=== PATIENT | female | born 1965 | race Caucasian/White ===

== ENCOUNTER 2018-10-27 10:09 | Day surgery (SDC) | payer MEDICAID, SELFPAY ==
--- NOTE | 2018-10-27 06:25 | W.COLOREPORT ---
Date of service: 10/27/18 Time of Service: 11:16 Colonoscopy Report Date of procedure: 10/27/18 Pre-op diagnosis general: Colon Cancer Screening Post-op diagnosis procedure note: other (polyps, Grade 1 internal hemorrhoids) Procedure: Colonoscopy by forceps and snare Surgeon: Shruthi Zuniga Anesthesia proc note operative: other (General/ ASA 2/ Tom Fonseca, CASE SUPERVISOR) Estimated blood loss (mL): 3 Pathology: other (sigmoid polyp, rectal polyp x2) Complications: None Disposition: same day Indications: Mrs. Valenzuela is a pleasant 53 year old female seen in the office for her first colonoscopy. Risks, benefits and complications have been reviewed. Complications include but are not limited to bleeding, pain, perforation, missed small lesion/polyp, sore throat, aspiration and adverse reaction to the medications. Questions were entertained and answered to their satisfaction and they wished to proceed. No guarantees were given or implied. Prep: Miralax/Dulcolax Procedure Start Time: 11:16 Procedure End Time: 11:57 Retraction Time: 42 minutes Findings: 3 polyps Procedure Description: After informed consent was obtained the patient was taken to the procedure room and placed in a left decubitous position. Monitors were applied and a time out was done. The patients name, date of , procedure, allergies to medications and metal in their body was reviewed. The patient was then sedated. Once sedated and comfortable a rectal exam was done. External exam was normal. Internal exam revealed a normal sphincter tone and no palpable masses. The scope was then introduced and retro-flexed. Grade 1 internal hemorrhoids were identified. The scope was then advanced to the cecum without difficulty. The TI and appendiceal orifice were identified. The prep was sub-optimal on the right. >1L of fluid was used to clean the price of the colon on the right in order to get a good view. The scope was then slowly retracted over 42 minutes back into the rectum. Polyps were removed with cold forceps in the sigmoid colon and with a snare in the rectum x2. The scope was removed and the patient was woken up and taken back to Same day surgery in stable condition. The patient tolerated the procedure well and there were no immediate complications. Follow up: The patient should follow up in 3-5 years unless they develop changes in bowel habits or other new gastrointestinal complaints.
--- NOTE | 2018-10-27 06:26 | W.PM.DSUDISC ---
Discharge Plan Disposition Patient Disposition: HOME Condition: Good Discharge Details Reason For Visit: Colonoscopy Attending Provider: Shruthi Zuniga Primary Care Provider: Nieves Granados Home Meds and New Rx's Prescriptions: Continued acetaminophen [Tylenol] 325 mg capsule 325 mg PO DAILY PRNRF: 0 Mirena 1 EACH intrauterine device RF: 0 Discontinued polyethylene glycol 3350 17 gram/dose powder 238 g PO ONCE Qty: 238 RF: 0 bisacodyl [Dulcolax (bisacodyl)] 5 mg tablet,delayed release (DR/EC) 5 mg PO ONCE Qty: 4 RF: 0 Discharge Instructions Instructions: Colonoscopy (DC), Colorectal Polyps (DC) Additional Instructions: Findings: 3 polyps Follow up: 3-5 years Please call if you develop: fevers >101.5 Nausea or Vomiting Abdominal pain that is not transient DAY SURGERY UNIT POST COLONOSCOPY INSTRUCTIONS 1. Because there will be medication in your system for the next 24 hours, you may feel a little sleepy. Your coordination will be affected. Therefore: a. Do not drive or operate dangerous equipment for 24 hours. b. Do not drink alcohol beverages for 24 hours (not even beer). c. Plan to go home and rest for the day. 2. Generally there are no restrictions on your activity after a day or so has gone by, but you may feel a bit fatigued for a few days. 3 After you arrive home you may have a light meal and return to a normal diet as you can tolerate it without feeling sick to your stomach. 4. After surgery, you may feel pain or discomfort. This should be only transient, but if it persists please contact your doctor. 5. If there are any questions regarding the findings of your procedure, please feel free to contact your doctor. 6. If you are unable to contact your doctor with a problem, contact the hospital at [phone]. 7. Continue all your regular medications unless directed otherwise. I understand the above instructions and have no questions. Signature of Patient or Responsible Adult Escort Date/Time Name of Responsible Adult Escort Signature of Nurse Date/Time Activity:: Activity as Tolerated Diet:: As Tolerated Discharge Orders Discharge Orders: Discharge Order (Routine); Ordered 10/27/18 Ordered By: Shruthi Zuniga DS: Diagnosis Discharge Diagnosis (1) S/P colonoscopy: Status: Acute (2) Colorectal polyps: Status: Acute
[2018-10-27 10:38] VITALS: BP 130/83; PULSE 96; RESP 18; TEMP 36.7; O2SAT 97
[2018-10-27] MEDS: Lactated Ringers 1,000 ML 80 ML IV (10:55)
--- NOTE | 2018-10-27 11:44 | BOWEL_PTH ---
PATIENT: Sydnie Valenzuela LOC: [facility] U#:[id number] AGE/SX: 53/F ROOM: RE10/27/[address]: Shruthi Zuniga MD : [id number] BED: DIS: 10/27/2018 SPEC #: [id number] RECD: 10/27/18 12:52 STATUS: GIA REQ #: [id number] GRECIA: 10/27/18 11:[address]: Shruthi Zuniga DEPT: Surgical Specimen RECD BY: Yumiko Gupta ENTERED: 10/27/18 12:53 SP TYPE: Bowel OTHR DR: Nieves Granados MD Tissues: 1 - BIOPSY BOWEL 2 - BIOPSY BOWEL Procedures: GROSS AND MICRO LEVEL 4 Comments: [id number]
[2018-10-27 12:30] VITALS: BP 134/91; PULSE 77; RESP 18; TEMP 37; O2SAT 94
== END 2018-10-27 13:24 | disposition home or self-care (01) ==
LOC: SUR 10:09
PROVIDERS: PCP Family Medicine; Visit Provider Surgery
PROC: 0DJD8ZZ Inspection of Lower Intestinal Tract, Via Natural or Artificial Opening Endoscopic (ICD-10-PCS; CPT 45378; principal; 2018-10-27 11:30)
DX: Z12.11 Encounter for screening for malignant neoplasm of colon (principal); K63.5 Polyp of colon; K62.1 Rectal polyp; K64.0 First degree hemorrhoids
CPT/HCPCS: 45385; 45380; 88305; J3010

== ENCOUNTER 2019-02-23 12:55 | Outpatient (CLI) | payer MEDICAID, SELFPAY ==
--- NOTE | 2019-02-23 12:15 | DI.US_ITS ---
SYMPTOM/DIAGNOSIS: LT LEG PAIN, M79.605, ? DVT DUPLEX VENOUS ULTRASOUND LEFT LOWER EXTREMITY: Duplex evaluation of the deep venous system was performed according to the usual protocol. The deep veins are freely compressible throughout to the level of the popliteal veins. There is normal doppler flow visible throughout and there is excellent flow augmentation with manual calf compression. CONCLUSION: No evidence of deep venous thrombosis.
== END 2019-02-23 13:15 ==
PROVIDERS: PCP Family Medicine; Visit Provider Nurse Practitioner
DX: M79.605 Pain in left leg (principal)
CPT/HCPCS: 93971

== ENCOUNTER 2019-03-17 22:29 | Inpatient (IN) | payer MEDICAID, SELFPAY ==
[2019-03-17 22:40] VITALS: BP 148/84; PULSE 77; RESP 18; TEMP 36.4; O2SAT 94
--- NOTE | 2019-03-17 22:55 | ED.GENADUL_ITS ---
Discharge Plan Disposition Condition: Improving Discharge Details Chief Complaint: Abd Prob Admit Date/Time: 03/18/19 01:47 Admit Provider: Joel Calles Attending Provider: Shun Rodriguez Primary Care Provider: Nieves Granados ED Provider: Lawson Metzger Discharge Instructions Activity:: Activity as Tolerated Equipment/Supplies:: No Equipment Needed Diet:: As Tolerated Discharge Orders Discharge Orders: Discharge Order (Routine); Ordered 03/20/19 Ordered By: India Gleason Discharge Data Discharge Date/Time-TO BE ENTERED AT DEPARTURE: 03/18/19 02:42 Medical Decision Making 23:53 --53-year-old female here with severe epigastric abdominal pain over the past 5 hours with associated nausea, tender to palpation focally in her epigastrum, without peritoneal findings. Patient is hemodynamically stable. She does appear uncomfortable. Of note patient has been taking heavy amounts of NSAIDs over the past couple weeks to treat left leg pain. Suspect gastritis secondary to NSAID use. Plan to treat with Pepcid IV as well as morphine IV. I will give IV fluid. Screening labs to assess for biliary disease and pancreatitis. Labs reviewed: Leukocytosis noted. Normal LFTs. Lipase slightly elevated beyond normal range. Plan to obtain CT of the abdomen pelvis to assess for acute surgical pathology. -- Labs reviewed. Mild elevation of lipase - possible pancreatitis. CT interpreted by radiology: FINDINGS: Lungs: The visualized portions of the lung bases demonstrate no acute disease. Liver: There is mild enlargement of the liver. There is a diffuse decrease in hepatic parenchymal density, consistent with fatty infiltration. Gallbladder and bile ducts: Patient status post cholecystectomy. No biliary ductal dilation. Pancreas: Normal. No ductal dilation. Spleen: Normal. No splenomegaly. Adrenals: Normal. No mass. Kidneys and ureters: Punctate right nephrolithiasis is appreciated. There is a 1 cm left renal cyst. Punctate nonobstructive left nephrolithiasis also appreciated. No evidence of obstructive uropathy. Stomach and bowel: There is a long segment of distal ileum which demonstrates mucosal hyperenhancement and significant wall thickening/target sign, favoring ileitis. This is causing upstream low-grade small bowel obstruction, as manifested by diffuse fluid distention of proximal small bowel loops extending up to the level of the jejunum. Small bowel loops measure up to 2.5 cm in greatest diameter. There is interloop fluid, as well as adjacent fat stranding to the inflamed distal ileal loops. Distal rectal air is present. The colon appears predominantly collapsed. Appendix: The appendix appears unremarkable. Intraperitoneal space: There is a small amount of mesenteric edema present. There is a small amount of free fluid in the cul-de-sac which is most likely reactive. Vasculature: The vasculature demonstrates diffuse mild atherosclerotic calcification. Lymph nodes: Unremarkable. No enlarged lymph nodes. Bladder: Unremarkable as visualized. Reproductive: IUD is present. Reproductive organs appear otherwise unremarkable. Bones/joints: No acute abnormality or aggressive osseous lesion. Soft tissues: Unremarkable. IMPRESSION: 1. Severe distal infectious/inflammatory ileitis causing upstream low-grade/early small bowel obstruction. No evidence of bowel perforation. 2. Other incidental findings as detailed above. I spoke with Dr. Calles. Patient admitted. Care transitioned to hospitalist service. Diagnosis: ileitis Dispo: admit to [facility] Mode of arrival: ambulatory . Date/Time Provider Initiated Documentation: 03/17/19 22:54 . Limitations to Documentation: no limitations . Information obtained by: patient . HPI Narrative: 53-year-old female with history of remote cholecystectomy, presents with chief complaint of abdominal pain. Patient notes epigastric abdominal pain that has persisted since onset about 5 hours ago. Now severe. No radiation. No modifiers. She has associated nausea and induced an episode of vomiting in hopes this would help her symptoms and it did not. Patient denies hematemesis. No melena or hematochezia. Prior to onset of pain, patient was asymptomatic today. No associated fever. Normal bowel movements recently. Patient does note that she has been taking ibuprofen, high-dose regularly over the past 2 weeks to treat left leg pain. At one point she was also taking Aleve simultaneously. Related Data Home Medications Medication Instructions Recorded Confirmed Mirena 03/29/15 04/01/19 acetaminophen [Mapap Extra 1,000 mg PO Q6H PRN PRN #0 tab 03/20/19 04/01/19 Strength] tramadol 50 mg PO Q4H PRN PRN #12 tab 03/20/19 04/01/19 Previous Rx's Medication Instructions Recorded acetaminophen [Mapap Extra 1,000 mg PO Q6H PRN PRN #0 tab 03/20/19 Strength] tramadol 50 mg PO Q4H PRN PRN #12 tab 03/20/19 Allergies Allergy/AdvReac Type Severity Reaction Status Date / Time No Known Allergies Allergy Verified 04/03/19 08:56 General Stated Complaint: Abd Prob ANIVAL: 3 Review of Systems Review of Systems ROS Unobtainable: All systems reviewed & are unremarkable except as noted in HPI and below Constitutional Constitutional: Denies fever(s) Gastrointestinal Gastrointestinal: Reports as per HPI, Reports abdominal pain, Reports nausea and Reports vomiting Musculoskeletal Comments: left leg pain PFSH Medical History Acute cholecystitis (Resolved 01/13/13) Cholelithiasis without obstruction (Resolved 01/13/13) Laparoscopic cholecystectomy by Dr. Osullivan on 01-13-2013. Colorectal polyps (Acute ~10/27/18) Kidney stone Kidney stone (Acute) Obesity Obesity (Chronic) Tobacco abuse Surgical History section C section X3 with her last having a wound dehiscence down to evisceration of loops of bowel. Cholecystectomy PER PATIENT 08/30/16 S/P colonoscopy (Acute ~10/27/18) Family History Mother , AGE 64 Diabetes Heart disease Stroke Hypertension Father , AGE 57 Alcohol abuse BEER Liver cancer Bone cancer Sister Hyperlipidemia Sister Diabetes Hyperlipidemia Hypertension Sister , AGE 38 Hepatitis C Substance abuse Alcohol abuse Sister No problems noted. Sister Alcohol abuse Diabetes Hypertension Brother Diabetes Maternal Grandfather Heart disease Stroke Paternal Grandfather Smoker Mouth cancer Maternal Grandmother Hypertension Paternal Grandmother , OLD AGE No problems noted. Son No problems noted. Son No problems noted. Daughter No problems noted. Social History Smoking/Tobacco Use Status: Current every day Tobacco Type: cigarettes Quit status: has quit before Second Hand Exposure: Yes Alcohol Intake: current Alcohol Intake frequency: a few times a month Alcohol type: hard liquor Drug use: Daily Substance use type: marijuana Details: 1/2 pack/day smoker. Alcohol: t-2: two drinks. Marijuana: edibles, T- 1, one piece of caramel Caregiver/Support person: No Household members: children Housing: house current occupation: [employer] Pets and animals: Yes Pets and animals: cat(s) Sexually active: No Do you think of yourself as: straight/heterosexual Current gender identity: female What is your relationship status?: How often do you talk on the phone with friends or family?: three or more times per week How often do you get together with friends or relatives?: three or more times per week How often do you attend mandaeism or judaism services?: decline to answer Do you belong to any clubs or organized social groups?: yes Panel score (0-1 are the most socially isolated patients): 2 What type of physical activity do you participate in: none Frequency: does not exercise Daphney/Pentecostalism: Pentecostalism Special daphney needs: No Seatbelt use: always Drive intox or ride w/intox mobile lounge driver: No Do you feel safe at home: Yes Do you feel safe in your relationship?: Yes History History Para 3 Hx # Term Pregnancies Multiple births Hx # Pregnancies Ectopic pregnancies AB induced Hx Number of Living Children AB spontaneous Exam Const General: cooperative and uncomfortable Nutritional Appearance: average body habitus Orientation: alert HENMT Mouth: moist mucous membranes Eyes Conjunctivae: normal conjunctivae Sclera: normal sclerae Neck Neck: trachea midline and supple Resp Auscultation: clear to auscultation bilaterally, no rales, no rhonchi and no wheezes Cardio Jugular venous pressure: no JVD Rate: regular rate and not tachycardic Rhythm: regular rhythm GI Palpation: soft, not firm, no guarding, no masses, not rigid and tender in the epigastrum; with no rebound tenderness Skin General skin exam: no rashes or lesions noted Neuro General: alert, awake and tone normal Extrem General: no edema Psych Appearance: grossly normal Mental Status: mental status grossly normal Speech and Movement: speech and movement normal Course Vital Signs Vital signs: Vital Signs Temperature 36.4 C 03/17/19 22:40 Pulse 77 03/17/19 22:40 Respiratory Rate 18 03/17/19 22:40 Blood Pressure 148/84 H 03/17/19 22:40 Pulse Oximetry 94 L 03/17/19 22:40 Temperature 36.4 C 03/17/19 22:40 Temperature Source Tympanic 03/17/19 22:40 Pulse 77 03/17/19 22:40 Respiratory Rate 18 03/17/19 22:40 Blood Pressure 148/84 H 03/17/19 22:40 Pulse Oximetry 94 L 03/17/19 22:40 Oxygen Delivery Method Room Air 03/17/19 22:40 Oxygen Flow Rate 0 03/17/19 22:40 Pain Level 10 03/17/19 22:40
[2019-03-17 23:06] LABS: Abs Immature Grans 0.03 k/cumm (0.0-0.09); Absolute Basophil Count 0.06 k/cumm (0.0-0.2); Absolute Lymphocyte Count 3.25 k/cumm (1.2-3.4); Absolute Monocyte Count 0.81 k/cumm (0.11-0.7); Basophils % 0.3; Eosinophils % 1.1; HCT 45.9 % (36.0-46.0); HGB 15.4 g/dL (12.0-15.5); Immature Grans % 0.2; Lymphocytes % 17.6; Mean Corp. HGB Concentration 33.6 g/dL (32.0-36.0); Mean Corpuscular Hemoglobin 29.3 pg (27.0-33.0); Mean Corpuscular Volume 87.3 fL (80-95); Mean Platelet Volume 9.2 fL (8.0-11.0); Monocytes % 4.4; Neutrophils % 76.4; Platelet Count 284 x1000/uL (130-400); RBC 5.26 m/cumm (4.00-5.20); RBC Distribution Width 12.5 % (11.7-14.6); White Blood Cell Count 18.46 k/cumm (4.4-10.8)
--- NOTE | 2019-03-17 23:06 | DI.CT_ITS ---
EXAM: CT ABDOMEN PELVIS W CLINICAL HISTORY: abdominal pain. TECHNIQUE: Imaging Protocol: Axial computed tomography images with coronal and sagittal reformatted images were created and reviewed CONTRAST MATERIAL: Intravenous: Omnipaque 350 Contrast volume:100 mL contrast route:IV - Oral: No COMPARISON: No exams were available for comparison FINDINGS: ABDOMEN: Lung Bases: Normal where visualized. Liver: Normal density. The portal, superior mesenteric, and splenic veins are patent. No mass. Gallbladder and biliary tract: The patient is status post cholecystectomy. No biliary ductal dilatat ion. Pancreas: Normal density, no abnormal calcifications or inflammatory process. Spleen: Normal. Kidneys: Normal size, contour and axis. There is bilateral nonobstructive nephrolithiasis. There are hypodensities seen in the kidneys bilaterally. Several are too small for further characterization bu t likely reflect cysts. No suspicious solid mass is seen. Adrenal glands: No masses seen. Abdominal Aorta: Abdominal portion non-dilated. PELVIS: Bladder: Symmetric distention, no gross wall thickening. Bowel: There is bowel wall enhancement and thickening in the distal ileum. There is stranding in the surrounding soft tissues. The small bowel proximally shows dilatation and is fluid-filled. This is suspicious for obstruction. Colon is of normal caliber. A normal appendix present. Peritoneal cavity: There is a small amount of free fluid in the pelvis. This is likely reactive. No pneumoperitoneum is present. Bones: Mild degenerative changes are seen in the spine. Reproductive organs: There is an intrauterine device in good position. The reproductive organs are o therwise unremarkable. Lymph nodes: Unremarkable. Impression: Bowel wall thickening and enhancement of the distal ileum consistent with inflammatory/infectious ile itis. Proximal small bowel dilatation suggesting obstruction. Pneumoperitoneum. DATA REPOSITORY: All CT scans at this facility are submitted to the National Radiology Data Registry (NRDR) Dose Index Registry (DIR) with the [employer] (A[employer]). RADIATION OPTIMIZATION: All CT scans at this facility use at least one of these dose optimization te chniques: automated exposure control; mA and/or kV adjustment per patient size (includes targeted exa ms where dose is matched to clinical indication); or iterative reconstruction.
[2019-03-17] MEDS: Ondansetron 4 MG/2 ML VIAL (23:25)
[2019-03-17] MEDS: Lactated Ringers 1,000 ML 1000 ML IV (23:25)
[2019-03-17] MEDS: FAMOTIDINE 20 MG/50 ML BAG 100 MG IVPB (23:25)
[2019-03-17] MEDS: metroNIDAZOLE 500 MG/100 ML BAG 100 MG IVPB (23:25)
[2019-03-17 23:26] LABS: ALT 41 U/L (14-59); AST 24 U/L (15-37); Albumin 4.2 g/dL (3.4-5.0); Alkaline Phosphatase 132 U/L (46-116); Anion Gap 9.8 mmol/L (3-11); BUN 12 mg/dL (7-18); Bilirubin, Total 0.5 mg/dL (0.2-1.0); CO2 25.2 mmol/L (21.0-32.0); CREATININE 0.81 mg/dL (0.55-1.02); Calcium 9.5 mg/dL (8.5-10.1); Chloride 103 mmol/L (98-107); Glucose 138 mg/dL (70-100); Magnesium 1.9 mg/dL (1.8-2.4); Potassium 3.9 mmol/L (3.5-5.1); Sodium 138 mmol/L (136-145); Total Protein 7.8 g/dL (6.4-8.2)
[2019-03-17 23:31] LABS: Troponin I < 0.05 ng/mL (0.00-0.06)
[2019-03-17 23:42] LABS: Lipase 422 U/L (73-393)
[2019-03-17] MEDS: Omnipaque 350 MG/ML 100 ML BTL IJ (23:45)
--- NOTE | 2019-03-18 00:38 | DI.VRAD_ITS ---
Addendum created by Eliseo Lovell MD on 03/18/2019 12:40:56 AM EDT THIS REPORT CONTAINS FINDINGS THAT MAY BE CRITICAL TO PATIENT CARE. The findings were verbally communicated via telephone conference with REED ZALDIVAR at 12:40 AM EDT on 03/18/2019. The findings were acknowledged and understood. Initial report created on 03/18/2019 12:37:11 AM EDT PROCEDURE INFORMATION: Exam: CT Abdomen and pelvis with contrast Exam date and time: 03/17/2019 11:08 PM Clinical history: 53 years old, female; Other: Abdominal pain; Prior surgery; Surgery date: 6+ months; Surgery type: Gallbladder removed TECHNIQUE: Imaging protocol: Computed tomography of the abdomen and pelvis with intravenous contrast. Radiation optimization: All CT scans at this facility use at least one of these dose optimization techniques: automated exposure control; mA and/or kV adjustment per patient size (includes targeted exams where dose is matched to clinical indication); or iterative reconstruction. Contrast material: OMNIPAQUE 350; Contrast volume: 100 ml; Contrast route: IV; COMPARISON: No relevant prior studies available. FINDINGS: Lungs: The visualized portions of the lung bases demonstrate no acute disease. Liver: There is mild enlargement of the liver. There is a diffuse decrease in hepatic parenchymal density, consistent with fatty infiltration. Gallbladder and bile ducts: Patient status post cholecystectomy. No biliary ductal dilation. Pancreas: Normal. No ductal dilation. Spleen: Normal. No splenomegaly. Adrenals: Normal. No mass. Kidneys and ureters: Punctate right nephrolithiasis is appreciated. There is a 1 cm left renal cyst. Punctate nonobstructive left nephrolithiasis also appreciated. No evidence of obstructive uropathy. Stomach and bowel: There is a long segment of distal ileum which demonstrates mucosal hyperenhancement and significant wall thickening/target sign, favoring ileitis. This is causing upstream low-grade small bowel obstruction, as manifested by diffuse fluid distention of proximal small bowel loops extending up to the level of the jejunum. Small bowel loops measure up to 2.5 cm in greatest diameter. There is interloop fluid, as well as adjacent fat stranding to the inflamed distal ileal loops. Distal rectal air is present. The colon appears predominantly collapsed. Appendix: The appendix appears unremarkable. Intraperitoneal space: There is a small amount of mesenteric edema present. There is a small amount of free fluid in the cul-de-sac which is most likely reactive. Vasculature: The vasculature demonstrates diffuse mild atherosclerotic calcification. Lymph nodes: Unremarkable. No enlarged lymph nodes. Bladder: Unremarkable as visualized. Reproductive: IUD is present. Reproductive organs appear otherwise unremarkable. Bones/joints: No acute abnormality or aggressive osseous lesion. Soft tissues: Unremarkable. IMPRESSION: 1. Severe distal infectious/inflammatory ileitis causing upstream low-grade/early small bowel obstruction. No evidence of bowel perforation. 2. Other incidental findings as detailed above. Dictated and Authenticated by: Eliseo Lovell MD. Ordering:IRAIDA Pathak MD
--- NOTE | 2019-03-18 01:30 | W.PM.HP.N ---
Date of service: 03/18/19 Time of Service: :30 Assessment and Plan Assessment and plan (1) Abdominal pain: Status: Acute Assessment and plan: Abdominal pain. By imaging appears to be acute ileitis, in turn causing partil SBO. The ileitis at this point is non-specific but NSAID-induced would have to be considered. Remainder of differenttial would includd mainly infectious versus inflammatory. For now I would institute program of bowel rest, pain meds and avoidance of NSAIDs. If does not resolve would likely need colonoscopy and stool studies. The slight elevation in Lipase is noted and along with the primary epigastric location of the pain suggests possible element of pancreatitis, though I think the overwhelming evidence is that this is fundamentally an ileocolitis. Will track numbers. History of Present Illness History of Present Illness Chief Complaint: abdominal pain Narrative: 53 female here with one day of fairly abrupt abdominal pain, epigastric and periumbilical. No radiation. Some nausea and vomiting, non-bloody. Last BM this AM, more or less normal for her, perhaps a little firmer than usual. In ER findings of note forr leukocytosis, slight elevation Lipase (422) and CT showing long segment of distal ileitis with partial SBO. Patient given MS 4 mg and 500 mg Flagyl. Patient reports heavy Motrin use oveer past several weeks, 2400 mg/day (for sciatica). No prio such episodes pain, no travel o diarrhea. Reports negative screening colonoscopy 11/02 though I am unable to find the report of procedure. Review of Systems Review of Systems ROS Unobtainable: All systems reviewed & are unremarkable except as noted in HPI and below PFSH Medical History Acute cholecystitis (Resolved 01/13/13) Cholelithiasis without obstruction (Resolved 01/13/13) Laparoscopic cholecystectomy by Dr. Osullivan on 01-13-2013. Colorectal polyps (Acute ~10/27/18) Kidney stone Kidney stone (Acute) Obesity Obesity (Chronic) Tobacco abuse Surgical History section C section X3 with her last having a wound dehiscence down to evisceration of loops of bowel. Cholecystectomy PER PATIENT 08/30/16 S/P colonoscopy (Acute ~10/27/18) Family History Mother , AGE 64 Diabetes Heart disease Stroke Hypertension Father , AGE 57 Alcohol abuse BEER Liver cancer Bone cancer Sister Hyperlipidemia Sister Diabetes Hyperlipidemia Hypertension Sister , AGE 38 Hepatitis C Substance abuse Alcohol abuse Sister No problems noted. Sister Alcohol abuse Diabetes Hypertension Brother Diabetes Maternal Grandfather Heart disease Stroke Paternal Grandfather Smoker Mouth cancer Maternal Grandmother Hypertension Paternal Grandmother , OLD AGE No problems noted. Son No problems noted. Son No problems noted. Daughter No problems noted. Social History Smoking/Tobacco Use Status: Current every day Tobacco Type: cigarettes Quit status: has quit before Second Hand Exposure: Yes Alcohol Intake: current Alcohol Intake frequency: a few times a month Alcohol type: hard liquor Drug use: Daily Substance use type: marijuana Details: 1/2 pack/day smoker. Alcohol: t-2: two drinks. Marijuana: edibles, T-1, one piece of caramel Caregiver/Support person: No Household members: children Housing: house current occupation: [employer] Pets and animals: Yes Pets and animals: cat(s) Sexually active: No Do you think of yourself as: straight/heterosexual Current gender identity: female What is your relationship status?: How often do you talk on the phone with friends or family?: three or more times per week How often do you get together with friends or relatives?: three or more times per week How often do you attend yarsanism or catholic services?: decline to answer Do you belong to any clubs or organized social groups?: yes Panel score (0-1 are the most socially isolated patients): 2 What type of physical activity do you participate in: none Frequency: does not exercise Daphney/Jewish: Oriental Orthodox Special daphney needs: No Seatbelt use: always Drive intox or ride w/intox transport truck driver: No Do you feel safe at home: Yes Do you feel safe in your relationship?: Yes History History Para 3 Hx # Term Pregnancies Multiple births Hx # Pregnancies Ectopic pregnancies AB induced Hx Number of Living Children AB spontaneous Meds Home Medications and Allergies Home Medications Medication Instructions Recorded Confirmed Type Mirena 03/29/15 03/12/19 History acetaminophen 325 mg capsule 325 mg PO DAILY PRN cap 10/17/18 03/12/19 History Allergies Allergy/AdvReac Type Severity Reaction Status Date / Time No Known Allergies Allergy Verified 03/17/19 22:43 Exam Narrative Exam Narrative: 148/84, 77, 36.4, 18. HEENT anicteric; neck supple; lungs clear; heart RRR; abdomen +BS, soft, moderate tenderness epigastrum. Rectal deferred; extr no edema; neuro non-focal Results Labs Result diagrams: 03/17/19 23:00 03/17/19 23:00 Labs: Laboratory Results - last 24 hr 03/17/19 03/17/19 03/17/19 23:00 23:00 23:20 WBC 18.46 H RBC 5.26 H Hgb 15.4 Hct 45.9 MCV 87.3 MCH 29.3 MCHC 33.6 RDW 12.5 Plt Count 284 MPV 9.2 Immature Gran % 0.2 Neutrophils % 76.4 Lymphocytes % 17.6 Monocytes % 4.4 Eosinophils % 1.1 Basophils % 0.3 Absolute Neutrophils 14.10 H Absolute Lymphocytes 3.25 Absolute Monocytes 0.81 H Absolute Eosinophils 0.20 Absolute Basophils 0.06 Sodium 138 Potassium 3.9 Chloride 103 Carbon Dioxide 25.2 Anion Gap 9.8 BUN 12 Creatinine 0.81 Estimated GFR/1.73 m2 >= 60.00 Glucose 138 H Calcium 9.5 Magnesium 1.9 Total Bilirubin 0.5 AST 24 ALT 41 Alkaline Phosphatase 132 H Troponin I < 0.05 Total Protein 7.8 Albumin 4.2 Lipase 422 H Last Vital Signs Temp 36.4 C 03/17/19 22:40 Pulse 77 03/17/19 22:40 Resp 18 03/17/19 22:40 BP 148/84 H 03/17/19 22:40 Pulse Ox 94 L 03/17/19 22:40
[2019-03-18 02:40] VITALS: BP 148/84; PULSE 77; RESP 18; O2SAT 94
[2019-03-18 02:53] VITALS: BP 108/63; PULSE 74; RESP 16; TEMP 36.5; O2SAT 93
[2019-03-18] MEDS: Lactated Ringers 1,000 ML 150 ML IV ×3 (03:29→18:22)
[2019-03-18] MEDS: Normal Saline Flush 10 ML SYR IVP ×2 (06:31→09:54)
[2019-03-18 07:43] LABS: Anion Gap 10.2 mmol/L (3-11); CO2 25.8 mmol/L (21.0-32.0); Chloride 104 mmol/L (98-107); Lipase 232 U/L (73-393); Potassium 4.1 mmol/L (3.5-5.1); Sodium 140 mmol/L (136-145)
[2019-03-18] MEDS: Pantoprazole 40 MG VIAL IVP (09:54)
[2019-03-18 10:01] VITALS: BP 97/66; PULSE 85; RESP 16; TEMP 36.6; O2SAT 95
--- NOTE | 2019-03-18 10:58 | PHARADMIT ---
Addendum entered by Erika Meneses 03/19/19 14:25: Pharmacy Note Subjective BM this morning, abdominal pain improving overall per progress note Objective VS-okay Cl-108 WBC-7.51(down) Assessment acetaminophen changed from IV to PO morphine dose decreased and tramadol ordered PRN for pain Plan advance diet, possible discharge tomorrow if pt continues to improve Original Note: Admission Pharmacy Clinical Review ileocolitis Code Status Full Code Current Weight 97.069 kg Renally Cleared and Narrow Therapeutic Index Meds Crcl ~70.10 mL/min current meds okay QTc Value / Action Taken QTc 419 BP Control, Fever BP 97/66 afebrile Electrolytes reviewed within normal limits DVT Prophylaxis none Opiate Usage / Scheduled Bowel Regimen Ordered prn/none Plt/SCr for Heparin / Enoxaparin plt 248 SCr 0.81 INR for Warfarin n/a H/H stable, WBC/Bands h/h 15.4/45.69 WBC 18.64 Antibiotic appropriateness none Cultures and Sensitivities none Surgical ABX d/c within 24 hr n/a DM control / Insulin Dosing BG 138 none Heart Failure (Check EF%) (KATHY's, B-Block, Diuretics) none IV to PO Switch n/a Home Meds Reviewed yes Home Meds Not Ordered acetaminophen Comments -some lab results are from yesterday as todays results are still pending -bowel rest, pain meds, avoid NSAIDS (? of this being NSAID induced)
[2019-03-18 11:37] LABS: Abs Immature Grans 0.02 k/cumm (0.0-0.09); Absolute Eosinophil Count 0.21 k/cumm (0.0-0.7); Absolute Lymphocyte Count 4.09 k/cumm (1.2-3.4); Absolute Monocyte Count 0.63 k/cumm (0.11-0.7); Basophils % 0.4; Eosinophils % 1.9; HCT 39.5 % (36.0-46.0); Immature Grans % 0.2; Lymphocytes % 36.3; Mean Corp. HGB Concentration 32.9 g/dL (32.0-36.0); Mean Corpuscular Hemoglobin 29.4 pg (27.0-33.0); Mean Corpuscular Volume 89.4 fL (80-95); Mean Platelet Volume 9.3 fL (8.0-11.0); Monocytes % 5.6; Neutrophils % 55.6; Platelet Count 280 x1000/uL (130-400); RBC 4.42 m/cumm (4.00-5.20); RBC Distribution Width 12.4 % (11.7-14.6); White Blood Cell Count 11.27 k/cumm (4.4-10.8)
[2019-03-18 11:40] LABS: Anion Gap 5.8 mmol/L (3-11); BUN 10 mg/dL (7-18); CO2 29.2 mmol/L (21.0-32.0); CREATININE 0.75 mg/dL (0.55-1.02); Calcium 8.4 mg/dL (8.5-10.1); Chloride 106 mmol/L (98-107); Glucose 90 mg/dL (70-100); Magnesium 1.8 mg/dL (1.8-2.4); Sodium 141 mmol/L (136-145)
[2019-03-18 11:46] LABS: Absolute Basophil Count 0.05 k/cumm (0.0-0.2); Absolute Neutrophil Count 6.27 k/cumm (1.2-6.7)
[2019-03-18] MEDS: ACETAMINOPHEN 1,000 MG/100 ML BTL 400 MG IVPB (14:42)
--- NOTE | 2019-03-18 15:25 | INITIAL_ITS ---
- If Service Date Differs Date of service: 03/18/19 Time of Service: 15:25 Care Management Initial Assess REASON FOR HOSPITALIZATION:: Ileocolitis PAST MEDICAL HISTORY/PAST SURGICAL HISTORY:: Medical History. Acute cholecystitis (Resolved 01/13/13). Cholelithiasis without obstruction (Resolved 01/13/13). Laparoscopic cholecystectomy by Dr. Osullivan on 01-13-2013. Colorectal polyps (Acute ~10/27/18). Kidney stone. Kidney stone (Acute). Obesity. Obesi ty (Chronic). Tobacco abuse. Surgical History. section. C section X3 with her last having a wound dehiscence down to evisceration. of loops of bowel. Cholecystectomy. PER PATIENT 08/30/16. S/P colonoscopy (Acute ~10/27/18) PREVIOUS FUNCTIONAL STATUS/SOCIAL/FAMILY SUPPORTS:: Sydnie, who goes by Darrion, lives in [place]. 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 She is very independent at baseline, with no services or equipment. CURRENT FUNCTIONAL STATUS:: Darrion was lying in bed when SHELLY met with her. Her two daughters were in the room with her, as well as her best friend. She stated that she has a lot of support in the community from family and friends. She asked SHELLY for some water or ice cubes, which CM was unable to provide as she is NPO. She reported that she is waiting to find out what is wrong with her and then she plans to go home with no additional services. She asked CM to sign her up for the portal, which SHELLY initiated with her email address. SHELLY will continue to follow. ADVANCE DIRECTIVES:: None on file. Has patient been provided with information about the portal?: Yes Did the patient sign up for the portal?: Yes (CM initiated) CODE STATUS:: Full Code INSURANCE COVERAGE / FINANCIAL ISSUES:: PAUL CURRENT HOME/COMMUNITY SERVICES/EQUIPMENT:: None identified at this time. PRIMARY CARE PHYSICIAN:: Nieves Granados POTENTIAL DISCHARGE NEEDS:: Evaluations for further needs, follow up appointments. PATIENT/FAMILY EDUCATION NEEDS:: Review of community based supports, discharge plan, discussion of self care needs including Ask Me Three ANTICIPATED BARRIERS TO DISCHARGE:: None identified at this time. TRANSPORTATION:: Darrion reports that a friend or family member will bring her home via private vehicle. PLAN:: Anticipate Darrion will return home with no additional services at this time. She will transport home via private vehicle driven by a friend or family member. Follow up appointments, as recommended by provider. CM will follow.
--- NOTE | 2019-03-18 16:27 | CHAPLAIN ---
Sydnie was resting in bed with the lights off, curtains and door closed. She said she was trying to rest and waiting to pass gas so she can then eat and drink and see if she can go home. She is listed as a member of the [employer], but said she has not attended there in many years. She has tried other churches and but not connected to one currently. She was looking to return to napping and so I left.
[2019-03-18 20:43] VITALS: BP 114/76; PULSE 65; RESP 18; TEMP 36.8; O2SAT 97
[2019-03-19] MEDS: Lactated Ringers 1,000 ML 150 ML IV ×2 (00:29→06:41)
[2019-03-19 07:14] LABS: Abs Immature Grans 0.02 k/cumm (0.0-0.09); Absolute Basophil Count 0.02 k/cumm (0.0-0.2); Absolute Eosinophil Count 0.24 k/cumm (0.0-0.7); Absolute Lymphocyte Count 2.85 k/cumm (1.2-3.4); Absolute Monocyte Count 0.47 k/cumm (0.11-0.7); Absolute Neutrophil Count 3.91 k/cumm (1.2-6.7); Basophils % 0.3; Eosinophils % 3.2; HCT 39.2 % (36.0-46.0); HGB 12.8 g/dL (12.0-15.5); Immature Grans % 0.3; Lymphocytes % 37.9; Mean Corp. HGB Concentration 32.7 g/dL (32.0-36.0); Mean Corpuscular Hemoglobin 29.3 pg (27.0-33.0); Mean Corpuscular Volume 89.7 fL (80-95); Mean Platelet Volume 9.4 fL (8.0-11.0); Monocytes % 6.3; Platelet Count 267 x1000/uL (130-400); RBC 4.37 m/cumm (4.00-5.20); RBC Distribution Width 12.3 % (11.7-14.6); White Blood Cell Count 7.51 k/cumm (4.4-10.8)
[2019-03-19 07:25] VITALS: BP 123/77; PULSE 69; RESP 18; TEMP 36.3; O2SAT 98
[2019-03-19 07:36] LABS: Anion Gap 8.6 mmol/L (3-11); BUN 9 mg/dL (7-18); CO2 26.4 mmol/L (21.0-32.0); CREATININE 0.65 mg/dL (0.55-1.02); Calcium 8.3 mg/dL (8.5-10.1); Chloride 108 mmol/L (98-107); Glucose 89 mg/dL (70-100); Potassium 3.8 mmol/L (3.5-5.1); Sodium 143 mmol/L (136-145)
[2019-03-19] MEDS: Pantoprazole 40 MG VIAL IVP (08:19)
[2019-03-19] MEDS: Potassium Chloride 20 MEQ TABCR PO (08:42)
[2019-03-19] MEDS: ACETAMINOPHEN 1,000 MG/100 ML BTL 400 MG IVPB (11:24)
[2019-03-19] MEDS: traMADol 50 MG TAB PO ×2 (13:24→20:58)
--- NOTE | 2019-03-19 14:05 | W.PM.PROGNOT ---
Date of Service Date of service: 03/19/19 Time of Service: 14:05 Assessment and Plan Assessment and plan (1) Abdominal pain: Status: Acute Assessment and plan: With CT findings showing Bowel wall thickening and enhancement of the distal ileum consistent with inflammatory/infectious ileitis. Proximal small bowel dilatation suggesting obstruction. Her abdominal pain is improving overall, she is passing stool. She had increased abdominal pain after taking in a small amount of soft food. Encourage ambulation. Tramadol for moderate pain. Morphine for severe pain. Discontinue IV fluids as long as she can take enough PO fluids. She will need outpatient follow up with general surgery for evaluation of iflammatory/infectious changes, small bowel obstruction. (2) DVT prophylaxis: Status: Acute Assessment and plan: Ambulating frequently in the halls. SCDs for mechanical prophylaxis. (3) Discharge planning issues: Status: Acute Assessment and plan: She is a full code. Monitor overnight. If she continues to improve, likely for discharge tomorrow. This case was discussed with Dr. Rodriguez who was in agreement. Subjective Subjective Interval history since last seen: Ms Valenzuela reported feeling better this morning. She had a large bowel movement last night and has had some loose stools today. She ate a small amount of soft food and had increased abdominal pain. She has been out of bed, ambulating frequently in the halls. Her leukocytosis has resolved. She denies a headache, dizziness, shortness of breath, coughing, wheezing, chest pain/pressure, palpitations. She denies nausea or vomiting. Her abdominal pain is primarily in the epigastric region, the pain is cramping, she reports that the pain is tolerable but she is concerned that it is increasing. Exam Narrative Exam Narrative: General: alert and oriented, pleasant and cooperative, overweight female, in NAD. Talkative, answers questions appropriately. HEENT: normocephalic, atraumatic, pupils equal and round, EOMI, mucous membranes moist. Neck: supple, no JVD. Cardiovascular: heart has regular rate and rhythm, nontacycardic, no murmur appreciated. Respiratory: respirations even and unlabored. Lung sounds clear bilaterally. GI: hypoactive bowel sounds, non-distended, soft, tenderness on palpation of epigastric region. Extremities: well perfused, no clubbing, cyanosis or edema. Objective Objective Clinical Data: Abnormal lab results 03/19/19 Range/Units 06:47 Chloride 108 H (98-107) mmol/L Calcium 8.3 L (8.5-10.1) mg/dL Vital Signs Temperature 36.3 C L 03/19/19 07:25 Temperature Source Tympanic 03/19/19 07:25 Pulse 69 03/19/19 07:25 Pulse Rhythm Regular 03/19/19 09:00 Respiratory Rate 18 03/19/19 07:25 Respiratory Effort 03/19/19 09:00 Respiratory Depth Normal 03/19/19 09:00 Respiratory Pattern Normal 03/19/19 09:00 Blood Pressure 123/77 03/19/19 07:25 Pulse Oximetry 98 03/19/19 07:25 Oxygen Delivery Method Room Air 03/19/19 07:25 Oxygen Flow Rate 0 03/19/19 07:25 Pain Level 5 03/19/19 13:24 Comment 03/19/19 07:25 Intake & Output 03/18/19 03/19/19 03/19/19 23:59 11:59 23:59 Intake Total 999 / 3095 1947.5 / 1946.5 Balance 1000 / 3095 7.5 / 1946.5 Intake: IV 999 / 3095 7.5 / 1946.5 Other: Comment pt voiding independently. reports no problems. Stool Size Large Stool Characteristics Formed Brown Voiding Methods Toilet Laboratory Results WBC 7.51 k/cumm (4.4-10.8) D 03/19/19 06:47 RBC 4.37 m/cumm (4.00-5.20) 03/19/19 06:47 Hgb 12.8 g/dL (12.0-15.5) 03/19/19 06:47 Hct 39.2 % (36.0-46.0) 03/19/19 06:47 MCV 89.7 fL (80-95) 03/19/19 06:47 MCH 29.3 pg (27.0-33.0) 03/19/19 06:47 MCHC 32.7 g/dL (32.0-36.0) 03/19/19 06:47 RDW 12.3 % (11.7-14.6) 03/19/19 06:47 Plt Count 267 x1000/uL (130-400) 03/19/19 06:47 MPV 9.4 fL (8.0-11.0) 03/19/19 06:47 Immature Gran % 0.3 03/19/19 06:47 Neutrophils % 52.0 03/19/19 06:47 Lymphocytes % 37.9 03/19/19 06:47 Monocytes % 6.3 03/19/19 06:47 Eosinophils % 3.2 03/19/19 06:47 Basophils % 0.3 03/19/19 06:47 Absolute Neutrophils 3.91 k/cumm (1.2-6.7) 03/19/19 06:47 Absolute Lymphocytes 2.85 k/cumm (1.2-3.4) 03/19/19 06:47 Absolute Monocytes 0.47 k/cumm (0.11-0.7) 03/19/19 06:47 Absolute Eosinophils 0.24 k/cumm (0.0-0.7) 03/19/19 06:47 Absolute Basophils 0.02 k/cumm (0.0-0.2) 03/19/19 06:47 Sodium 143 mmol/L (136-145) 03/19/19 06:47 Potassium 3.8 mmol/L (3.5-5.1) 03/19/19 06:47 Chloride 108 mmol/L (98-107) H 03/19/19 06:47 Carbon Dioxide 26.4 mmol/L (21.0-32.0) 03/19/19 06:47 Anion Gap 8.6 mmol/L (3-11) 03/19/19 06:47 BUN 9 mg/dL (7-18) 03/19/19 06:47 Creatinine 0.65 mg/dL (0.55-1.02) 03/19/19 06:47 Estimated GFR/1.73 m2 >= 60.00 (mL/min/1.73m2) 03/19/19 06:47 Glucose 89 mg/dL (70-100) 03/19/19 06:47 Calcium 8.3 mg/dL (8.5-10.1) L 03/19/19 06:47 Magnesium 2.0 mg/dL (1.8-2.4) 03/19/19 06:47 Total Bilirubin 0.5 mg/dL (0.2-1.0) 03/17/19 23:00 AST 24 U/L (15-37) 03/17/19 23:00 ALT 41 U/L (14-59) 03/17/19 23:00 Alkaline Phosphatase 132 U/L (46-116) H 03/17/19 23:00 Troponin I < 0.05 ng/mL (0.00-0.06) 03/17/19 23:00 Total Protein 7.8 g/dL (6.4-8.2) 03/17/19 23:00 Albumin 4.2 g/dL (3.4-5.0) 03/17/19 23:00 Lipase 232 U/L (73-393) 03/18/19 06:40
[2019-03-19 14:24] VITALS: RESP 16
[2019-03-19 15:52] VITALS: BP 148/87; PULSE 59; RESP 18; TEMP 37; O2SAT 97
--- NOTE | 2019-03-19 16:02 | PDOC.CMPRO ---
- If Service Date Differs Date of service: 03/19/19 Time of Service: 16:02 Care Management Progress Note S/O: Darrion was standing up in her room when CM met with her. She stated that she was feeling better today and hoping to go home. She reported that her diet was advanced to soft food and as long as she tolerates it she can be discharged. CM checked in later and found that she had increased abdominal pain after eating. Per provider, she will remain inpatient to monitor overnight. CM will continue to follow. A: Sydnie is a 53 year old female admitted to [facility] on 03/18/2019 with Ileocolitis. P: Anticipate Darrion will return home with no additional services when medically cleared. She will be transported home via private vehicle by her friend or daughter. She will have an outpatient follow up with general surgery for evaluation. CM will continue to follow.
[2019-03-19] MEDS: Acetaminophen 500 MG TAB 1000 MG PO (20:58)
[2019-03-19 21:00] VITALS: BP 111/68; PULSE 72; RESP 18; TEMP 36.7; O2SAT 97
[2019-03-19] MEDS: Normal Saline Flush 10 ML SYR IVP (21:13)
[2019-03-20 07:18] LABS: Abs Immature Grans 0.01 k/cumm (0.0-0.09); Absolute Basophil Count 0.03 k/cumm (0.0-0.2); Absolute Eosinophil Count 0.23 k/cumm (0.0-0.7); Absolute Lymphocyte Count 2.65 k/cumm (1.2-3.4); Absolute Monocyte Count 0.48 k/cumm (0.11-0.7); Absolute Neutrophil Count 3.83 k/cumm (1.2-6.7); Basophils % 0.4; Eosinophils % 3.2; HCT 37.9 % (36.0-46.0); HGB 12.6 g/dL (12.0-15.5); Immature Grans % 0.1; Lymphocytes % 36.7; Mean Corp. HGB Concentration 33.2 g/dL (32.0-36.0); Mean Corpuscular Hemoglobin 29.4 pg (27.0-33.0); Mean Corpuscular Volume 88.6 fL (80-95); Monocytes % 6.6; Platelet Count 270 x1000/uL (130-400); RBC 4.28 m/cumm (4.00-5.20); White Blood Cell Count 7.23 k/cumm (4.4-10.8)
[2019-03-20 07:25] VITALS: BP 119/78; PULSE 66; RESP 16; TEMP 36.5; O2SAT 96
[2019-03-20 07:45] LABS: Anion Gap 10.1 mmol/L (3-11); BUN 8 mg/dL (7-18); CO2 26.9 mmol/L (21.0-32.0); CREATININE 0.74 mg/dL (0.55-1.02); Calcium 8.4 mg/dL (8.5-10.1); Chloride 106 mmol/L (98-107); Glucose 93 mg/dL (70-100); Potassium 4.1 mmol/L (3.5-5.1); Sodium 143 mmol/L (136-145)
[2019-03-20] MEDS: Pantoprazole 40 MG VIAL IVP (08:56)
--- NOTE | 2019-03-20 10:38 | DSE_ITS ---
Date of service: 03/20/19 Time of Service: 10:38 DS: Diagnosis Discharge Diagnosis (1) Small bowel obstruction: Status: Acute (2) Abdominal pain: Status: Acute (3) DVT prophylaxis: Status: Acute (4) Discharge planning issues: Status: Acute Discharge Plan Disposition Patient Disposition: HOME Condition: Improving Discharge Details Chief Complaint: Abd Prob Reason For Visit: ILEOCOLITIS Admit Date/Time: 03/18/19 01:47 Admit Provider: Joel Calles Attending Provider: Joel Calles Primary Care Provider: Nieves Granados ED Provider: Lawson Metzger Hospital Course Hospital Course: Ms Valenzuela is a very peasant 53 year old female with a history of abdominal surgeries including section x3, cholecystitis with subsequent laparoscopic cholecystectomy, and a history of renal stones. She also has LLE pain for which she has been taking NSAIDs. She presented to the ED on 03/17/19 with reports of severe abdominal pain. In the emergency department, she was noted to have leukocytosis with a white blood cell count of 18.46 and her lipase was mildly elevated at 422. She had a CT abdomen and pelvis which showed Bowel wall thickening and enhancement of the distal ileum consistent with i nflammatory/infectious ileitis. Proximal small bowel dilatation suggesting obstruction. She was admitted to the Med/surg floor for further evaluation and management. She was placed on IV fluids, and bowel rest, NSAIDs were avoided. She was started on PPI therapy. Initially she was not passing flatus or having bowel movements. Her abdominal pain improved, she moved her bowels and was able to tolerate a regular diet. Her leukocytosis resolved and her lipase normalized. Her case was discussed with General Surgery who recommended follow-up as an outpatient for further evaluation and colonoscopy. At the time of her discharge, she continued to have mild abdominal pain, she was advised to avoid NSAIDs and remain on a soft diet. She may advance her diet as tolerated. She is scheduled to follow-up with Dr. Reed, orthopedics for her left lower extremity pain. She will follow-up with general surgery as scheduled. She will follow-up with her primary care provider as scheduled. Home Meds and New Rx's Prescriptions: New tramadol 50 mg Tablet 50 mg PO Q4H PRN PRNQty: 12 RF: 0 acetaminophen [Mapap Extra Strength] 500 mg Tablet 1,000 mg PO Q6H PRN PRNQty: 0 RF: 0 omeprazole 40 mg capsule,delayed release(DR/EC) 40 mg PO DAILY Qty: 30 RF: 0 Continued Mirena 1 EACH intrauterine device RF: 0 Discontinued acetaminophen [Tylenol] 325 mg capsule 325 mg PO DAILY PRNRF: 0 Discharge Instructions Instructions: Bowel Obstruction (DC) Additional Instructions: Advance your diet as tolerated. Start with soft diet. Do not take NSAIDs (including ibuprofen/advil). Acetaminophen for pain, Tramadol for moderate to severe pain. Follow up with General Surgery as scheduled. Follow up with your PCP as scheduled. Follow up with Ortho as previously scheduled. Stand Alone Forms: Nursing Discharge Form Referrals: Nieves Granados MD [Primary Care Provider] - 03/25/19 9:20 am Shruthi Zuniga MD [ [facility] STAFF PHYSICIAN] - 04/03/19 9:00 am Activity:: Activity as Tolerated Equipment/Supplies:: No Equipment Needed Diet:: As Tolerated Discharge Orders Discharge Orders: Discharge Order (Routine); Ordered 03/20/19 Ordered By: India Gleason DS: Summary Status at Discharge Functional status at discharge: independent ambulation Overall status at discharge: patient is progressing back to baseline Mental Status: mental status grossly normal Speech and Movement: speech and movement normal Mood: congruent mood Affect: normal affect Exam Narrative Exam Narrative: General: alert and oriented, pleasant and cooperative, overweight female, sitting up in chair, in NAD. Talkative, answers questions appropriately. HEENT: normocephalic, atraumatic, pupils equal and round, EOMI, mucous membranes moist. Neck: supple, no JVD. Cardiovascular: heart has regular rate and rhythm, nontacycardic, no murmur appreciated. Respiratory: respirations even and unlabored. Lung sounds clear bilaterally. GI: normal bowel sounds, non-distended, soft, mildly tender on palpation of epigastric region. Extremities: well perfused, no clubbing, cyanosis or edema. Psych Mental Status: mental status grossly normal Speech and Movement: speech and movement normal Mood: congruent mood Affect: normal affect DS: Data Vitals/I&O Vitals and I&O: Vital Signs Temperature 36.5 C 03/20/19 07:25 Temperature Source Tympanic 03/20/19 07:25 Pulse 66 03/20/19 07:25 Pulse Rhythm Regular 03/20/19 10:12 Respiratory Rate 16 03/20/19 07:25 Respiratory Effort Non-Labored 03/20/19 10:12 Respiratory Depth Normal 03/20/19 10:12 Respiratory Pattern Normal 03/20/19 10:12 Blood Pressure 119/78 03/20/19 07:25 Pulse Oximetry 96 03/20/19 07:25 Oxygen Delivery Method Room Air 03/20/19 07:25 Oxygen Flow Rate 0 03/20/19 07:25 Pain Level 0 03/20/19 07:25 Comment 03/19/19 07:25 Intake & Output 03/19/19 03/19/19 03/20/19 11:59 23:59 11:59 Intake Total 1947.5 / 3297.5 1350 / 3297.5 Balance 1947.5 / 3297.5 1350 / 3297.5 Intake: IV 1947.5 / 3057.5 1110 / 3057.5 Oral 240 / 240 Other: Comment pt voiding independently. Stool Size Large Stool Characteristics Formed Brown Voiding Methods Toilet Data Completed and Pending Completed studies during hospitalization [Text1]: 03/17/19: EXAM: CT ABDOMEN PELVIS W CLINICAL HISTORY: abdominal pain. TECHNIQUE: Imaging Protocol: Axial computed tomography images with coronal and sagittal reformatted images were created and reviewed CONTRAST MATERIAL: Intravenous: Omnipaque 350 Contrast volume:100 mL contrast route:IV - Oral: No COMPARISON: No exams were available for comparison FINDINGS: ABDOMEN: Lung Bases: Normal where visualized. Liver: Normal density. The portal, superior mesenteric, and splenic veins are patent. No mass. Gallbladder and biliary tract: The patient is status post cholecystectomy. No biliary ductal dilatation. Pancreas: Normal density, no abnormal calcifications or inflammatory process. Spleen: Normal. Kidneys: Normal size, contour and axis. There is bilateral nonobstructive nephrolithiasis. There are hypodensities seen in the kidneys bilaterally. Several are too small for further characterization but likely reflect cysts. No suspicious solid mass is seen. Adrenal glands: No masses seen. Abdominal Aorta: Abdominal portion non-dilated. PELVIS: Bladder: Symmetric distention, no gross wall thickening. Bowel: There is bowel wall enhancement and thickening in the distal ileum. There is stranding in the surrounding soft tissues. The small bowel proximally shows dilatation and is fluid-filled. This is suspicious for obstruction. Colon is of normal caliber. A normal appendix present. Peritoneal cavity: There is a small amount of free fluid in the pelvis. This is likely reactive. No pneumoperitoneum is present. Bones: Mild degenerative changes are seen in the spine. Reproductive organs: There is an intrauterine device in good position. The reproductive organs are otherwise unremarkable. Lymph nodes: Unremarkable. Impression: Bowel wall thickening and enhancement of the distal ileum consistent with inflammatory/infectious ileitis. Proximal small bowel dilatation suggesting obstruction. Pneumoperitoneum. Labs on day of discharge: Labs from last 24 hours 03/20/19 03/20/19 07:10 07:10 WBC 7.23 RBC 4.28 Hgb 12.6 Hct 37.9 MCV 88.6 MCH 29.4 MCHC 33.2 RDW 12.0 Plt Count 270 MPV 9.0 Immature Gran % 0.1 Neutrophils % 53.0 Lymphocytes % 36.7 Monocytes % 6.6 Eosinophils % 3.2 Basophils % 0.4 Absolute Neutrophils 3.83 Absolute Lymphocytes 2.65 Absolute Monocytes 0.48 Absolute Eosinophils 0.23 Absolute Basophils 0.03 Sodium 143 Potassium 4.1 Chloride 106 Carbon Dioxide 26.9 Anion Gap 10.1 BUN 8 Creatinine 0.74 Estimated GFR/1.73 m2 >= 60.00 Glucose 93 Calcium 8.4 L Magnesium 2.0 PFSH Medical History Acute cholecystitis (Resolved 01/13/13) Cholelithiasis without obstruction (Resolved 01/13/13) Laparoscopic cholecystectomy by Dr. Osullivan on 01-13-2013. Colorectal polyps (Acute ~10/27/18) Kidney stone Kidney stone (Acute) Obesity Obesity (Chronic) Tobacco abuse Surgical History section C section X3 with her last having a wound dehiscence down to evisceration of loops of bowel. Cholecystectomy PER PATIENT 08/30/16 S/P colonoscopy (Acute ~10/27/18) Family History Mother , AGE 64 Diabetes Heart disease Stroke Hypertension Father , AGE 57 Alcohol abuse BEER Liver cancer Bone cancer Sister Hyperlipidemia Sister Diabetes Hyperlipidemia Hypertension Sister , AGE 38 Hepatitis C Substance abuse Alcohol abuse Sister No problems noted. Sister Alcohol abuse Diabetes Hypertension Brother Diabetes Maternal Grandfather Heart disease Stroke Paternal Grandfather Smoker Mouth cancer Maternal Grandmother Hypertension Paternal Grandmother , OLD AGE No problems noted. Son No problems noted. Son No problems noted. Daughter No problems noted. Social History Smoking/Tobacco Use Status: Current every day Tobacco Type: cigarettes Quit status: has quit before Second Hand Exposure: Yes Alcohol Intake: current Alcohol Intake frequency: a few times a month Alcohol type: hard liquor Drug use: Daily Substance use type: marijuana Details: 1/2 pack/day smoker. Alcohol: t-2: two drinks. Marijuana: edibles, T- 1, one piece of caramel Caregiver/Support person: No Household members: children Housing: house current occupation: [employer] Pets and animals: Yes Pets and animals: cat(s) Sexually active: No Do you think of yourself as: straight/heterosexual Current gender identity: female What is your relationship status?: How often do you talk on the phone with friends or family?: three or more times per week How often do you get together with friends or relatives?: three or more times per week How often do you attend sabianism or methodist services?: decline to answer Do you belong to any clubs or organized social groups?: yes Panel score (0-1 are the most socially isolated patients): 2 What type of physical activity do you participate in: none Frequency: does not exercise Daphney/Synagogue: [employer] Special daphney needs: No Seatbelt use: always Drive intox or ride w/intox fence post driver: No Do you feel safe at home: Yes Do you feel safe in your relationship?: Yes History History Para 3 Hx # Term Pregnancies Multiple births Hx # Pregnancies Ectopic pregnancies AB induced Hx Number of Living Children AB spontaneous
--- NOTE | 2019-03-20 12:02 | NUR.NOTE ---
Nursing Note: This patient refused to wait for her discharge paperwork. AD TERMINAL MAKEUP OPERATOR removed her IID and she left the floor to go have lunch with her guests. Patient states that she will return after lunch to get her discharge paperwork
--- NOTE | 2019-03-20 17:57 | PDOC.CMDIS ---
- If Service Date Differs Date of service: 03/20/19 Time of Service: 17:57 LACE Index Scoring Tool - Questions: Length of Stay (in days): 4 - 6 Acuity (Admit via E.D.?): Yes E.D. Visits: 1 - Answers: Total Score: 8 Risk of Readmission: Low Risk Care Management Discharge Reason for Hospitalization: Ileocolitis Discharge Plan: Darrion will return home with no additional services at this time. Her friend will drive her home via private vehicle. She will have follow up appointments, as recommended. Patient/Family Education Needs: Review discharge instructions, discussion of self care needs including Ask Me Three
== END 2019-03-20 13:05 | disposition home or self-care (01) | DRG 392 ==
LOC: ER 03-18 01:59 → MS 03-18 02:43
PROVIDERS: Admitting Provider General Practice; Emergency Provider Student in an Organized Health Care Education/Training Program; PCP Family Medicine; Visit Provider Internal Medicine
DX: K52.89 Other specified noninfective gastroenteritis and colitis (principal); R74.8 Abnormal levels of other serum enzymes; Z79.1 Long term (current) use of non-steroidal anti-inflammatories (NSAID)
CPT/HCPCS: 36415; 80048; 80051; 80053; 83690; 85027; 96361; 96365; 96368; 96375; 96376; 99222; 99232; 99239; 99285; 74177; 83735; 84484; 85025; 99221; 99284; J0131; J2405; J3490

== ENCOUNTER 2019-03-25 07:00 | Outpatient (CLI) | payer MEDICAID, SELFPAY ==
[2019-03-25 13:05] LABS: ALT 79 U/L (14-59); AST 30 U/L (15-37); Albumin 4.4 g/dL (3.4-5.0); Alkaline Phosphatase 146 U/L (46-116); Bilirubin, Direct 0.16 mg/dL (0.00-0.20); Bilirubin, Total 0.5 mg/dL (0.2-1.0); Total Protein 7.8 g/dL (6.4-8.2)
[2019-03-26 07:24] LABS: Vitamin D 25 Total 31.3 ng/ml (30-100)
== END 2019-03-25 07:20 ==
PROVIDERS: PCP Family Medicine; Visit Provider Internal Medicine
DX: B35.1 Tinea unguium (principal); E83.51 Hypocalcemia
CPT/HCPCS: 36415; 80076; 82306

== ENCOUNTER 2019-08-03 13:17 | Outpatient (REF) | payer MEDICAID, SELFPAY ==
--- NOTE | 2019-08-03 12:00 | PAPFT_PTH ---
PATIENT: Sydnie Valenzuela LOC: [facility] U#:[id number] AGE/SX: 53/F ROOM: RE08/03/[address]: Nieves Granados MD : 1965 BED: DIS: 08/03/2019 SPEC #: [id number] RECD: 08/03/19 18:26 STATUS: GIA REBib #: [id number] GRECIA: 08/03/19 12:[address]: Nieves Granados DEPT: [facility] Cytology RECD BY: Yumiko Gupta Tissues: 1 - CX/ENDOCX FOR PAP SMEARS Procedures: PAP THIN PREP/UVM Screening HPV DNA PROBE Comments: [id number]
== END 2019-08-03 13:37 ==
LOC: LBN 13:17
PROVIDERS: PCP Family Medicine; Visit Provider Family Medicine
DX: Z12.4 Encounter for screening for malignant neoplasm of cervix (principal); Z11.51 Encounter for screening for human papillomavirus (HPV)
CPT/HCPCS: 88142; 87624

== ENCOUNTER 2020-01-13 08:32 | Emergency (ER) | payer MEDICAID, SELFPAY ==
--- NOTE | 2020-01-13 08:30 | DI.CT_ITS ---
EXAM: CT RENAL COLIC WO CLINICAL HISTORY: R flank pain, hx of compliated stone. TECHNIQUE: Imaging Protocol: Axial computed tomography images with coronal and sagittal reformatted images were created and reviewed. CONTRAST MATERIAL: Noncontrast COMPARISON: 17 March 2019 FINDINGS: The patient is status post cholecystectomy. The liver, spleen, pancreas and adrenals are unremarkabl e. There is are small bilateral renal calculi. The largest is at the mid to lower pole of the right kidney and measures 7 millimeters in greatest dimension. There is mild right hydronephrosis seconda ry to a. No obstructing stone is visible. There is no perinephric stranding. The bowel, bladder, ut erus and ovaries are unremarkable. The aorta is normal in diameter. The lung bases are clear. Ther e are mild degenerative changes in the spine. IMPRESSION: Bilateral renal calculi. Mild right hydronephrosis. No obstructing ureteral stone is visible. The findings may be secondary to a recently passed stone. RADIATION DOSE DELIVERED: Total DLP DATA REPOSITORY: All CT scans at this facility are submitted to the National Radiology Data Registry (NRDR) Dose Index Registry (DIR) with the [employer] (ACR). RADIATION OPTIMIZATION: All CT scans at this facility use at least one of these dose optimization te chniques: automated exposure control; mA and/or kV adjustment per patient size (includes targeted exa ms where dose is matched to clinical indication); or iterative reconstruction.
[2020-01-13 08:35] VITALS: BP 153/93; PULSE 75; RESP 18; TEMP 36.7; O2SAT 98
[2020-01-13] MEDS: Normal Saline 1,000 ML 1000 ML IV (08:55)
[2020-01-13] MEDS: Normal Saline Flush 10 ML SYR IVP (08:55)
[2020-01-13] MEDS: Ondansetron 4 MG/2 ML VIAL IVP (08:55)
[2020-01-13] MEDS: Ketorolac 30 MG/ML VIAL IVP (09:00)
[2020-01-13 09:04] LABS: Abs Immature Grans 0.05 10^3/uL (0.0-0.06); Absolute Basophil Count 0.04 10^3/uL (0.0-0.2); Absolute Eosinophil Count 0.14 10^3/uL (0.0-0.7); Absolute Lymphocyte Count 2.52 10^3/uL (1.2-3.4); Absolute Neutrophil Count 5.98 10^3/uL (1.2-6.7); Basophils % 0.4; Eosinophils % 1.5; HCT 45.6 % (36.0-46.0); HGB 14.9 g/dL (11.2-15.7); Immature Grans % 0.5; Lymphocytes % 27.3; MCHC 32.7 % (32.0-36.0); MCV 88.7 fL (80-95); MPV 9.5 fL (8.0-11.0); Monocytes % 5.4; Neutrophils % 64.9; Platelet Count 311 10^3/uL (130-400); RBC 5.14 10^6/uL (3.93-5.22); RDW 11.9 % (11.7-14.6); RDW-SD 38.6 fL; WBC 9.23 10^3/uL (4.4-10.8)
[2020-01-13 09:06] LABS: Bilirubin Negative (Negative); Blood Trace-intact (Negative); Clarity Clear (Clear); Glucose Negative (Negative); Ketones Negative (Negative); Leukocyte Esterase Negative (Negative); Nitrite Negative (Negative); Urobilinogen 0.2 EU/dL (Up TO 0.2)
[2020-01-13 09:15] LABS: Bacteria Few HPF (Negative); C & S Indicated? No; Casts Negative LPF (Negative); Crystals Negative HPF (Negative); Epithelial Cells Few HPF (Negative); Mucus Trace (Negative); RBC 0-2 HPF (0-2)
[2020-01-13 09:19] LABS: ALT 52 U/L (14-59); AST 25 U/L (15-37); Albumin 4.1 g/dL (3.4-5.0); Alkaline Phosphatase 127 U/L (46-116); Anion Gap 7.9 mmol/L (3-11); BUN 10 mg/dL (7-18); Bilirubin, Total 0.5 mg/dL (0.2-1.0); CO2 29.1 mmol/L (21.0-32.0); CREATININE 0.72 mg/dL (0.55-1.02); Calcium 9.2 mg/dL (8.5-10.1); Chloride 103 mmol/L (98-107); Glucose 102 mg/dL (74-106); Potassium 4.1 mmol/L (3.5-5.1); Sodium 140 mmol/L (136-145); Total Protein 7.8 g/dL (6.4-8.2)
--- NOTE | 2020-01-13 09:24 | W.ED.GENAD ---
Discharge Plan Disposition Patient Disposition: HOME Condition: Stable Discharge Details Chief Complaint: FlankPain Clinical Impression: Kidney stone, Hydronephrosis Primary Care Provider: Nieves Granados ED Provider: Bernardo Bermudez Home Meds and New Rx's Prescriptions: Continued acetaminophen [Mapap Extra Strength] 500 mg Tablet 1,000 mg PO Q6H PRN PRNQty: 0 RF: 0 naproxen 500 mg tablet 500 mg PO PRN PRNRF: 0 Discontinued ibuprofen 400 mg Tablet 800 mg PO Q6H RF: 0 Discharge Instructions Instructions: Kidney Stones (ED), Hydronephrosis (ED) Additional Instructions: At this time you have a mild hydronephrosis on your right kidney and it appears as though you likely recently passed a kidney stone. I recommend taking plenty of fluids to avoid dehydration, [id number] Naprosyn as directed. Please watch for new or worsening symptoms and return to the ER for any concerns. I would like you to reach out to Dr. Jesus later today or tomorrow for prompt outpatient reevaluation. I have placed you on the urology callback list. Referrals: Marcos Jesus MD [ [facility] STAFF PHYSICIAN] - Medical Decision Making 54-year-old female presents with right sided back-flank discomfort that began yesterday associate with nausea. Pain is sharp and 10 out of 10. She has a history of complicated renal stones and reports this feels very similar. No other symptoms whatsoever. Clinically this very well may be a renal stone however certainly cannot rule out pyelonephritis, appendicitis, musculoskeletal discomfort, etc. Will give IV Zofran, Toradol, fluid obtain laboratory values and a CT renal colic protocol Upon reevaluation patient reports her pain went from a 10 down to a 4 or 5 Laboratory values reveal a white count of 9.23 hemoglobin 14.9 hematocrit 45.6 platelet count 311. Electrolytes unremarkable. Creatinine 0.72 with a GFR greater than 60. Urinalysis trace blood. 0-2 red cells, 3-5 white cells Laboratory values reveal no obvious emergent process or infection. CT findings revealed bilateral renal calculi with mild right hydronephrosis. No obstructing ureteral stone is visible, the findings may be secondary to recently passed stone. Discussed laboratory findings and CT with patient. She reports her pain is now a dull 2 or 3 out of 10 and would like to be discharged. She will take [id number] anti-inflammatories and be sure to have adequate fluid intake. I will place her on the urology callback list and I will have her contact the office of Dr. Jesus later today or tomorrow for prompt outpatient reevaluation. She was encouraged to return to the ER for new or worsening symptoms. Medical Records Medical records reviewed: Yes I reviewed the patient's medical records. Imaging Data Radiologic Study: Attestation: I personally reviewed and interpreted this imaging study as follows: Imaging: CT Scan Radiologist's impression: Bilateral renal calculi. Mild right hydronephrosis. No obstructing ureteral stone is visible. The findings may be secondary to a recently passed stone. Lab Data Lab results reviewed: Yes I reviewed the patient's lab results. Lab results narrative: Laboratory Tests Range/Units 01/13/20 01/13/20 01/13/20 08:50 08:50 09:00 WBC (4.4-10.8) 10^3/uL 9.23 RBC (3.93-5.22) 10^6/uL 5.14 Hgb (11.2-15.7) g/dL 14.9 Hct (36.0-46.0) % 45.6 MCV (80-95) fL 88.7 MCH (27.0-33.0) pg 29.0 MCHC (32.0-36.0) % 32.7 RDW (11.7-14.6) % 11.9 Plt Count (130-400) 10^3/uL 311 MPV (8.0-11.0) fL 9.5 Immature Gran % 0.5 Neutrophils % 64.9 Lymphocytes % 27.3 Monocytes % 5.4 Eosinophils % 1.5 Basophils % 0.4 Absolute Neutrophils (1.2-6.7) 10^3/uL 5.98 Absolute Lymphocytes (1.2-3.4) 10^3/uL 2.52 Absolute Monocytes (0.1-0.8) 10^3/uL 0.50 Absolute Eosinophils (0.0-0.7) 10^3/uL 0.14 Absolute Basophils (0.0-0.2) 10^3/uL 0.04 Sodium (136-145) mmol/L 140 Potassium (3.5-5.1) mmol/L 4.1 Chloride (98-107) mmol/L 103 Carbon Dioxide (21.0-32.0) mmol/L 29.1 Anion Gap (3-11) mmol/L 7.9 BUN (7-18) mg/dL 10 Creatinine (0.55-1.02) mg/dL 0.72 Estimated GFR/1.73 m2 (mL/min/1.73m2) >= 60.00 Glucose (74-106) mg/dL 102 Calcium (8.5-10.1) mg/dL 9.2 Total Bilirubin (0.2-1.0) mg/dL 0.5 AST (15-37) U/L 25 ALT (14-59) U/L 52 Alkaline Phosphatase (46-116) U/L 127 H Total Protein (6.4-8.2) g/dL 7.8 Albumin (3.4-5.0) g/dL 4.1 Urine Color (Yellow) Yellow Urine Clarity (Clear) Clear Urine pH (5-8) 7.0 Ur Specific [place] (1.005-1.025) 1.020 Urine Protein (Negative) mg/dL Negative Urine Ketones (Negative) mg/dL Negative Urine Blood (Negative) Trace-intact H Urine Nitrite (Negative) Negative Urine Bilirubin (Negative) Negative Urine Urobilinogen (Up TO 0.2) EU/dL 0.2 Ur Leukocyte Esterase (Negative) Negative Urine RBC (0-2) HPF 0-2 Urine WBC (0-5) HPF 3-5 Ur Epithelial Cells (Negative) HPF Few Urine Crystals (Negative) HPF Negative Urine Bacteria (Negative) HPF Few Urine Casts (Negative) LPF Negative Urine Mucus (Negative) Trace Ur Culture Indicated? No Urine Glucose (Negative) mg/dL Negative HPI General Mode of arrival: ambulatory. Date/Time Provider Initiated Documentation: 01/13/20 08:39. Limitations to Documentation: no limitations. Information obtained by: patient. HPI Narrative: This is a 54-year-old female with history of renal stones, tobacco use, status post cholecystectomy, left-sided sciatica, small bowel obstruction, presenting to the ER today with sudden onset right flank and back pain that wraps around to her abdomen, sharp 10 of 10 pain, began yesterday afternoon. Nothing makes it worse or better. It is associated with nausea but no vomiting. She denies recent illness or trauma. Denies headache, fever, chest pain, shortness of breath, dysuria, hematuria, change in bowel function, vaginal bleeding or discharge. Patient reports a history of complicated renal stone that required a stent, this feels similar. Related Data Home Medications Medication Instructions Recorded Confirmed acetaminophen [Mapap Extra 1,000 mg PO Q6H PRN PRN #0 tab 03/20/19 01/13/20 Strength] naproxen 500 mg PO PRN PRN 01/13/20 01/13/20 Previous Rx's Medication Instructions Recorded acetaminophen [Mapap Extra 1,000 mg PO Q6H PRN PRN #0 tab 03/20/19 Strength] Allergies Allergy/AdvReac Type Severity Reaction Status Date / Time No Known Allergies Allergy Verified 01/13/20 08:39 General Stated Complaint: FlankPain ANIVAL: 3 Review of Systems Constitutional Constitutional: Denies fatigue and Denies fever(s) ENT Ears, Nose, Mouth, and Throat: Denies neck pain Cardiovascular Cardiovascular: Denies chest pain and Denies dyspnea Respiratory Respiratory: Denies cough and Denies dyspnea Gastrointestinal Gastrointestinal: Reports abdominal pain, Reports nausea and Denies vomiting Genitourinary Genitourinary: Denies abnormal vaginal bleeding, Denies hematuria, Denies dysuria and Denies vaginal discharge Musculoskeletal Musculoskeletal: Reports back pain, Denies neck pain, Denies numbness and Denies tingling Integumentary/Breasts Skin/Breast: Denies rash Neurologic Neurologic: Denies numbness and Denies tingling Endocrine Endocrine: Denies fatigue [facility] Medical History Acute cholecystitis (Resolved 01/13/13) Cholelithiasis without obstruction (Resolved 01/13/13) Laparoscopic cholecystectomy by Dr. Osullivan on 01-13-2013. Colorectal polyps (Acute ~10/27/18) Kidney stone Kidney stone (Acute) Obesity Obesity (Chronic) Tobacco abuse Surgical History section C section X3 with her last having a wound dehiscence down to evisceration of loops of bowel. Cholecystectomy PER PATIENT 08/30/16 S/P colonoscopy (Acute ~10/27/18) Family History Mother , AGE 64 Diabetes Heart disease Stroke Hypertension Father , AGE 57 Alcohol abuse BEER Liver cancer Bone cancer Sister Hyperlipidemia Sister Diabetes Hyperlipidemia Hypertension Sister , AGE 38 Hepatitis C Substance abuse Alcohol abuse Sister No problems noted. Sister Alcohol abuse Diabetes Hypertension Brother Diabetes Maternal Grandfather Heart disease Stroke Paternal Grandfather Smoker Mouth cancer Maternal Grandmother Hypertension Paternal Grandmother , OLD AGE No problems noted. Son No problems noted. Son No problems noted. Daughter No problems noted. Social History Smoking/Tobacco Use Status: Current every day Tobacco Type: cigarettes Quit status: has quit before Second Hand Exposure: Yes Alcohol Intake: current Alcohol Intake frequency: a few times a month Alcohol type: hard liquor Drug use: Daily Substance use type: marijuana Details: 1/2 pack/day smoker. Alcohol: t-2: two drinks. Marijuana: edibles, T-1, one piece of caramel Caregiver/Support person: No Household members: children Housing: house current occupation: [employer] Pets and animals: Yes Pets and animals: cat(s) Sexually active: No What is your relationship status?: How often do you talk on the phone with friends or family?: three or more times per week How often do you get together with friends or relatives?: three or more times per week How often do you attend methodist or mormonism services?: decline to answer Do you belong to any clubs or organized social groups?: yes Panel score (0-1 are the most socially isolated patients): 2 What type of physical activity do you participate in: none Frequency: does not exercise Daphney/Spiritism: Jainism Special daphney needs: No Seatbelt use: always Helmet use: Yes Helmet use: always Drive intox or ride w/intox coach tour driver: No Do you feel safe at home: Yes Do you feel safe in your relationship?: Yes History History Para 3 Hx # Term Pregnancies Multiple births Hx # Pregnancies Ectopic pregnancies AB induced Hx Number of Living Children AB spontaneous Exam Const General: cooperative, healthy appearing, comfortable and no acute distress Orientation: alert, awake and oriented x3 HENMT Head: normal to inspection, normocephalic and atraumatic Mouth: moist mucous membranes Eyes Conjunctivae: conjunctivae normal Sclera: sclerae normal Neck Neck: normal visual inspection, full ROM, trachea midline and supple Resp Effort & Inspection: normal respiratory effort and able to speak in complete sentences Auscultation: clear to auscultation bilaterally Cardio Rate: regular rate Rhythm: regular rhythm GI Palpation: soft, not firm, no guarding, not rigid and tender (Mild right-sided flank) with no rebound tenderness Auscultation: normal bowel sounds Back/Spine/Pelvis Back: no CVA tenderness and back tenderness (Diffuse lower right lumbar) Skin General skin exam: no rashes or lesions noted Neuro General: patient alert, patient awake, patient oriented x3, moves all extremities and no focal motor deficits Speech: speech normal Motor: muscle tone normal throughout Sensory Exam: no sensory deficits noted Extrem General: normal to inspection, full ROM and capillary refill normal Psych Appearance: grossly normal Mental Status: mental status grossly normal Course Vital Signs Vital signs: Vital Signs Temperature 36.7 C 01/13/20 08:35 Pulse 75 01/13/20 08:35 Respiratory Rate 18 01/13/20 08:35 Blood Pressure 153/93 H 01/13/20 08:35 Pulse Oximetry 98 01/13/20 08:35 Temperature 36.7 C 01/13/20 08:35 Temperature Source Temporal Artery Scan 01/13/20 08:35 Pulse 75 01/13/20 08:35 Respiratory Rate 18 01/13/20 08:35 Respiratory Effort Non-Labored 01/13/20 08:38 Blood Pressure 153/93 H 01/13/20 08:35 Blood Pressure Position Sitting 01/13/20 08:35 Pulse Oximetry 98 01/13/20 08:35 Oxygen Delivery Method Room Air 01/13/20 08:35 Oxygen Flow Rate 0 01/13/20 08:35 Pain Level 10 01/13/20 08:53 Lab/Test Results Lab/Test Results: Laboratory Tests Range/Units 01/13/20 01/13/20 01/13/20 08:50 08:50 09:00 WBC (4.4-10.8) 10^3/uL 9.23 RBC (3.93-5.22) 10^6/uL 5.14 Hgb (11.2-15.7) g/dL 14.9 Hct (36.0-46.0) % 45.6 MCV (80-95) fL 88.7 MCH (27.0-33.0) pg 29.0 MCHC (32.0-36.0) % 32.7 RDW (11.7-14.6) % 11.9 Plt Count (130-400) 10^3/uL 311 MPV (8.0-11.0) fL 9.5 Immature Gran % 0.5 Neutrophils % 64.9 Lymphocytes % 27.3 Monocytes % 5.4 Eosinophils % 1.5 Basophils % 0.4 Absolute Neutrophils (1.2-6.7) 10^3/uL 5.98 Absolute Lymphocytes (1.2-3.4) 10^3/uL 2.52 Absolute Monocytes (0.1-0.8) 10^3/uL 0.50 Absolute Eosinophils (0.0-0.7) 10^3/uL 0.14 Absolute Basophils (0.0-0.2) 10^3/uL 0.04 Sodium (136-145) mmol/L 140 Potassium (3.5-5.1) mmol/L 4.1 Chloride (98-107) mmol/L 103 Carbon Dioxide (21.0-32.0) mmol/L 29.1 Anion Gap (3-11) mmol/L 7.9 BUN (7-18) mg/dL 10 Creatinine (0.55-1.02) mg/dL 0.72 Estimated GFR/1.73 m2 (mL/min/1.73m2) >= 60.00 Glucose (74-106) mg/dL 102 Calcium (8.5-10.1) mg/dL 9.2 Total Bilirubin (0.2-1.0) mg/dL 0.5 AST (15-37) U/L 25 ALT (14-59) U/L 52 Alkaline Phosphatase (46-116) U/L 127 H Total Protein (6.4-8.2) g/dL 7.8 Albumin (3.4-5.0) g/dL 4.1 Urine Color (Yellow) Yellow Urine Clarity (Clear) Clear Urine pH (5-8) 7.0 Ur Specific [place] (1.005-1.025) 1.020 Urine Protein (Negative) mg/dL Negative Urine Ketones (Negative) mg/dL Negative Urine Blood (Negative) Trace-intact H Urine Nitrite (Negative) Negative Urine Bilirubin (Negative) Negative Urine Urobilinogen (Up TO 0.2) EU/dL 0.2 Ur Leukocyte Esterase (Negative) Negative Urine RBC (0-2) HPF 0-2 Urine WBC (0-5) HPF 3-5 Ur Epithelial Cells (Negative) HPF Few Urine Crystals (Negative) HPF Negative Urine Bacteria (Negative) HPF Few Urine Casts (Negative) LPF Negative Urine Mucus (Negative) Trace Ur Culture Indicated? No Urine Glucose (Negative) mg/dL Negative POC- Test(urine) Negative
--- NOTE | 2020-01-13 10:38 | NUR.NOTE ---
Nursing Note: Referral faxed to [facility] Urology for follow up. Lilian Arthur
[2020-01-13 10:40] VITALS: BP 131/75; PULSE 59; RESP 16; TEMP 36.7; O2SAT 98
== END 2020-01-13 10:42 | disposition home or self-care (01) ==
PROVIDERS: Emergency Provider Physician Assistant; PCP Family Medicine
DX: N13.2 Hydronephrosis with renal and ureteral calculous obstruction (principal); R11.0 Nausea; Z87.442 Personal history of urinary calculi
CPT/HCPCS: 36415; 80053; 81025; 96361; 96374; 96375; 99284; 74176; 81003; 81015; 85025; 99285; J1885; J2405

== ENCOUNTER 2020-02-17 02:43 | Outpatient (CLI) | payer MEDICAID, SELFPAY ==
--- NOTE | 2020-02-17 08:15 | DI.US_ITS ---
EXAM: US RENAL CLINICAL HISTORY: monitoring hydro and kidney stones, N13.30, N20.0. TECHNIQUE: Cardoza scale, color and spectral Doppler were used. COMPARISON: CT CT RENAL COLIC WO from 01/13/2020 FINDINGS: Renal size in cm: Right: 11.2. Left: 12.6. Echogenicity: Normal. Hydronephrosis: Prominence of both renal pelves. Cyst or mass: No. Nephrolithiasis: Bilateral nonobstructing stones. The largest on the right is in the lower pole and measures 0.7 cm. The largest on the left measures 0.4 cm. Other findings: None. Bladder:Normal. Ureteral jets: Right: Visualized and unremarkable. Left: Visualized and unremarkable. Prevoid vol:222 cc Postvoid vol:21 cc Renal color flow: Symmetric and within normal limits. IMPRESSION: 1. Bilateral nephrolithiasis. 2. Prominence of both renal pelves. This may represent prominent extrarenal pelves versus mild hydro nephrosis. If there is continued concern, a nuclear medicine renal scan may be obtained. DATA REPOSITORY:
== END 2020-02-17 03:03 ==
PROVIDERS: PCP Family Medicine; Visit Provider Nurse Practitioner Gerontology
DX: N13.30 Unspecified hydronephrosis (principal); N20.0 Calculus of kidney
CPT/HCPCS: 76770

== ENCOUNTER 2020-03-09 01:04 | Outpatient (CLI) | payer MEDICAID, SELFPAY ==
--- NOTE | 2020-03-09 08:15 | DI.MAMMO_ITS ---
EXAM: MG MAMMO SCREENING CLINICAL HISTORY: screening,Z12.39 TECHNIQUE: Bilateral full field digital CC and MLO mammographic images were obtained with 3D tomosyn thesis and utilizing computer aided detection (CAD). COMPARISON: Available for comparison. FINDINGS: Masses/Architectural Distortion: None seen. Microcalcifications: No suspicious pleomorphic-type are seen. Skin Thickening/Nipple Retraction: None. IMPRESSION: 1. No significant interval change with no specific features of malignancy noted. 2. Unless there is more urgent need, screening mammography is recommended, as per [place] [employer] guidelines. BI-RADS Category 1 - Negative Breast Density - Category C - Heterogeneously dense The mammogram demonstrates the patient's breast tissue is dense. Dense breast tissue is very common a nd is not abnormal but dense breast tissue can make it harder to find cancer on a mammogram. Also, de nse breast tissue may increase their breast cancer risk. This information about the result of the [facility] mogram report was provided to the patient to raise their awareness. Use this report when you speak wi th the patient about their risks for breast cancer, which includes their family history. At that time , you may recommend for more screening tests (Ultrasound or MRI) as they might be useful based on the ir risk. A negative radiographic report should not delay biopsy if a dominant or clinically suspicious mass is present. Up to ten percent of cancers are not identified on mammography. A negative report may reinforce clinical impression. Adenosis and dense breasts may obscure an underlying neoplasm. False positive reports average 6 to 10%. Patient will receive a letter notifying them of these results.
== END 2020-03-09 01:24 ==
PROVIDERS: PCP Family Medicine; Visit Provider Family Medicine
DX: Z12.31 Encounter for screening mammogram for malignant neoplasm of breast (principal); R92.2 Inconclusive mammogram
CPT/HCPCS: 77063; 77067

== ENCOUNTER 2020-07-07 02:10 | Outpatient (CLI) | payer MEDICAID, SELFPAY ==
--- NOTE | 2020-07-07 13:52 | DI.RAD_ITS ---
EXAM: 2D digital imaging was performed. CLINICAL HISTORY: increased flank pain,H/O RENAL CALCULI,Z87.442. COMPARISON: CT CT RENAL COLIC WO from 01/13/2020 TECHNIQUE: Supine views of the abdomen performed. FINDINGS: There are calcifications overlying the right kidney consistent with nephrolithiasis. The largest royer sures 6 mm an is within the lower pole. The left kidney is largely obscured by overlying bowel. No other definite urinary tract calculi are identified. Surgical clips are seen in the right upper quad rant of the abdomen consistent with prior cholecystectomy. The visualized lung bases are clear. No evidence of bowel obstruction. There is a phleboliths seen in the left pelvis. IMPRESSION: Right nephrolithiasis. DATA REPOSITORY: RADIATION DOSE DELIVERED:
== END 2020-07-07 02:30 ==
PROVIDERS: PCP Family Medicine; Visit Provider Nurse Practitioner Gerontology
DX: Z87.442 Personal history of urinary calculi (principal); N20.0 Calculus of kidney
CPT/HCPCS: 74018

== ENCOUNTER 2020-08-31 02:03 | Outpatient (CLI) | payer MEDICAID, SELFPAY ==
[2020-09-01 16:13] LABS: COVID-19 RT-PCR UVMMC Result Negative (Negative)
== END 2020-08-31 02:04 | disposition home or self-care (01) ==
LOC: LBO 02:03
PROVIDERS: PCP Family Medicine; Visit Provider Family Medicine
DX: Z20.822 Contact with and (suspected) exposure to COVID-19 (principal)
CPT/HCPCS: U0003

== ENCOUNTER 2021-03-14 08:38 | Outpatient (CLI) | payer MEDICAID, SELFPAY ==
--- NOTE | 2021-03-14 08:30 | DI.RAD_ITS ---
Exam(s) XR SHOULDER RT COMPLETE 2+V EXAM: XR SHOULDER RT COMPLETE 2+V CLINICAL HISTORY: right shoulder pain. TECHNIQUE: 2D digital imaging was performed of the right shoulder. Two images were obtained. AP an d axillary views were obtained. COMPARISON: No exams were available for comparison FINDINGS: BONES: No acute fracture is present. No bony destructive lesion is seen. JOINTS: No dislocation present. Mild hypertrophic changes are seen at the acromioclavicular joint. G lenohumeral joint appears well maintained. A tiny density is seen at the inferior aspect of the ti oid. This may represent an old injury or dystrophic calcification. SOFT TISSUE: Normal. IMPRESSION: Mild degenerative changes of the right shoulder. DATA REPOSITORY: RADIATION DOSE DELIVERED:
== END 2021-03-14 08:39 | disposition home or self-care (01) ==
LOC: DIORS 08:38
PROVIDERS: PCP Family Medicine; Referring Provider Family Medicine; Visit Provider Student in an Organized Health Care Education/Training Program
DX: M25.511 Pain in right shoulder (principal); M19.011 Primary osteoarthritis, right shoulder
CPT/HCPCS: 73030

== ENCOUNTER 2021-03-15 01:37 | Outpatient (CLI) | payer MEDICAID, SELFPAY ==
--- NOTE | 2021-03-15 07:00 | DI.RAD_ITS ---
Exam(s) XR ABDOMEN FLAT PLATE EXAM: 2D digital imaging was performed. CLINICAL HISTORY: monitoring b/l stones,H/O RENAL CALCULI,Z87.442. COMPARISON: CR XR ABDOMEN FLAT PLATE from 07/07/2020 TECHNIQUE: Supine views of the abdomen was performed. FINDINGS: LUNG BASES: Clear. BOWEL GAS PATTERN: Nondistended. FREE AIR: None. CALCIFICATIONS: The renal shadows are largely obscured by overlying bowel. A calcification is again seen overlying the lower pole of the right kidney. No other urinary tract calculi are identified. OSSEOUS STRUCTURES: Normal for age. OTHER FINDINGS: There again seen surgical clips in the right upper quadrant of the abdomen likely fro m prior cholecystectomy. IMPRESSION: Right nephrolithiasis. DATA REPOSITORY: RADIATION DOSE DELIVERED:
== END 2021-03-15 01:57 ==
PROVIDERS: PCP Family Medicine; Visit Provider Nurse Practitioner Gerontology
DX: Z87.442 Personal history of urinary calculi (principal); N20.0 Calculus of kidney
CPT/HCPCS: 74018

== ENCOUNTER 2021-07-06 02:08 | Outpatient (CLI) | payer MEDICAID, SELFPAY ==
[2021-07-06 08:30] LABS: HCT 46.2 % (36.0-46.0); HGB 14.8 g/dL (11.2-15.7); MCH 28.7 pg (27.0-33.0); MCV 89.5 fL (80-95); MPV 9.5 fL (8.0-11.0); Platelet Count 311 10^3/uL (130-400); RBC 5.16 10^6/uL (3.93-5.22); RDW 12.1 % (11.7-14.6); RDW-SD 39.9 fL; WBC 7.58 10^3/uL (4.4-10.8)
[2021-07-06 09:13] LABS: ALT 36 U/L (14-59); AST 16 U/L (15-37); Albumin 4.3 g/dL (3.4-5.0); Alkaline Phosphatase 114 U/L (46-116); Anion Gap 6.2 mmol/L (3-11); BUN 10 mg/dL (7-18); Bilirubin, Total 0.7 mg/dL (0.2-1.0); CO2 30.8 mmol/L (21.0-32.0); CREATININE 0.8 mg/dL (0.55-1.02); Calcium 9.1 mg/dL (8.5-10.1); Calculated LDL 116 mg/dL (<100); Chloride 104 mmol/L (98-107); Cholesterol 186 mg/dL (<200); Glucose 95 mg/dL (74-106); HDL Cholesterol 48 mg/dL (40-60); Potassium 4.5 mmol/L (3.5-5.1); Sodium 141 mmol/L (136-145); Total Protein 7.3 g/dL (6.4-8.2); Triglyceride 110 mg/dL (<150)
[2021-07-06 09:32] LABS: Vitamin D 25 Total 28.1 ng/mL (30-100)
== END 2021-07-06 02:09 | disposition home or self-care (01) ==
LOC: LBO 02:08
PROVIDERS: PCP Family Medicine; Visit Provider Family Medicine
DX: E55.9 Vitamin D deficiency, unspecified (principal); K29.60 Other gastritis without bleeding; E78.79 Other disorders of bile acid and cholesterol metabolism
CPT/HCPCS: 36415; 80053; 80061; 82306; 85027

== ENCOUNTER 2021-09-15 09:21 | Outpatient (REF) | payer MEDICAID, SELFPAY ==
--- NOTE | 2021-09-15 08:50 | PAPFT_PTH ---
PATIENT: Sydnie Valenzuela LOC: [facility] U#:[id number] AGE/SX: 56/F ROOM: RE09/15/[address]: Paty Centeno : 1965 BED: DIS: 09/15/2021 SPEC #: [id number] RECD: 09/15/21 16:30 STATUS: GIA PEREZ #: [id number] GRECIA: 09/15/21 08:[address]: Paty Centeno DEPT: [facility] Cytology RECD BY: Yumiko Gupta Tissues: 1 - CX/ENDOCX FOR PAP SMEARS Procedures: PAP THIN PREP/UVM Screening HPV DNA PROBE Comments: [id number] (CHLAMYDIA/GC)
[2021-09-18 14:47] LABS: Chlamydia Result Negative (Negative); GC Result Negative (Negative)
== END 2021-09-15 09:22 | disposition home or self-care (01) ==
LOC: LBN 09:21
PROVIDERS: PCP Family Medicine; Visit Provider Family Medicine
DX: R87.612 Low grade squamous intraepithelial lesion on cytologic smear of cervix (LGSIL) (principal); Z11.3 Encounter for screening for infections with a predominantly sexual mode of transmission; Z12.4 Encounter for screening for malignant neoplasm of cervix; Z11.51 Encounter for screening for human papillomavirus (HPV)
CPT/HCPCS: 87491; 87591; 88142; 87624

== ENCOUNTER → 2021-10-31 18:48 | Outpatient (CLI) | payer MEDICAID, SELFPAY ==
--- NOTE | 2021-10-31 06:30 | DI.CT_ITS ---
Exam(s) CT ABDOMEN PELVIS WO EXAM: CT ABDOMEN PELVIS WO CLINICAL HISTORY: ? diverticulitis, lower abd pain,h/o kidney stones,r10.30. TECHNIQUE: Imaging Protocol: Axial computed tomography images with coronal and sagittal reformatted images were created and reviewed CONTRAST MATERIAL: Intravenous: none (contingency protocol) Oral: Yes. Oral contrast was administered for bowel opacification. COMPARISON: CT CT RENAL COLIC WO from 01/13/2020 FINDINGS: VISUALIZED LUNG BASES: No nodules nor pleural effusions evident. ABDOMEN: There is no ascites. LIVER: There are no obvious focal hepatic lesions evident of this noninfused study. GALLBLADDER/BILIARY: The gallbladder is again noted to be surgically absent. CBD is not dilated. PANCREAS: No evidence of new pancreatic mass nor dilatation of the pancreatic duct. SPLEEN: Spleen is not enlarged. No obvious intrasplenic lesions. ADRENALS: There are no significant adrenal masses. KIDNEYS:Bilateral renal calculi again noted, again noted be more prominent and larger in the right ki dney. The largest calculus is presently in the lower pole calyx of the right kidney, measuring 6 x 5 millimeters was previously slightly higher up in the kidney. No cysts nor solid renal masses. No h ydronephrosis nor hydroureter evident. There are no calculi seen in the urinary bladder. ABDOMINAL AORTA: Abdominal aorta is not enlarged. LYMPH NODES: There is no retroperitoneal nor paraaortic adenopathy. ABDOMINAL WALL: No evidence of significant anterior abdominal wall nor inguinal hernia. There is a s mall fat only containing umbilical hernia again noted, unchanged GI: There is no evidence of bowel obstruction, free air, nor abscess. PELVIS: LYMPH NODES: There is no intrapelvic nor inguinal adenopathy. GI: No evidence of appendicitis.No evidence of sigmoid diverticulitis. URINARY BLADDER: There is some thickening of the anterior wall of the urinary bladder noted, more so than previous. This measures up to 7 millimeters thickness. No calcifications at this level. REPRODUCTIVE: Uterus is unchanged-normal size. No new adnexal masses. No free fluid in the pelvis. OSSEOUS: No significant osseous lesions. No fractures. IMPRESSION: 1. Compared to the prior CT scan of 01/13/2020 there are bilateral renal calculi again noted, again n oted be more prominent in the large in the right kidney which largest calculus in the right kidney me asuring 6 x 5 millimeters and located in the lower pole calyx, having migrated to this level from jazmyne ewhat higher up in the right kidney on the prior study. However, there are no calculi in the ureters and no hydronephrosis on either side. Also no calculi in the urinary bladder. However, the bladder wall appears thickened anteriorly, more so than previous. Consider cystoscopy. 2. No evidence of acute appendicitis nor acute diverticulitis. No free fluid in the abdomen and pelv is. RADIATION DOSE DELIVERED: 917.12mGy.cm Total DLP DATA REPOSITORY: All CT scans at this facility are submitted to the National Radiology Data Registry (NRDR) Dose Index Registry (DIR) with the [employer] (ACR). RADIATION OPTIMIZATION: All CT scans at this facility use at least one of these dose optimization te chniques: automated exposure control; mA and/or kV adjustment per patient size (includes targeted exa ms where dose is matched to clinical indication); or iterative reconstruction.
[2021-10-31] MEDS: Barium Sulfate 2% W/V-Creamy Vanilla Smoothie 450 ML BTL PO ×2 (09:21→09:22)
== END ==
PROVIDERS: PCP Family Medicine; Visit Provider Nurse Practitioner Family
DX: R10.31 Right lower quadrant pain (principal); N20.0 Calculus of kidney; N32.89 Other specified disorders of bladder
CPT/HCPCS: 74176

== ENCOUNTER 2021-11-17 01:07 | Outpatient (CLI) | payer MEDICAID, SELFPAY ==
[2021-11-17 08:35] LABS: Source Nasal/Nares
[2021-11-17 11:58] LABS: COVID-19 PCR Negative (Negative)
== END 2021-11-17 01:08 | disposition home or self-care (01) ==
LOC: LBO 01:08
PROVIDERS: PCP Family Medicine; Visit Provider Surgery
DX: Z20.822 Contact with and (suspected) exposure to COVID-19 (principal); Z01.818 Encounter for other preprocedural examination
CPT/HCPCS: 87635

== ENCOUNTER 2021-11-20 10:01 | Day surgery (SDC) | payer MEDICAID, SELFPAY ==
--- NOTE | 2021-11-20 06:35 | W.ANESPRE ---
General Info Date of Service Date Performed: 11/20/21 Height: 5 ft 5 in Weight: 83.574 kg Body Mass Index (BMI): 30.7 Surgical Procedure: Operation Date: 11/20/21 11:20 Proposed Procedure Side Surgeon p Gastroscopy Shruthi Zuniga MD Meds Allergies and Home Medications Allergies Allergy/AdvReac Type Severity Reaction Status Date / Time No Known Allergies Allergy Verified 11/20/21 10:20 Home Medication Medication Instructions Recorded Unknown [No Known Home Meds] 11/10/21 Current Visit Medications: Current Medications Generic Name Dose Route Start Last Admin Trade Name Freq PRN Reason Stop Dose Admin Ringer's Solution 1,000 mls @ 80 mls/hr 11/20/21 06:00 IV 12/14/21 23:59 INFUSION SATYA IV Miscellaneous Supplies 1 each 11/20/21 06:00 Iv Access IV 12/14/21 23:59 DIRECTED SATYA Sodium Chloride 0 ml 11/20/21 06:00 Normal Saline Flush 10 Ml Syr IV 12/14/21 23:59 PRN PRN Sodium Chloride 0 ml 11/20/21 06:00 Normal Saline 10 Ml Vial IJ 12/14/21 23:59 DIRECTED PRN Sterile Water 0 ml 11/20/21 06:00 Water,Injection,Sterile 10 Ml Vial IJ 12/14/21 23:59 DIRECTED PRN PFSH Active Problems Active Problems: Problem Status Onset Code Tobacco abuse Medical History Medical History Arthritis of right acromioclavicular joint (~01/2021) Colorectal polyps (~10/27/18) Kidney stone LGSIL on Pap smear of cervix negative HPV. Lower abdominal pain of unknown etiology Obesity without serious comorbidity Varicosities of leg Surgical History Surgical History (Updated 11/20/21 @ 10:22 by [place]) Cholelithiasis without obstruction (01/13/13) Laparoscopic cholecystectomy by Dr. Osullivan on 01-13-2013. History of section C section X3 with her last having a wound dehiscence down to evisceration of loops of bowel. History of cystoscopy History of surgery Vericose vein removal Hx laparoscopic cholecystectomy S/P colonoscopy (~10/27/18) Tobacco Smoking/Tobacco Use Status: Current every day Tobacco Type: cigarettes Passive smoking exposure: Yes Second hand exposure: Yes Alcohol Alcohol Intake: current Alcohol intake frequency: a few times a month Alcohol type: wine Substance Use Substance use type: marijuana Details: 1/2 pack/day smoker. Alcohol: t-2: two drinks. Marijuana: edibles, T-1, one piece of caramel Prental History History Para 3 Hx # Term Pregnancies Multiple births Hx # Pregnancies Ectopic pregnancies AB induced Hx Number of Living Children AB spontaneous Vital Signs and Lab Results Vital Signs Most Recent Vital Signs in EMR: Temp Pulse Resp BP Pulse Ox 37 C 72 18 111/63 97 11/20/21 10:22 11/20/21 10:22 11/20/21 10:22 11/20/21 10:22 11/20/21 10:22 Lab Results Blood Type / Crossmatch: No Data to Display Complete Blood Count: No Data to Display Complete Metabolic Panel: No Data to Display Liver Function Panel: No Data to Display Coagulation Panel: No Data to Display Cardiac Panel: No Data to Display Arterial Blood Gas: No Data to Display Venous Blood Gas: No Data to Display Pancreas Panel: No Data to Display Thyroid Panel: No Data to Display Infectious Disease: Coronavirus (COVID-19)(PCR) Negative (Negative) 11/17/21 07:50 Coronavirus 2019 Source Nasal/Nares 11/17/21 07:50 Blood Cultures: No Data to Display Toxicology Panel: No Data to Display Anesthesia Assessment and Plan Anesthesia History Personal History: No History of Anesthesia Complications Family History: No Family History of Anesthesia Complications Exercise Tolerance Exercise Tolerance: Metabolic Equivalents>4 Pertinent Negatives Pertinent Negatives: No Symptoms of GERD, No Major Cardiovascular Symptoms or Complaints, No Major Pulmonary Symptoms or Complaints and No History of CVA/TIA Cardiac & Pulmonary Exam Cardiac Exam: Normal S1/S2 Heart Sounds Pulmonary Exam: Clear Bilateral Breath Sounds Implantable Cardiac Device Does patient have a Pacemaker or an ICD?: No Airway Exam Known Difficult Airway: No Mallampati Class: 2 Mouth Opening: Normal (> 3cm) Thyromental Distance: Greater than 3 cm Neck Range of Motion: Full ROM Neck Circumference: Normal Teeth Condition: Normal Dentition ASA Classification ASA Score: ASA 2 Emergency Case?: No NPO Status NPO Status: NPO Clears >2 hours, Solids >8 hours Anesthesia Plan Resuscitation Status: Full Code Anesthesia Technique: General Anesthesia Airway Planned: Natural Airway Monitors Used: Standard Monitors Preoperative Comments:: 56 yo female with abdominal pain and weight loss for colonoscopy/EGD. Sig PMHx: smoker (tobacco/cannabis), occ EtOH, Previous Anes: fent/prop needed OPA.
--- NOTE | 2021-11-20 07:08 | ENDO_ITS ---
Date of service: 11/20/21 Time of Service: 13:23 Endoscopy Report DATE OF PROCEDURE: 11/20/21 PRE-OP DIAGNOSIS: abdominal pain POST-OP DIAGNOSIS: other (mild esophagitis and gastritis) PROCEDURE: EGD with biopsies SURGEON: Shruthi Zuniga ANESTHESIA TYPE: General:No Airway ESTIMATED BLOOD LOSS: 2 PATHOLOGY: other (antrum bx, GE junction bx) COMPLICATIONS: None DISPOSITION: same day INDICATIONS: Patient expressed that she has had some unintentional weight loss. In reviewing previous weights, patient has lost a total of 8.9kg since November 2020.? Lengthy discussion with the patient about proceeding with [place] and EGD for further evaluation. The patient states that her symptoms have resolved, her largest concern at this time is that she has an ulcer and she wishes to proceed with an EGD. She would like to hold off on using any medications until after having an EGD. Patient's complaints of discomfort are described as lower abdominal pain. Unable to recreate this discomfort on exam. CT scan was reassuring. -Discussed Upper endoscopy procedure and the need to be NPO after midnight the night prior. Discussed possible complications of the procedure to include bleeding, pain, perforation, missed small lesion/polyp/ulcers, sore throat, aspiration and adverse reaction to the medications or sedation. Questions were answered to patient?s satisfaction. No guarantees were implied or given.? FINDINGS: mild inflammation of the stomach and distal esophagus PROCEDURE DESCRIPTION: After informed consent was obtained the patient was take to the procedure room and placed in a supine position. Monitors were applied and a time out was done. The patients name, date of , procedure type, allergies to medic ations and metal in their body was reviewed. A bite block was placed and the patient was sedated. Once sedated and comfortable the gastroscope was advanced through the oropharynx which was grossly normal into the esophagus. The proximal and mid- esophagus were normal. In the distal esophagus there was mild inflammation noted. The scope was advanced into the stomach and through the pylorus into the 3rd portion of the duodenum. The duodenum was noted to be normal. The scope was retracted back into the stomach and biopsies were done to rule out H. pylori. There were no ulcers. The scope was retroflexed. The cardia and fundus were noted to be normal. There was no hiatal hernia noted. The scope was retracted back into the esophagus and biopsies were done of the GE junction to rule out Kong's. The Z line was regular. The GE junction was at 38 cm. The scope was removed and the patient was woken up and taken back to [facility] in stable condition. Follow up: 2 weeks
--- NOTE | 2021-11-20 07:09 | PDOC.DSDIS_ITS ---
Discharge Plan Disposition Patient Disposition: HOME Condition: Good Discharge Details Reason For Visit: EGD Attending Provider: Shruthi Zuniga Primary Care Provider: Paty Centeno Home Meds and New Rx's Prescriptions: New famotidine [Pepcid] 40 mg tablet 40 mg PO DAILY Qty: 14 0RF Discharge Instructions Instructions: Diet for Stomach Ulcers and Gastritis (ED), Gastritis (DC), GERD (Gastroesophageal Reflux Disease) (DC) Additional Instructions: Findings: mild to moderate inflammation of the stomach and esophagus Follow up: 2 weeks Please call if you develop: fevers >101.5 Nausea or Vomiting Abdominal pain that is not transient Rectal bleeding that is more then a tbsp A hard abdomen and inability to pass gas DAY SURGERY UNIT POST ENDOSCOPY INSTRUCTIONS Instructions for everyone who is given Anesthesia: For your safety, please do the following for the next 24 Hours: a. Do not drive or operate dangerous equipment b. Do not drink alcohol beverages or use any recreational drugs for the first 24 hours or while taking pain medications. The medications in your body may have a reaction that can be dangerous. c. Do not make any important decisions or sign any important papers 1. Generally there are no restrictions on your activity after a day or so has g one by, but you may feel a bit fatigued for a few days. 2. After you arrive home you may have a light meal and return to a normal diet as you can tolerate it without feeling sick to your stomach. 3. After surgery, you may feel pain or discomfort. This should be only transient, but if it persists please contact your doctor. 4. If there are any questions regarding the findings of your procedure, please feel free to contact your doctor. 6. If you are unable to contact your doctor with a problem, contact the hospital at [phone]. 7. Continue all your regular medications unless directed otherwise. I understand the above instructions and have no questions. Signature of Patient or Responsible Adult Escort Date/Time Name of Responsible Adult Escort Signature of Nurse Date/Time Activity:: Activity as Tolerated Diet:: low acid Discharge Orders Discharge Orders: Discharge Order (Routine); Ordered 11/20/21 Ordered By: Shruthi Zuniga
[2021-11-20 10:22] VITALS: BP 111/63; PULSE 72; RESP 18; TEMP 37; O2SAT 97
[2021-11-20] MEDS: Lactated Ringers 1,000 ML 80 ML IV (10:38)
[2021-11-20 11:23] VITALS: BMI 30.7
--- NOTE | 2021-11-20 13:11 | W.ANESPOSTOP ---
Postoperative Evaluation Date, Time and Location Date Performed: 11/20/21 Time Performed: 13:47 Patient Location: Day Surgery Unit Vital Signs Most Recent Imported Vital Signs: Most Recent Vital Signs Temp Pulse Resp BP Pulse Ox 37 C 72 18 111/63 97 11/20/21 10:22 11/20/21 10:22 11/20/21 10:22 11/20/21 10:22 11/20/21 10:22 Most Recent Manually Entered Vital Signs: Adult Blood Pressure: 95/64 Heart Rate: 73 Respirations: 20 Oxygen Saturation (%): 97 Temperature (C): 36.4 C Pain Score (0-10 Scale): 0 Pain Score Most Recent Pain Score: Most Recent Pain Score Pain Level 0 11/20/21 10:22 Assessment Mental Status: Awake (Alert & Oriented to Patient Baseline) Airway and Respiratory Function: Patent airway with normal (patient baseline) respiratory exam Cardiovascular Function: Hemodynamically Stable Hydration Status: Adequately Hydrated Nausea & Vomiting: No Nausea or Vomiting Pain: Pt. Denies Any Pain Peripheral Nerve Block: Patient did not receive a nerve block
--- NOTE | 2021-11-20 13:30 | STOM_PTH ---
PATIENT: Sydnie Valenzuela LOC: [facility] U#:[id number] AGE/SX: 56/F ROOM: RE11/20/[address]: Shruthi Zuniga MD : 1965 BED: DIS: 11/20/2021 SPEC #: [id number] RECD: 11/20/21 15:17 STATUS: GIA REQ #: [id number] GRECIA: 11/20/21 13:[address]: Shruthi Zuniga DEPT: Surgical Specimen RECD BY: Yumiko Gupta ENTERED: 11/20/21 15:17 SP TYPE: STOMACH OTHR DR: Paty Centeno Tissues: 1 - STOMACH BIOPSY 2 - ESOPHAGUS BIOPSY Procedures: GROSS AND MICRO LEVEL 4 Comments: [id number]
[2021-11-20 13:43] VITALS: BP 95/64; PULSE 73; RESP 20; TEMP 36.4; O2SAT 97
[2021-11-20 13:48] VITALS: BP 95/64; PULSE 73; RESP 20; TEMPC 36.4; O2SAT 97
[2021-11-20 14:15] VITALS: BP 107/74; PULSE 73; RESP 18; TEMP 36.4; O2SAT 97
== END 2021-11-20 14:43 | disposition home or self-care (01) ==
PROVIDERS: PCP Family Medicine; Visit Provider Surgery
PROC: 0DJ68ZZ Inspection of Stomach, Via Natural or Artificial Opening Endoscopic (ICD-10-PCS; CPT 43235; principal; 2021-11-20 11:15)
DX: R63.4 Abnormal weight loss (principal); K20.90 Esophagitis, unspecified without bleeding; K29.70 Gastritis, unspecified, without bleeding; R10.30 Lower abdominal pain, unspecified; Z86.010 Personal history of colon polyps; B96.81 Helicobacter pylori [H. pylori] as the cause of diseases classified elsewhere
CPT/HCPCS: 43239; 88305

== ENCOUNTER 2022-01-24 19:24 | Outpatient (REF) | payer MEDICAID, SELFPAY ==
[2022-01-29 16:22] LABS: Helicobacter pylori Ag, Feces Negative (Negative)
== END 2022-01-24 19:25 | disposition home or self-care (01) ==
LOC: LBN 19:24
PROVIDERS: PCP Family Medicine; Visit Provider Surgery
DX: A04.8 Other specified bacterial intestinal infections (principal); B96.81 Helicobacter pylori [H. pylori] as the cause of diseases classified elsewhere; R10.30 Lower abdominal pain, unspecified; K29.70 Gastritis, unspecified, without bleeding; R63.4 Abnormal weight loss
CPT/HCPCS: 87338

== ENCOUNTER → 2022-03-19 01:28 | Outpatient (CLI) | payer MEDICAID, SELFPAY ==
--- NOTE | 2022-03-19 08:36 | DI.RAD_ITS ---
Exam(s) XR ABDOMEN FLAT PLATE EXAM: 2D digital imaging was performed. CLINICAL HISTORY: monitoring right renal calculi,z87.442, h/o renal calculi. COMPARISON: CT CT ABDOMEN PELVIS WO from 10/31/2021 TECHNIQUE: Supine views of the abdomen performed. FINDINGS: BOWEL GAS PATTERN: Nondistended. CALCIFICATIONS: Calcifications are noted projecting at the upper and lower poles of the right kidney. Calcification versus particular stool projecting in mid left kidney. OSSEOUS STRUCTURES: Normal for age. OTHER FINDINGS: Cholecystectomy clips right upper quadrant. IMPRESSION: 1. Nonobstructive bowel gas pattern. 2. Bilateral nephrolithiasis. DATA REPOSITORY: RADIATION DOSE DELIVERED:
== END ==
PROVIDERS: PCP Family Medicine; Visit Provider Nurse Practitioner Gerontology
DX: N20.0 Calculus of kidney (principal); Z87.442 Personal history of urinary calculi; Z90.49 Acquired absence of other specified parts of digestive tract
CPT/HCPCS: 74018

== ENCOUNTER 2022-04-04 02:44 | Outpatient (CLI) | payer MEDICAID, SELFPAY ==
[2022-04-04 12:56] LABS: Abs Immature Grans 0.02 10^3/uL (0.0-0.06); Absolute Basophil Count 0.05 10^3/uL (0.0-0.2); Absolute Eosinophil Count 0.16 10^3/uL (0.0-0.7); Absolute Lymphocyte Count 2.56 10^3/uL (1.2-3.4); Absolute Monocyte Count 0.49 10^3/uL (0.1-0.8); Absolute Neutrophil Count 3.51 10^3/uL (1.2-6.7); Basophils % 0.7; Eosinophils % 2.4; HCT 40.5 % (36.0-46.0); HGB 12.7 g/dL (11.2-15.7); Immature Grans % 0.3; Lymphocytes % 37.7; MCH 28.2 pg (27.0-33.0); MCHC 31.4 % (32.0-36.0); MCV 90 fL (80-95); Monocytes % 7.2; Neutrophils % 51.7; Platelet Count 237 10^3/uL (130-400); RDW 12.2 % (11.7-14.6); RDW-SD 40.2 fL; WBC 6.79 10^3/uL (4.4-10.8)
[2022-04-04 13:10] LABS: ALT 39 U/L (14-59); AST 27 U/L (15-37); Albumin 4.1 g/dL (3.4-5.0); Alkaline Phosphatase 104 U/L (46-116); Anion Gap 5.2 mmol/L (3-11); BUN 13 mg/dL (7-18); Bilirubin, Total 0.6 mg/dL (0.2-1.0); CO2 30.8 mmol/L (21.0-32.0); CREATININE 0.7 mg/dL (0.55-1.02); Calcium 9.2 mg/dL (8.5-10.1); Chloride 107 mmol/L (98-107); Estimated GFR 102.07 (mL/min/1.73m2); Glucose 86 mg/dL (74-106); Potassium 4.8 mmol/L (3.5-5.1); Sodium 143 mmol/L (136-145); TSH (W/Ref FT4) 1.48 uIU/mL (0.36-3.74); Total Protein 7.5 g/dL (6.4-8.2)
[2022-04-04 23:10] LABS: FSH 43.7 mIU/mL (See Note)
== END 2022-04-04 02:45 | disposition home or self-care (01) ==
LOC: LOS 02:45
PROVIDERS: PCP Family Medicine; Visit Provider Family Medicine
DX: N91.2 Amenorrhea, unspecified (principal); R23.2 Flushing
CPT/HCPCS: 36415; 80053; 83001; 84443; 85025

== ENCOUNTER → 2022-04-05 01:37 | Outpatient (CLI) | payer MEDICAID, SELFPAY ==
--- NOTE | 2022-04-05 06:45 | DI.MAMMO_ITS ---
Exam(s) MAMMO SCREENING EXAM: MAMMO SCREENING CLINICAL HISTORY: screening,z12.39 TECHNIQUE: Mammograms were interpreted according to the usual protocol including computer analysis [facility] CAD system, tomosynthesis and C-view imaging. COMPARISON: FINDINGS: The breasts are heterogeneously dense. No dominant mass or clumped microcalcification is identified in either breast. The current examination is compared with previous examinations including February 2020 and there has been no gross interval change in appearance in comparison with the prior studies. IMPRESSION: No specific evidence of malignancy at this time. Routine screening examinations are suggested at yea rly intervals in this age group according to the ACS ACR guidelines. BI-RADS Category 1 - Negative Breast Density - Category C - Heterogeneously dense
== END ==
PROVIDERS: PCP Family Medicine; Visit Provider Family Medicine
DX: Z12.31 Encounter for screening mammogram for malignant neoplasm of breast (principal); R92.8 Other abnormal and inconclusive findings on diagnostic imaging of breast
CPT/HCPCS: 77063; 77067

== ENCOUNTER → 2022-05-03 02:01 | Outpatient (CLI) | payer MEDICAID, SELFPAY ==
--- NOTE | 2022-05-03 07:00 | DI.CTLCSR_ITS ---
Exam(s) CT CHEST LUNG CANCER SCREEN EXAM: CT CHEST LUNG CANCER SCREEN CLINICAL HISTORY: Screening for lung cancer,FORMER SMOKER, Z87.891 TECHNIQUE: CT examination of the chest was performed utilizing low-dose lung cancer screening protoc ol. COMPARISON: No exams were available for comparison FINDINGS: Images obtained through the upper abdomen show unremarkable appearance of visualized portions of the liver and spleen. There has been a prior cholecystectomy. Visualized portions pancreas, adrenals, and kidneys are unremarkable. Note is made of coronary artery calcification. There is no mediastinal or hilar adenopathy. Mediastinal vascular structures appear intact by noncon trast criteria. Tracheobronchial tree appears intact. No pleural effusion or pleural-based mass. The lungs are clear with no significant intrapulmonary nodule identified. There is a 3 millimeter le ft fissural nodule noted. IMPRESSION: Lung RADS Cat 2 - Benign Appearance / Behavior: Nodules with a very low likelihood of becoming a cli nically active cancer due to size or lack of growth Continue annual screening with LDCT in 12 months. Lung-RADS 1.0 CATEGORIES: Category 0 - Prior chest CT exam(s) being located for comparison. Category 1 - Annual screening in 12 months. No nodules or definitely benign nodules. Category 2 - Annual screening in 12 months. Benign appearance. Nodules with low likelihood of becomin g active cancer. Category 3 - 6-month follow-up. Probably benign. Short-term follow-up suggested. Nodules with low lik elihood of becoming active cancer. Category 4A - 3-month follow-up and CT/PET if >8 mm in size. Suspicious finding. Findings which requi re additional testing. Category 4B - Findings which require additional testing and tissue sampling. Suspicious finding. Category 4X - Category 3 or 4 nodules with additional features or imaging findings that increases the suspicion of malignancy. Modifier S- Potentially clinically significant finding. (Non lung cancer) RADIATION DOSE DELIVERED: Total DLP !Error CTDIvol Total DLP DATA REPOSITORY: All CT scans at this facility are submitted to the National Radiology Data Registry (NRDR) Dose Index Registry (DIR) with the [employer] (ACR). RADIATION OPTIMIZATION: All CT scans at this facility use at least one of these dose optimization te chniques: automated exposure control; mA and/or kV adjustment per patient size (includes targeted exa ms where dose is matched to clinical indication); or iterative reconstruction.
== END ==
PROVIDERS: PCP Family Medicine; Visit Provider Family Medicine
DX: R23.2 Flushing (principal); Z87.891 Personal history of nicotine dependence; Z12.2 Encounter for screening for malignant neoplasm of respiratory organs
CPT/HCPCS: 71271

== ENCOUNTER 2022-10-19 16:49 | Outpatient (REF) | payer MEDICAID, SELFPAY ==
--- NOTE | 2022-10-19 16:00 | PAPFT_PTH ---
PATIENT: Sydnie Valenzuela LOC: [facility] U#:[id number] AGE/SX: 57/F ROOM: RE10/19/[address]: Paty Centeno : 1965 BED: DIS: 10/19/2022 SPEC #: [id number] RECD: 10/22/22 12:43 STATUS: GIA REQ #: [id number] GRECIA: 10/19/22 16:[address]: Paty Centeno DEPT: [facility] Cytology RECD BY: Yumiko Gupta Tissues: 1 - CX/ENDOCX FOR PAP SMEARS Procedures: PAP THIN PREP/UVM Screening HPV DNA PROBE Comments: [id number]
== END 2022-10-19 16:50 | disposition home or self-care (01) ==
LOC: LBN 16:49
PROVIDERS: PCP Family Medicine; Visit Provider Family Medicine
DX: Z12.4 Encounter for screening for malignant neoplasm of cervix (principal); R87.610 Atypical squamous cells of undetermined significance on cytologic smear of cervix (ASC-US); Z11.51 Encounter for screening for human papillomavirus (HPV)
CPT/HCPCS: 88142; 87624

== ENCOUNTER 2022-10-25 01:07 | Outpatient (CLI) | payer MEDICAID, SELFPAY ==
--- NOTE | 2022-10-25 08:23 | DI.RAD_ITS ---
Exam(s) XR THORACIC SPINE COMPLETE EXAM: XR THORACIC SPINE COMPLETE CLINICAL HISTORY: thoracic back pain,m54.6,g89.29. TECHNIQUE: 2D digital imaging was performed. COMPARISON: No exams were available for comparison FINDINGS: 3 views There no evidence compression fracture or listhesis. Multilevel osteophytes noted no prominent disc space narrowing. Mild disc space narrowing at C5-6 noted. No osseous lesions. No significant scoli osis. No abnormal widening of the paraspinal lines. IMPRESSION: Mild findings as above. No fracture evident. DATA REPOSITORY: RADIATION DOSE DELIVERED:
== END 2022-10-25 01:27 ==
PROVIDERS: PCP Family Medicine; Visit Provider Family Medicine
DX: M25.78 Osteophyte, vertebrae
CPT/HCPCS: 72072

== ENCOUNTER → 2023-03-14 02:10 | Outpatient (CLI) | payer MEDICAID, SELFPAY ==
--- NOTE | 2023-03-14 07:00 | DI.RAD_ITS ---
Exam(s) XR ABDOMEN FLAT PLATE EXAM: XR ABDOMEN FLAT PLATE CLINICAL HISTORY: monitoring renal calculi,Z87.442. TECHNIQUE: 2D digital imaging was performed. COMPARISON: CT CT ABDOMEN PELVIS WO from 10/31/2021 CR XR ABDOMEN FLAT PLATE from 03/19/2022 FINDINGS: Single view. Bowel gas pattern is nonspecific in the supine position. Bilateral nephrolithiasis again noted. However, there is a calcification in the right-side of the pe lvis evident which measures 9 x 5 mm is most probably a calculus which has migrated down from its pre vious L3-4 level position in the right ureter. This is near the right UVJ at this time. Other small er calcification in the right-side of the pelvis is unchanged as is a small 2-3 millimeter calcificat ion left side of the pelvis. IMPRESSION: Right-sided calculus in the region of the lower right ureter-UVJ level with further caudal migration when compared to 03/19/2022. This most probably corresponds to the largest calculus in the right kid mae seen on the prior CT scan of 10/31/2021. If clinically indicated repeat CT scan can be performed. DATA REPOSITORY: RADIATION DOSE DELIVERED:
== END ==
PROVIDERS: PCP Family Medicine; Visit Provider Nurse Practitioner Gerontology
DX: Z87.442 Personal history of urinary calculi (principal); N20.0 Calculus of kidney
CPT/HCPCS: 74018

== ENCOUNTER → 2023-07-25 00:31 | Outpatient (CLI) | payer MEDICAID, SELFPAY ==
--- NOTE | 2023-07-25 13:53 | DI.MRI_ITS ---
Exam(s) MR THORACIC SPINE WO EXAM: MR THORACIC SPINE WO CLINICAL HISTORY: chronic thoracic back pain,M54.6,G89.29. TECHNIQUE: Multiplanar multisequence MRI of the Thoracic spine was performed. COMPARISON: CR XR THORACIC SPINE COMPLETE from 10/25/2022 FINDINGS: Bones: The vertebral body heights are well maintained. Alignment is satisfactory. The marrow signal characteristics are unremarkable. Endplate osteophytes p rojecting greater anteriorly and toward the right in the mid thoracic region. Mild posterior bulging of the C6-7 disc. Left sided disc bulging at T9-10. Minimal disc bulging T10 -11. No focal disc herniation at any level. No evidence of central canal stenosis or neural foraminal narrowing. Cord: The thoracic cord is normal size and signal intensity. No intrinsic cord lesion is present. Soft tissues: Normal. IMPRESSION: Degenerative disc changes. No evidence of disc herniation, central canal stenosis or neural foramina l narrowing. DATA REPOSITORY:
== END ==
PROVIDERS: PCP Family Medicine; Visit Provider Family Medicine
DX: M47.814 Spondylosis without myelopathy or radiculopathy, thoracic region (principal)
CPT/HCPCS: 72146

== ENCOUNTER 2023-12-02 12:01 | Outpatient (CLI) | payer MEDICAID, SELFPAY ==
[2023-12-02 12:15] VITALS: BP 115/74; PULSE 62; RESP 20; TEMP 36.7; O2SAT 99
[2023-12-02 12:45] VITALS: PULSE 61; RESP 13; O2SAT 99
[2023-12-02 12:50] VITALS: PULSE 71; RESP 18; O2SAT 98
[2023-12-02 13:00] VITALS: PULSE 60; RESP 19; O2SAT 97
[2023-12-02] MEDS: Omnipaque 240 MG/ML 50 ML BTL IJ (13:02)
[2023-12-02] MEDS: Dexamethasone Sod. Phos./Pres-Free 10 MG/ML VIAL IJ (13:02)
--- NOTE | 2023-12-02 13:02 | PDOC.PAIN_ITS ---
Date of service: 12/02/23 Time of Service: 13:02 Pain Managment Procedure Note Procedure Note Procedure Note: Procedure Note Thoracic Interlaminar Epidural Steroid Injection Date of Service: December 02, 2023 Patient:? Sydnie Valenzuela? Provider:? Joel Chan DO, MPH Sydnie has been referred to the [facility] for thoracic epidural steroid injection.? Pre-operative diagnosis: Thoracic Radiculopathy Post-operative diagnosis: Same Pre-procedure pain: VAS= 6/10 Comments: I previously evaluated her in the office. Her symptoms are unchanged. Sydnie was interviewed and the medical record was reviewed.? There were no medical, pharmacologic, radiographic or other structural contraindications to attempting fluoroscopically guided thoracic interlaminar epidural steroid injection.? Risks, potential side effects, indications, and potential benefits of the procedure were reviewed with Sydnie.? Questions and concerns were addressed.? After it was clear that the patient was fully informed about the procedure, the printed consent form was signed by the patient and myself.? Sydnie was placed in the prone position on the fluoroscopy table and automated blood pressure cuff as well as pulse oximeter was applied. A standard time-out procedure was performed. The skin entry point for entering the epidural space by a midline T8-T9 interlaminar approach was identified under fluoroscopy and marked.? The skin entry point was thoroughly cleaned with Chlorhexadine preparation and the skin was draped.? Next a mixture of 2 mls of 1% lidocaine was infiltrated into the area of the planned skin entry point and underlying subcutaneous tissues.? Next an 18 gauge Tuohy needle was placed under fluoroscopic guidance and with loss of resistance technique into the epidural space utilizing multiple AP and 55 degree contralateral fluoroscopic views.? Upon correct needle placement and loss of resistance, there were no paresthesia or return of blood or CSF through the needle. Next 1 mls of preservative-free Omnipaque 240 was injected with clear epidural spread in the A/P and oblique views. Next, a solution of 15 mg of preservative-free Dexamethasone was injected. This was followed with 1ml of preservative-free normal saline. No unusual discomfort was expressed by Sydnie. The needle was withdrawn without difficulty. (49 mls of Omnipaque and 5 mg of Dexamethasone was wasted) Sydnie was observed and was without hemodynamic, neurologic, or allergic reactions.? Fluoroscopic images were digitally archived. Sydnie's vital signs were stable throughout the procedure and were as recorded in the doc flowsheet by the nursing staff.? If given, dosages of intravenous drugs for anxiolysis and analgesia were documented in MAR. Follow up plans and appointments were discussed with Sydnie.? Post procedure instruction was given as documented in nursing documentation and having met discharge criteria, Syd[facility] ? COMMENTS: No apparent complications. Post-procedure pain: VAS= 0/10. Sydnie to contact [facility] as needed. If at least 50% improvement in pain and/or function for at least 3 months is achieved, this procedure can be repeated. I personally completed the entire procedure. JOEL CHAN DO, MPH ABPMR-subspecialty board certification in Pain Medicine [facility]
[2023-12-02 13:03] VITALS: BP 140/81; PULSE 62; O2SAT 98
--- NOTE | 2023-12-02 13:03 | DI.RAD_ITS ---
Exam(s) XR PAIN CLINIC THORACIC SP 2V EXAM: XR PAIN CLINIC THORACIC SP 2V CLINICAL HISTORY: DX: Thoracic spondylosis. TECHNIQUE: Fluoroscopy was provided for the referring physician for guidance with performing pain cl inic injection procedure. COMPARISON: No exams were available for comparison FINDINGS: Please see procedure note for details. Fluoro time: 73.5 seconds RADIATION DOSE DELIVERED: Barrerar=20.24 mGy
[2023-12-02] MEDS: Epidural Tray 1 EACH MC (13:11)
== END 2023-12-02 12:02 | disposition home or self-care (01) ==
LOC: PC 12:01
PROVIDERS: PCP Family Medicine; Visit Provider Preventive Medicine Occupational Medicine
DX: M51.34 Other intervertebral disc degeneration, thoracic region (principal)
CPT/HCPCS: 62321; 72070; J1100; Q9967

== ENCOUNTER 2024-04-02 09:50 | Outpatient (CLI) | payer MEDICAID, SELFPAY ==
[2024-04-02 09:57] VITALS: BP 127/90; PULSE 71; RESP 20; TEMP 36.7; O2SAT 97
[2024-04-02 10:20] VITALS: O2SAT 98
[2024-04-02 10:30] VITALS: O2SAT 97
--- NOTE | 2024-04-02 10:37 | PDOC.PAIN ---
Date of service: 04/02/24 Time of Service: 10:37 US Guided Injections Type of Ultrasound Guided Injection: Middle back Right Paraspinous and Rhomboid muscle Trigger Point Injection Pre-Procedural Evaluation TTP at these muscles Referral Patient has been referred to the [facility] for Right Paraspinous and Rhomboid muscle Middle back Trigger Point Injection for a chief complaint of Mid-back pain Pre-Procedural Pain Score Pre-procedural pain score: 5/10 Reason for Exam Mid-back pain Patient Interview Patient was interviewed and medical record reviewed: Yes There were no contraindications to performing an US guided procedure. Risks,expected side effects, potential benefits were reviewed. The patient consent form was signed and witnessed. Patient Safety No significant skin issues to the area of the injection sites Procedure Description No sedation given for procedure Patient was placed in the prone position and the following Pulse Ox applied. Pre-Procedure ultrasound scanning performed using a Linear 18 MHz probe Site Preparation Chloroprep Local Anesthesia Skin and subcutaneous tissues anesthetized with: 3 mL of Lidocaine 2%. A 21 G 3.5 Pajunk ultrasound needle was placed under live US guidance using an in-plane approach to the target area. After visualization of the needle tip at the target area Depo-Medrol 40mg per cc and Lidocaine 2% were used. Total of Injectate/Medication Note: 1 cc of Depomedrol and 6 cc of Lidocaine 2% Negative aspiration for blood. [place] were removed without difficulty. Ultrasound images were captured and stored. Patient Mental Status Patient was alert and awake during procedure Vital Signs Vital signs were stable throughout the procedure and recorded by nursing. Follow Up/Discharge Follow up plans and appointments were discussed with patient. Post procedure instruction was given as documented in nursing documentation. Discharge criteria met and patient discharged from Pain Management Center: Yes Post Procedure Pain Post Procedure Pain: 5/10 Patient tolerated procedure well Procedure Outcome: Successful Trigger Point Injection 1-2 muscles Non US Guided Injections Procedure Description Patient was placed in the prone position Post Procedure Pain Post Procedure Pain: 5/10
[2024-04-02] MEDS: Lidocaine 2% Multi-Dose 20 ML VIAL IJ (10:40)
[2024-04-02] MEDS: methylPREDNISolone ACETATE 40 MG/ML VIAL IJ (10:41)
[2024-04-02] MEDS: Nerve Block Tray 1 EACH MC (10:41)
== END 2024-04-02 09:51 | disposition home or self-care (01) ==
LOC: PC 09:50
PROVIDERS: PCP Family Medicine; Visit Provider Preventive Medicine Occupational Medicine
DX: M79.18 Myalgia, other site (principal)
CPT/HCPCS: 20553; J1010; J2003

== ENCOUNTER 2024-04-16 01:32 | Outpatient (CLI) | payer MEDICAID, SELFPAY ==
--- NOTE | 2024-04-16 09:25 | DI.RAD_ITS ---
Exam(s) XR ABDOMEN FLAT PLATE EXAM: 2D digital imaging was performed. CLINICAL HISTORY: monitoring renal calculi,z87.442. COMPARISON: CR XR ABDOMEN FLAT PLATE from 03/14/2023 TECHNIQUE: Supine views of the abdomen performed. FINDINGS: BOWEL GAS PATTERN: Nondistended. CALCIFICATIONS: Evaluation of the renal calculi limited due to overlying bowel gas. Small stone is v isible at the lower pole of the left kidney. No stones are visible along the course of the ureters. OSSEOUS STRUCTURES: Normal for age. OTHER FINDINGS: Right upper quadrant surgical clips. IMPRESSION: 1. Nonobstructive bowel gas pattern. 2. 2 millimeter stone is visible at the lower pole of the left kidney. Right kidney is mostly obscur ed. DATA REPOSITORY: RADIATION DOSE DELIVERED:
== END 2024-04-16 01:52 ==
PROVIDERS: PCP Family Medicine; Visit Provider Nurse Practitioner Gerontology
DX: Z87.442 Personal history of urinary calculi (principal); N20.0 Calculus of kidney
CPT/HCPCS: 74018

== ENCOUNTER 2024-05-15 02:26 | Outpatient (CLI) | payer MEDICAID, SELFPAY ==
--- OUTSIDE RECORDS SUMMARY | 2024-05-15 02:27 | XMS_ITS | Clinical Summary ---
Author Organization [facility] Address [address] [place] [address] Care Team Providers Care Scheduling Clerk Name Role Phone Venu Álvarez MD Primary Care Provider [phone] Social History Tobacco Use Types Packs/Day Years Used Date Smoking Tobacco: Never Assessed Interpersonal Safety Answer Date Record ed Physically Hurt Never 01/17/2020 Verbally Threaten Not on file 01/17/2020 Comments Unknown Sex and Gender Information Value Date Recorded Sex Assigned at Not on file Legal Sex Female 18:29 EST Gender Identity Not on file Sexual Orientation Not on file Plan of Treatment Health Maintenance Due Date Last Done Comments Hepatitis C Screen 1965 Hepatitis B Vaccine (1 of 3 - 19+ 3-dose series) 09/15 COVID-19 Vaccine ( season) 2024 Insurance MEDICAID [employer] [place] Care Teams Scheduling Clerk Relationship Specialty Start Date End Date Venu Álvarez MD [address] [place] [id number] PCP - General 01/21/13
--- OUTSIDE RECORDS SUMMARY | 2024-05-15 02:27 | XMS_ITS | Referral Summary ---
Author Organization [facility] Address [address] [place] [address] Care Team Providers Care Salesperson Corsets Name Role Phone Venu Álvarez MD Primary Care Provider [phone] Social History Tobacco Use Types Packs/Day Years Used Date Smoking Tobacco: Never Assessed Interpersonal Safety Answer Date Record ed Physically Hurt Never 01/17/2020 Verbally Threaten Not on file 01/17/2020 Comments Unknown Sex and Gender Information Value Date Recorded Sex Assigned at Not on file Legal Sex Female 18:29 EST Gender Identity Not on file Sexual Orientation Not on file Plan of Treatment Not on file Insurance MEDICAID [place] Care Teams Salesperson Corsets Relationship Specialty Start Date End Date Venu Álvarez MD [address] [place], [place] [phone] PCP - General 01/21/13
--- OUTSIDE RECORDS SUMMARY | 2024-05-15 02:27 | XMS_ITS | Encounter Summary ---
Author Organization [facility] Address [address] [place] [address] Care Team Providers Care Manager Product Support Name Role Phone Venu Álvarez MD Primary Care Provider [phone] Encounter Details Date Type Department Care Team (Late st Contact Info) Description 01/25/2022 Lab Requisition [facility] Pathology & Laboratory Medicine - [address] [address] Outr Resulting Lab, Provider Social History Tobacco Use Types Packs/Day Years Used Date Smoking Tobacco: Never Assessed Interpersonal Safety Answer Date Record ed Physically Hurt Never 01/17/2020 Verbally Threaten Not on file 01/17/2020 Comments Unknown Sex and Gender Information Value Date Recorded Sex Assigned at Not on file Legal Sex Female 18:29 EST Gender Identity Not on file Sexual Orientation Not on file documented as of this encounter Plan of Treatment Not on file documented as of this encounter Procedures Procedure Name Priority Date/Time Associated Diagnosis Comments H. PYLORI ANTIGEN Routine 01/24/2022 16: 45 EDT documented in this encounter Results * H. PYLORI ANTIGEN (01/24/2022 16:45 EDT) H. Pylori Negative Negative 01/29/2022 16:18 EDT [facility] Feces SPECIMEN FROM RECTUM / Unknown 01/24/2022 16:45 EDT 01/25/2022 17:57 EDT Narrative [facility] - 01/29/2022 16:18 EDT Results were obtained with the [employer] [place] [employer]. us Provider Outr Resulting Lab MICROBIOLOGY - GENER AL ORDERABLES Final Result [facility] [address] [place] [address] documented in this encounter Visit Diagnoses Not on filedocumented in this encounter Care Teams Manager Product Support Relationship Specialty Start Date End Date Venu Álvarez MD [address] [place] [id number] PCP - General 01/21/13 documented as of this encounter
--- OUTSIDE RECORDS SUMMARY | 2024-05-15 02:27 | XMS_ITS | Encounter Summary ---
Author Organization [facility] Address [address] [place] [address] Care Team Providers Care Electric Hoist Operator Name Role Phone Venu Álvarez MD Primary Care Provider [phone] Encounter Details Date Type Department Care Team (Late st Contact Info) Description 11/20/2021 Lab Requisition [facility] Pathology & Laboratory Medicine - [facility] [address] [place] [address] Elvia Zuniga MD [address] [place] [address] [address] [place], [place] [phone] Encounter for other general examination Social History Tobacco Use Types Packs/Day Years [...] Procedure Name Priority Date/Time Associated Diagnosis Comments SURGICAL PATHOLOGY Today 11/20/2021 13 :30 EDT Encounter for other general examination documented in this encounter Results * SURGICAL PATHOLOGY (11/20/2021 13:30 EDT) Note to Patient The following pathology results have been interpreted by your pathologist and may be available to you before your health provider has had the opportunity to review them. Please allow time for your provider to receive these results and explore management options, if applicable. 11/23/2021 10:23 [facility] Final Diagnosis A. STOMACH, ANTRUM, BIOPSY: - Helicobacter pylori gastritis - Organisms identified on H and E stain B. GASTROESOPHAGEAL JUNCTION, BIOPSY: - Helicobacter pylori gastritis - Organisms identified on H and E stain 11/23/2021 10:23 [facility] Attestation There was significant resident/fellow involvement in the diagnostic evaluation of this case. By the signature below, the attending physician certifies that they have personally conducted a gross and/or microscopic examination of the described specimens and rendered or confirmed the above diagnosis. 11/23/2021 10:23 [facility] at 1023 Clinical History Melena 11/23/2021 10:23 [facility] Gross Description A. Received in formalin labelled with proper patient identification (initials A, M) and antrum Bx are 4 fragments of arreola soft tissue (ranging from 0.2 cm to 0.7 cm in greatest dimension). The specimen is entirely submitted in A1. B. Received in formalin labelled with proper patient identification (initials A, M) and GE junction Bx are 2 fragments of arreola soft tissue (each averaging 0.2 x 0.2 x 0.2 cm). The specimen is entirely submitted in B1. JEFFERSON PATEL([facility]) 11/21/2021 14:06 11/23/2021 10:23 [facility] Resident/Sharath w: Gayla Laguna MD 11/23/2021 10:23 [facility] Performing Lab [facility] 10:23 [facility] Scanned Images 11/23/2021 10:23 [facility] Tissue ENTIRE ESOPHAGUS / Unknown 11/20/2021 13:30 EDT 11/20/2021 22:24 EDT Tissue specimen (specimen) ESOPHAGEAL STRUCTURE / Unknown 11/20/2021 13:30 EDT 11/20/2021 22:24 EDT Elvia Zuniga MD PATHOLOGY ORDERABLES Fin al Result [facility] [address] [place] [address] documented in this encounter Visit Diagnoses Diagnosis Encounter for other general examination documented in this encounter Care Teams Electric Hoist Operator Relationship Specialty Start Date End Date Venu Álvarez MD [address] [place] [phone] PCP - General 01/21/13 documented as of this encounter
--- OUTSIDE RECORDS SUMMARY | 2024-05-15 02:27 | XMS_ITS | Encounter Summary ---
Author Organization [facility] Address [address] [place] [address] Care Team Providers Care Winemaker Name Role Phone Venu Álvarez MD Primary Care Provider Encounter Details Date Type Department Care Team (Late st Contact Info) Description 04/04/2022 Lab Requisition [facility] Pathology & Laboratory Medicine - [address] [address] Outr Resulting Lab, Provider Social History Tobacco [...] Procedure Name Priority Date/Time Associated Diagnosis Comments FSH Routine 04/04/2022 8:40 EDT documented in this encounter Results * FSH (04/04/2022 8:40 EDT) FSH 43.7 See Note mIU/mL 04/04/2022 23:05 EDT [facility] Blood VENOUS BLOOD / Unknown 04/04/2022 8:40 EDT 04/04/2022 22:17 EDT Narrative [facility] - 04/04/2022 23:05 EDT NOTE: Female FSH Reference Ranges (Menstruating): PHYSIOLOGICAL STATUS ? REFERENCE RANGE ? Follicular (-12 to -4 days): ?? 2.5 - 10.2 mIU/mL Midcycle (-3 to +2 days): ?3.4 - 33.4 mIU/mL Luteal (+4 to +12 days): ? 1.5 - 9.1 mIU/mL Postmenopausal: ?23.0 - 116.3 mIU/mL Reference Ranges for pediatric non-menstruating female patients have not been established. us Provider Outr Resulting Lab CHEMISTRY & BLOOD GA S ORDERABLES Final Result Performing Organization Address City/State/[facility] Co de Phone Number [facility] [address] [place] [address] documented in this encounter Visit Diagnoses Not on filedocumented in this encounter Care Teams Winemaker Relationship Specialty Start Date End Date Venu Álvarez MD [address] [place] [id number] PCP - General 01/21/13 documented as of this encounter
--- OUTSIDE RECORDS SUMMARY | 2024-05-15 02:27 | XMS_ITS | Encounter Summary ---
Author Organization [facility] Address [address] [place] [address] Care Team Providers Care Ergonomist Name Role Phone Venu Álvarez MD Primary Care Provider [phone] Encounter Details Date Type Department Care Team (Late st Contact Info) Description 10/23/2022 Lab Requisition [facility] Pathology & Laboratory Medicine - [address] [address] Paty Centeno MD [address] [place] [id number] Encounter for other general examination Social History [...] Procedure Name Priority Date/Time Associated Diagnosis Comments PAP TEST Today 10/19/2022 16:00 EDT Encounter for other general examination HPV DNA DETECTION WITH GENOTYPING, PCR Today 10/19/2022 16:00 EDT Encounter for other general examination documented in this encounter Results * HUMAN PAPILLOMAVIRUS (HPV) DETECTION-HIGH RISK TYPES (10/19/2022 16:00 EDT) HPV other High Risk types, PCR Negative Negative 10/30/2022 18:[address] [facility] Comment:No E6 or E7 mRNA is detected from HPV types 16,18,31,33,35,39,45,51,52,56,58,59,66, and 68 by asbestos brake lining finisher mediated amplification. Papanicolaou smear specimen (specimen) CERVIX UTERI STRUCTURE / Unknown 10/19/2022 16:00 EDT 10/30/2022 10:28 EDT us Ptay Centeno MD MICROBIOLOGY - GENERAL ORDERABLES Final Result [facility] [address] [place] [address] * PAP TEST (10/19/2022 16:00 EDT) Specimens A. Cervix and/or Endocervix , ThinPrep Imaging System with Manual Evaluation 10/30/2022 18:37 [facility] Specimen Adequacy Satisfactory for Evaluation - transformation zone component present 10/30/2022 18:37 [facility] General Categorization Epithelial Cell Abnormality 10/30/2022 18:37 [facility] Descriptive Diagnosis Squamous Cell Abnormality - Atypical squamous cells, undetermined significance (ASC-US). 10/30/2022 18:37 [facility] Educational Comments [employer] recommends following the ASCCP's management guidelines which may be found at www.asccp.org 10/30/2022 18:37 [facility] Attestation By the signature below, the attending physician certifies that they have personally conducted a gross and/or microscopic examination of the described specimens and rendered or confirmed the above diagnosis. 10/30/2022 18:37 [facility] at 1837 Clinical History See below 10/31/19 18:37 [facility] HPV The result for the Human Papillomavirus (HPV) Detection-High Risk Types is Negative. No E6 or E7 mRNA is detected from HPV types 16,18,31,33,35,3 9,45,51,52,56,58 ,59,66, and 68 by asbestos brake lining finisher mediated amplification.Te sting was performed on specimen [id number] and was resulted on 10/30/2022 1837 EDT by DARREN, LAB INSTRUMENT RESULTS IN 10/30/2022 18:[address] [facility] Performing Lab [facility] [facility] 10/30/2022 18:[address] [facility] Scanned Images 10/30/2022 18:[address] [facility] Papanicolaou smear specimen (specimen) CERVIX UTERI STRUCTURE / Unknown 10/19/2022 16:00 EDT 10/23/2022 10:57 EDT us Paty Centeno MD PATHOLOGY ORDERABLES Fi nal Result [facility] [address] [place] [address] documented in this encounter Visit Diagnoses Diagnosis Encounter for other general examination documented in this encounter Care Teams Ergonomist Relationship Specialty Start Date End Date Venu Álvarez MD [address] [place] [id number] PCP - General 01/21/13 documented as of this encounter
--- OUTSIDE RECORDS SUMMARY | 2024-05-15 02:28 | XMS_ITS | Encounter Summary ---
[place] [address] Care Team Providers Care Senior Quality Methods Specialist Name Role Phone Nieves Granados MD Primary Care Provider [phone] Encounter Details Date Type Department Care Team (Late st Contact Info) Description 10/11/2020 Telephone [place] [phone] Henrietta Verdin Social History Tobacco Use Types Packs/Day Years Used Date Smoking Tobacco: Every Day Cigarettes Smokeless Tobacco: Never Alcohol Use Standard Drinks/Week Comments Not Currently 0 (1 standard drink = 0.6 oz pur e alcohol) Sex and Gender Information Value Date Recorded Sex Assigned at Not on file Gender Identity Not on file Sexual Orientation Not on file documented as of this encounter Miscellaneous Notes * Telephone Encounter - Henrietta Verdin - 10/11/2020 8:10 AM EDT I spoke with patient. She would like to hold off scheduling surgery until fall so she can enjoy herSummer. Will reach back out once fall schedules are available. documented in this encounter Plan of Treatment Not on file documented as of this encounter Visit Diagnoses Not on filedocumented in this encounter Care Teams Senior Quality Methods Specialist Relationship Specialty Start Date End Date Nieves Granados MD [address] [place] [address] [address] [place] [address] PCP - General Family Medicine 08/11/20 02/01/22 documented as of this encounter
--- OUTSIDE RECORDS SUMMARY | 2024-05-15 02:28 | XMS_ITS | Encounter Summary ---
[place] [address] Care Team Providers Care Corrugated Fastener Driver Name Role Phone Paty Centeno MD Primary Care Provider [phone] Encounter Details Date Type Department Care Team (Late st Contact Info) Description 03/06/2024 Telephone [facility] [place] [phone] Aletha Faith Social History Tobacco Use Types Packs/Day Years [...] encounter Miscellaneous Notes * Telephone Encounter - Aletha Faith - 03/06/2024 9:03 AM EDT M to schedule Block with Dr. Valderrama. Callback Ok to transfer to [place] documented in this encounter Plan of Treatment Not on file documented as of this encounter Visit Diagnoses Not on filedocumented in this encounter Care Teams Corrugated Fastener Driver Relationship Specialty Start Date End Date Paty Centeno MD [address] [place] [address] [place] [address] PCP - General Family Medicine 02/02/22 documented as of this encounter
--- OUTSIDE RECORDS SUMMARY | 2024-05-15 02:28 | XMS_ITS | Encounter Summary ---
Author Organization [facility] Address [address] [place] [address] Care Team Providers Care Loading Unit Operator Seating Name Role Phone Unavailable Primary Care Provider Unavailabl e Encounter Details Date Type Department Care Team (Late st Contact Info) Description 10/15/2005 Before PRISM Converted Visit (Maple) [facility] - Maple conversion [address] [place] [address] Raj Wilson MD [address] [place] [address] Social History Tobacco Use Types Packs/Day Years Used Date Smoking Tobacco: Never Assessed Comments Unknown Sex and Gender Information Value Date Recorded Sex Assigned at Not on file Legal Sex Female 18:29 EST Gender Identity Not on file Sexual Orientation Not on file documented as of this encounter Plan of Treatment Not on file documented as of this encounter Visit Diagnoses * Evaluation - Raj Wilson - 06/10/2009 1639 EST DIVISION OF UROLOGY NEW PATIENT EVALUATION - 10/15/2005 Jeremias Marlow MD [address] [place] [address] Marlow: I saw Sydnie Valenzuela in the office today. This 40-year-old woman had a recent episode of obstructive urosepsis secondary to a small stone in the upper left ureter. She had a left nephrostomy tubeplaced approximately a week ago for this problem. She was subsequently discharged from the hospitaltoday for followup. We did check a follow-up nephrostomy tube study which shows this relatively small stone to be unchanged in location just below the ureteropelvic junction. I discussed treatment options for the stone with the patient. I think the most reasonable initial approach would be lithotripsy using the ability to inject dye through the nephrostomy tube as a way to aid in stone localization (which is not very radiodense on plain images). We will schedule that for later this week. I think once this obstructing stone is dealt with we should go ahead with a metabolic workup to look for any correctable factors in her urolithiasis. I willmake sure to keep you posted on what those studies show. Sincerely, Signed by Raj Wilson MD 10/31/2005 15:44 Melissa Wilson MDThgricelda Wilson MD Raj Wilson MD - Raj Wilson MD P - hmm Job ID: Document ID: [id number] cc: MD Will Lynn MD documented in this encounter
--- OUTSIDE RECORDS SUMMARY | 2024-05-15 02:28 | XMS_ITS | Encounter Summary ---
[place] [address] Care Team Providers Care Combination Building Inspector Name Role Phone Paty Centeno MD Primary Care Provider [phone] Reason for Referral * Consultation (Urgent) - Closed Specialty Diagnoses / Procedures Referred By Contac t Referred To Contact Gastroenterology Diagnoses Helicobacter pylori infection Helicobacter pylori infection Procedures EGD Sedation: IV Sedation Timeframe: within 10 Days -- A. Indication: Bleeding, dark stools, H.pylori in November (did not complete treatment, no test of cure) This procedure should be performed with: Any Endoscopist Paty Centeno MD [facility] [place] [address] [facility] Endoscopy [address] [place] [address] Referral ID Status Reason Start Date Expiration Date V isits Requested Visits Authorized [id number] Closed Consult, Test & Treat PCP Updated and/or Approved 02/02/2022 02/02/2023 6 6 Encounter Details Date Type Department Care Team (Late st Contact Info) Description 02/02/2022 Transcribe Orders eDH Incoming Referrals [phone] Paty Centeno MD [address] [place] [phone] Helicobacter pylori infection Social History Tobacco Use Types Packs/Day Years [...] as of this encounter Plan of Treatment Scheduled Referrals Name Type Priority Associated Diagnoses Order Schedule Referral to Gastroenterology Outpatient Referral Routine Helicobacter pylori infection Ordered: 02/02/2022 documented as of this encounter Visit Diagnoses Diagnosis Helicobacter pylori infection Helicobacter pylori (H. pylori) documented in this encounter Care Teams Combination Building Inspector Relationship Specialty Start Date End Date Paty Centeno MD [address] [place] [id number] PCP - General Family Medicine 02/02/22 documented as of this encounter
--- OUTSIDE RECORDS SUMMARY | 2024-05-15 02:28 | XMS_ITS | Encounter Summary ---
Author Organization Formerly [facility] [place] [address] Care Team Providers Care Biology Manager Name Role Phone Paty Centeno MD Primary Care Provider [phone] Encounter Details Date Type Department Care Team (Late st Contact Info) Description 07/25/2023 Ancillary Procedure Radiology Library [place] [phone] Paty Centeno MD [address] [place] [phone] Social History Tobacco Use Types Packs/Day Years [...] Procedure Name Priority Date/Time Associated Diagnosis Comments FILM LIBRARY STORAGE ONLY MR SPINE Routine 07/25/2023 12:00 AM EST documented in this encounter Results * Film Library- Storage Only MR Spine (07/25/2023 12:00 AM EST) Narrative [facility] - 09/26/2023 1:26 PM EDT This exam is auto-finalizing. It's purpose is for storage only. Paty Centeno MD [facility] FILM LIBRARY ORD ERABLES [place], [place] documented in this encounter Visit Diagnoses Not on filedocumented in this encounter Care Teams Biology Manager Relationship Specialty Start Date End Date Paty Centeno MD [address] [place] [address] PCP - General Family Medicine 02/02/22 documented as of this encounter
--- OUTSIDE RECORDS SUMMARY | 2024-05-15 02:28 | XMS_ITS | Encounter Summary ---
[place] [address] Care Team Providers Care Barley Steeper Name Role Phone Paty Centeno MD Primary Care Provider [phone] Encounter Details Date Type Department Care Team (Latest Contact Info) Description 01/09/2024 Travel Social History Tobacco Use Types Packs/Day Years [...] on filedocumented in this encounter Care Teams Barley Steeper Relationship Specialty Start Date End Date Paty Centeno MD [address] [place] [address] [address] [place], [place] [address] PCP - General Family Medicine 02/02/22 documented as of this encounter
--- OUTSIDE RECORDS SUMMARY | 2024-05-15 02:28 | XMS_ITS | Encounter Summary ---
Author Organization Formerly [facility] [place] [address] Care Team Providers Care Wafer Cleaner Name Role Phone Nieves Granados MD Primary Care Provider Encounter Details Date Type Department Care Team (Late st Contact Info) Description 10/31/2021 Ancillary Procedure Radiology Library at [facility] [place] [phone] Paty Centeno MD [address] [place], [place] [id number] Social History Tobacco Use Types Packs/Day Years [...] Associated Diagnosis Comments FILM LIBRARY STORAGE ONLY CT ABDOMEN AND PELVIS Routine 10/31/2021 12:00 AM EDT documented in this encounter Results * Film Library- Storage Only CT Abdomen & Pelvis (10/31/2021 12:00 AM EDT) Narrative [facility] - 01/26/2022 6:41 AM EDT This exam is auto-finalizing. It's purpose is for storage only. Paty Centeno MD [facility] FILM LIBRARY ORD ERABLES [place], [place] documented in this encounter Visit Diagnoses Not on filedocumented in this encounter Care Teams Wafer Cleaner Relationship Specialty Start Date End Date Nieves Granados MD [address] [place] [address] PCP - General Family Medicine 08/11/20 02/01/22 documented as of this encounter
--- OUTSIDE RECORDS SUMMARY | 2024-05-15 02:28 | XMS_ITS | Encounter Summary ---
[place] [address] Care Team Providers Care Hot Stamp Operator Name Role Phone Nieves Granados MD Primary Care Provider [phone] Encounter Details Date Type Department Care Team (Late st Contact Info) Description 03/09/2021 9:45 AM EDT Telephone Pre-Admission Testing at [facility] [address] [place] [address] Social History Tobacco Use Types Packs/Day Years Used Date Smoking Tobacco: Every Day Cigarettes Smokeless Tobacco: Never Alcohol Use Standard Drinks/Week Comments Not Currently 0 (1 standard drink = 0.6 oz pur e alcohol) Sex and Gender Information Value Date Recorded Sex Assigned at Not on file Gender Identity Not on file Sexual Orientation Not on file documented as of this encounter Progress Notes * Dipika Orozco RN - 03/09/2021 10:01 AM EDTSummary: covid COVID-19 SCREENING: In the past 14 days, have you had any of the following symptoms: [] Fever (subjective or documented fever) [] Chills [] Cough [] Shortness of breath or difficulty breathing [] Fatigue [] Muscle or body aches [] Headache [] New loss of taste or smell [] Sore throat [] Nausea or vomiting [] Diarrhea [x]NONE OF THE ABOVE Have you scheduled your pre-op COVID Screening Test? []Yes []No [x]N/A vacc x2 11/2020 documented in this encounter Plan of Treatment Not on file documented as of this encounter Visit Diagnoses Not on filedocumented in this encounter Care Teams Hot Stamp Operator Relationship Specialty Start Date End Date Nieves Granados MD [address] [place] [address] PCP - General Family Medicine 08/11/20 02/01/22 documented as of this encounter
--- OUTSIDE RECORDS SUMMARY | 2024-05-15 02:28 | XMS_ITS | Encounter Summary ---
Author [facility] [place] [address] Care Team Providers Care Edge Stainer Name Role Phone Nieves Granados MD Primary Care Provider [phone] Encounter Details Date Type Department Care Team (Late st Contact Info) Description 10/06/2020 8:30 AM EDT Office [place] [address] Alysia Rosario, PROFESSOR OF BUSINESS ADMINISTRATION [facility] [place] [address] Surgery follow-up Social History Tobacco Use Types Packs/Day Years [...] as of this encounter Progress Notes * Alysia Rosario, PROFESSOR OF BUSINESS ADMINISTRATION - 10/06/2020 8:30 AM EDT Tona returns for surgical follow up 09/22/20: Excision LLE lesion-Rhyhart Findings: Left leg sebaceous cyst with keratinaceous contents; completely excised including capsule. Wick left in place for drainage, otherwise skin reapproximated with deep dermal and vertical mattress sutures Pathology:DIAGNOSIS Skin, left lower extremity mass, excision: - ??Epidermal inclusion cyst, ruptured and inflamed Feels well, no fevers chills, no pain, no nausea or vomiting. Feels very well. Pt reports she removed her own sutures. EXAM: Well appearing, Left medial calf with approximately 2.5cm healed incision. No erythema or fluctuance, surrounding tissuea are soft and non tender. There are no sutures seen to remove. Impression/plan: Doing well, pt has removed her own sutures. No evidence of infection., wound healed. I told Sydnie that she may F uwith us on an as needed basis. If she notices any redness, drainage or extruding suture material from wound to rtc. Pt is content with this plan documented in this encounter Plan of Treatment Not on file documented as of this encounter Visit Diagnoses Diagnosis Surgery follow-up Follow-up examination, following unspecified surgery documented in this encounter Care Teams Edge Stainer Relationship Specialty Start Date End Date Nieves Granados MD [address] [facility] [address] [place] [address] PCP - General Family Medicine 08/11/20 02/01/22 documented as of this encounter
--- OUTSIDE RECORDS SUMMARY | 2024-05-15 02:28 | XMS_ITS | Encounter Summary ---
Author Organization [facility] Address [address] [place] [address] Care Team Providers Care Shoe Puller Name Role Phone Unavailable Primary Care Provider Unavailabl e Encounter Details Date Type Department Care Team (Latest Contact Info) Description 11/01/2005 6:19 EDT - 11/01/2005 11:59 EDT Hospital Encounter [facility] Perioperative Services- [address] [address] Raj Wilson MD [address] [place] [address] Discharge Disposition: Home or Self Care Social History Tobacco Use Types Packs/Day Years Used Date Smoking Tobacco: Never Assessed Comments Unknown Sex and Gender Information Value Date Recorded Sex Assigned at Not on file Legal Sex Female 18:29 EST Gender Identity Not on file Sexual Orientation Not on file documented as of this encounter Discharge Disposition Disposition Code Departure Means Destination Home or Self Care documented in this encounter OR Notes * OR Surgeon - Raj Wilson - 11/01/2005 0000 EDT PROCEDURE REPORT PT TYPE: OPPROC PT LOC: [id number] SERVICE DATE: 11/01/2005 SURGEON: Jeff Lee MDThomas L Jackson, MD RN TESTING: PREOPERATIVE DIAGNOSIS: Left urolithiasis. POSTOPERATIVE DIAGNOSIS: Left urolithiasis. PROCEDURE: Cystoscopy, left retrograde ureteroscopy (rigid and flexible), left pyeloscopy with stone basketing and retrieval, left ureteral stent placement. ANESTHESIA: General endotracheal tube. INDICATIONS: The patient is a [id number] with a recent episode of obstructive urosepsis on the left side. She ended up having a left nephrostomy tube placed. A radiolucent stone measuring approximately 3 mm in transverse diameterwas lodged in the upper ureter. This was treated with lithotripsy, but postoperatively, an antegrade nephrostomy tube study suggested a persistent obstruction at this level. Attempts to close the nephrostomy tube resulted in pain. Therefore, it was reopened and connected to drainage. After a discussion of options, the patient elected for endoscopy with removal of any stones encountered. FINDINGS: The bladder was free of any pathologic features. The left ureter was free of any stones on direct examination. There was evidence of a small (less than 1 mm) Vance plaque in an upper polecalyx. There was also 1 free-floating stone in the lower pole calyx, which was retrieved and sent as the operative specimen. It was unclear whether this represented a stone that was present in that area on the priorCT imaging or related to the stone that had been in the area. In any event, that wassent as the only operative specimen. NARRATIVE: The patient was brought to the operating room and after an adequate level of general anesthesia by endotracheal tube hadbeen established, was prepped and draped in the dorsolithotomy position. She received 1 g of Kefzol intravenously. The 21-Eritrean cystoscope with the 30-degree lens was passed transurethrally and the bladder inspected in a systematic fashion. After this was done and no pathologic features were identified, the leftureteral orifice was cannulated with a catheter over a glidewire. The glidewire was advanced without resistance up to the proximal ureter. We did not try to gain access to the intrarenal collecting system at this point for fear of dislodging the stone, if it was still present. The Annabel dilator was then passed over the wire and positioned just below the where the stone would be expected to be located based on previous imaging studies. This region was dilated for 2 minutes. The Annabel dilator was removed, leaving the guidewire in place. The short, rigid ureteroscope was passed transurethrally into the bladder and up the left ureter. We up to the limits of the scope and still remained approximately 2-3 cm from the renal pelvis, as evidenced by the curl of the nephrostomy tube. No stone was identified at this point, but the entire ureter had not been examined. The existing wire was advanced under direct vision into the renal pelvis. A 2nd wire was passed through the ureteroscope, which was then removed. Over the 2ndwire, the flexible ureteroscope was passed without resistance up to the region of the renal pelvis. That wire was removed and a flexible pyeloscopy was done. We then pulled the scope down into the proximal ureter,and the remainder of that structure was inspected, and no stone was seen. We then meticulously inspected each part of the intrarenal collecting system. Access to the lower pole was somewhat limited by the nephrostomy tube, which entered through thatpart of the collecting system. Eventually, it was necessary to remove the nephrostomy tube in orderto gain access to the entire collecting system. After this was done, the lower pole calyx was entered and a small, yellow crystalline-appearing stone was identified. This was the only free-floating stone encountered during the entire procedure. was engaged with the 0-tip stone basket. After this was done, the basket was closed, stone, stone basket, and ureteroscope were then removed and intact. The stone was retrieved and sent as the operative specimen. As the stone was removed, ureteroscopy was again done for a 2ndtime. At this point, I elected to go ahead and place a stent over the wire. Thecystoscope was back loaded over the wire into the bladder. The ureteral catheter was passed over the wire and the intrarenal collecting system opacified through the ureteral catheter. The wire was then reinserted, the ureteral catheter removed, and a 6-Eritrean double-J stent with pullout string attached to the distal end was passed over the wire and, using a pushing catheter, advanced up to the left renal pelvis. A small amount of contrast was seen tracking out the previous nephrostomy tube site, as expected. Once the stent was in position, the wire was removed and a distal curl was noted in the bladder cystoscopically. The scope was then dismantled and removed, taking care not to dislodge the stent via the pullout string. After this had been accomplished, the stent was shortened to lie 3 cm outside the urethral meatus. This terminated the procedure, and the stent position was checked a final time fluoroscopically before the patient was extubated in the operating room and taken to the recovery room in stable condition. She will be discharged later today and will be seen in one week for stent removal. COMPLICATIONS: None. DRAINS: 6-Eritrean double-J left ureteral stent with pullout string. Signed by Raj Wilson MD 11/14/2005 08:17 AThgricelda Wilson MDThgricelda Wilson MD Raj Wilson MD - Raj Wilson MD A - ss Job ID: [id number] Document ID: [id number] cc: MD Raj Lynn MD documented in this encounter Plan of Treatment Not on file documented as of this encounter Procedures Procedure Name Priority Date/Time Associated Diagnosis Comments KIDNEY STONE ANALYSIS Routine 11/01/2005 9:40 EDT documented in this encounter Results * KIDNEY STONE ANALYSIS (11/01/2005 9:40 EDT) Source (Note) Not Specified ? [facility] Weight 0.012 Unit: g [facility] 1st Constituent (Note) 100% Calcium oxalate dihydrate ? Test Performed by: ? [facility] Dpt of Lab Med and Pathology ? [address] [id number] ? Corporate Administrative Assistant: Lakeshia Alba M.D. ? [facility] 11/01/2005 9:40 EDT 11/01/2005 11:45 EDT Raj Wilson MD GEN LAB UNIT COLLECT ORDERAB LES Final Result [facility] [address] [place] [address] documented in this encounter Visit Diagnoses Not on filedocumented in this encounter
--- OUTSIDE RECORDS SUMMARY | 2024-05-15 02:28 | XMS_ITS | Encounter Summary ---
Author Organization [facility] Address [address] [place] [address] Care Team Providers Care Core Sucker Name Role Phone Venu Álvarez MD Primary Care Provider [phone] Encounter Details Date Type Department Care Team (Late st Contact Info) Description 10/12/[address] [facility] [phone] Remi Ponce MD [address] [place] [address] Social History Tobacco Use Types Packs/Day Years [...] Name Priority Date/Time Associated Diagnosis Comments PAP TEST- RESULT ONLY Routine 10/12/2013 0:00 EDT documented in this encounter Results * PAP TEST- RESULT ONLY (10/12/2013 0:00 EDT) Pathology Report: CYTOPATHOLOGY REPORT Reports generated via electronic interface contain original data; however they are lacking the format of the original report. Caution should be taken when reading/interpreti ng unformatted reports. Name: ? DESTINEE JAMIL ? Accession #: ? [id number] ? : ? 1965 (Age: 48) ??F ?Collect Date: ? 10/12/2013 ? Location: ? [facility] ? Receive Date: ? 10/13/2013 ? Provider: REMI PONCE MD Copy to: VENU ÁLVAREZ MD ? Final Report SPECIMEN ADEQUACY ? Satisfactory for Evaluation - transformation zone component present GENERAL CATEGORIZATION ? Negative for Intraepithelial Lesion or Malignancy INTERPRETATION ? Shift in jose francisco present suggestive of bacterial vaginosis. Other: Additional clinical information: Remote abn pap Specimen/Source: ??Pap Test, Cervix/Endocervix, ThinPrep Imaging System with manual evaluation Document reviewed and electronically signed by: ? Sheila [facility] matson(ASCP) ? Report ??Date: 10/21/2013 09:42 HPV with Pap Test ? Date Ordered: ? 10/21/2013 ? Status: ?? Signed Out ?Date Complete: ? 10/23/2013 ? By: ??System Interface ? Date Reported: ? 10/23/2013 ? Interpretation RESULT: Negative for HPV. No E6 or E7 mRNA is detected from HPV types 16,18,31,33,35, 39,45,51,52,56,58, 59,66, and 68 by shell molder mediated amplification. Comments Document reviewed and electronically signed by: ? System Interface ? Report date: 10/23/2013 By the signature above, the attending physician certifies that he/she has personally conducted a gross and/or microscopic examination of the described specimens and rendered or confirmed the above diagnosis. End of Report [facility] 10/12/2013 10/13/2013 us Remi Ponce MD PATHOLOGY ORDERABLES Final Resu lt [facility] [address] [place] [address] documented in this encounter Visit Diagnoses Not on filedocumented in this encounter Care Teams Core Sucker Relationship Specialty Start Date End Date Venu Álvarez MD [address] [place] [phone] PCP - General 01/21/13 documented as of this encounter
--- OUTSIDE RECORDS SUMMARY | 2024-05-15 02:28 | XMS_ITS | Encounter Summary ---
Author Organization [facility] Address [address] [place] [address] Care Team Providers Care Culinary Intern Name Role Phone Unavailable Primary Care Provider Unavailabl e Encounter Details Date Type Department Care Team (Latest Contact Info) Description 10/19/2005 5:53 EDT - 10/19/2005 11:59 EDT Hospital Encounter [facility] Perioperative Services - [address] [phone] Raj Wilson MD [address] [place] [id number] Discharge Disposition: Home or Self Care Social [...] * OR Surgeon - Raj Wilson - 10/19/2005 0000 EDT PROCEDURE REPORT PT TYPE: OPPROC PT LOC: [id number] SERVICE DATE: 10/19/2005 SURGEON: Jeff Lee MDThomas L Jackson, MD OPERATING THEATRE TECHNICIAN: PREOPERATIVE DIAGNOSIS: Left ureteral calculus. POSTOPERATIVE DIAGNOSIS: Left ureteral calculus. PROCEDURE: Left extracorporeal shock wave lithotripsy. ANESTHESIA: Laryngeal mask airway. INDICATIONS: The patient is a 40-year-old woman recently hospitalized for obstructive urosepsis. There was a relatively small (approximately 3 mm in transverse diameter) stone in the upper left ureter. There were also small stones in each kidney. The patient developed a fever associated with this stone which prompted placement of a nephrostomy tube. She improved clinically and was discharged fromthe hospital. She was seen in follow up in the clinic,and a repeat nephrostomy tube study showed persistent obstruction just below the UPJ on the left side. Plain films failed to demonstrate an obvious calculus. After a discussion of treatment options, she elected for negative imaging ESWL therapy a nd comes in now for that procedure. FINDINGS: On the preoperative film, it was still impossible to identify the stone in theleft ureter. Obscuration of fine detail within the collecting system on the left was caused by the indwelling nephrostomy tube. There was dilatation of the intrarenal collecting system and proximal ureter a distance of 1.5-2 cm down to an area of narrowing which seemed to correspond to the stone. Dye flowed around this area with some resistance into the proximal ureter. There did appear to be a filling defect in this region as well. During treatment the filling defect seemed to resolve, and flow of the contrast seemed to occur with less resistance as the stone was presumably fragmented. No specimens weresent from the procedure. NARRATIVE: The patient was brought to the lithotripsy room and placed on the table of the Delta Dornier lithotriptor. The patient then underwent general anesthesia by LMA. She received Kefzol 1 g. The treatment head was then brought into place and connection with the balloon was made with the skin application of the water-soluble gel. The treatment head was in an anterior location given the indwelling nephrostomy tube. Fluoroscopy was used to identify the medial aspect of the kidney and proximal ureter. As noted above, no obvious stone was identified. Contrast was then gently instilled through the nephrostomy tube and filled the intrarenal collecting system. With additional filling there was moderate hydronephrosis,and dye started to travel down the ureter for a distance of 1.5-2 cm wherethere seemed to be a point of resistance and a filling defect. We targeted this areain AP and oblique views using the fluoroscopy imaging. We then began the treatment at energy level 1 and advanced up to energy level 5 within the first 500 shocks. We treated this area with a total of 3000 shocks,reconfirming our positioning every several hundred shocks with AP and oblique films under fluoroscopy.Additional dye was injected as needed. As the treatment progressed, the additional dye that was injected did flow much more readily through the area of previous resistance, and the ureter seemedmore p atent in this area. Also, the proximal ureter was less dilated at the end of the treatment. After 3000 shocks had been delivered, the procedure was terminated, the patient extubated in the operating room and taken to the recovery room in stable condition. She will be continued on Levaquin antibiotic at home, as well as Percocet. She will be seen next week with a nephrostomy tube study. She will strain her urine between now and the time of her follow-up visit. COMPLICATIONS: None. DRAINS: 10-Samoan left nephrostomy tube. Signed by Raj Wilson MD 12/03/2005 08:05 AThgricelda Wilson MDThgricelda Wilson MD Raj Wilson MD - Raj Wilson MD A - cs Job ID: [id number] Document ID: [id number] cc: MD Raj Lynn MD documented in this encounter Plan of Treatment Not on file documented as of this encounter Procedures Procedure Name Priority Date/Time Associated Diagnosis Comments ABDOMEN AP 1 VIEW 10/19/2005 6:33 EDT documented in this encounter Results * ABDOMEN AP 1 VIEW (10/19/2005 6:33 EDT) Anatomical Region Laterality Modality Other 10/19/2005 6:33 EDT Narrative 01/01/2009 13:55 EDT PRE LITHO, LOCATION OF STONES LEFT KIDNEY ABDOMEN AP, 1 VIEW: ??10/19/05 7 A.M. CLINICAL HISTORY: ?? Pre- litho. ??Locate stones in left kidney. COMPARISON: ?? Film dated 10/15/05. Again noted is a percutaneous nephrostomy tube on the left. ??There is an intrauterine device in the uterus. ??No calculi are appreciated in the region of the kidneys though evaluation of the right kidney is limited due to overlying stool. ??There are tiny rounded calcifications in the pelvis bilaterally which are better seen on today's exam. ??Though these may be phleboliths, distal ureteral calculi cannot be excluded; please clinically correlate. D: ??10/19/05 T: ??10/22/05 Procedure Note Misael Romano MD - 01/01/2009 PRE LITHO, LOCATION OF STONES LEFT KIDNEY ABDOMEN AP, 1 VIEW: 10/19/05 7 A.M. CLINICAL HISTORY: Pre- litho. Locate stones in left kidney. COMPARISON: Film dated 10/15/05. Again noted is a percutaneous nephrostomy tube on the left. There is an intrauterine device in the uterus. No calculi are appreciated in the region of the kidneys though evaluation of the right kidney is limited due to overlying stool. There are tiny rounded calcifications in the pelvis bilaterally which are better seen on today's exam. Though these may be phleboliths, distal ureteral calculi cannot be excluded; please clinically correlate. Raj Wilson MD IMG DIAGNOSTIC IMAGING ORDER LENKA Final Result documented in this encounter Visit Diagnoses Not on filedocumented in this encounter
--- OUTSIDE RECORDS SUMMARY | 2024-05-15 02:28 | XMS_ITS | Encounter Summary ---
[place] [address] Care Team Providers Care Safety Administrator Name Role Phone Nieves Granados MD Primary Care Provider [phone] Reason for Visit * Diagnostic Test (Routine) - Closed Specialty Diagnoses / Procedures Referred By Raquel huggins Referred To Contact Diagnoses Varicose veins of right lower extremity with pain Procedures Duplex for DVT, Leg, Unilat Olivia Zayas, SATELLITE SPECIALIST [facility] [place] [address] [facility] [address] [place] [address] Referral ID Status Reason Start Date Expiration Date V isits Requested Visits Authorized [id number] Closed Test Only 03/16/2021 03/16/2022 1 1 Encounter Details Date Type Department Care Team (Late st Contact Info) Description 03/20/2021 11:30 AM EDT Tech [place] [address] John Amaya [place] Varicose veins of right lower extremity with pain Social History Tobacco Use Types Packs/Day Years [...] Procedure Name Priority Date/Time Associated Diagnosis Comments PRG DUPLEX SCAN EXTREMITY VEIN INCL RESPONSE COMPRESS; UNILAT/LMTD Routine 03/20/2021 11:01 AM EDT Varicose veins of right lower extremity with pain documented in this encounter Results * Duplex for DVT, Leg, Unilat (03/20/2021 11:01 AM EDT) VB Text Report Department: Vascular Surgery Lab Patient: [id number] (DESTINEE VALENZUELA) CPT: 93654 ICD10: I83.811 Referring Physician: OLIVIA ZAYAS ?? Phone: Indications: s/p Right GSV VNUS ICD10 Diagnosis Code: I83.811 Findings: Right-The great saphenous vein is ablated to with in 1.2 cm of the saphenofemoral junction, does not extend into the common femoral vein. Patent inferior epigastric vein. Patent common femoral vein with spontaneous, respirophasic Doppler waveforms that respond normally to augmentation maneuvers. The common femoral vein, saphenofemoral junction and femoral vein through the proximal thigh are fully compressible. Interpretation: Right- Successful ablation of the great saphenous vein. No evidence of lower extremity deep venous thrombosis through the proximal thigh. No post-op exam for comparison. Electronically Signed by: ARMEN PHELPS on 2021-03-20 04:03:21 PM [facility] VB Text Report End of Report [facility] 03/20/2021 11:0 1 AM EDT Olivia Zayas APRN VASCULAR ORDERABLES [facility] documented in this encounter Visit Diagnoses Diagnosis Varicose veins of right lower extremity with pain Varicose veins of lower extremities with other complications documented in this encounter Care Teams Safety Administrator Relationship Specialty Start Date End Date Nieves Granados MD [address] [place] [address] PCP - General Family Medicine 08/11/20 02/01/22 documented as of this encounter
--- OUTSIDE RECORDS SUMMARY | 2024-05-15 02:28 | XMS_ITS | Encounter Summary ---
[place] [address] Care Team Providers Care Director Investor Relations Name Role Phone Nieves Granados MD Primary Care Provider [phone] Encounter Details Date Type Department Care Team (Late st Contact Info) Description 09/22/2020 Telephone [place] [phone] Viktoriya Tam Social History Tobacco Use Types Packs/Day Years [...] encounter Miscellaneous Notes * Telephone Encounter - Viktoriya Tam - 09/22/2020 3:23 PM EDT Left message to fill out [employer] form for [employer] documented in this encounter Plan of Treatment Not on file documented as of this encounter Visit Diagnoses Not on filedocumented in this encounter Care Teams Director Investor Relations Relationship Specialty Start Date End Date Nieves Granados MD [address] [place] [address] PCP - General Family Medicine 2/25/21 8/18/22 documented as of this encounter
--- OUTSIDE RECORDS SUMMARY | 2024-05-15 02:28 | XMS_ITS | Encounter Summary ---
Author Organization [facility] [place] [address] [address] Care Team Providers Care Technical Aid Name Role Phone Paty Centeno MD Primary Care Provider [phone] Encounter Details Date Type Department Care Team (Late st Contact Info) Description 10/25/2022 Ancillary Procedure Radiology Library at [facility] [place] [id number] Paty Centeno MD [address] [place] [id number] Social History Tobacco Use Types Packs/Day Years [...] Associated Diagnosis Comments FILM LIBRARY STORAGE ONLY DX SPINE Routine 10/25/2022 12:00 AM EDT documented in this encounter Results * Film Library- Storage Only DX Spine (10/25/2022 12:00 AM EDT) Narrative [facility] - 09/26/2023 1:27 PM EDT This exam is auto-finalizing. It's purpose is for storage only. Paty Centeno MD [facility] FILM LIBRARY ORD ERABLES [place], [place] documented in this encounter Visit Diagnoses Not on filedocumented in this encounter Care Teams Technical Aid Relationship Specialty Start Date End Date Paty Centeno MD [address] [place] [address] PCP - General Family Medicine 02/02/22 documented as of this encounter
--- OUTSIDE RECORDS SUMMARY | 2024-05-15 02:28 | XMS_ITS | Encounter Summary ---
Author Organization [facility] Address [address] [place] [address] Care Team Providers Care Radiology Teacher Name Role Phone Unavailable Primary Care Provider Unavailabl e Encounter Details Date Type Department Care Team (Late st Contact Info) Description 11/20/2001 Results Only [facility] - [facility] [address] [place] [address] Adelaida Ardon MD [address] [place] [address] [place] [address] Social History Tobacco Use Types Packs/Day Years [...] Procedure Name Priority Date/Time Associated Diagnosis Comments CYTOPATHOLOGY Routine 11/20/2001 0:00 EDT documented in this encounter Results * CYTOPATHOLOGY (11/20/2001 0:00 EDT) Pathology Report: CYTOPATHOLOGY REPORT Reports generated via electronic interface contain original data; however they are lacking the format of the original report. Caution should be taken when reading/interpreti ng unformatted reports. Name: ? DESTINEE JAMIL ? Accession #: ? [id number] : ? 1965 (Age: 36) ??F ?Collect Date: ? 11/20/2001 Location: ? [facility] ? Receive Date: ? 11/24/2001 Provider: ?ADELAIDA ARDON MD Copy to: ? Specimen/Source: ?ThinPrep Pap Test, Cervix/Endocervix Last Menstrual Period: ? 10/18/01 Menstrual/Pregnanc y Status: ? Irregular Other: ? DHPV - HPV testing requested if ASCUS/HEATHER on the current ThinPrep Pap test. ? SPECIMEN ADEQUACY ? Satisfactory for Evaluation - transformation zone component present GENERAL CATEGORIZATION ? Negative for Intraepithelial Lesion or Malignancy ? Document reviewed and electronically signed by: ? LEX Freitas(ASCP) ? Report Date: ??11/26/2001 11:36 End of Report [facility] 11/20/2001 11/24/2001 us Adelaida Ardon MD PATHOLOGY ORDERABLES Final Resu lt [facility]AN[facility] LUGO [address] [place] [address] documented in this encounter Visit Diagnoses Not on filedocumented in this encounter
--- OUTSIDE RECORDS SUMMARY | 2024-05-15 02:28 | XMS_ITS | Clinical Summary ---
[place] [address] Care Team Providers Care Supervisor Shuttle Fitting Name Role Phone Paty Centeno MD Primary Care Provider [phone] Allergies No known active allergies Medications Medication Sig Dispensed Refills Start Date End Date Status tiZANidine (Zanaflex) 4 mg tablet Take 1 tablet by mouth every 8 hours as needed. 30 tablet 3 01/30/2024 Active Active Problems Problem Noted Date Diagnosed Date Localized swelling, mass and lump, lower limb Overview (09/08/2020): Added automatically from request for surgery [id number] Encounters Date Type Department Care Team Description 03/06/2024 Telephone [facility] [place] [phone] Aletha Faith from Last 3 Months Family History Medical History Relation Comments Cerebrovascular Accident Mother Relation Status Comments Mother Social History Tobacco Use Types Packs/Day Years Used Date Smoking Tobacco: Every Day Cigarettes Smokeless Tobacco: Never Alcohol Use Standard Drinks/Week Comments Not Currently 0 (1 standard drink = 0.6 oz pur e alcohol) Sex and Gender Information Value Date Recorded Sex Assigned at Not on file Gender Identity Not on file Sexual Orientation Not on file Last Filed Vital Signs Vital Sign Reading Time Taken Comments Blood Pressure 130/73 04/27/2021 8:48 AM EST Pulse 82 04/27/2021 8:48 AM EST Temperature 36 ??C (96.8 ??F) 03/16/2021 9:25 AM EDT Respiratory Rate 16 03/16/2021 10:20 AM EDT Oxygen Saturation 97% 03/16/2021 10:20 AM EDT Inhaled Oxygen Concentration - - Weight 88.9 kg (196 lb) 04/27/2021 8:48 AM EST r eported Height 165.1 cm (5' 5) 04/27/2021 8:48 AM EST r eported Body Mass Index 32.62 04/27/2021 8:48 AM EST Plan of Treatment Health Maintenance Due Date Last Done Comments CT Colonography 1965 Colonoscopy 1965 Colorectal Cancer Screening 1965 FIT DNA 1965 FIT 1965 Sigmoidoscopy (10 year) with FIT yearly 1965 Sigmoidoscopy 1965 Pneumococcal Vaccine: At-Risk 5-64yrs (1 of 2 - PCV) 0 1972 HIV screen 1984 Hepatitis C Screening 1984 Lipid Screening 1984 Hepatitis B vaccine (0-59 yrs) (1) 1985 Tetanus/Diphtheria/Pertussis Vaccines (1 - Tdap) 09/15 HPV test 1996 PAP Smear 1996 Breast Cancer Share Decision Needed 2006 Breast Cancer screening 2006 Zoster vaccine (1 of 2) 2016 Advance Directive 2021 Covid-19 Vaccine ( - season) 2024 Influenza (Flu) vaccine (1 o f 1 - Influenza standard series) 02/16/2024 Care Teams Supervisor Shuttle Fitting Relationship Specialty Start Date End Date Paty Centeno MD [address] [place] [address] PCP - General Family Medicine 02/02/22
--- OUTSIDE RECORDS SUMMARY | 2024-05-15 02:28 | XMS_ITS | Encounter Summary ---
[place] [address] Care Team Providers Care Color Buffer Name Role Phone Paty Centeno MD Primary Care Provider [phone] Encounter Details Date Type Department Care Team (Latest Contact Info) Description 01/30/2024 Travel Social History Tobacco Use Types Packs/Day [...] on filedocumented in this encounter Care Teams Color Buffer Relationship Specialty Start Date End Date Paty Centeno MD [address] [place] [address] [address] [place], [place] [id number] PCP - General Family Medicine 02/02/22 documented as of this encounter
--- OUTSIDE RECORDS SUMMARY | 2024-05-15 02:28 | XMS_ITS | Encounter Summary ---
Author Organization [facility] Address [facility] [place] [address] Care Team Providers Care Printing Bindery Assistant Name Role Phone Nieves Granados MD Primary Care Provider Encounter Details Date Type Department Care Team (Late st Contact Info) Description 04/27/2021 8:45 AM EST Office [place] [address] Rachel Cha MD [facility] [place] [address] Varicose veins of right lower extremity with pain; Postop check Social History Tobacco Use Types Packs/Day Years Used Date Smoking Tobacco: Every Day Cigarettes Smokeless Tobacco: Never Alcohol Use Standard Drinks/Week Comments Not Currently 0 (1 standard drink = 0.6 oz pur e alcohol) Sex and Gender Information Value Date Recorded Sex Assigned at Not on file Gender Identity Not on file Sexual Orientation Not on file documented as of this encounter Last Filed Vital Signs Vital Sign Reading Time Taken Comments Blood Pressure 130/73 04/27/2021 8:48 AM EST Pulse 82 04/27/2021 8:48 AM EST Temperature - - Respiratory Rate - - Oxygen Saturation - - Inhaled Oxygen Concentration - - Weight 88.9 kg (196 lb) 04/27/2021 8:48 AM EST r eported Height 165.1 cm (5' 5) 04/27/2021 8:48 AM EST r eported Body Mass Index 32.62 04/27/2021 8:48 AM EST documented in this encounter Progress Notes * Rachel Cha MD - 04/27/2021 8:45 AM EST VASCULAR SURGERY POSTOP FOLLOW-UP SERVICE DATE: 04/27/2021 SERVICE TIME: 7:29 AM PRIMARY CARE PHYSICIAN: Nieves Granados MD REFERRING PROVIDER: Nieves Granados MD [address] [place] [address] [address] [place] [address] Operation: 03/16/2021 (Starla) - Right greater saphenous vein pharmacomechanical ablation (Clarivein), right lower extremity stab phlebectomies (21 stabs) History of Present Illness: Sydnie Valenzuela is a 55 y.o. female is here for follow-up after her right GSV ablation and stab phlebectomies. Overall she is reports doing very well. Her right leg is significantly improved, with less aching and heaviness. All of her incisions are well-healed. She denies any issues with healing. She is overall very pleased with the result Physical Exam: PHYSICAL EXAM Physical Exam Performed BP 130/73 (BP Location (NBP): Right arm, Patient Position: Sitting, BP Cuff Sizes: Adult (25-34 cm)) Pulse 82 Ht 165.1 cm (5' 5) Comment: reported Wt 88.9 kg (196 lb) Comment: reported LMP 03/16/2019 BMI 32.62 kg/m?? CONSTITUTIONAL: alert, well developed, well nourished, in no acute distress NEUROLOGIC/PSYCHIATRIC: Grossly normal HEENT: normal atraumatic. LUNGS: Breathing comfortably on room air HEART: Regular rate and rhythm SURGICAL SITES: Well-healed stab incisions on her right leg. MUSCULOSKELETAL: negative. No edema DATA: Radiology: 03/20/2021 RLE DVT duplex Right-The great saphenous vein is ablated to with in 1.2 cm of the saphenofemoral junction, does not extend into the common femoral vein. Patent inferior epigastric vein. Patent common femoral vein with spontaneous, respirophasic Doppler waveforms that respond normally to augmentation maneuvers. The common femoral vein, saphenofemoral junction and femoral vein through the proximal thigh are fully compressible. ?? Interpretation: ?? Right- Successful ablation of the great saphenous vein. No evidence of lower extremity deep venous thrombosis through the proximal thigh. ?? No post-op exam for comparison. I have personally reviewed the following images/data: duplex Impression: 55 y.o. female s/p Right greater saphenous vein pharmacomechanical ablation (Clarivein), right lower extremity stab phlebectomies (21 stabs). Patient is doing very well postoperatively with significant improvement in her symptoms. I recommended that she continue with compression stocking of as needed, and will let us know if there is anything else we can do for her in the future. Plan: Follow-up as needed SIGNATURE: Rachel Cha MD PATIENT NAME: Sydnie Valenzuela DATE: April 27, 2021 TIME: 7:29 AM documented in this encounter Plan of Treatment Not on file documented as of this encounter Visit Diagnoses Diagnosis Varicose veins of right lower extremity with pain Varicose veins of lower extremities with other complications Postop check Follow-up examination, following unspecified surgery documented in this encounter Care Teams Printing Bindery Assistant Relationship Specialty Start Date End Date Nieves Granados MD [address] [place] [address] PCP - General Family Medicine 08/11/20 02/01/22 documented as of this encounter
--- OUTSIDE RECORDS SUMMARY | 2024-05-15 02:28 | XMS_ITS | Encounter Summary ---
Author Organization [facility] Address [address] [place] [address] Care Team Providers Care Accountant Name Role Phone Venu Álvarez MD Primary Care Provider [phone] Encounter Details Date Type Department Care Team (Late st Contact Info) Description 10/27/2018 Results Only [facility] [phone] Bennie Vazquez MD [facility] [facility] [place] [address] Social History Tobacco Use Types Packs/Day Years [...] Priority Date/Time Associated Diagnosis Comments SURGICAL PATHOLOGY Routine 10/27/2018 16 :37 EDT documented in this encounter Results * SURGICAL PATHOLOGY (10/27/2018 16:37 EDT) Pathology Report: SURGICAL PATHOLOGY REPORT Reports generated via electronic interface contain original data; however they are lacking the format of the original report. Caution should be taken when reading/interpret ing unformatted reports. Name: ? DESTINEE JAMIL ? Accession #: ? [id number] ? : ? 1965 (Age: 53) ??F ? Collect Date: ? 10/27/2018 ? Location: ? [facility] ? Receive Date: ? 10/27/2018 ? Provider: BENNIE VAZQUEZ MD Copy to: OFELIA HIGGINS MD ? Final Pathologic Diagnosis: A. COLON, SIGMOID, POLYP, BIOPSY: - Fragments of hyperplastic polyp. B. RECTUM, POLYPS, BIOPSY: - Fragments of hyperplastic polyp(s). See comment. Comment: Deeper sections (B1) have been examined. Dr. Elpidio Rowley 10/29/2018 12:42 PM Document reviewed and electronically signed by: ELPIDIO ROWLEY MD Report ??Date: 10/30/2018 08:42 By the signature above, the attending physician certifies that he/she has personally conducted a gross and/or microscopic examination of the described specimens and rendered or confirmed the above diagnosis. Specimen(s) Received: A. ??Sigmoid polyp B. ??Rectal polyp x2 Clinical History: Screening Gross Description: A. ?Received in formalin labelled with proper patient identification (initials A, M) and sigmoid polyp are three arreola-brown irregular tissues ranging from 0.2 x 0.1 x 0.1 cm to 0.3 x 0.2 x 0.1 cm. Entirely submitted in A1. B. ?Received in formalin labelled with proper patient identification (initials A, M) and rectal polyp x2 are three arreola to red-brown irregular to polypoid tissues ranging from 0.3 x 0.2 x 0.2 cm to 0.3 x 0.3 x 0.2 cm. Entirely submitted in B1. JEFFERSON Díaz (ASCP) 10/27/2018 5:15 PM End of Report [facility] 10/27/2018 16:3 7 EDT 10/27/2018 16:37 EDT us Bennie Vazquez MD PATHOLOGY ORDERABLES Fin al Result [facility] [address] [place] [address] documented in this encounter Visit Diagnoses Not on filedocumented in this encounter Care Teams Accountant Relationship Specialty Start Date End Date Venu Álvarez MD [address] [place] [phone] PCP - General 01/21/13 documented as of this encounter
--- OUTSIDE RECORDS SUMMARY | 2024-05-15 02:28 | XMS_ITS | Encounter Summary ---
Author Organization [facility] Angélica [place] [address] Care Team Providers Care Growth Hacker Name Role Phone Nieves Granados MD Primary Care Provider [phone] Reason for Visit * Auth/Cert Specialty Diagnoses / Procedures Referred By Raquel huggins Referred To Contact Diagnoses Symptomatic varicose veins symptomatic varicose veins Procedures PRO ENDOVENOUS RF, 1ST VEIN PRO PHLEB VEINS - EXTREM - TO 20 ENDOVENOUS ABLATION THERAPY OF INCOMPETENT VEIN, EXTREMITY, FIRST VEIN (WRVU 5.3) STAB PHLEBECTOMY MANJEET VEINS 1 EXTREMITY 10-20 INCISIONS (WRVU 7.71) Referral ID Status Reason Start Date Expiration Date Visits Re quested Visits Authorized [id number] 1 1 Encounter Details Date Type Department Care Team (Late st Contact Info) Description 03/16/2021 7:33 AM EDT Anesthesia Event Operating Room [address] [place] [address] [place] [address] Jimmy Phipps CRNA Anesthesia Record Procedure Summary Procedure Name Responsible Anesthesiologist Anesthesia Start Time Anesthesia Stop Time ENDOVENOUS ABLATION THERAPY OF INCOMPETENT VEIN, EXTREMITY, FIRST VEIN (WRVU 5.3) (Right: Leg) Marquise Ontiveros CRNA 03/16/21 0733 03/16/21 0908 Events Date Time Event Comment 03/16/2021 0725 0733 AN Verify 0733 Start 0733 An Start Data 0738 An Induction 0738 An Intubation 0738 Anesthesia Ready 09 Extubation/LMA Out 09 an stop data 0904 Recovery or ICU Handoff Azalia ent care was transferred to the destination unit staff after review of the patient's medical history, current anesthetic/surgical status and plan, according to the Provider Handoff Checklist. 0908 Stop Meds Name Total Midazolam 2 mg fentaNYL 100 mcg IV Lidocaine 50 mg Propofol 200 mg Ondansetron 4 mg Dexamethasone 4 mg ePHEDrine 10 mg ceFAZolin (Ancef) 2 g in dextrose 5% 100 mL infusion 2 g lactated ringers infusion 800 mL * Agents Name O2 Air N2O Sevoflurane (et) * Blood No blood administrations on file. Lines, Drains, and Airways Type Details Placement Removal Incision 03/16/21; 0753; Righ t; leg; non-laparascopic puncture (22 stabs) 03/16/21 0753 by Kimberly Abernathy RN Incision 09/22/20; 0753; Left ; leg; (left lower leg); 02/12/22 (LDA cleanup utility RA#[id number]); 1715 (LDA cleanup utility RA#[id number]) 09/22/20 0753 by Emili Russell RN 02/12/22 1715 by Nya Cleveland (RETIRED) Peripheral IV Line - Single Lumen 03/16/21; 0650; metacarpal vein (top of hand), left; [id number] catheter system; 20 gauge; es; distraction, tolerated well; no longer indicated, catheter/device intact, removed per policy/procedure; 03/16/21; 1037 03/16/21 0650 by Alysia Weiner RN 03/16/21 1037 by Carolyn Finnegan RN Supraglottic Mask Ventilation: No t Attempted (0); LMA Type: iGel; LMA Size: 4; Inserted by: JAYANT Ontiveros; Removal Date: 03/16/21; Removal Time: 90603/16/21 0738 by Marquise Ontiveros CRNA 03/16/21 0907 by Marquise Ontiveros CRNA documented in this encounter Social History Tobacco Use Types Packs/Day Years Used Date Smoking Tobacco: Every Day Cigarettes Smokeless Tobacco: Never Alcohol Use Standard Drinks/Week Comments Not Currently 0 (1 standard drink = 0.6 oz pur e alcohol) Sex and Gender Information Value Date Recorded Sex Assigned at Not on file Gender Identity Not on file Sexual Orientation Not on file documented as of this encounter OR Notes * Anesthesia Postprocedure Evaluation - Marquise Ontiveros CRNA - 03/16/2021 1:14 PM EDT Department of Anesthesiology Post-procedure Note Patient: Sydnie Valenzuela Procedure Summary Date: 03/16/21 Room / Location: [facility] MAIN OR Anesthesia Start: 732 Anesthesia Stop: 907 Procedures: ENDOVENOUS ABLATION THERAPY OF INCOMPETENT VEIN, EXTREMITY, FIRST VEIN (WRVU 5.3) (Right Leg) STAB PHLEBECTOMY MANJEET VEINS 1 EXTREMITY MORE 20 INCISIONS (WRVU 9.66) (Right Leg) Diagnosis: (symptomatic varicose veins) Surgeons: Rachel Cha MD Responsible Provider: Marquise Ontiveros CRNA Anesthesia Type: general ASA Status: 2 All Anesthesia Providers: JAYANT Independent: Marquise Ontiveros CRNA Vitals Value Taken Time BP 112/66 03/16/21 1043 Temp 36 ??C (96.8 ??F) 03/16/21 0925 Pulse 69 03/16/21 1020 Resp 16 03/16/21 1020 SpO2 97 % 03/16/21 1020 Pain Level 2 03/16/21 1043 Patient Location: PACU/[facility] Level of Consciousness: Awake and Alert Pain Management: Satisfactory Analgesia PONV: None Cardiovascular Status: At Baseline and Hemodynamically Stable Respiratory Status: At Baseline and Room Air Postoperative Fluid Status: Intravascular EUvolemia Possible Anesthetic Complications: NONE apparent at time of evaluation Final Primary Anesthesia Type: General (The anesthetic type performed was the same as planned.) Comments: Marquise Ontiveros CRNA * Anesthesia Preprocedure Evaluation - Marquise Ontiveros CRNA - 03/16/2021 7:24 AM EDT Pre-Anesthesia Evaluation for: Sydnie Valenzuela a 55 y.o. female. Procedure(s): ENDOVENOUS ABLATION THERAPY OF INCOMPETENT VEIN, EXTREMITY, FIRST VEIN (WRVU 5.3) STAB PHLEBECTOMY MANJEET VEINS 1 EXTREMITY 10-20 INCISIONS (WRVU 7.71) Patient Active Problem List Diagnosis ??? Localized swelling, mass and lump, lower limb Added automatically from request for surgery [id number] Past Medical History: Diagnosis Date ??? Gastric ulcer Past Surgical History: Procedure Laterality Date ??? SECTION x3 ??? GALLBLADDER SURGERY ??? PRO EXC SKIN BENIG 2.1-3CM TRUNK, ARM, LEG Left 09/22/2020 EXC BENIGN LESION, ALEX 2.1 TO 3.0CM, LEGS (WRVU 1.84) performed by Slava Escamilla MD at [facility] MAIN OR Social History Tobacco Use ??? Smoking status: Current Every Day Smoker Packs/day: 0.50 Types: Cigarettes ??? Smokeless tobacco: Never Used Substance Use Topics ??? Alcohol use: Not Currently Social History Substance and Sexual Activity Drug Use Yes ??? Types: Marijuana No Known Allergies Medications: MAR and/or home medications have been reviewed. Physical Exam: Preprocedure Vitals Current as of 03/16/21 0724 BP: 128/59 Pulse: 76 Resp: 16 SpO2: 96 Temp: 36.4 ??C (97.5 ??F) Height: 165.1 cm (5' 5) (03/16/21) Weight: 92.1 kg (203 lb) (03/16/21) BMI: 33.78 IBW: 57 kg (125 lb 10.6 oz) Last edited 03/16/21 0639 by ES Airway Assessment: Mallampati: II TM distance: <3 FB Neck ROM: full Cardiovascular Assessment: Rhythm: regular Rate: normal Pulmonary Assessment: breath sounds clear to auscultation pulmonary exam normal Dental Assessment: - normal exam Misc Assessment: Patient is wearing No contact(s). IV access: Peripheral line Last Filed Perioperative Cognitive Screening None Anesthesia Plan: ASA 2 general, with a(n) intravenous induction Region - Other Informed Consent: Anesthetic plan and risks discussed with patient. Anesthesia Screening documented in this encounter Plan of Treatment Not on file documented as of this encounter Visit Diagnoses Not on filedocumented in this encounter Administered Medications Inactive Administered Medications - up to 3 most recent administrations Medication Order MAR Action Action Date Dose Rate Site ceFAZolin (Ancef) 2 g in dextrose 5% 100 mL infusion 2 g, Intravenous, BOILERMAKING SUPERVISOR TO O.R., 1 dose, On Mirna 03/16/21 at 0645, Administer over 30 Minutes, Redose after 4 hours., Day of Surgery (Day of Procedure), Indication for (Active or Suspected): Prophylaxis Given 03/16/2021 7:38 AM EDT 2 g dexamethasone (Decadron) injection Intravenous, PRN, Starting on Mirna 03/16/21 at 0738, Until Mirna 03/16/21 at 0921, Anesthesia Intra-op, Routine Given 03/16/2021 7:38 AM EDT 4 mg ePHEDrine sulfate (5 mg/mL) multi-dose injection Intravenous, PRN, Starting on Mirna 03/16/21 at 0753, Until Mirna 03/16/21 at 0921, Anesthesia Intra-op, Routine Given 03/16/2021 8:00 AM EDT 5 mg Given 03/16/2021 7:53 AM EDT 5 mg fentaNYL (pf) (50 mcg/mL) multi-dose injection Intravenous, PRN, Starting on Mirna 03/16/21 at 0740, Until Mirna 03/16/21 at 0921, Anesthesia Intra-op, Routine Given 03/16/2021 8:44 AM EDT 50 mcg Given 03/16/2021 7:40 AM EDT 50 mcg lactated ringers infusion 1,000 mL, at 50 mL/hr, Intravenous, CONTINUOUS, Starting on Mirna 03/16/21 at 0700, Until Mirna 03/16/21 at 1045, Day of Surgery (Day of Procedure) New Bag 03/16/2021 7:33 AM EDT New Bag 03/16/2021 6:50 AM EDT 1,000 mLs 50 mL/hr lidocaine (pf) (Xylocaine) (20 mg/mL) 2% injection syringe Intravenous, PRN, Starting on Mirna 03/16/21 at 0738, Until Mirna 03/16/21 at 0921, Anesthesia Intra-op, Routine Given 03/16/2021 7:38 AM EDT 50 mg midazolam (pf) (Versed) (1 mg/mL) multi-dose injection Intravenous, PRN, Starting on Mirna 03/16/21 at 0733, Until Mirna 03/16/21 at 0921, Anesthesia Intra-op, Routine Given 03/16/2021 7:33 AM EDT 2 mg ondansetron (pf) (Zofran) (2 mg/mL) injection Intravenous, PRN, Starting on Mirna 03/16/21 at 0857, Until Mirna 03/16/21 at 0921, Anesthesia Intra-op, Routine Given 03/16/2021 8:57 AM EDT 4 mg propofoL (Diprivan) 10 mg/mL bolus injection (Anesthesia) Intravenous, PRN, Starting on Mirna 03/16/21 at 0733, Until Mirna 03/16/21 at 0921, Anesthesia Intra-op Given 03/16/2021 7:38 AM EDT 200 mg documented in this encounter Care Teams Growth Hacker Relationship Specialty Start Date End Date Nieves Granados MD [address] [place] [address] [address] [facility] [address] [place] [address] PCP - General Family Medicine 08/11/20 02/01/22 documented as of this encounter
--- OUTSIDE RECORDS SUMMARY | 2024-05-15 02:28 | XMS_ITS | Encounter Summary ---
Author Organization [facility] Address [address] [place] [address] Care Team Providers Care Filling Room Operator Name Role Phone Unavailable Primary Care Provider Unavailabl e Encounter Details Date Type Department Care Team (Latest Contact Info) Description 10/23/2005 11:19 EDT - 10/23/2005 11:59 EDT Hospital Encounter [facility] Radiology - Main [place] [address] [place] [address] Raj Wilson MD [address] [place] [id number] Discharge Disposition: Home or Self Care Social [...] or Self Care documented in this encounter Plan of Treatment Not on file documented as of this encounter Visit Diagnoses Not on filedocumented in this encounter
--- OUTSIDE RECORDS SUMMARY | 2024-05-15 02:28 | XMS_ITS | Encounter Summary ---
Author Organization [facility] Address [address] [place] [address] Care Team Providers Care Semiconductor Wafer Inspector Name Role Phone Unavailable Primary Care Provider Unavailabl e Encounter Details Date Type Department Care Team (Late st Contact Info) Description 10/23/2005 Before PRISM Converted Visit (Maple) [facility] - Maple conversion [address] [place] [address] Raj Wilson MD [address] [place] [address] Social History Tobacco Use Types Packs/Day Years Used Date Smoking Tobacco: Never Assessed Comments Unknown Sex and Gender Information Value Date Recorded Sex Assigned at Not on file Legal Sex Female 18:29 EST Gender Identity Not on file Sexual Orientation Not on file documented as of this encounter Progress Notes * Raj Wilson - 06/10/2009 0723 EST DIVISION OF UROLOGY PROGRESS/FOLLOWUP NOTE - 10/25/2005 Jeremias Marlow MD [address] [place] [address] Marlow: I saw Sydnie Valenzuela in the office today. This was to follow up on her left ureteral stone. At the time of her last office visit, earlier this week, we had checked a nephrostomy tube study which suggested a stone might still be present. We did attempt plugging her nephrostomy tube after that visit but this was poorly tolerated. A renal colic CT scan done this morning confirms that the appr oximately 3 mm stone is still present in the upper left ureter. I suggested to the patient that we go ahead and schedule ureteroscopy with likely holmium laser lithotripsy to definitively deal with this stone. She agrees with that recommendation and I will schedule the procedure in the next week. In the interim, we will keep her on antibiotics and leave her nephrostomy tube for drainage. I willkeep you posted on her progress. Sincerely, Signed by Raj Wilson MD 12/03/2005 08:05 Jeff Lee MD Raj Wilson MD - Raj Wilson MD A - [facility] Job ID: Document ID: [id number] cc: Jeremias Marlow MD * Raj Wilson - 06/10/2009 0722 EST DIVISION OF UROLOGY PROGRESS/FOLLOWUP NOTE - 10/23/2005 Jeremias Marlow MD [address] [place] [address] aMrlow: I saw Sydnie Valenzuela in the office today. She underwent uneventful ESWL therapy last week. A nephrostomy tube study done earlier this morning suggested the stone may still be present. I reviewed the films and feel that I see free flow of contrast through the area in question. However, given how ill she was with her obstructive urosepsis, I think it would be reasonable to take a relatively conservative approach. Therefore, we will continue her on the oral Levaquin, have her plug her nephrostomy tube (but unplug it as needed for pain or fever), and see her back in 48 hours with a [address] CT scan. If the stone has indeed passed then we will go ahead and remove her nephrostomy tubeafter her follow-up visit. Sincerely, Signed by Raj Wilson MD 12/03/2005 08:05 Jeff Lee MD Raj Wilson MD - Raj Wilson MD P - [facility] Job ID: Document ID: [id number] cc: Jeremias Marlow MD * Raj Wilson - 06/10/2009 0120 EST DIVISION OF UROLOGY PROGRESS/FOLLOWUP NOTE - 11/06/2005 [place] [address] Marlow: I saw Sydnie Valenzuela in the office today. She underwent ureteroscopic stone removal last week. She was back today for removal of the stent that was placed at the time of her procedure. Also, we removed her indwelling nephrostomy tube at the time of the stent placement. Except for some bladder spasms she has done well since the procedure. The stent was removed withoutdifficulty today. She will go ahead and complete her current course of Levaquin antibiotics. I will see her back in one month with a metabolic stone workup and go over the results of her recent stone analysis. Sincerely, Signed by Raj Wilson MD 12/03/2005 08:24 AThgricelda Wilson MDThgricelda Wilson MD Raj Wilson MD - Raj Wilson MD P - [facility] Job ID: Document ID: [id number] cc: Jeremias Marlow MD documented in this encounter Plan of Treatment Not on file documented as of this encounter Visit Diagnoses Not on filedocumented in this encounter
--- OUTSIDE RECORDS SUMMARY | 2024-05-15 02:28 | XMS_ITS | Encounter Summary ---
[place] [address] Care Team Providers Care Residential Tech Name Role Phone Nieves Granados MD Primary Care Provider Encounter Details Date Type Department Care Team (Late st Contact Info) Description 12/28/2020 Telephone [place] [id number] Henrietta Verdin Social History Tobacco Use Types [...] * Telephone Encounter - Henrietta Verdin - 12/28/2020 8:32 AM EDT I spoke with Sydnie - we have scheduled her for Surgery with Dr. Cha at [facility] to be on 03/16/21. 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 Letter sent. documented in this encounter Plan of Treatment Not on file documented as of this encounter Visit Diagnoses Not on filedocumented in this encounter Care Teams Residential Tech Relationship Specialty Start Date End Date Nieves Granados MD [address] [place] [address] PCP - General Family Medicine 08/11/20 02/01/22 documented as of this encounter
--- OUTSIDE RECORDS SUMMARY | 2024-05-15 02:28 | XMS_ITS | Encounter Summary ---
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 Name Role Phone Unavailable Primary Care Provider Unavailabl e Encounter Details Date Type Department Care Team (Latest Contact Info) Description 10/07/2005 15:20 EDT - 10/09/2005 11:59 EDT Hospital Encounter [facility] General Surgery Unit [address] [place] [address] Will Mari MD [address] [place] [address] WAY [facility] [address] [place] [address] Discharge Disposition: Home-Health Care Svc Social History Tobacco Use Types Packs/Day Years Used Date Smoking Tobacco: Never Assessed Comments Unknown Sex and Gender Information Value Date Recorded Sex Assigned at Not on file Legal Sex Female 18:29 EST Gender Identity Not on file Sexual Orientation Not on file documented as of this encounter Discharge Summaries * Missy Wagner PA - 10/09/2005 0000 EDT DISCHARGE SUMMARY Admission Date: 10/07/2005 Discharge Date: 10/09/2005 ADMISSION DIAGNOSIS: Urolithiasis and hydronephrosis. DISCHARGE DIAGNOSIS: Urolithiasis and hydronephrosis. HISTORY OF PRESENT ILLNESS: The patient is a [id number] who had presented to an outside hospital for flank pain. The patient had a renal colic CT done that showed bilateral nephrolithiasis kiki left small ureteropelvic junction stone with left-sided hydronephrosis. The patient was discharged to home on pain medication with instructions to strain her urine and to drink plenty of fluids. However, the patient did not improve and developed a fever two days ago and then subsequently presented to the hospital. HOSPITAL COURSE: The patient was admitted to the hospital and treated with IV hydration, antibiotics, and was then transferred to [facility] for intervention to drain the left kidney. The patient is a 40-year-old female who was admitted on October 07, 2005. The patient underwent placement of left percutaneous nephrostomy tube done on October 07, 2005, by interventional radiology. The patient tolerated the procedure well. Upon completion of the procedure, the patient was taken back to the floor for continuing care. The findings during the placement of the percutaneous nephrostomy tube was a mild left hydronephrosis secondary to partially obstructing 2-3 mm calculus within a proximal left ureter. The patient was continued with IV fluid hydration, IV antibiotics, and IV pain control. Hospital day two, the patient's Tmax was 36.6, TC was 39, heart rate 83, respirations 18, blood pressure 105/68, and O2 sats 97% on room air. The patient had good urinary output. Left nephrostomy tube was intact and draining light red urine. Labs: Sodium 136, potassium 4.1, BUN 7, creatinine 0.8, wbcs 11.12, hemoglobin 11.4, hematocrit 33.6, and platelets 188. Fluid culture from left kidney showed a few polys, no bacteria. On October 09, 2005, hospital day two, the patient was afebrile, vital signs stable. The patient wentto Interventional Radiology and had a nephrostogram of the left nephrostomy tube obtained. Results showed that the tube was in a good position and the collection system was well decompressed. There was completely obstructing calculus within the proximal left ureter. The patient was later dischargedhome in the afternoon on September 19, 2005. The patient was discharged home with a left nephrostomy tube in place and draining. The patient wasgiven nephrostomy tube care prior to discharge. The will be followed services. The patient was afebrile, vital signs stable, tolerating a regular diet, ambulating and pain controlled on oral analgesics at the time of discharge. The patient had an uncomplicated hospital course. DISPOSITION: Home with [facility] services. DISCHARGE CONDITION: Stable. DISCHARGE INSTRUCTIONS: 1.restrictions: No heavy lifting, no driving while taking narcotic pain medications, no driving until you are seen by your doctor, no strenuous exercise or activity. 2. Wound Care: The patient is to follow nephrostomy tube care instructions. 3. The patient was instructed to shower only. 4. to call the office: Burning with urination, increased blood in urine, urinary retention, redness, swelling or drainage from wound, increased pain, pain unrelieved by medication, temperature greater than 101, nausea, vomiting, chest pain, dizziness, or shortness of breath. DISCHARGE MEDICATIONS: The patient was discharged home with prescriptions for Levaquin, Colace, andPercocet. The patient was instructed to resume her pre- hospital medications. FOLLOWUP: The patient will follow up with Dr. Wilson at urology clinic. The patient was to call for an appointment. The patient was also instructed to call with any questions or concerns prior to her appointment time. Signed by Will Mari MD 11/28/2005 18:34 Mayank Wiley PASamuel Trotter, MD Dictated by: JEFFERSON Pepe Will Mari MD - JEFFERSON Pepe P - sb Job ID: [id number] Document ID: [id number] cc: MD Missy Lynn PA Samuel Trotter, MD documented in this encounter Discharge Disposition Disposition Code Departure Means Destination Home-Health Care Svc documented in this encounter Plan of Treatment Not on file documented as of this encounter Procedures Procedure Name Priority Date/Time Associated Diagnosis Comments IR NEPHROSTOGRAM 10/09/2005 11:0 0 EDT CREATININE Routine 10/08/2005 8:45 EDT URINE MICROSCOPIC Routine 10/08/2005 8:4 5 EDT URINALYSIS WITH MICROSCOPIC IF POSITIVE Routine 10/08/2005 8:45 EDT COMPLETE BLOOD COUNT AND DIFFERENTIAL Routine 10/08/2005 8:45 EDT BUN Routine 10/08/2005 8:45 EDT ELECTROLYTES Routine 10/08/2005 8:45 EDT IR PERCUTANEOUS ANTEGRADE PYELOGRAM 10/07/2005 21:50 EDT BACTERIAL CULTURE/SMEAR, FLUID Routine 10/07/2005 21:[address] RENAL COLIC WO CONTRAST 10/07/2005 18:11 EDT CREATININE Routine 10/07/2005 16:25 EDT PTT Routine 10/07/2005 16:25 EDT PROTIME Routine 10/07/2005 16:25 EDT COMPLETE BLOOD COUNT AND DIFFERENTIAL Routine 10/07/2005 16:25 EDT BUN Routine 10/07/2005 16:25 EDT ELECTROLYTES Routine 10/07/2005 16:25 EDT documented in this encounter Results * IR NEPHROSTOGRAM (10/09/2005 11:00 EDT) Anatomical Region Laterality Modality Other 10/09/2005 11:0 0 EDT Narrative 01/01/2009 13:52 EDT OBSTRUCTION LEFT NEPHROSTOGRAM: ??10/09/05, 0944 HISTORY: ??Left-sided pyelonephritis with obstructing proximal left ureteral calculus. ??Please assess position and function of left-sided nephrostomy tube. DESCRIPTION: ??A left nephrostogram was performed. ??This demonstrates that the 8-Croatian pigtail left-sided nephrostomy tube is in satisfactory position and functions within normal limits. ??The collecting system of the left kidney is well decompressed. ??However, a completely obstructing calculus is identified within the proximal left ureter. IMPRESSION: ??Satisfactory position and function of the 8-Croatian pigtail left-sided nephrostomy tube. ??A completely obstructing calculus is present within the proximal left ureter. D: ??10/09/05 T: ??10/11/05/sb Procedure Note Chintan Robin MD, MD - 01/01/2009 OBSTRUCTION LEFT NEPHROSTOGRAM: 10/09/05, 09 HISTORY: Left-sided pyelonephritis with obstructing proximal left ureteral calculus. Please assess position and function of left-sided nephrostomy tube. DESCRIPTION: A left nephrostogram was performed. This demonstrates that the 8-Croatian pigtail left-sided nephrostomy tube is in satisfactory position and functions within normal limits. The collecting system of the left kidney is well decompressed. However, a completely obstructing calculus is identified within the proximal left ureter. IMPRESSION: Satisfactory position and function of the 8-Croatian pigtail left-sided nephrostomy tube. A completely obstructing calculus is present within the proximal left ureter. sb Will Mari MD IMG IR ORDERABLES Final Resu lt * ELECTROLYTES (10/08/2005 8:45 EDT) Pathologist [facility] Sodium 136 136 - 145 mEq/L [facility] Potassium 4.1 3.5 - 5.0 mEq/L [facility] Chloride 105 96 - 110 mEq/L [facility] CO2 25 24 - 32 mEq/L [facility] 10/08/2005 8:45 EDT 10/08/2005 9:01 EDT Will Mari MD CHEMISTRY & BLOOD GAS ORDERA BLES Final Result [facility] [address] [place] [address] * CREATININE (10/08/2005 8:45 EDT) Creatinine 0.8 0.7 - 1.5 mg/dl [facility] 10/08/2005 8:45 EDT 10/08/2005 9:01 EDT us Will Mari MD HISTORICAL LAB FOR SQ LOAD F inal Result [facility] [address] [place] [address] * (ABNORMAL) HEMAGRAM AND DIFFERENTIAL (10/08/2005 8:45 EDT) Pathologist [facility] WBC 11.12 4.0 - 12.4 K/cmm [facility] RBC 3.89 3.86 - 5.04 M/cmm [facility] Hemoglobin 11.4(L) 11.6 - 15.2 gm/dl [facility] HCT 33.6(L) 34.9 - 44.4 % [facility] MCV 86 81 - 98 fl [facility] MCH 29.3 26.7 - 33.3 pg [facility] MCHC 34.0 32.1 - 35.9 gm/dl [facility] PLT 188 141 - 320 K/cmm [facility] RDW-CV 12.7 11.7 - 14.6 % [facility] Neutrophils 73.0 45.5 - 79.7 % [facility] Lymphocytes 23.0 15.0 - 46.8 % [facility] Monocytes 3.0 1.8 - 12.0 % [facility] Eosinophils 1.0 0.6 - 6.9 % [facility] ABS Neutrophils 8.12 2.20 - 8.85 K/cmm [facility] ABS Lymphs 2.56 1.09 - 3.30 K/cmm [facility] ABS Monocytes 0.33 0.1 - 0.8 K/cmm [facility] ABS Eosinophils 0.11 0.03 - 0.61 K/cmm [facility] RBC Morphology 1+ Poikilocytosis 1+ Ovalocytes [facility] Type of Diff: Manual [facility] 10/08/2005 8:45 EDT 10/08/2005 9:01 EDT Will Mari MD PACKAGES & DNA PROBE ORDERAB LES Final Result Performing Organization Address [facility] Co de Phone Number [facility] [address] [place] [address] * (ABNORMAL) BUN (10/08/2005 8:45 EDT) BUN 7(L) 10 - 26 mg/dl [facility] 10/08/2005 8:45 EDT 10/08/2005 9:01 EDT Will Mari MD CHEMISTRY & BLOOD GAS ORDERA BLES Final Result Performing Organization Address [facility] de Phone Number [facility] [address] [place] [address] * (ABNORMAL) URINE MICROSCOPIC (10/08/2005 8:45 EDT) WBC, UA 1 to 5 0 - 5 /HPF [facility] RBC, UA 10 to 50 0 - 5 /HPF [facility] Squam Epithel, UA Frequent(A) NS /HPF [facility] Renal Epithel, UA None seen NS /HPF [facility] Bacteria, UA None seen NS /HPF [facility] Crystals, UA None seen /HPF [facility] Hyaline Casts, UA Rare Hyaline /LPF [facility] Comment: Rare Hyaline w/ granular inclusions UA Comment Microscopic results are unreliable on urines unrefrig >2hrs or refrig >8hrs. [facility] 10/08/2005 8:45 EDT 10/08/2005 8:55 EDT Will Mari MD URINALYSIS ORDERABLES Final Result Performing Organization Address [facility] Co de Phone Number [facility] [address] [place] [address] * (ABNORMAL) URINALYSIS (10/08/2005 8:45 EDT) Color, UA Yellow [facility] Clarity, UA Clear [facility] Glucose, UA Norm NORM [facility] Bilirubin, UA Neg NEG [facility] Ketones, UA Trace(A) NEG [facility] Specific [place], Urine 1.020 1.005 - 1.02 [facility] Blood, UA Large(A) NEG [facility] pH, UA 6.0 5.0 - 9.0 [facility] Protein, UA 1+(A) NEG [facility] Urobilinogen, UA 1.0(A) NORM mg/dL [facility] Nitrite, UA Neg NEG [facility] Leuk Esterase Neg NEG [facility] 10/08/2005 8:45 EDT 10/08/2005 8:55 EDT Will Mari MD URINALYSIS ORDERABLES Final Result Performing Organization Address City/State/[facility] Co de Phone Number [facility] [address] [place] [address] * IR PERCUTANEOUS ANTEGRADE PYELOGRAM (10/07/2005 21:50 EDT) Anatomical Region Laterality Modality Other 10/07/2005 21:5 0 EDT Narrative 01/01/2009 12:15 EDT pyelonephritis 1) LEFT PERCUTANEOUS ANTEGRADE UROGRAM 2) LEFT PERCUTANEOUS 8-TURKISH NEPHROSTOMY TUBE PLACEMENT: ??10/07/052029 HISTORY: ??Pyelonephritis with urosepsis. ??Obstructing calculus within proximal left ureter. ??Please place left-sided nephrostomy tube. DESCRIPTION: ??IV midazolam and fentanyl were administered for conscious sedation during continuous monitoring of the blood pressure, pulse rate and oxygen saturation. ??Then, utilizing sterile technique and standard fluoroscopic control, a 22-gauge needle was placed percutaneously into the pelvis of the left kidney. ??Ten cc of clear yellow urine was aspirated from the pelvis of the left kidney and sent to the laboratory for cultures and sensitivities, as well as gram stain. ??Then, a left antegrade urogram was obtained. ??This did demonstrate a partially obstructing small (2-3mm in diameter) calculus within the proximal left ureter. ??Mild hydronephrosis of the left kidney is also evident. ??However, contrast material did flow partially down the left ureter and into the urinary bladder. Next, a separate 22-gauge needle was then placed percutaneously into a posterior calyx of the lower pole of the left kidney. ??Utilizing standard guidewire technique, the needle was exchanged for an 8-Croatian pigtail nephrostomy tube, which was advanced into the pelvis of the left kidney and secured into position. ??This tube will be maintained on bag (gravity) drainage. The patient tolerated the procedure well. ??No complication occurred. A postplacement left nephrostogram was performed, which documented an intraluminal, satisfactory position of the left-sided 8-Croatian pigtail nephrostomy tube. A follow-up nephrostogram has been scheduled for 10/09/05. IMPRESSION: ??Mild hydronephrosis of the left kidney, secondary to a partially obstructing small calculus located within the proximal left ureter. ??Successful placement of an 8-Croatian pigtail left-sided nephrostomy tube, as described above. D: ??10/08/05 T: ??10/10/05/sb Procedure Note Chintan Robin MD, - 01/01/2009 pyelonephritis 1) LEFT PERCUTANEOUS ANTEGRADE UROGRAM 2) LEFT PERCUTANEOUS 8-TURKISH NEPHROSTOMY TUBE PLACEMENT: 10/07/052029 HISTORY: Pyelonephritis with urosepsis. Obstructing calculus within proximal left ureter. Please place left-sided nephrostomy tube. DESCRIPTION: IV midazolam and fentanyl were administered for conscious sedation during continuous monitoring of the blood pressure, pulse rate and oxygen saturation. Then, utilizing sterile technique and standard fluoroscopic control, a 22-gauge needle was placed percutaneously into the pelvis of the left kidney. Ten cc of clear yellow urine was aspirated from the pelvis of the left kidney and sent to the laboratory for cultures and sensitivities, as well as gram stain. Then, a left antegrade urogram was obtained. This did demonstrate a partially obstructing small (2-3mm in diameter) calculus within the proximal left ureter. Mild hydronephrosis of the left kidney is also evident. However, contrast material did flow partially down the left ureter and into the urinary bladder. Next, a separate 22-gauge needle was then placed percutaneously into a posterior calyx of the lower pole of the left kidney. Utilizing standard guidewire technique, the needle was exchanged for an 8-Croatian pigtail nephrostomy tube, which was advanced into the pelvis of the left kidney and secured into position. This tube will be maintained on bag (gravity) drainage. The patient tolerated the procedure well. No complication occurred. A postplacement left nephrostogram was performed, which documented an intraluminal, satisfactory position of the left-sided 8-Croatian pigtail nephrostomy tube. A follow-up nephrostogram has been scheduled for 10/09/05. IMPRESSION: Mild hydronephrosis of the left kidney, secondary to a partially obstructing small calculus located within the proximal left ureter. Successful placement of an 8-Croatian pigtail left-sided nephrostomy tube, as described above. /sb Will Mari MD IMG IR ORDERABLES Final Resu lt * BACTERIAL CULTURE/SMEAR, FLUID (10/07/2005 21:35 EDT) Specimen Description Fluid Kidney [facility] Gram Smear Result Few Polys No mononuclear cells seen. No bacteria seen [facility] Result No growth [facility] Report Status Final [id number] [facility] 10/07/2005 21:3 5 EDT 10/07/2005 22:17 EDT Will Mari MD MICROBIOLOGY - GENERAL ORDER LENKA Final Result [facility] [address] [place] [address] * CT RENAL COLIC (10/07/2005 18:11 EDT) Anatomical Region Laterality Modality Other 10/07/2005 18:1 1 EDT Narrative 01/01/2009 12:15 EDT pyelonephritis r/o renal valdemar CT RENAL COLIC: ?? 10/07/05 CLINICAL HISTORY: ?? Pyelonephritis; evaluate for renal calculi. TECHNIQUE: ??Using neither oral nor intravenous contrast material, 5 mm sections were made from just above the kidneys through the urinary bladder. COMPARISON: ?? None. FINDINGS: With the exception of minimal subsegmental atelectasis, the lung bases are clear. ??The inferior heart and pericardium are unremarkable. The visualized unenhanced liver, spleen, gallbladder, pancreas, and adrenal glands are unremarkable. On the right side, there are non-obstructing calyceal stones on image #139, 132, and 103. ??On the left side, calyceal stones are seen on images #80, 101, 117, 123, and 128. ??In addition, there is a stone in the proximal left ureter measuring approximately 3 mm on image #129. Perinephric stranding is seen and there is mild associated hydronephrosis. The ureter distal to the stone is normal. ??The urinary bladder is distended and grossly unremarkable. ??There is an IUD in the uterus. There is a small amount of free fluid in the pelvis which may be physiologic. ??Unopacified loops of bowel are grossly unremarkable. Subcentimeter retroperitoneal lymph nodes are identified. ??There is a small fat-containing umbilical hernia. ??The bones are grossly unremarkable. IMPRESSION: ??Bilateral non-obstructing calyceal stones in the kidneys. ??There is a left proximal 3-4 mm calculus in the proximal left ureter with associated mild hydronephrosis and perinephric stranding. Findings were discussed with Urology by Dr. Patel at the time of interpretation. D: ??10/07/05 T: ??10/09/05 /jim Procedure Note Meg Barnhart MD - 01/01/2009 pyelonephritis r/o renal valdemar CT RENAL COLIC: 10/07/05 CLINICAL HISTORY: Pyelonephritis; evaluate for renal calculi. TECHNIQUE: Using neither oral nor intravenous contrast material, 5 mm sections were made from just above the kidneys through the urinary bladder. COMPARISON: None. FINDINGS: With the exception of minimal subsegmental atelectasis, the lung bases are clear. The inferior heart and pericardium are unremarkable. The visualized unenhanced liver, spleen, gallbladder, pancreas, and adrenal glands are unremarkable. On the right side, there are non-obstructing calyceal stones on image #139, 132, and 103. On the left side, calyceal stones are seen on images #80, 101, 117, 123, and 128. In addition, there is a stone in the proximal left ureter measuring approximately 3 mm on image #129. Perinephric stranding is seen and there is mild associated hydronephrosis. The ureter distal to the stone is normal. The urinary bladder is distended and grossly unremarkable. There is an IUD in the uterus. There is a small amount of free fluid in the pelvis which may be physiologic. Unopacified loops of bowel are grossly unremarkable. Subcentimeter retroperitoneal lymph nodes are identified. There is a small fat-containing umbilical hernia. The bones are grossly unremarkable. IMPRESSION: Bilateral non-obstructing calyceal stones in the kidneys. There is a left proximal 3-4 mm calculus in the proximal left ureter with associated mild hydronephrosis and perinephric stranding. Findings were discussed with Urology by Dr. Patel at the time of interpretation. /jim Will Mari MD IMG CT ORDERABLES Final Resu lt * PTT (10/07/2005 16:25 EDT) Pathologist [facility] PTT 31 20 - 35 secs [facility] Comment:Therapeutic Heparin range: 70-105 seconds 10/07/2005 16:2 5 EDT 10/07/2005 17:00 EDT Will Mari MD HEMATOLOGY & PF4 ORDERABLES Final Result [facility] [address] [place] [address] * (ABNORMAL) PROTIME (10/07/2005 16:25 EDT) Pathologist [facility] Pro Time 16.5(H) 12.0 - 15.0 secs [facility] I.N.R. 1.3(H) 0.9 - 1.1 Ratio [facility] Comment: Moderate Intensity Coumadin INR = 2.0-3.0 Adjustments in anticoagulant therapy dose should be based upon the INR and NOT the Pro Time. 10/07/2005 16:2 5 EDT 10/07/2005 17:00 EDT Will Mari MD HEMATOLOGY & PF4 ORDERABLES Final Result Performing Organization Address [facility] de Phone Number [facility] [address] [place] [address] * ELECTROLYTES (10/07/2005 16:25 EDT) Sodium 136 136 - 145 mEq/L [facility] Potassium 3.7 3.5 - 5.0 mEq/L [facility] Chloride 105 96 - 110 mEq/L [facility] CO2 25 24 - 32 mEq/L [facility] 10/07/2005 16:2 5 EDT 10/07/2005 17:00 EDT Will Mari MD CHEMISTRY & BLOOD GAS ORDERA BLES Final Result Performing Organization Address [facility] de Phone Number [facility] [address] [place] [address] * CREATININE (10/07/2005 16:25 EDT) Creatinine 0.9 0.7 - 1.5 mg/dl [facility] 10/07/2005 16:2 5 EDT 10/07/2005 17:00 EDT Will Mari MD HISTORICAL LAB FOR SQ LOAD F inal Result Performing Organization Address [facility] de Phone Number [facility] [address] [place] [address] * (ABNORMAL) HEMAGRAM AND DIFFERENTIAL (10/07/2005 16:25 EDT) WBC 13.80(H) 4.0 - 12.4 K/cmm [facility] RBC 4.07 3.86 - 5.04 M/cmm [facility] Hemoglobin 12.0 11.6 - 15.2 gm/dl [facility] HCT 35.2 34.9 - 44.4 % [facility] MCV 87 81 - 98 fl [facility] MCH 29.5 26.7 - 33.3 pg [facility] MCHC 34.1 32.1 - 35.9 gm/dl [facility] PLT 188 141 - 320 K/cmm [facility] RDW-CV 12.1 11.7 - 14.6 % [facility] Neutrophils 72.0 45.5 - 79.7 % [facility] Lymphocytes 19.0 15.0 - 46.8 % [facility] Monocytes 7.0 1.8 - 12.0 % [facility] Basophils 2.0(H) 0.2 - 1.4 % [facility] ABS Neutrophils 9.93(H) 2.20 - 8.85 K/cmm [facility] ABS Lymphs 2.62 1.09 - 3.30 K/cmm [facility] ABS Monocytes 0.97(H) 0.1 - 0.8 K/cmm [facility] ABS Basophils 0.28(H) 0.01 - 0.11 K/cmm [facility] RBC Morphology [facility] Type of Diff: Manual [facility] 10/07/2005 16:2 5 EDT 10/07/2005 17:00 EDT us Will Mari MD PACKAGES & DNA PROBE ORDERAB LES Final Result [facility] [address] [place] [address] * (ABNORMAL) BUN (10/07/2005 16:25 EDT) BUN 7(L) 10 - 26 mg/dl [facility] 10/07/2005 16:2 5 EDT 10/07/2005 17:00 EDT us Will Mari MD CHEMISTRY & BLOOD GAS ORDERA BLES Final Result [facility] [address] [place] [address] documented in this encounter Visit Diagnoses Not on filedocumented in this encounter
--- OUTSIDE RECORDS SUMMARY | 2024-05-15 02:28 | XMS_ITS | Encounter Summary ---
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 Name Role Phone Unavailable Primary Care Provider Unavailabl e Encounter Details Date Type Department Care Team (Latest Contact Info) Description 12/10/2005 11:05 EDT - 12/10/2005 11:59 EDT Hospital Encounter [address] [address] Raj Wilson MD [address] [place] [id number] Discharge Disposition: Auto Discharge Social History Tobacco Use Types Packs/Day Years Used Date Smoking Tobacco: Never Assessed Comments Unknown Sex and Gender Information Value Date Recorded Sex Assigned at Not on file Legal Sex Female 18:29 EST Gender Identity Not on file Sexual Orientation Not on file documented as of this encounter Discharge Disposition Disposition Code Departure Means Destination Auto Discharge documented in this encounter Plan of Treatment Not on file documented as of this encounter Visit Diagnoses Not on filedocumented in this encounter
--- OUTSIDE RECORDS SUMMARY | 2024-05-15 02:28 | XMS_ITS | Encounter Summary ---
Author Organization [facility] Address [address] [place] [address] Care Team Providers Care Fitness Consultant Name Role Phone Venu Álvarez MD Primary Care Provider [phone] Encounter Details Date Type Department Care Team (Late st Contact Info) Description 08/30/2016 Results Only [facility] [phone] Ofelia Granados MD [address] [place] [address] Social History Tobacco Use Types Packs/Day Years [...] Diagnosis Comments PAP TEST- RESULT ONLY Routine 08/30/2016 0:00 EDT documented in this encounter Results * PAP TEST- RESULT ONLY (08/30/2016 0:00 EDT) Pathology Report: CYTOPATHOLOGY REPORT Reports generated via electronic interface contain original data; however they are lacking the format of the original report. Caution should be taken when reading/interpreti ng unformatted reports. Name: ? OMERO, DESTINEE Danisha ? Accession #: ? [id number] ? : ? 1965 (Age: 50) ??F ?Collect Date: ? 08/30/2016 ? Location: ? [facility] ? Receive Date: ? 08/31/2016 ? Provider: OFELIA GRANADOS MD Copy to: ? Final Report SPECIMEN ADEQUACY ? Satisfactory for Evaluation - transformation zone component present GENERAL CATEGORIZATION ? Negative for Intraepithelial Lesion or Malignancy INTERPRETATION ? Shift in jose francisco present suggestive of bacterial vaginosis. Menstrual/Pregnanc y Status: ??Menopausal Hormonal/Contracep tive status: Intrauterine device Specimen/Source: ??Pap Test, Cervix, ThinPrep Imaging System with manual evaluation Document reviewed and electronically signed by: ? Jud Flores [facility](ASCP) ? Report ??Date: 09/03/2016 14:15 HPV with Pap Test ? Date Ordered: ? 09/03/2016 ? Status: ?? Signed Out ?Date Complete: ? 09/06/2016 ? By: ??System Interface ? Date Reported: ? 09/06/2016 ? Interpretation RESULT: Negative for HPV. No E6 or E7 mRNA is detected from HPV types 16,18,31,33,35, 39,45,51,52,56,58, 59,66, and 68 by electrode cleaner mediated amplification. Comments Document reviewed and electronically signed by: ? System Interface ? Report date: 09/06/2016 By the signature above, the attending physician certifies that he/she has personally conducted a gross and/or microscopic examination of the described specimens and rendered or confirmed the above diagnosis. End of Report [facility] 08/30/2016 08/31/2016 us Ofelia Granados MD PATHOLOGY ORDERABLES Final Result [facility] [address] [place] [address] documented in this encounter Visit Diagnoses Not on filedocumented in this encounter Care Teams Fitness Consultant Relationship Specialty Start Date End Date Venu Álvarez MD [address] [place] [id number] PCP - General 01/21/13 documented as of this encounter
--- OUTSIDE RECORDS SUMMARY | 2024-05-15 02:28 | XMS_ITS | Encounter Summary ---
Author Organization [facility] Address [address] [place] [address] Care Team Providers Care Public Relations Sales Marketing Name Role Phone Venu Álvarez MD Primary Care Provider [phone] Encounter Details Date Type Department Care Team (Latest Contact Info) Description 10/27/2018 13:44 EDT - 10/27/2018 23:59 EDT Hospital Encounter [address] [address] Unknown, Provider, MD Discharge Disposition: Home or Self Care Social [...] Code Departure Means Destination Home or Self [facility] documented in this encounter Plan of Treatment Not on file documented as of this encounter Visit Diagnoses Not on filedocumented in this encounter Care Teams Public Relations Sales Marketing Relationship Specialty Start Date End Date Venu Álvarez MD [address] [facility] [address] [place] [address] PCP - General 01/21/13 documented as of this encounter
--- OUTSIDE RECORDS SUMMARY | 2024-05-15 02:28 | XMS_ITS | Encounter Summary ---
Author Organization [facility] Address [address] [place] [address] Care Team Providers Care Assistant Professor Of Forestry Name Role Phone Venu Álvarez MD Primary Care Provider [phone] Encounter Details Date Type Department Care Team (Latest Contact Info) Description 10/25/2016 9:54 EDT - 10/25/2016 23:59 EDT Hospital Encounter [address] [address] Unknown, Provider, MD Discharge Disposition: Home or [...] Code Departure Means Destination Home or Self [facility] documented in this encounter Plan of Treatment Not on file documented as of this encounter Visit Diagnoses Not on filedocumented in this encounter Care Teams Assistant Professor Of Forestry Relationship Specialty Start Date End Date Venu Álvarez MD [address] [facility] [address] [place] [address] PCP - General 01/21/13 documented as of this encounter
--- OUTSIDE RECORDS SUMMARY | 2024-05-15 02:28 | XMS_ITS | Encounter Summary ---
[place] [address] Care Team Providers Care Call Circuit Worker Name Role Phone Paty Centeno MD Primary Care Provider [phone] Encounter Details Date Type Department Care Team (Late st Contact Info) Description 02/23/2022 Telephone [place] [phone] Crystal Vargas Social History Tobacco Use Types Packs/Day Years [...] encounter Miscellaneous Notes * Telephone Encounter - Crystal Vargas - 02/23/2022 1:39 PM EDT Pt rtnd call to sched egd from referral. Pt declined to sched. Stated she feels fine. documented in this encounter Plan of Treatment Not on file documented as of this encounter Visit Diagnoses Not on filedocumented in this encounter Care Teams Call Circuit Worker Relationship Specialty Start Date End Date Paty Centeno MD [address] [place], [place] [id number] PCP - General Family Medicine 02/02/22 documented as of this encounter
--- OUTSIDE RECORDS SUMMARY | 2024-05-15 02:28 | XMS_ITS | Encounter Summary ---
[place] [address] Care Team Providers Care Mothers Helper Name Role Phone Nieves Granados MD Primary Care Provider [phone] Encounter Details Date Type Department Care Team (Late st Contact Info) Description 09/28/2020 Telephone [place] [phone] Blanca Olvera Social History Tobacco Use Types Packs/Day Years [...] encounter Miscellaneous Notes * Telephone Encounter - Blanca Olvera - 09/28/2020 10:19 AM EDT Attempted to contact patient to coordinate discharge f/u from S/p excision of LLE sebaceous cyst on09/23/20. VM left for patient asking her to come 10/03 at 11:30 am and if that did not work to please call ouroffice. * Telephone Encounter - Blanca Olvera - 09/28/2020 10:19 AM EDT Received return call from patient asking her appt be scheduled for 10/06. Advised patient this was for a 7-10 day follow-up due to sutures needing to be removed. Patient advised she understood. documented in this encounter Plan of Treatment Not on file documented as of this encounter Visit Diagnoses Not on filedocumented in this encounter Care Teams Mothers Helper Relationship Specialty Start Date End Date Nieves Granados MD [address] [place], [place] [address]Y [facility] [address] [place] [address] PCP - General Family Medicine 08/11/20 02/01/22 documented as of this encounter
--- OUTSIDE RECORDS SUMMARY | 2024-05-15 02:28 | XMS_ITS | Encounter Summary ---
[place] [address] Care Team Providers Care Extender Name Role Phone Nieves Granados MD Primary Care Provider [phone] Reason for Visit * Auth/Cert Specialty Diagnoses / Procedures Referred By Raquel huggins Referred To Contact Diagnoses left lower extremity mass Procedures PRO EXC SKIN BENIG 2.1-3CM TRUNK, ARM, LEG EXC BENIGN LESION, ALEX 2.1 TO 3.0CM, LEGS (WRVU 1.84) Referral ID Status Reason Start Date Expiration Date Visits Re quested Visits Authorized [id number] 1 1 Encounter Details Date Type Department Care Team (Late st Contact Info) Description 09/22/2020 7:27 AM EDT Anesthesia Event [place] [phone] Davon Akins MD [facility] [place] [address] Anesthesia Record Procedure Summary Procedure Name Responsible Anesthesiologist Anesthesia Start Time Anesthesia Stop Time EXC BENIGN LESION, ALEX 2.1 TO 3.0CM, LEGS (WRVU 1.84) (Left: Leg Lower) Davon Akins MD 09/22/20 0727 09/22/20 0827 Events Date Time Event Comment 09/22/2020 0711 0727 AN Verify 0727 Start 0727 An Start Data 0728 An Induction 0731 Anesthesia Ready 0753 Skin Incision 0817 an stop data 0827 Recovery or ICU Handoff Azalia ent care was transferred to the destination unit staff after review of the patient's medical history, current anesthetic/surgical status and plan, according to the Provider Handoff Checklist. 826 Stop Meds Name Total Propofol INF 558.33 mg fentaNYL 50 mcg Midazolam 2 mg Ondansetron 4 mg ceFAZolin (Ancef) 2 g in dextrose 5% 100 mL infusion 2 g lactated ringers infusion 500 mL * Agents Name O2 Air N2O O2 Auxiliary Flowmeter 1 * Blood No blood administrations on file. Lines, Drains, and Airways Type Details Placement Removal (RETIRED) Peripheral IV Line - Single Lumen 09/22/20; 0645; median cubital vein (antecubital fossa), left; [id number] catheter system; Anatomical Landmarks; 20 gauge; Danisha Meneses RN; distraction, tolerated well, appears comfortable; 09/22/20; 0926 09/22/20 0645 by Jacqueline Wilkinson RN 09/22/20 0926 by Bree Yoder RN Incision 09/22/20; 0753; Left ; leg; (left lower leg); 02/12/22 (LDA cleanup utility RA#[id number]); 1715 (LDA cleanup utility RA#[id number]) 09/22/20 0753 by Emili Russell RN 02/12/22 1715 by Nya [place] documented in this encounter Social History Tobacco [...] OR Notes * Anesthesia Postprocedure Evaluation - Davon Akins MD - 09/22/2020 9:31 AM EDT Department of Anesthesiology Post-procedure Note Patient: Sydnie Valenzuela Procedure Summary Date: 09/22/20 Room / Location: [facility] OR [address] [place] [address] MAIN OR Anesthesia Start: 726 Anesthesia Stop: 826 Procedure: EXC BENIGN LESION, ALEX 2.1 TO 3.0CM, LEGS (WRVU 1.84) (Left Leg Lower) Diagnosis: (left lower extremity mass) Surgeons: Slava Escamilla MD Responsible Provider: Davon Akins MD Anesthesia Type: MAC ASA Status: 2 All Anesthesia Providers: Anesthesiologist: Davon Akins MD LOGGING CONTRACTOR: Deanna Almaguer CRNA Vitals Value Taken Time BP 96/68 09/22/20 0915 Temp 36.5 ??C (97.7 ??F) 09/22/20 0823 Pulse 71 09/22/20 0916 Resp 14 09/22/20 0916 SpO2 96 % 09/22/20 0916 Pain Level 2 09/22/20 0915 Vitals shown include unvalidated device data. Patient Location: PACU/[facility] Level of Consciousness: Awake and Alert Pain Management: Satisfactory Analgesia PONV: None Cardiovascular Status: At Baseline and Hemodynamically Stable Respiratory Status: At Baseline and Room Air Postoperative Fluid Status: Intravascular EUvolemia Possible Anesthetic Complications: NONE apparent at time of evaluation Final Primary Anesthesia Type: MAC (The anesthetic type performed was the same as planned.) Comments: Davon Akins MD * Anesthesia Preprocedure Evaluation - Davon Akins MD - 09/22/2020 6:22 AM EDT Pre-Anesthesia Evaluation for: Sydnie Valenzuela a 55 y.o. female. Procedure(s): EXC BENIGN LESION, ALEX 2.1 TO 3.0CM, LEGS (WRVU 1.84) Patient Active Problem List Diagnosis ??? Localized swelling, mass and lump, lower limb Added automatically from request for surgery [id number] Past Medical History: Diagnosis Date ??? Gastric ulcer Past Surgical History: Procedure Laterality Date ??? SECTION x3 ??? GALLBLADDER SURGERY Social History Tobacco Use ??? Smoking status: Current Every Day Smoker Packs/day: 0.50 Types: Cigarettes ??? Smokeless tobacco: Never Used Substance Use Topics ??? Alcohol use: Not Currently Social History Substance and Sexual Activity Drug Use Yes ??? Types: Marijuana No Known Allergies Medications: MAR and/or home medications have been reviewed. Physical Exam: Preprocedure Vitals Current as of 09/22/20 0623 BP: 127/76 Pulse: 81 Resp: 16 SpO2: 96 Temp: 36.7 ??C (98.1 ??F) Height: Weight: BMI: IBW: Last edited 09/22/20 0615 by OR Airway Assessment: Mallampati: II TM distance: >3 FB Neck ROM: full Cardiovascular Assessment: system normal Pulmonary Assessment: unlabored breathing pulmonary exam normal Dental Assessment: - normal exam Misc Assessment: IV access: Peripheral line Last Filed Perioperative Cognitive Screening None Sydnie Valenzuela is a 55 y.o. female w/ left lower leg pain here for excision of a benign lesion LLE PMH: Hx of PUD, no current symptoms Anesth Hx: no issues w/ neuraxial and GA in past METS > 4, active Pt is appropriately NPO Labs: No results for input(s): WBC, HGB, HCT, PLATELET in the last 7068 hours. No results for input(s): NA, K, CL, CO2, BUN, CREATININE in the last 7068 hours. No results for input(s): AST, ALT, ALKPHOS, BILITOT, BILIDIR in the last 7068 hours. No results for input(s): PT, INR, PTT in the last 168 hours. No results found for: ABORH Anesthetic Plan MAC, GA backup Standard ASA monitors, IV access Anesthesia Plan: ASA 2 MAC, with a(n) intravenous induction Region - Other Informed Consent: Anesthetic plan and risks discussed with patient. Plan discussed with LOGGING CONTRACTOR. PAT Clinic Note documented in this encounter Plan of Treatment Not on file documented as of this encounter Visit Diagnoses Not on filedocumented in this encounter Administered Medications Inactive Administered Medications - up to 3 most recent administrations Medication Order MAR Action Action Date Dose Rate Site ceFAZolin (Ancef) 2 g in dextrose 5% 100 mL infusion 2 g, Intravenous, EVERY 8 HOURS, First dose on Mirna 09/22/20 at 0700, Until Discontinued, Administer over 30 Minutes, Please administer resource economist to OR, Indication for (Active or Suspected): Skin/Skin Structure Given 09/22/2020 7:35 AM EDT 2 g fentaNYL (pf) (50 mcg/mL) multi-dose injection Intravenous, PRN, Starting on Mirna 09/22/20 at 0753, Until Mirna 09/22/20 at 0827, Anesthesia Intra-op, Routine Given 09/22/2020 7:53 AM EDT 50 mcg lactated ringers infusion 1,000 mL, at 100 mL/hr, Intravenous, CONTINUOUS, Starting on Mirna 09/22/20 at 0645, Until Mirna 09/22/20 at 0916, Day of Surgery (Day of Procedure) Restarted 09/22/2020 7:27 AM EDT New Bag 09/22/2020 6:51 AM EDT 1,000 mLs 100 mL/hr midazolam (pf) (Versed) (1 mg/mL) multi-dose injection Intravenous, PRN, Starting on Mirna 09/22/20 at 0725, Until Mirna 09/22/20 at 0827, Anesthesia Intra-op, Routine Given 09/22/2020 7:28 AM EDT 1 mg Given 09/22/2020 7:25 AM EDT 1 mg ondansetron (pf) (Zofran) (2 mg/mL) injection Intravenous, PRN, Starting on Mirna 09/22/20 at 0807, Until Mirna 09/22/20 at 0827, Anesthesia Intra-op, Routine Given 09/22/2020 8:07 AM EDT 4 mg propofoL (Diprivan) infusion Intravenous, CONTINUOUS PRN, Starting on Mirna 09/22/20 at 0728, Until Mirna 09/22/20 at 0827, Anesthesia Intra-op, Routine Rate/Dose Change 09/22/2020 8:02 AM EDT 100 mcg/kg/min 58.26 mL/hr Rate/Dose Change 09/22/2020 7:31 AM EDT 150 mcg/kg/min 87. 39 mL/hr New Bag 09/22/2020 7:28 AM EDT 200 mcg/kg/min 116.52 mL /hr documented in this encounter Care Teams Extender Relationship Specialty Start Date End Date Nieves Granados MD [address] [place] [address] [address] [place] [address] PCP - General Family Medicine 08/11/20 02/01/22 documented as of this encounter
--- OUTSIDE RECORDS SUMMARY | 2024-05-15 02:28 | XMS_ITS | Encounter Summary ---
Author Organization [facility] Address [address] [place] [address] Care Team Providers Care Phlebotomist Lab Assistant Name Role Phone Unavailable Primary Care Provider Unavailabl e Encounter Details Date Type Department Care Team (Late st Contact Info) Description 01/20/2004 Results Only [facility] [address] [place] [address] Jack Valle MD [address] [place] [address] Social History Tobacco Use Types Packs/Day Years [...] Priority Date/Time Associated Diagnosis Comments CYTOPATHOLOGY Routine 01/20/2004 0:00 EDT documented in this encounter Results * CYTOPATHOLOGY (01/20/2004 0:00 EDT) Pathology Report: CYTOPATHOLOGY REPORT Reports generated via electronic interface contain original data; however they are lacking the format of the original report. Caution should be taken when reading/interpreti ng unformatted reports. Name: ? DESTINEE JAMIL ? Accession #: ? [id number] : ? 1965 (Age: 38) ??F ?Collect Date: ? 01/20/2004 Location: ? [facility] ? Receive Date: ? 01/24/2004 Provider: ?JACK VALLE MD Copy to: ? Specimen/Source: ?ThinPrep Pap Test, Vagina/Cervix Last Menstrual Period: ? over 1 year ago ? SPECIMEN ADEQUACY ? Satisfactory for Evaluation - transformation zone component present GENERAL CATEGORIZATION ? Negative for Intraepithelial Lesion or Malignancy ? Document reviewed and electronically signed by: ? Jaimie Kumar, SCT(ASCP) ? Report Date: ??01/27/2004 10:27 End of Report [facility] 01/20/2004 01/24/2004 us Jack Valle MD PATHOLOGY ORDERABLES Final Resul t [facility] [address] [place] [address] documented in this encounter Visit Diagnoses Not on filedocumented in this encounter
--- OUTSIDE RECORDS SUMMARY | 2024-05-15 02:28 | XMS_ITS | Encounter Summary ---
Author Organization [facility] Address [address] [place] [address] Care Team Providers Care Cut In Station Operator Name Role Phone Unavailable Primary Care Provider Unavailabl e Encounter Details Date Type Department Care Team (Late st Contact Info) Description 01/19/2003 Results Only [facility] [address] [place] [address] John Ruiz MD [address] [place], [place] [id number] Social History Tobacco Use Types Packs/Day Years [...] Priority Date/Time Associated Diagnosis Comments CYTOPATHOLOGY Routine 01/19/2003 0:00 EDT documented in this encounter Results * CYTOPATHOLOGY (01/19/2003 0:00 EDT) Pathology Report: CYTOPATHOLOGY REPORT Reports generated via electronic interface contain original data; however they are lacking the format of the original report. Caution should be taken when reading/interpreti ng unformatted reports. Name: ? DESTINEE JAMIL ? Accession #: ? [id number] : ? 1965 (Age: 37) ??F ?Collect Date: ? 01/19/2003 Location: ? [facility] ? Receive Date: ? 01/21/2003 Provider: ?JOHN RUIZ MD Copy to: ? Specimen/Source: ?ThinPrep Pap Test, Cervix/Endocervix Last Menstrual Period: ? 03/08/03 Menstrual/Pregnanc y Status: ? Post Other: ? HPVA - HPV testing requested if ASC-US on the current ThinPrep Pap test. ? SPECIMEN ADEQUACY ? Satisfactory for Evaluation - assessment of transformation zone component not applicable ( e.g. atrophy, vaginal sample, hysterectomy) - scant squamous epithelial component secondary to excessive mucus GENERAL CATEGORIZATION ? Negative for Intraepithelial Lesion or Malignancy ? Document reviewed and electronically signed by: ? LEX Freitas(ASCP) ? Report Date: ??01/26/2003 10:52 End of Report [facility] 01/19/2003 01/21/2003 us John Ruiz MD PATHOLOGY ORDERABLES Final Resul t [facility] [address] [place] [address] documented in this encounter Visit Diagnoses Not on filedocumented in this encounter
--- OUTSIDE RECORDS SUMMARY | 2024-05-15 02:28 | XMS_ITS | Encounter Summary ---
Author Organization [facility] [place] [address] [address] Care Team Providers Care Book Store Associate Name Role Phone Nieves Granados MD Primary Care Provider [phone] Reason for Visit * Auth/Cert Specialty Diagnoses [...] Expiration Date Visits Re quested Visits Authorized [id number] 1 1 Encounter Details Date Type Department Care Team (Late st Contact Info) Description 03/16/2021 7:30 AM EDT - 03/16/2021 10:06 AM EDT Surgery [place] [address] Rachel Cha MD [facility] [place] [address] ENDOVENOUS ABLATION THERAPY OF INCOMPETENT VEIN, EXTREMITY, FIRST VEIN (WRVU 5.3) Social History Tobacco Use Types Packs/Day Years [...] Sign Reading Time Taken Comments Blood Pressure 102/67 03/16/2021 10:00 AM EDT Pulse 77 03/16/2021 10:00 AM EDT Temperature 36 ??C (96.8 ??F) 03/16/2021 9:25 AM EDT Respiratory Rate 16 03/16/2021 10:00 AM EDT Oxygen Saturation 96% 03/16/2021 10:00 AM EDT Inhaled Oxygen Concentration - - Weight 92.1 kg (203 lb) 03/16/2021 6:39 AM EDT Height 165.1 cm (5' 5) 03/16/2021 6:39 AM EDT Body Mass Index 33.78 03/16/2021 6:39 AM EDT documented in this encounter Discharge Instructions * Discharge Instructions* Carolyn Finnegan RN - 03/16/2021 9:54 AM EDT Tylenol 1,000mg taken at 9:30am Oxycodone 5mg taken at 9:50am * Patient Instructions* Olivia Zayas APRN - 03/16/2021 7:31 AM EDT Activity: You should start walking the day after surgery. When sitting, try to elevate and prop your leg up on pillows as much as possible. No vigorous activity (such as jogging, running, biking) forat least 1 week or until cleared to do so at your follow-up visit. Wound care: Keep KATHY wraps on your leg for the next 48 hours. At that point you can remove all dressings and shower. Do not take a bath or swim for at least 2 weeks. You have steri-strips (pieces of tape) on your skin. Keep them on until they fall off on their own. If you notice the steri-strips begin to peel off, you may trim them. Bruising around the incisions can be normal and will fade over time. Pain Medication: You may take acetaminophen (Tylenol) and ibuprofen (Advil, Motrin) for pain. If your surgeon provides you prescription pain medicine (opioid) you should not drive for 8 hours after taking it. Call Doctor for: Please call if you notice worsening redness or foul-smelling drainage from incision(s), if your pain is not controlled by pain medication or for fevers greater than 101.3F. Follow-up: You will have an ultrasound in 1-3 days after your procedure. If you do not receive the ultrasound appointment at the time of discharge, you will be called with a date and time. You will be seen by your surgeon (or associate provider) in the Vascular Clinic in approximately 4 weeks. Thisclinic appointment will be mailed to you. Please call our office ([phone]) if you do not receive the ultrasound appointment within 2 days or the clinic appointment within 10 days. For any questions or concerns please call [phone] documented in this encounter Medications at Time of Discharge Medication Sig Dispensed Refills Start Date End Date oxyCODONE (Roxicodone) 5 mg Tablet Take 1 tablet by mouth every 4 hours as needed for Pain. 5 tablet 03/16/2021 01/30/2024 meloxicam (MOBIC) 15 mg Tablet 02/03/2021 01/30/2024 omeprazole (PriLOSEC) 40 mg Capsule, Delayed Release(E.C.) 02/03/2021 01/30/2024 documented as of this encounter Progress Notes * Carolyn Finnegan RN - 03/16/2021 9:41 AM EDT Patient is reporting 10/10 burning pain to RLE. ICE and PRN dilaudid and tylenol provided with minimal effect. Patient is able to communicate, taking po fluids and snack well. Patient is in good spirits and is joking with staff. DIRK Maldonado into speak with patient- will write script for home oxycodone and will provided one in PACU. +effect with PRN oxycodone. Discharge education provided to patient and then to her friend, Clover, over the phone. All questions addressed. Handout copy of these instructions will be provided at discharge. documented in this encounter H&P Notes * Olivia Zayas, PLAYGROUND OFFICIAL - 03/16/2021 7:15 AM EDT Patient Name: Destinee Valenzuela Patient Age: 55 y.o. Birthdate: 1965 Admit date: 03/16/2021 Attending Physician: Rachel Cha MD Vascular Surgery History and Physical HPI: 54 y.o. female here for evaluation of right lower extremity varicose veins. Patient states that she has pain in her right leg particularly along her right inner thigh wrapping around to her lateral leg. She describes this as a dull achy pain. There is nothing makes it better. She reports that sometimes is better in the morning, but not always. Denies any prior venous interventions. Denies any prior history of DVT or PE. She has worn compression stockings, with only mild relief. 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 ?? Pt had a small lesion on her LEFT medial calf that started out as a size of a pea. Excision was completed by general surgery on 09/22/2020 and incision is now completely healed. ?? Her mother had a prior history of CVA secondary to severe carotid stenosis. Patient was very concerned about this as it occurred in her mother's 50s. She had a carotid duplex that was also ordered for today. Patient denies past history of TIA/stroke, history of numbness or weakness of upper of lower extremities, amaurosis fugax, or speech or word finding difficulties. There are no hospital problems to display for this patient. Active Non-Hospital Problems Diagnosis ??? Localized swelling, mass and lump, lower limb Anticoagulation: None Antiplatelet: None Review of Systems: A full review encompassing at least 10 organ systems including general, neuro, pulm, cardiac, GI, , MSK, Endo, and Psych was negative other than listed in the HPI. Past Medical History: Past Medical History: Diagnosis Date ??? Gastric ulcer Past Surgical History: Past Surgical History: Procedure Laterality Date ??? SECTION x3 ??? GALLBLADDER SURGERY ??? PRO EXC SKIN BENIG 2.1-3CM TRUNK, ARM, LEG Left 09/22/2020 EXC BENIGN LESION, ALEX 2.1 TO 3.0CM, LEGS (WRVU 1.84) performed by Slava Escamilla MD at [facility] MAIN OR Functional Status: Lives at home, Drives car, Does own shopping Social Hx: Social History Socioeconomic History ??? Marital status: Spouse name: Not on file ??? Number of children: Not on file ??? Years of education: Not on file ??? Highest education level: Not on file Occupational History ??? Not on file Tobacco Use ??? Smoking status: Current Every Day Smoker Packs/day: 0.50 Types: Cigarettes ??? Smokeless tobacco: Never Used Substance and Sexual Activity ??? Alcohol use: Not Currently ??? Drug use: Yes Types: Marijuana ??? Sexual activity: Not on file Other Topics Concern ??? Not on file Social History Narrative ??? Not on file Social Determinants of Health Financial Resource Strain: ??? Difficulty of Paying Living Expenses: Not on file Food Insecurity: ??? Worried About Running Out of Food in the Last Year: Not on file ??? Ran Out of Food in the Last Year: Not on file Transportation Needs: ??? Lack of Transportation (Medical): Not on file ??? Lack of Transportation (Non-Medical): Not on file Physical Activity: ??? Days of Exercise per Week: Not on file ??? Minutes of Exercise per Session: Not on file Family Hx: Negative for Thrombosis, Bleeding Disorders Family History Problem Relation Age of Onset ??? Cerebrovascular Accident Mother Medications: No current facility-administered medications on file prior to encounter. No current outpatient medications on file prior to encounter. Allergies: No Known Allergies Physical Exam: Vital Signs: Temp: [36.4 ??C (97.5 ??F)] Heart Rate: [76] Resp: [16] BP: (128)/(59) SpO2: [96 %] Heart Rate from SpO2: -- BMI: Weight: 92.1 kg (203 lb) BMI (Calculated): 33.78 BMI Classification: Obese CONSTITUTIONAL: alert, well developed, well nourished, in no acute distress NEUROLOGIC/PSYCHIATRIC: Grossly normal HEENT: normal atraumatic, no neck masses, normal thyroid, no jvd. LUNGS: normal respirations HEART: regular rate and rhythm ABDOMEN: soft, non-tender INTEGUMENTARY: Wound - none SURGICAL SITES: none MUSCULOSKELETAL: RLE w/varicosities along lateral leg extending along calf. Reticular veins throughout. L medial calf healed scar. No surrounding erythema ?? Pulses/Signals: ?? Dorsalis Pedis Posterior Tibial Right 2/2 2/2 Left 2/2 2/2 ?? Labs: No results for input(s): WBC, HGB, HCT, PLATELET in the last 72 hours. No results for input(s): NA, K, CL, CO2, BUN, CREATININE, PHOS, CALCIUM in the last 72 hours. Studies/Imagin09/07/2020 venous insufficiency study ?? Right ?Reflux?Diameter (mm) ??Depth (mm) ?? Common Femoral Vein ??Competent ? Femoral Vein ? Competent ? Popliteal ?Competent ? GSV, Near SFJ ?Reflux ? 5.0 ?21.0 ?? GSV, Proximal Thigh ??Competent ? GSV, Mid Thigh ? Reflux ? 4.9 ?21.8 ?? GSV, Distal Thigh ?Reflux ? 4.5 ? 2.9 ?? GSV, ??Knee ? Competent ? GSV Prox Calf ?Competent ? SSV ?Competent ? Left ? Reflux?Diameter (mm) ??Depth (mm) ?? Common Femoral Vein ??Competent ? Femoral Vein ? Competent ? Popliteal ?Competent ? GSV, Near SFJ ?Reflux ? 7.2 ?23.0 ?? GSV, Proximal Thigh ??Competent ? GSV, Mid Thigh ? Reflux ? 3.6 ?17.9 ?? GSV, Distal Thigh ?Competent ? GSV, ??Knee ? Competent ? GSV Prox Calf ?Competent ? SSV ?Competent ? Interpretation: ?? RIGHT: There is reflux in the great saphenous vein (GSV) near the saphenofemoral junction (reflux time >1.4 sec) and mid and distal thigh GSV ( reflux time of 1.3 -1.8 seconds) consistent with superficial venous valvular incompetence. The GSV leaves the fascia mid thigh. There is a large varicose vein that comes off of the GSV at the knee (reflux time >4.3 sec). This varicose vein courses laterally down to the mid anterior/lateral cage where there is a cluster of very tortuous varicose veins. No significant reflux noted in the small saphenous vein. ?? No significant reflux noted in the common femoral vein, femoral vein in the thigh, popliteal vein. No evidence of common femoral, femoral, or popliteal DVT. ?? LEFT: There is reflux in the great saphenous vein (GSV) near the saphenofemoral junction (reflux time approximately 0.5 sec) and the mid thigh GSV (reflux time >1.3 sec). The GSV leaves the fascia mid thigh. No significant reflux noted in the small saphenous vein. ?? No significant reflux noted in the common femoral vein, femoral vein in the thigh, popliteal vein. No evidence of common femoral, femoral, or popliteal DVT. ?? There is a heterogenous, hypoechoic structure along the proximal medial calf measuring approximately 2.1 cm X 3.0 cm X 2.1 cm. The great saphenous vein is in close proximity but is not involved. This was seen on an exam done on 08/11/20 where the structure was measuring approximately 2.4 cm X 2.4 cm X 1.7 cm. Otherwise no identifiable change from previous exam. ?? Comparison: No previous venous insufficiency study in our vascular lab database for comparison. Assessment and Plan: 54 y.o. female with right lower extremity symptomatic venous insufficiency with reflux of her GSV throughout the thigh associated with varicosities throughout her leg from her knee down through her calf. This is where her discomfort is. I discussed with her that she may benefitfrom right GSV ablation as well as stab phlebectomies of her varicose veins. She is interested in proceeding. ?? Olivia Zayas APRN 03/16/2021 documented in this encounter Miscellaneous Notes * Brief Op Note - Rachel Cha MD - 03/16/2021 9:26 AM EDT [facility] Brief Operative Note [facility] [address] [place] [address] Patient Name: Destinee Valenzuela : [id number] MR#: [id number] Case Date: 03/16/2021 Case Scheduled Time: 729 Surgeon: Surgeon(s) and Role: * Rachel Cha MD - Primary * Olivia Zayas APRN - Nurse Practitioner Preoperative diagnosis: symptomatic varicose veins Postoperative diagnosis: symptomatic varicose veins Procedure(s) (LRB): 1. Right greater saphenous vein pharmacomechanical ablation (Clarivein) 2. Right lower extremity stab phlebectomies (21 stabs) Anesthesia: General Findings: Patent GSV with large varicosities branching off of it. GSV near knee becomes superficialabove fascia. After ablation, patent saphenofemoral junction and femoral vein with evidence of thrombus. Multiple varicosities along anterior cage with significant scaring. Complications: none Intake: Intraprocedure Crystalloid Total Intake lactated ringers infusion 800.00 mL Total Intake 800 mL Transfusion No data found in the last 1 encounters. Output: Estimated Blood Loss: * No values recorded between 03/16/2021 7:53 AM and 03/16/2021 9:02 AM * Urine Output:: (no urine output recorded) Other Output: (no other output recorded) Drains: none Specimens removed during surgery: None Disposition: awakened from anesthesia, extubated and taken to the recovery room in a stable condition, having suffered no apparent untoward event. Condition: doing well without problems (Please see the Surgical Encounter Summary for any Implant and Specimen details pertinent to this patient.) * Op Note - Rachel Cha MD - 03/16/2021 7:53 AM EDT [facility] Operative Note [facility] [address] [place] [address] Patient Name: Destinee Valenzuela : [id number] MR#: [id number] Case Date: 03/16/2021 Case Scheduled Time: 729 Surgeon: Surgeon(s) and Role: * Rachel Cha MD - Primary * Olivia Zayas APRN - Nurse Practitioner Preoperative diagnosis: symptomatic varicose veins Postoperative diagnosis: symptomatic varicose veins Procedure(s) (LRB): 1. Right greater saphenous vein pharmacomechanical ablation (Clarivein) 2. Right lower extremity stab phlebectomies (21 stabs) Anesthesia: General Estimated Blood Loss: 20cc Specimens removed during surgery: None Drains: none Surgical Closure: Primary Closure - skin incision is completely closed without any wires, sam, drains or other devices Disposition: awakened from anesthesia, extubated and taken to the recovery room in a stable condition, having suffered no apparent untoward event. Condition: doing well without problems Complications: none (Please see the Surgical Encounter Summary for any Implant and Specimen details pertinent to this patient.) Findings: Patent GSV with large varicosities branching off of it. GSV near knee becomes superficial above fascia. After ablation, patent saphenofemoral junction and femoral vein with evidence of thrombus. Multiple varicosities along anterior cage with significant scaring. Surgical Indications: 55-year-old female with right lower extremity symptomatic varicose veins with associated GSV refluxthroughout her thigh to her calf. She has associated varicosities off of this. They have been persistently painful despite wearing compression stockings and limit her quality of life. In discussion we offered her GSV ablation and stab phlebectomies and she wished to proceed. The risks of this procedure were discussed and she agrees to proceed with surgery today. Procedure Description: Patient was identified in the preop holding area. ??The risks and benefits of the procedure were discussed and??she elected to proceed. ??General anesthesia was induced. ??She was brought to the operating room positioned??supine??on the operating table. ??Antibiotics were initiated. ??The??right lower extremity was prepped and draped in usual sterile fashion. ??A full standard timeout was performed and all were in favor of proceeding. We began by using sterile ultrasound to assess the right leg. ??The course of the??greater??saphenous vein was mapped??into the common femoral vein. ??It was noted to be??patent throughout??with associated varicosities??primarily at and??below the knee. The??greater??saphenous vein was then followed along its course down the leg and a sesar was made over the intended area of puncture for ablation??at the??mid??calf.?A micropuncture needle was used to obtain venous access in the??greater??saphenous vein under ultrasound guidance.?A Gove wire was then inserted into the micropuncture needle, and the needle was exchanged for the dilator using Seldinger technique. ??The presence of wire in the??GSV was confirmed with ultrasound.??The Gove wire was removed and the Clarivein device was inserted into the dilator. ??Using ultrasound guidance, the??Clarivein device??was inserted under ultrasound guidance to??the??level of the??proximal??thigh. ??The??Clarivein??device had already been prepared according to animal keeper instructions. ??The tip of the catheter was??confirmed several cm away and at??least??3 cm peripherally away from the ??sapheno- femoral??junction. ??Manual pressure was applied proximal??to??the device proximal to the device along the??GSV.?Clarivein device was thenused to??pharmacomechanically ablate??the??greater??saphenous vein through the??leg??according to animal keeper instructions with??5cc of??3% sotradecol.?Ultrasound and manual pressure was used to help compress the vein during the procedure. ??The device was then removed, as well as the dilator, and manual pressure was held at the puncture site??and along the length of the??GSV.?Patency of femoral vein and saphenofemoral junction without evidence of thrombus was confirmed with duplex at completion.? Attention was then??turned to previously marked venous varicosites.??The course of varicosies on the leg were noted and with a total of twenty-one stab??incisions were made on??medial thigh, anteriorand lateral calf. Using an 11-blade and vein hook, the varicosities were selected and resected or avulsed as indicated.?Hemostasis??achieved with local pressure.?The stab incisions were than closed??with??mastasol and steristrips.?? The leg was padded with gauze and then??wrapped from the toes to the groin with kerlix and KATHY wraps.? The patient was then awoken from anesthesia, extubated, and brought to the recovery room in stable condition. ??At case end, all instrument counts were correct. ??I was present and performed the entire operation.? Infection Bundle used? No ?? Olivai Zayas APRN worked under my direction for the duration of the operative session. The golf course assistant adequately prepped the operative site and maintained the best possible exposure of anatomy incident to the procedure. Rachel Cha MD 03/16/2021 documented in this encounter Plan of Treatment Not on file documented as of this encounter Procedures Procedure Name Priority Date/Time Associated Diagnosis Comments Phleb Veins - Extrem 20+ (62795) 03/16/2021 7:32 AM EDT symptomatic varicose veins ENDOVENOUS ABLATION THERAPY OF INCOMPETENT VEIN, EXTREMITY, FIRST VEIN (WRVU 5.3) 03/16/2021 7:32 AM EDT symptomatic varicose veins documented in this encounter Results * Duplex for DVT, Leg, Unilat (03/20/2021 11:01 AM EDT) VB Text Report Department: Vascular Surgery Lab Patient: [id number] (DESTINEE VALENZUELA) CPT: 55184 ICD10: I83.811 Referring Physician: OLIVIA ZAYAS ?? [...] VASCUBASE documented in this encounter Visit Diagnoses Not on filedocumented in this encounter Administered Medications Inactive Administered Medications - up to 3 most recent administrations Medication Order MAR Action Action Date Dose Rate Site acetaminophen (Tylenol) tablet 1,000 mg 1,000 mg, Oral, EVERY 6 HOURS PRN, Starting on Mirna 03/16/21 at 0913, Until Mirna 03/16/21 at 1045, Pain, For mild pain (1-3) Maximum dose of acetaminophen is 4000 mg from all sources in 24 hours. When ordered for pain, acetaminophen should be given even when other ordered pain medications are indicated., PACU Recovery, Routine Given 03/16/2021 9:33 AM EDT 1,000 mg HYDROmorphone (Dilaudid) (1 mg/mL) injection syringe 0.4-0.6 mg 0.4-0.6 mg, Intravenous, EVERY 5 MIN PRN, Starting on Mirna 03/16/21 at 0901, Until Mirna 03/16/21 at 1045, Pain, Give 0.4 mg every 5 minutes PRN for mild to moderate pain (1-5) Give 0.6 mg every 5 minutes PRN for moderate to severe pain (6-10). Hold for respiratory rate less than 10 per minute. Maximum dose 4 mg over one hour. If multiple pain medications are ordered, start with HYDROmorphone or morphine and use fentaNYL for breakthrough pain., PACU Recovery, Routine Given 03/16/2021 9:29 AM EDT 0.6 mg Given 03/16/2021 9:23 AM EDT 0.4 mg lactated ringers infusion 1,000 mL, at 50 mL/hr, Intravenous, CONTINUOUS, Starting on Mirna 03/16/21 at 0700, Until Mirna 03/16/21 at 1045, Day of Surgery (Day of Procedure) New Bag 03/16/2021 7:33 AM EDT New Bag 03/16/2021 6:50 AM EDT 1,000 mLs 50 mL/hr oxyCODONE (Roxicodone) tablet 5-10 mg 5-10 mg, Oral, EVERY 4 HOURS PRN, Starting on Mirna 03/16/21 at 0943, Until Mirna 03/16/21 at 1045, Pain, Moderate to severe pain 4-10. Initial dose 5 mg. If pain control not adequate in 60 minutes, give an additional 5 mg, PACU Recovery, Routine Given 03/16/2021 9:52 AM EDT 5 mg sodium tetradecyl sulfate (Sotradecol) (30 mg/mL) 3% injection ONCE PRN, Starting on Mirna 03/16/21 at 0807, Until Mirna 03/16/21 at 1045, Intra-Operative (Intra-Procedure), Routine Given 03/16/2021 8:07 AM EDT 4 mLs 19- Surgical Site documented in this encounter Active and Recently Administered Medications Times are shown in EDT. Scheduled Medication Order 03/14/2021 03/15/2021 03/16/2021 ceFAZolin (Ancef) 2 g in dextrose 5% 100 mL infusion (COMPLETED) 2 g, Intravenous, UTILITY DIVISION PROJECT MANAGER TO O.R., 1 dose, On Mirna 03/16/21 at 0645, Administer over 30 Minutes, Redose after 4 hours., Day of Surgery (Day of Procedure), Indication for (Active or Suspected): Prophylaxis 0738 (Given - Provid er: Marquise Ontiveros CRNA) Continuous Medication Order 03/14/2021 03/15/2021 03/16/2021 lactated ringers infusion (CANCELED) 1,000 mL, at 50 mL/hr, Intravenous, CONTINUOUS, Starting on Mirna 03/16/21 at 0700, Until Mirna 03/16/21 at 1045, Day of Surgery (Day of Procedure) 0650 (New Bag - Prov ider: Alysia Weiner RN)0732 (Paused - Provider: Marquise Ontiveros CRNA - Comment: Switch to gravity)0733 (New Bag - Provider: Marquise Ontiveros CRNA)0858 (Anesthesia Volume Adjustment - Provider: Marquise Ontiveros CRNA) PRN Medication Order 03/14/2021 03/15/2021 03/16/2021 acetaminophen (Tylenol) tablet 1,000 mg (CANCELED) 1,000 mg, Oral, EVERY 6 HOURS PRN, Starting on Mirna 03/16/21 at 0913, Until Mirna 03/16/21 at 1045, Pain, For mild pain (1-3) Maximum dose of acetaminophen is 4000 mg from all sources in 24 hours. When ordered for pain, acetaminophen should be given even when other ordered pain medications are indicated., PACU Recovery, Routine 932 (Given - Provid er: Carolyn Finnegan RN) HYDROmorphone (Dilaudid) (1 mg/mL) injection syringe 0.4-0.6 mg (CANCELED) 0.4-0.6 mg, Intravenous, EVERY 5 MIN PRN, Starting on Mirna 03/16/21 at 0901, Until Mirna 03/16/21 at 1045, Pain, Give 0.4 mg every 5 minutes PRN for mild to moderate pain (1-5) Give 0.6 mg every 5 minutes PRN for moderate to severe pain (6-10). Hold for respiratory rate less than 10 per minute. Maximum dose 4 mg over one hour. If multiple pain medications are ordered, start with HYDROmorphone or morphine and use fentaNYL for breakthrough pain., PACU Recovery, Routine 922 (Given - Provid er: Carolyn Finnegan RN)928 (Given - Provider: Carolyn Finnegan RN) oxyCODONE (Roxicodone) tablet 5-10 mg (CANCELED) 5-10 mg, Oral, EVERY 4 HOURS PRN, Starting on Mirna 03/16/21 at 0943, Until Mirna 03/16/21 at 1045, Pain, Moderate to severe pain 4-10. Initial dose 5 mg. If pain control not adequate in 60 minutes, give an additional 5 mg, PACU Recovery, Routine 0952 (Given - Provid er: Carolyn Finnegan RN) sodium tetradecyl sulfate (Sotradecol) (30 mg/mL) 3% injection (CANCELED) ONCE PRN, Starting on Mirna 03/16/21 at 0807, Until Mirna 03/16/21 at 1045, Intra-Operative (Intra-Procedure), Routine 0807 (Given - Provid er: Rachel Cha MD) documented in this encounter Care Teams Book Store Associate Relationship Specialty Start Date End Date Nieves Granados MD [address] [place] [address] [address] PCP - General Family Medicine 08/11/20 02/01/22 documented as of this encounter
--- OUTSIDE RECORDS SUMMARY | 2024-05-15 02:28 | XMS_ITS | Encounter Summary ---
Author Organization [facility] Address [address] [place] [address] Care Team Providers Care Supervisor Mirror Fabrication Name Role Phone Unavailable Primary Care Provider Unavailabl e Encounter Details Date Type Department Care Team (Late st Contact Info) Description 03/07/2005 Results Only [facility] [address] [place] [address] Jack Valle MD [address] [place] [address] Social History Tobacco Use Types [...] Priority Date/Time Associated Diagnosis Comments CYTOPATHOLOGY Routine 03/07/2005 0:00 EDT documented in this encounter Results * CYTOPATHOLOGY (03/07/2005 0:00 EDT) Pathology Report: CYTOPATHOLOGY REPORT Reports generated via electronic interface contain original data; however they are lacking the format of the original report. Caution should be taken when reading/interpreti ng unformatted reports. Name: ? DESTINEE JAMIL ? Accession #: ? [id number] : ? 1965 (Age: 39) ??F ?Collect Date: ? 03/07/2005 Location: ? [facility] ? Receive Date: ? 03/09/2005 Provider: ?JACK VALLE MD Copy to: ? Specimen/Source: ?ThinPrep Pap Test, Cervix/Endocervix, processed on [employer] ThinPrep Imaging System, with manual evaluation Last Menstrual Period: ? 12/17 Hormonal/Contracep tive Status: ? Intrauterine device Other: ? HPVA - HPV testing requested if ASC-US on the current ThinPrep Pap test. ? SPECIMEN ADEQUACY ? Satisfactory for Evaluation - transformation zone component present GENERAL CATEGORIZATION ? Negative for Intraepithelial Lesion or Malignancy ? Document reviewed and electronically signed by: ? LEX Silva(ASCP) ? Report Date: ??03/15/2005 11:28 End of Report [facility] 03/07/2005 03/09/2005 us Jack Valle MD PATHOLOGY ORDERABLES Final Resul t [facility] [address] [place] [address] documented in this encounter Visit Diagnoses Not on filedocumented in this encounter
--- OUTSIDE RECORDS SUMMARY | 2024-05-15 02:28 | XMS_ITS | Encounter Summary ---
Author Organization [facility] Address [address] [place] [address] Care Team Providers Care Seasoning Mixer Name Role Phone Unavailable Primary Care Provider Unavailabl e Encounter Details Date Type Department Care Team (Latest Contact Info) Description 11/06/2005 10:01 EDT - 11/06/2005 11:59 EDT Hospital Encounter [facility] [address] [place] [address] Raj Wilson MD [address] [place] [id number] Discharge Disposition: Auto Discharge Social History Tobacco [...]
--- OUTSIDE RECORDS SUMMARY | 2024-05-15 02:28 | XMS_ITS | Encounter Summary ---
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 injection Paty Centeno MD [address] [place] [address] [facility] [place] [address] Referral ID Status Reason Start Date Expiration Date V isits Requested Visits Authorized [id number] Closed Consult, Test & Treat PCP Updated and/or Approved 10/02/2023 10/01/2024 1 1 Encounter Details Date Type Department Care Team (Late st Contact Info) Description 01/30/2024 10:00 AM EDT Office Visit [place] [address] Luz Valderrama MD [facility] [place] [address] Chronic right-sided thoracic back pain Social History Tobacco Use Types Packs/Day [...] as of this encounter Progress Notes * Luz Valderrama MD - 01/30/2024 10:00 AM EDT Images from the original note were not included. [facility] Initial Consultation Note Name: Sydnie Valenzuela : 1965 Consulting Physician: Seeing at the request of Paty Centeno MD [address] [place] [address] Chief Complaint: Thoracic Back Pain History of Present Illness: Sydnie Valenzuela is a 58 y.o. female with a history of who presentswith right sided chronic mid thoracic back pain. Has been engaged in PT at [facility] over the last year with some improvement. 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 Went to Pain clinic at [facility] presumed dx based on patient report was thoracic radiculopathy with plan for TESI. No pain day of the procedure and sounds like she had a TESI -> unclear benefit due to lack of pain with local and no emt intermediate effect. She has tried Mobic, topicals, OTC NSAIDS, Tramadol and Flexeril.Pain not daily and happens an average 1-2 days per week. Once she goes to sleep she wakes up the next day without pain. No red flag s/s. No radicular symptoms. Functional Goals of Treatment: decrease pain and increase function Onset/Context of pain: Pain Location: Below bra line Onset: about 1 year ago, no inciting event. Quality and timing of pain: Intermittent and sharp, aching Radiation: None Pain Ratin-7 Aggravating Factors: None Relieving Factors: None Numbness/Tingling: None Red flag symptoms: Bowel and bladder: No loss of control Saddle anesthesia: Denies Weakness: Denies Pertinent History: h/o Thrombocytopenia/bleeding tendency/platelet dysfunction: No h/o Liver disease/abnormal liver function: No h/o Chronic kidney disease (CKD)/abnormal kidney function: No Patient on dialysis: no h/o Diabetes: No Anticoagulation/Aspirin: No Current pain treatments include: tramadol Conservative Treatment: Topicals: CBD Helpful? No NSAIDS: Ibuprofen, Meloxicam, Naproxen Helpful? No Muscle Relaxants: Cyclobenzaprine Helpful? Yes Opioids: Tramadol Helpful? Yes The patient has been actively engaged in Physical therapy at [facility] within the last 6 months for a duration of 6 weeks or more.. A home exercise program is being performed as tolerated Other Treatment: Sludge Filtration Operator Helpful? No Ice/heat History of Interventional Procedures/Surgery: Prior Surgery: No Injection History (date, procedure, %improvement): None Chart review: Today I have reviewed available medical information in the patient's medical record at [facility] including relevant provider notes, laboratory work, and imaging. Historical Review: I have reviewed the patient's past medical, surgical, social, and family history available in the EMR at this time along with supplemented information provided by the patient during the interview process today. Pertinent findings: Tobacco: Social History Tobacco Use Smoking Status Every Day Current packs/day: 0.50 Types: Cigarettes Smokeless Tobacco Never Alcohol: Social History Substance and Sexual Activity Alcohol Use Not Currently Medications and list of allergies: Medications and allergies were reviewed, reconciled and updated in the electronic medical record. ROS: Positive for above mentioned musculoskeletal and neurological findings on 14 point system review. Areas of disrupted skin integrity/wounds/lesions: No Denies any other constitutional symptoms, fevers, or weight changes. Physical Exam: Last menstrual period 03/16/2019. Pain: 5 General: Well-nourished, well-developed, female in no distress Respiratory: Non-labored breathing pattern on RA. No respiratory distress Skin: No appreciable rashes or skin breakdown Psych: Appropriate affect, answers questions appropriately Musculoskeletal: Inspection - No gross spinal deformity noted. Palpation - No Tender with palpation ROM - Thoracic Flexion , Extension, Lateral rotation is WNL Special tests: - Facet loading in the Thoracic spine is Equivocal bilaterally Neurologic: Motor: 5/5 throughout all muscle groups of the upper extremities Reflexes: Segment Reflex Right Left C5-6 Biceps 2+ 2+ C5-6 Brachioradialis 2+ 2+ C7-8 Triceps 2+ 2+ Segment Reflex Right Left L3-4 Patella 2+ 2+ S1-2 Achilles 2+ 2+ Sensory - Intact to light touch and pinprick at bilateral upper extremities. Allodynia is not present. Hyperalgesia is not present. Gait/Station - Normal Gait Diagnostic Tests: In addition to the formal radiology read, I independently reviewed the imaging and shared my interpretation with the patient. The impression is: No significant stenosis or nerve root impingement. Assessment: Sydnie Valenzuela is a 58 y.o. female who [facility] regarding right sided thoracic back pain. Pain seems unlikely to be radicular in nature based on history, exam, and lack of radicular pain. There is some mild left sided narrowing on the left only at T8/9. Pain seems more likely to be facet/MSK in nature. She finds tramadol helpful and flexerilhelpful but due to sedation unable to take flexeril except at night. Discussed interventional vs medication options. She would like to trial a less sedating muscle relaxer and see if this helps her when she needs it as she does not have daily pain. 1. Chronic right-sided thoracic back pain Summary of Conservative Treatment Response: The patient reports that the home exercise program, and conservative treatment prescribed thus far is providing partial improvement but the patient has not achieved functional goals of treatment. Plan/Recommendations: We reviewed etiology, predisposing factor(s), natural course, imaging results as well as treatment options including medications, physical therapy/exercise, therapeutic injections, and surgery. The risks, consequences, alternatives, and benefits of various treatment options were discussed with the patient in great detail. We have discussed and recommended the following: - Medications: Prescription written for tizanidine and there was additional discussion of the risks, benefits, and possible side effects including cardiac, renal and GI side effects. - Physical Therapy/Modalities/DME: Advised patient to continue home exercise program. - Interventional/Surgical Procedures: Discussed possible SANDIE or TMBB to see if she was a good candidate for RFA and she would like to hold off at this time _ - Activity: as tolerated - Education: Cauda equina and associated symptoms, including motor weakness, bowel/bladder dysfunction, and perineal numbness were discussed. The patient was instructed to report to the Emergency department, if these symptoms occur. - Follow-up: prn Thank you for allowing us the opportunity to participate in Sydnie Valenzuela's care. Luz Valderrama MD [facility] Administrative Sales Assistant of Anesthesiology [facility] [employer] [facility] [address] [address] / [facility] CC: Paty Centeno MD [facility] [place] [address] documented in this encounter Plan of Treatment Not on file documented as of this encounter Visit Diagnoses Diagnosis Chronic right-sided thoracic back pain documented in this encounter Care Teams Recruiter Specialist Relationship Specialty Start Date End Date Paty Centeno MD [address] [place] [address] PCP - General Family Medicine 02/02/22 documented as of this encounter
--- OUTSIDE RECORDS SUMMARY | 2024-05-15 02:28 | XMS_ITS | Encounter Summary ---
Author Organization [facility] Address [address] [place] [address] Care Team Providers Care Barrel Filler Name Role Phone Venu Álvarez MD Primary Care Provider [phone] Encounter Details Date Type Department Care Team (Late st Contact Info) Description 08/31/2020 Lab Requisition [facility] Pathology & Laboratory Medicine - [address] [address] Outr Resulting Lab, Provider Social History Tobacco [...] Procedure Name Priority Date/Time Associated Diagnosis Comments ZZCOVID-19 TEST [facility] PCR Today 08/31/2020 8:50 EDT COVID-19 TESTING Routine 08/31/2020 8:50 EDT documented in this encounter Results * COVID-19 TEST [facility] PCR (08/31/2020 8:50 EDT) Swab ENTIRE NASOPHARYNX / Unknown 08/31/2020 8:50 EDT 08/31/2020 20:28 EDT us Provider Outr Resulting Lab MICROBIOLOGY - GENER AL ORDERABLES Final Result Performing Organization Address City/[facility]/ZIP Co de Phone Number [facility] [address] [place] [address] * COVID-19 TESTING (08/31/2020 8:50 EDT) COVID-19 rt-PCR Result Negative Negative 09/01/2020 16:08 EDT [facility] Comment: This test has not been FDA cleared or approved. This test has been authorized by FDA under an EUA for use by authorized laboratories. This test has been authorized only for detection of nucleic acid from 2019-nCoV, not for any other viruses or pathogens. This test is only authorized for the duration of the declaration that circumstances exist justifying the authorization of emergency use of in vitro diagnostic tests for detection and/or diagnosis of 2019-nCoV under section 564(b)(1) of Act, 21 U.S.C ?? 360bbb-3(b) (1), unless the authorization is terminated or revoked sooner. Negative results do not preclude 2019-nCoV infection and should not be used as the sole basis for treatment or other patient management decisions. Negative results must be combined with clinical observations, patient history, and epidemiological information. This test was developed and its performance characteristics determined by [facility]. It has not been cleared or approved by the US Food and Drug Administration. FDA does not require this test to go through premarket FDA review. This test is used for clinical purposes. It should not be regarded as investigational or for research. This laboratory is certified under the Clinical Laboratory Improvement Amendments (CLIA) as qualified to perform high complexity clinical laboratory testing. This test is based on the [facility] COVID-19 Emergency Use Authorization (EUA) assay, with minor modification as defined by the FDA Performed on the [employer] 7 Flex RT-PCR System. Performing Lab [facility] 09/01/2020 16:08 EDT [facility] Swab 08/31/2020 8:50 EDT 08/31/2020 20:28 EDT us Provider Outr Resulting Lab MICROBIOLOGY - GENER AL ORDERABLES Final Result [facility] [address] [place] [address] documented in this encounter Visit Diagnoses Not on filedocumented in this encounter Care Teams Barrel Filler Relationship Specialty Start Date End Date Venu Álvarez MD [address] [place] [address] PCP - General 01/21/13 documented as of this encounter
--- OUTSIDE RECORDS SUMMARY | 2024-05-15 02:28 | XMS_ITS | Encounter Summary ---
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 Social History Tobacco Use Types Packs/Day Years [...] Scheduled Referrals Name Type Priority Associated Diagnoses Orde r Schedule Referral to Spine Center Outpatient Referral Routine 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
--- OUTSIDE RECORDS SUMMARY | 2024-05-15 02:28 | XMS_ITS | Encounter Summary ---
Author Organization [facility] Address [address] [place] [address] Care Team Providers Care Director Imaging Name Role Phone Unavailable Primary Care Provider Unavailabl e Encounter Details Date Type Department Care Team (Late st Contact Info) Description 11/25/2008 Orders Only [facility] - [facility] [address] [place], [place] [address] Higinio Thompson MD [facility] [address] [place], [place] [id number] Social History Tobacco Use Types Packs/Day Years [...] Priority Date/Time Associated Diagnosis Comments CYTOPATHOLOGY Routine 11/25/2008 0:00 EDT documented in this encounter Results * CYTOPATHOLOGY (11/25/2008 0:00 EDT) Pathology Report: CYTOPATHOLOGY REPORT ? Reports generated via electronic interface contain original data; ? however they are lacking the format of the original report. ? Caution should be taken when reading/interpreti ng unformatted reports. ? Name: ? OMERO, DESTINEE J ? Accession #: ? [id number] ? : ? 1965 (Age: 43) ??F ?Collect Date: ? 11/25/2008 ? Location: ? [facility] ? Receive Date: ? 11/26/2008 ? Provider: ?HIGINIO READY MD ? Copy to: ? Specimen/Source: ?Pap Test, Cervix/Endocervix, ThinPrep Imaging System ? with manual evaluation ? Last Menstrual Period: ? 7 years ago ? Hormonal/Contracep tive Status: ? Intrauterine device: mirena ? SPECIMEN ADEQUACY ? Satisfactory for Evaluation ? - transformation zone component present ? GENERAL CATEGORIZATION ? Negative for Intraepithelial Lesion or Malignancy ? INTERPRETATION ? Shift in jose francisco present suggestive of bacterial vaginosis. ? Document reviewed and electronically signed by: ? Damion Stumler, CT(ASCP) ? Report Date: ??12/01/2008 14:40 ? End of Report ? [facility] 11/25/2008 11/26/2008 us Higinio Thompson MD PATHOLOGY ORDERABLES Final Resul t [facility] [address] [place] [address] documented in this encounter Visit Diagnoses Not on filedocumented in this encounter
--- OUTSIDE RECORDS SUMMARY | 2024-05-15 02:28 | XMS_ITS | Encounter Summary ---
Author Organization [facility] Address [address] [place] [address] Care Team Providers Care Family Helper Name Role Phone Unavailable Primary Care Provider Unavailabl e Encounter Details Date Type Department Care Team (Latest Contact Info) Description 10/15/2005 13:27 EDT Hospital Encounter [facility] [address] [place] [address] Raj Wilson MD [address] [place] [id number] Discharge Disposition: Auto Discharge Social History Tobacco [...] Priority Date/Time Associated Diagnosis Comments IR NEPHROSTOGRAM 10/23/2005 12:3 0 EDT IR NEPHROSTOGRAM 10/15/2005 15:1 0 EDT ABDOMEN AP 1 VIEW 10/15/2005 15: 00 EDT documented in this encounter Results * IR NEPHROSTOGRAM (10/23/2005 12:30 EDT) Anatomical Region Laterality Modality Other 10/23/2005 12:3 0 EDT Narrative 01/01/2009 13:56 EDT patient to radiology at 1100 check neph tube r/o retained stones LEFT NEPHROSTOGRAM: ??10/23/05 1149 HOURS HISTORY: ?? Obstructing calculus proximal left ureter, requiring percutaneous placement of a left-sided nephrostomy tube on 10/07/05. Please assess status of calculus. DESCRIPTION: A left nephrostogram was performed. ??This demonstrates that the left-sided nephrostomy tube is in satisfactory position and functions within normal limits. ??The collecting system of the left kidney is well decompressed. ??A partially obstructing calculus is again identified within the proximal left ureter. ??Contrast material does flow readily around this calculus, down the left ureter, and into the urinary bladder. IMPRESSION: ?? Persistent partially obstructing calculus within the proximal left ureter, as described above. D: ??10/24/05 T: ??10/25/05 /jim Procedure Note Chintan Robin MD, MD - 01/01/2009 patient to radiology at 1100 check neph tube r/o retained stones LEFT NEPHROSTOGRAM: 10/23/05 1149 HOURS HISTORY: Obstructing calculus proximal left ureter, requiring percutaneous placement of a left-sided nephrostomy tube on 10/07/05. Please assess status of calculus. DESCRIPTION: A left nephrostogram was performed. This demonstrates that the left-sided nephrostomy tube is in satisfactory position and functions within normal limits. The collecting system of the left kidney is well decompressed. A partially obstructing calculus is again identified within the proximal left ureter. Contrast material does flow readily around this calculus, down the left ureter, and into the urinary bladder. IMPRESSION: Persistent partially obstructing calculus within the proximal left ureter, as described above. us Raj Wilson MD IMG IR ORDERABLES Final Resu lt * IR NEPHROSTOGRAM (10/15/2005 15:10 EDT) Anatomical Region Laterality Modality Other 10/15/2005 15:1 0 EDT Narrative 01/01/2009 11:08 EDT HX URETERAL STONES, R/O OBSTRUCTION/HIGH OR LOW STONE PLACEMENT LEFT NEPHROSTOGRAM 10/15/05 CLINICAL HISTORY: Left percutaneous nephrostomy placed for obstructing left ureteral stone. PROCEDURE: The patient's left nephrostomy was injected with approximately 30cc of contrast. This shows a non-dilated left-sided collecting system. There is a non-obstructive stone at the left ureteral pelvic junction measuring approximately 4-5mm in diameter. ??There is flow of contrast around the stone into a normal caliber left ureter. ??The left ureter is patent to the left bladder with no evidence of other stones. ??The left percutaneous nephrostomy is in good position. IMPRESSION: 4-5mm stone at the left ureteropelvic junction as described above. D: ??10/16/05 T: ??10/18/05 /justo Procedure Note Rick Randhawa D - 01/01/2009 HX URETERAL STONES, R/O OBSTRUCTION/HIGH OR LOW STONE PLACEMENT LEFT NEPHROSTOGRAM 10/15/05 CLINICAL HISTORY: Left percutaneous nephrostomy placed for obstructing left ureteral stone. PROCEDURE: The patient's left nephrostomy was injected with approximately 30cc of contrast. This shows a non-dilated left-sided collecting system. There is a non-obstructive stone at the left ureteral pelvic junction measuring approximately 4-5mm in diameter. There is flow of contrast around the stone into a normal caliber left ureter. The left ureter is patent to the left bladder with no evidence of other stones. The left percutaneous nephrostomy is in good position. IMPRESSION: 4-5mm stone at the left ureteropelvic junction as described above. /justo Raj Wilson MD IMG IR ORDERABLES Final Resu lt * ABDOMEN AP 1 VIEW (10/15/2005 15:00 EDT) Anatomical Region Laterality Modality Other 10/15/2005 15:0 0 EDT Narrative 01/01/2009 11:09 EDT HX OF KIDNEY STONES R/O OBSTRUCTION HIGH / LOW PLACEMENT AP ABDOMEN: 10/15/05 HISTORY: History of renal calculi. FINDINGS: Single AP view of the abdomen is obtained, without comparison. ??There is a percutaneous pigtail catheter overlying the left midabdomen, which correlates with a left percutaneous nephrostomy tube on other fluoroscopic studies. ??There is an IUD device in the mid-pelvis. Contrast is seen within the bladder. ??No calculi are seen overlying the renal shadows or expected course of the renal collecting system. Visualized bones and soft tissues appear normal. /[facility] I have personally reviewed the images and the above interpretation and agree with the findings. Procedure Note John Matute Jr., MD / Damion Barry MD - 01/01/2009 HX OF KIDNEY STONES R/O OBSTRUCTION HIGH / LOW PLACEMENT AP ABDOMEN: 10/15/05 HISTORY: History of renal calculi. FINDINGS: Single AP view of the abdomen is obtained, without comparison. There is a percutaneous pigtail catheter overlying the left midabdomen, which correlates with a left percutaneous nephrostomy tube on other fluoroscopic studies. There is an IUD device in the mid-pelvis. Contrast is seen within the bladder. No calculi are seen overlying the renal shadows or expected course of the renal collecting system. Visualized bones and soft tissues appear normal. /[facility] I have personally reviewed the images and the above interpretation and agree with the findings. us Raj Wilson MD IMG DIAGNOSTIC IMAGING ORDER LENKA Final Result documented in this encounter Visit Diagnoses Not on filedocumented in this encounter
--- OUTSIDE RECORDS SUMMARY | 2024-05-15 02:28 | XMS_ITS | Encounter Summary ---
[place] [address] Care Team Providers Care Heart Doctor Name Role Phone Nieves Granados MD Primary Care Provider Reason for Referral * Diagnostic Test (Routine) - Closed Specialty Diagnoses / Procedures Referred By Raquel huggins Referred To Contact Diagnoses Varicose veins of right lower extremity with pain Procedures Duplex for DVT, Leg, Olivia White APRN [facility] [place] [address] [facility] [address], [place] [address] Referral ID Status Reason Start Date Expiration Date V isits Requested Visits Authorized [id number] Closed Test Only 03/16/2021 03/16/2022 1 1 Reason for Visit * Auth/Cert Specialty Diagnoses [...] Expiration Date Visits Re quested Visits Authorized [id number] 1 1 Encounter Details Date Type Department Care Team (Latest Contact Info) Description 03/16/2021 6:20 AM EDT - 03/16/2021 10:45 AM EDT Hospital Encounter [facility] [place] [address] Rachel Cha MD [facility] [place] [address] Varicose veins of right lower extremity with pain Discharge Disposition: Home Social History Tobacco Use Types Packs/Day Years [...] Sign Reading Time Taken Comments Blood Pressure 112/66 03/16/2021 10:43 AM EDT Pulse 69 03/16/2021 10:20 AM EDT Temperature 36 ??C (96.8 ??F) [...] mailed to you. Please call our office ([phone]) if you do not receive the ultrasound appointment within 2 days or the clinic appointment within 10 days. For any questions or concerns please call [phone] documented in this encounter Medications at Time [...] in this encounter H&P Notes * Olivia Zayas APRN - 03/16/2021 7:15 AM EDT Patient Name: [...] 1.84) performed by Slava Escamilla MD at [facility] MAIN OR Functional Status: Lives [...] Cha MD - 03/16/2021 9:26 AM EDT [facility] Brief Operative Note [facility] [address] [place] [address] Patient Name: Destinee Valenzuela : [id number] MR#: [id number] Case Date: 03/16/2021 Case Scheduled Time: 0730 Surgeon: Surgeon(s) and Role: * Rachel Cha [...] Cha MD - 03/16/2021 7:53 AM EDT [facility] [place] [address] Patient Name: Destinee Valenzuela : [id number] MR#: [id number] Case Date: 03/16/2021 Case Scheduled Time: 729 [...] access in the??greater??saphenous vein under ultrasound guidance.?A Greenfield wire was then inserted into the micropuncture needle, and the needle was exchanged for the dilator using Seldinger technique. ??The presence of wire in the??GSV was confirmed with ultrasound.??The Greenfield wire was removed and the Clarivein device was inserted into the dilator. ??Using ultrasound guidance, the??Clarivein device??was inserted under ultrasound guidance to??the??level of the??proximal??thigh. ??The??Clarivein??device had already been prepared according to notching press operator instructions. ??The tip of the catheter was??confirmed several cm away and at??least??3 cm peripherally away from the ??sapheno- femoral??junction. ??Manual pressure was applied proximal??to??the device proximal to the device along the??GSV.?Clarivein device was thenused to??pharmacomechanically ablate??the??greater??saphenous vein through the??leg??according to notching press operator instructions with??5cc of??3% sotradecol.?Ultrasound and manual pressure [...] entire operation.? Infection Bundle used? No ?? Olivia Zayas APRN worked under my direction for the duration of the operative session. The assistant professor of physics adequately prepped the operative site and maintained the best possible exposure of anatomy incident to the procedure. Rachel Cha MD 03/16/2021 documented in this encounter Plan of Treatment Not on file documented as of this encounter Procedures Procedure Name Priority Date/Time Associated Diagnosis Comments Phleb Veins - Extrem 20+ (10699) 03/16/2021 7:32 AM EDT symptomatic varicose veins ENDOVENOUS ABLATION THERAPY OF INCOMPETENT VEIN, EXTREMITY, FIRST VEIN (WRVU 5.3) 03/16/2021 7:32 AM EDT symptomatic varicose veins documented in this encounter Results * Duplex for DVT, Leg, Unilat (03/20/2021 11:01 AM EDT) VB Text Report Department: Vascular Surgery Lab Patient: [id number] (DESTINEE VALENZUELA) CPT: 85895 ICD10: I83.811 Referring Physician: OLIVIA ZAYAS ?? [...] with other complications documented in this encounter Administered Medications Inactive Administered [...] Given 03/16/2021 9:52 AM EDT 5 mg documented in this encounter Active and Recently Administered Medications Times are shown in EDT. Scheduled Medication Order 03/14/2021 03/15/2021 03/16/2021 ceFAZolin (Ancef) 2 g in dextrose 5% 100 mL infusion (COMPLETED) 2 g, Intravenous, [facility] [employer] [facility]., 1 dose, On Mirna 03/16/21 [...] ider: Alysia Weiner RN)0732 (Paused - Provider: Marqusie Ontiveros CRNA - Comment: Switch to gravity)0733 [...] fentaNYL for breakthrough pain., PACU Recovery, Routine 0923 (Given - Provid er: Carolyn Finnegan RN)0929 (Given - Provider: Carolyn Finnegan RN) oxyCODONE [...] MD) documented in this encounter Care Teams Heart Doctor Relationship Specialty Start Date End Date Nieves Granados MD [address] [place] [address] PCP - General Family Medicine 08/11/20 02/01/22 documented as of this encounter
--- OUTSIDE RECORDS SUMMARY | 2024-05-15 02:28 | XMS_ITS | Encounter Summary ---
Author Organization [facility] Address [address] [place] [address] Care Team Providers Care Area Cleaner Name Role Phone Venu Álvarez MD Primary Care Provider [phone] Encounter Details Date Type Department Care Team (Late st Contact Info) Description 2021 Lab Requisition [facility] Pathology & Laboratory Medicine - [address] [address] Outr Resulting Lab, Provider Social History Tobacco [...] Procedure Name Priority Date/Time Associated Diagnosis Comments CHLAMYDIA/N. GONORRHOEAE AMPLIFIED NUCLEIC ACID, THINPREP Routine 2021 8:50 EDT documented in this encounter Results * CHLAMYDIA/N. GONORRHOEAE AMPLIFIED RNA, THINPREP (2021 8:50 EDT) Neisseria gonorrhoeae Result Negative Negative 09/18/2021 14:41 EDT [facility] Chlamydia trachomatis Result Negative Negative 09/18/2021 14:41 EDT [facility] Papanicolaou smear specimen (specimen) CERVIX UTERI STRUCTURE / Unknown 2021 8:50 EDT 09/18/2021 8:13 EDT us Provider Outr Resulting Lab MICROBIOLOGY - GENER AL ORDERABLES Final Result [facility] [address] [place] [address] documented in this encounter Visit Diagnoses Not on filedocumented in this encounter Care Teams Area Cleaner Relationship Specialty Start Date End Date Venu Álvarez MD [address] [place] [id number] PCP - General 01/21/13 documented as of this encounter
--- OUTSIDE RECORDS SUMMARY | 2024-05-15 02:28 | XMS_ITS | Encounter Summary ---
Author Organization [facility] Address [address] [place] [address] Care Team Providers Care Clam Grader Name Role Phone Unavailable Primary Care Provider Unavailabl e Encounter Details Date Type Department Care Team (Latest Contact Info) Description 10/25/2005 6:34 EDT - 10/25/2005 11:59 EDT Hospital Encounter [facility] [address] [place] [address] Raj Wilson MD [address] [place] [address] Discharge Disposition: Auto Discharge Social History Tobacco [...] Procedure Name Priority Date/Time Associated Diagnosis Comments CT RENAL COLIC WO CONTRAST 10/25/2005 6:58 EDT documented in this encounter Results * CT RENAL COLIC (10/25/2005 6:58 EDT) Anatomical Region Laterality Modality Other 10/25/2005 6:58 EDT Narrative 01/01/2009 12:18 EDT URETERAL STONES RENAL COLIC CT: 10/25/2005 CLINICAL HISTORY: Ureteral stones. TECHNIQUE: Using neither oral nor intravenous contrast material, 5-mm sections were made from just above the kidneys through the urinary bladder. COMPARISON EXAMINATIONS: CT, October 07, 2005. FINDINGS: Since the previous examination, there has been interval placement of a left-sided nephrostomy tube. ??The previously identified hydronephrosis involving the left kidney has resolved. ??The stone in the proximal left ureter is unchanged in position. ??Perinephric stranding around the left kidney has resolved. ??Additional tiny calculi within the left kidney are stable. ??Several small calculi in the right kidney are also unchanged. ??No ureteral calcifications are noted. Noncontrast images of the visualized portions of the liver and spleen are unremarkable. Noncontrast images of the pancreas and adrenal glands are also unremarkable. PELVIS: Again noted is an IUD within the endometrium. ??A small amount of air is seen within the urinary bladder, but this is likely due to the fact that the patient has a nephrostomy tube. IMPRESSIONS: 1. ??Interval placement of a left-sided nephrostomy tube with interval resolution of left-sided perinephric stranding and left-sided hydronephrosis. ??The left proximal ureteral calculus is unchanged in position. 2. ??Several stones in both kidneys, unchanged. 3. ??Small amount of air in the urinary bladder, most likely due to the fact that a nephrostomy tube is present. /[facility] Procedure Note Isatu Vyas MD - 01/01/2009 URETERAL STONES RENAL COLIC CT: 10/25/2005 CLINICAL HISTORY: Ureteral stones. TECHNIQUE: Using neither oral nor intravenous contrast material, 5-mm sections were made from just above the kidneys through the urinary bladder. COMPARISON EXAMINATIONS: CT, October 07, 2005. FINDINGS: Since the previous examination, there has been interval placement of a left-sided nephrostomy tube. The previously identified hydronephrosis involving the left kidney has resolved. The stone in the proximal left ureter is unchanged in position. Perinephric stranding around the left kidney has resolved. Additional tiny calculi within the left kidney are stable. Several small calculi in the right kidney are also unchanged. No ureteral calcifications are noted. Noncontrast images of the visualized portions of the liver and spleen are unremarkable. Noncontrast images of the pancreas and adrenal glands are also unremarkable. PELVIS: Again noted is an IUD within the endometrium. A small amount of air is seen within the urinary bladder, but this is likely due to the fact that the patient has a nephrostomy tube. IMPRESSIONS: 1. Interval placement of a left-sided nephrostomy tube with interval resolution of left-sided perinephric stranding and left-sided hydronephrosis. The left proximal ureteral calculus is unchanged in position. 2. Several stones in both kidneys, unchanged. 3. Small amount of air in the urinary bladder, most likely due to the fact that a nephrostomy tube is present. /inessa Raj Wilson MD IMG CT ORDERABLES Final Resu lt documented in this encounter Visit Diagnoses Not on filedocumented in this encounter
--- OUTSIDE RECORDS SUMMARY | 2024-05-15 02:28 | XMS_ITS | Encounter Summary ---
[place] [address] Care Team Providers Care Frit Mixer And Burner Name Role Phone Nieves Granados MD Primary Care Provider [phone] Reason for Visit * Auth/Cert Specialty Diagnoses / Procedures Referred By Raquel gonzalez Referred To Contact Diagnoses left lower extremity mass Procedures PRO EXC SKIN BENIG 2.1-3CM TRUNK, ARM, LEG EXC BENIGN LESION, ALEX 2.1 TO 3.0CM, LEGS (WRVU 1.84) Referral ID Status Reason Start Date Expiration Date Visits Re quested Visits Authorized [id number] 1 1 Encounter Details Date Type Department Care Team ([facility] st Contact Info) Description 09/22/2020 7:30 AM EDT - 09/22/2020 8:59 AM EDT Surgery [place] [id number] Slava Yeh MD [address] [place] [address] TELE-[place] [address] EXC BENIGN LESION, ALEX 2.1 TO 3.0CM, LEGS (WRVU 1.84) Social History Tobacco Use Types Packs/Day Years [...] Sign Reading Time Taken Comments Blood Pressure 90/60 09/22/2020 8:45 AM EDT Pulse 72 09/22/2020 8:45 AM EDT Temperature 36.5 ??C (97.7 ??F) 09/22/2020 8:23 AM ED T Respiratory Rate 19 09/22/2020 8:45 AM EDT Oxygen Saturation 97% 09/22/2020 8:45 AM EDT Inhaled Oxygen Concentration - - Weight - - Height - - Body Mass Index - - documented in this encounter Discharge Instructions * Patient Instructions* Daniela Escoto Rahel - 09/22/2020 8:35 AM EDT [facility] Department of Surgery Discharge Instructions CALL YOUR PHYSICIAN'S OFFICE IF: ??? You have a fever greater than 101 degrees Farenheit (38.3C) within one month of your surgery. ? ? You have diarrhea or vomiting for >24 hours, stop having bowel movements and/or passing flatus, have pain with urination. ??? You have worsening pain, not controlled with your pain medication. ??? You develop redness, swelling, or new drainage from your wound. Medications: [x] Pain Control [x] Non-narcotic pain medication - We recommend alternating with tylenol 650mg and ibuprofen 400-600mg every 6 hours as needed for pain (i.e.; tylenol at 12pm, ibuprofen 3pm, tylenol 6pm, ibuprofen 9pm). - Do not take more than 4,000mg (4g) of tylenol in 24 hours.delayed reactions. Therefore, do not drive or operate any heavy machinery while taking narcotics. [x] Other Medication(s) - The remainder of your medications are listed in the first section of the After Visit Summary. Driving Restrictions: - No driving if you are too sore from surgery to enter or exit your vehicle comfortably, or if you are too sore to easily check your blind spot. Shower: - It is ok to shower tomorrow after you remove the wick packing. You can shower per usual routine and let soapy water run over your incision. Pat incision dry with a clean, dry towel. Do not submergethe wound under water (no swimming or soaking) for at least 6 weeks, or until approved by your surgeon. Diet: [x] You have been cleared to resume your regular diet - We recommend eating a regular healthy diet (i.e.; fresh fruits, vegetables, protein, and fiber-containing foods will assist in wound healing) Activity: -It is normal to feel tired after surgery/hospitalization. Be as active as tolerated as this will improve recovery and prevent blood clots. -You should avoid any heavy lifting for 4 weeks after surgery. A gallon of milk is a good estimate of the maximum you should be lifting while your wounds heal. -We recommend taking several slow, short walks each day for the first two weeks, and gradually increase your distance. We recommend at least 4 times a day. Wound/Incision Care: Closure: Your skin incisio is closed with: [x] Sutures - If your sutures are visible, they will need to be removed at a follow up appointment,which will be arranged for you. Dressing: You have a dry gauze dressing that will need to be changed tomorrow, then as needed untilyour sutures are removed. There is also a packing strip (wick) in the incision that should be removed tomorrow. This was placed to help limit the risk of infection. Infection: Observe for changes and alert the clinic if new/worsening redness or drainage. Things to avoid: Do not use creams, oils, or ointments on the wound. Keep wound open to air if it is not draining. Who to call? If you have concerns or questions: - During the day, it is best to call the [facility] to speak with the Surgery nurses. The number is [phone]. - During the night or weekends call the [facility] picker operator at [phone] and ask to speak to the surgery resident data acquisition technician for general surgery. Please note: Your surgeon may not be Photo Technician, especially during the night or on weekends, so be ready to describe yourself and your surgery when you call. Follow up appointments: No future appointments. [x] A request for a follow-up appointment has been made and you should receive information via phone/mail in the next week. If you do not hear anything, please call the clinic at [phone] to confirm or reschedule. If you need a prior authorization, please call the General Surgery Clinic nurses [phone] for prior authorizations assistance documented in this encounter Medications at Time of Discharge Medication Sig Dispensed Refills Start Date End Date oxyCODONE (Roxicodone) 5 mg Tablet Take 1 tablet by mouth every 4 hours as needed for Pain. 5 tablet 03/16/2021 01/30/2024 omeprazole (PriLOSEC) 40 mg Capsule, Delayed Release(E.C.) 07/27/2020 10/06/2020 documented as of this encounter Progress Notes * Bree Yoder RN - 09/22/2020 9:30 AM EDT Patient alert and oriented, vital signs stable. Reviewed discharge instructions; patient verbalizedunderstanding. Copy of instruction sheet with contact numbers for questions/concerns provided. Painassessment documented. Patient escorted out of department via wheelchair with SDP ENTOMOLOGY PROFESSOR. * Daniela Escoto - 09/22/2020 8:40 AM EDT ID/MECHANISM OF INJURY: Sydnie Valenzuela is a 55 y.o. female S/p excision of LLE sebaceous cyst. Needs follow-up in 7-10 days for suture removal. OR CASE INFORMATION: 09/22/2020 Procedure(s): EXC BENIGN LESION, ALEX 2.1 TO 3.0CM, LEGS (WRVU 1.84) FOLLOW-UP NEEDED: Does pt need to f-u with surgeon or NUCLEAR FUELS RESEARCH ENGINEER (please indicate reason if attending provider): NUCLEAR FUELS RESEARCH ENGINEER What follow-up with TACS team is needed and how soon? Needs follow-up in 7-10 days for suture removal. Follow-up with other services? No Advise of Service and needs. Imaging orders entered: No Radiology Safety questions done for MRI/CT? N/A New or current ostomy? Ostomy nurse shared visit No Mobility concerns: Fully ambulatory Wound vac (requires 60min clinic visit) No On vent? If Yes - Needs to have someone from facility and supplies. No On Dialysis: No (SCHEDULE?) INCIDENTAL FINDINGS Incidental Findings (yes/no): N/A OPIOID CONSENT/NARCOTIC AGREEMENTS Current Month Narcotic Consent? N/A Isolation No Isolation D/c to: Home If Rehab - Rehab Name: PCP Name: MD DANIELA Carlisle MD 09/22/2020 documented in this encounter H&P Notes * Slava Yeh MD - 09/22/2020 6:32 AM EDT [facility] General Surgery History and Physical Sydnie Valenzuela is a 55 y.o. female who presents today for excision of a left calf lesion. The patient reports that she has been well since the last clinic visit without significant changes to medical status. Denies new diagnoses or medication changes. Denies recent illness including fever/chills, cough/flu-like symptoms, and recent infection. Denies chest pain and shortness of breath. Of note, the lesion started draining purulent material on Saturday of this week. She denies any systemic symptoms and reports it is not painful unless probed. Assesssment/Plan: Proceed with scheduled procedure: incision and drainage with excision of left calf lesion. - Has been appropriately consented and is ready to proceed. Signficant PM/ Past Medical History: Diagnosis Date ??? Gastric ulcer Past Surgical History: Procedure Laterality Date ??? SECTION x3 ??? GALLBLADDER SURGERY Current Facility-Administered Medications: ??? sodium chloride 0.9 % (flush) flush 5-20 mL, 5-20 mL, Intravenous, Q1 Min PRN, Davon Akins MD ??? lidocaine (Xylocaine) 1% (10 mg/mL) injection 3 mg, 0.3 mL, Subcutaneous, Once PRN, Davon Akins MD ??? lactated ringers infusion, 1,000 mL, Intravenous, Continuous, [place], Davon Gonzalez MD ??? ceFAZolin (Ancef) 2 g in dextrose 5% 100 mL infusion, 2 g, Intravenous, Q8H, Trevor Gupta MD Patient Vitals for the past 24 hrs: Temp Pulse Resp BP SpO2 O2 Device 09/22/20 0615 36.7 ??C (98.1 ??F) 81 16 127/76 96 % RA Physical Exam Gen: alert and oriented, laying comfortably in bed Neuro: no focal deficits CV: regular rate and rhythm Pulm: clear bilaterally, breathing comfortably on room air GI: Soft, nondistended, nontender Ext: warm and well perfused, no edema. Erythematous lesion on left medial calf approximately 1cm x 1cm with central ulceration, purulent material discharged. Trevor Gupta MD 09/22/2020 SURGICAL ATTENDING NOTE: Pt seen and examined with the resident staff in preop area and I agree with the above note and planwith the following additions/modifications. Pleasant 55-year-old female with a left posterior calf lesion which on history and exam is consistent with a cyst that has not become infected. Plan is to proceed the operating room and excise this. Patient understands that the wound may require being partially left open to accommodate packing given the infectious nature. She otherwise underwent informed consent and agrees to the plan procedure. documented in this encounter Miscellaneous Notes * Brief Op Note - Daniela Escoto - 09/22/2020 8:31 AM EDT Brief Operative Note Patient Name: Sydnie Valenzuela : [id number] MR#: [id number] Case Date: 09/22/2020 Surgeon: Surgeon(s) and Role: * Slava Yeh MD - Primary * Trevor Gupta MD - Resident * Daniela Escoto MD Preoperative diagnosis: left lower extremity soft tissue mass Postoperative diagnosis: left lower extremity sebaceous cyst Procedure(s) (LRB): EXC BENIGN LESION, ALEX 2.1 TO 3.0CM, LEGS (WRVU 1.84) (Left) Anesthesia: MAC Local Findings: Left leg sebaceous cyst with keratinaceous contents; completely excised including capsule. Wick left in place for drainage, otherwise skin reapproximated with deep dermal and vertical mattress sutures Complications: none Estimated Blood Loss: 2 mL Specimens removed during surgery: Order Name Source Comment Collection Info Order Time SPECIMEN TO PATHOLOGY left lower extremity mass left calf cyst excision No 09/22/2020 7:58 AM Time specimen removed from patient: 7:57 AM Number of tissue samples (in container) 1 Biospecimen to store? No Fluids: Intraprocedure Crystalloid Total Intake lactated ringers infusion 500.00 mL Total Intake 500 mL Output Blood Loss 2 mL Total Output 2 mL Net Net Volume 498 mL PRBCs: none (See Anesthesia Record/Report for Other Blood Products) Urine Output: (no urine output recorded) Drains: 06/20 wick Disposition: aroused from sedation, and taken to the recovery room in a stable condition Condition: doing well without problems (Please see the Surgical Encounter Summary for any Implant and Specimen details pertinent to this patient.) Infection Bundle used? N/A * Op Note - Daniela Escoto - 09/22/2020 7:51 AM EDT [facility] Operative Note Patient Name: Sydnie Valenzuela : [id number] MR#: [id number] Case Date: 09/22/2020 Surgeon: Surgeon(s) and Role: * Slava Yeh MD - Primary * Trevor Gupta MD - Resident * Daniela Escoto MD Preoperative diagnosis: left lower extremity soft tissue mass Postoperative diagnosis: left lower extremity sebaceous cyst Procedure(s) (LRB): EXC BENIGN LESION, ALEX 2.1 TO 3.0CM, LEGS (WRVU 1.84) (Left) Findings: Left leg sebaceous cyst with keratinaceous contents; completely excised including capsule. Wick left in place for drainage, otherwise skin reapproximated with deep dermal and vertical mattress sutures Anesthesia: MAC Estimated Blood Loss: 2 mL Specimens removed during surgery: Order Name Source Comment Collection Info Order Time SPECIMEN TO PATHOLOGY left lower extremity mass left calf cyst excision No 09/22/2020 7:58 AM Time specimen removed from patient: 7:57 AM Number of tissue samples (in container) 1 Biospecimen to store? No Drains: 1/4 inch wick Surgical Closure: Primary Closure - skin incision is closed but with open spaces for wires, sam, drains or other devices Disposition: aroused from sedation, and taken to the recovery room in a stable condition Condition: doing well without problems (Please see the Surgical Encounter Summary for any Implant and Specimen details pertinent to this patient.) HPI/Surgical Indications: Sydnie Valenzuela is a 55 y.o. female who presents today for excision of a left calf soft tissue mass. Procedure Description: Sydnie Valenzuela was brought back to the operating room and placed supine on the operating room table with her arms outstretched. MAC anesthesia was achieved. Her Left leg was prepped and draped in the typical sterile fashion. A timeout was performed confirming the correct patient, procedure, site, team, and special equipment required. Prophylactic antibiotics were administered. Once all were in agreement to proceed we began our operation. An ellipse was marked longitudinally around the lesion. We instilled 0.25% marcaine into the skin. Keratinacous material was expressed from the capsule - the cyst had started to drain in the preop area this morning so we completed the evacuation of this material. We then made a skin incision with a knife, carrying it down through the dermis into the fat. We visualized the capsule. We dissected out the capsule, removing it inits entirety. We irrigated the wound and closed the skin in two layers, the first a deep dermal layer with 3-0 vicryl sutures. We then packed a 1/4 wick in the cavity and reapproximated the skin with2-0 prolene vertical mattress sutures. We instilled additional marcaine around the wound and applied a clean and dry dressing. At the conclusion of the case all counts were correct. There were no complications. The patient was aroused from anesthesia and taken to the PACU in stable condition. Dr. Yeh was present for the entire procedure. Infection Bundle used? N/A Daniela Escoto MD PGY 5 General Surgery [id number] Associated attestation - Slava Yeh MD - 09/22/2020 12:49 PM EDT Attestation: Case Date: 09/22/2020 I was present and I participated during the entire procedure (does not need to include opening and closing). SLAVA YEH MD 09/22/2020 documented in this encounter Plan of Treatment Not on file documented as of this encounter Procedures Procedure Name Priority Date/Time Associated Diagnosis Comments SPECIMEN TO PATHOLOGY Routine 09/22/2020 7:58 AM EDT SURGICAL PATHOLOGY REPORT Routine 09/22/2020 7:57 AM EDT Exc Skin Benig 2.1-3Cm Trunk, Arm, Leg ([id number]) 09/22/2020 7:25 AM EDT left lower extremity mass documented in this encounter Results * Specimen to Pathology (09/22/2020 7:58 AM EDT) AP Specimen 09/22/2020 7:58 AM EDT 09/22/2020 7:58 AM EDT Narrative [facility] - 09/22/2020 7:58 AM EDT Specimen requisition ordered. ??Separate Pathology report to follow Slava Yeh MD PATHOLOGY/CYTOLOGY O RDERABLES [facility] [place] [address] * Surgical Pathology Report (09/22/2020 7:57 AM EDT) Final Diagnosis [id number] ? Location: [facility]; [facility]; A The signing pathologist has (i) examined the relevant preparation(s) for the specimen(s) and (ii) rendered or confirmed the diagnosis(es). . ?Surgical Pathology DIAGNOSIS Skin, left lower extremity mass, excision: - ??Epidermal inclusion cyst, ruptured and inflamed Electronically signed by: ?Erik Garcia MD Verified: ??09/27/2020 10:33 ??Dermatopatholo gist, Bone & Soft Tissue Pathologist Performed at: ??-[facility] Dept. of Pathology, [place], [place] SPECIMEN(S) SUBMITTED A - left calf cyst, excision (1) CLINICAL INFORMATION Left lower extremity mass SPECIMEN PROCESSING A - Labeled/Fixative : Left calf cyst, fresh. Quantity/Size: Two, shoe 0.5 x 0.9 x 0.3 cm (skin) and 2.0 x 1.5 x 1.4 cm (cyst). Tissue Description: Disrupted, opened, white cyst without contents and a detached ellipse of skin. Sections/Process ing: Animal Anatomy Teacher sections in 3 cassettes as follows: ?A1: ??Animal Anatomy Teacher skin ?A2-A3: ??Animal Anatomy Teacher cyst ??sns 09/27/2020 10:33 AM EDT [facility] SPECIMEN FROM CYST / Unknown 09/22/2020 7:57 AM EDT 09/22/2020 7:57 AM EDT Slava Yeh MD PATHOLOGY/CYTOLOGY O RDERABLES [facility] [place] [address] documented in this encounter Visit Diagnoses Not on filedocumented in this encounter Administered Medications Inactive Administered Medications - up to 3 most recent administrations Medication Order MAR Action Action Date Dose Rate Site acetaminophen (Tylenol) tablet 1,000 mg 1,000 mg, Oral, EVERY 8 HOURS PRN, Starting on Mirna 09/22/20 at 0839, Until Mirna 09/22/20 at 1131, Pain, Maximum dose of acetaminophen is 4000 mg from all sources in 24 hours. When ordered for pain, acetaminophen should be given even when other ordered pain medications are indicated. , Routine Given 09/22/2020 8:43 AM EDT 1,000 mg BUpivacaine (pf) (Marcaine) (2.5 mg/mL) 0.25% injection ONCE PRN, Starting on Mirna 09/22/20 at 0755, Until Mirna 09/22/20 at 1131, Intra-Operative (Intra-Procedure), Routine Given 09/22/2020 8:13 AM EDT 6 mLs 19- Surgical Site Given 09/22/2020 7:55 AM EDT 4 mLs 19 - Surgical Site ceFAZolin (Ancef) 2 g in dextrose 5% 100 mL infusion 2 g, Intravenous, EVERY 8 HOURS, First dose on Mirna 09/22/20 at 0700, Until Discontinued, Administer over 30 Minutes, Please administer data acquisition technician to OR, Indication for (Active or Suspected): Skin/Skin Structure Given 09/22/2020 7:35 AM EDT 2 g lactated ringers infusion 1,000 mL, at 100 mL/hr, Intravenous, CONTINUOUS, Starting on Mirna 09/22/20 at 0645, Until Mirna 09/22/20 at 0916, Day of Surgery (Day of Procedure) Restarted 09/22/2020 7:27 AM EDT New Bag 09/22/2020 6:51 AM EDT 1,000 mLs 100 mL/hr documented in this encounter Active and Recently Administered Medications Times are shown in EDT. Scheduled Medication Order 09/20/2020 09/21/2020 09/22/2020 ceFAZolin (Ancef) 2 g in dextrose 5% 100 mL infusion 2 g, Intravenous, EVERY 8 HOURS, First dose on Mirna 09/22/20 at 0700, Until Discontinued, Administer over 30 Minutes, Please administer data acquisition technician to OR, Indication for (Active or Suspected): Skin/Skin Structure 0735 (Given - Provid er: Deanna Almaguer CRNA) Continuous Medication Order 09/20/2020 09/21/2020 09/22/2020 lactated ringers infusion (CANCELED) 1,000 mL, at 100 mL/hr, Intravenous, CONTINUOUS, Starting on Mirna 09/22/20 at 0645, Until Mirna 09/22/20 at 0916, Day of Surgery (Day of Procedure) 0651 (New Bag - Prov ider: Jacqueline Wilkinson RN)0726 (Paused - Provider: Deanna Almaguer CRNA - Comment: Switch to gravity)0727 (Restarted - Provider: Deanna Almaguer CRNA)0800 (Anesthesia Volume Adjustment - Provider: Deanna Almaguer CRNA) PRN Medication Order 09/20/2020 09/21/2020 09/22/2020 acetaminophen (Tylenol) tablet 1,000 mg 1,000 mg, Oral, EVERY 8 HOURS PRN, Starting on Mirna 09/22/20 at 0839, Until Mirna 09/22/20 at 1131, Pain, Maximum dose of acetaminophen is 4000 mg from all sources in 24 hours. When ordered for pain, acetaminophen should be given even when other ordered pain medications are indicated. , Routine 0843 (Given - Provid er: Bree Yoder RN) BUpivacaine (pf) (Marcaine) (2.5 mg/mL) 0.25% injection (CANCELED) ONCE PRN, Starting on Mirna 09/22/20 at 0755, Until Mirna 09/22/20 at 1131, Intra-Operative (Intra-Procedure), Routine 0755 (Given - Provid er: Daniela Escoto - Comment: injected at the start od the procedure)0813 (Given - Provider: Daniela Escoto - Comment: injected at the end of the procedure) documented in this encounter Care Teams Frit Mixer And Burner Relationship Specialty Start Date End Date Nieves Granados MD [address] [place] [address] PCP - General Family Medicine 08/11/20 02/01/22 documented as of this encounter
--- OUTSIDE RECORDS SUMMARY | 2024-05-15 02:28 | XMS_ITS | Encounter Summary ---
Author Organization [facility] Address [address] [place] [address] Care Team Providers Care Head Inspector Name Role Phone Venu Álvarez MD Primary Care Provider [phone] Encounter Details Date Type Department Care Team (Late st Contact Info) Description 10/25/2016 Results Only [facility] [phone], [address] [place], [place] [id number] Social History Tobacco Use Types Packs/Day Years [...] Date/Time Associated Diagnosis Comments SURGICAL PATHOLOGY Routine 10/25/2016 9:19 EDT documented in this encounter Results * SURGICAL PATHOLOGY (10/25/2016 9:19 EDT) Pathology Report: SURGICAL PATHOLOGY REPORT Reports generated via electronic interface contain original data; however they are lacking the format of the original report. Caution should be taken when reading/interpret ing unformatted reports. Name: ? DESTINEE JAMIL ? Accession #: ? [id number] ? : ? 1965 (Age: 51) ??F ? Collect Date: ? 10/25/2016 ? Location: ? [facility] ? Receive Date: ? 10/26/2016 ? Provider: CYNTHIA LANE DO Copy to: OFELIA HIGGINS MD ? Final Pathologic Diagnosis: SKIN OF CHEEK, RIGHT, EXCISION: - Follicular cyst, infundibular type. Document reviewed and electronically signed by: SHARMILA LOTT MD Report ??Date: 10/29/2016 13:01 By the signature above, the attending physician certifies that he/she has personally conducted a gross and/or microscopic examination of the described specimens and rendered or confirmed the above diagnosis. Specimen(s) Received: Right cheek mass Clinical History: Right cheek mass; clinical diagnosis code: ??L72.9 Gross Description: ? Received in formalin labelled with proper patient identification (initials A, M) and A. right cheek mass is an irregular white-yellow tissue fragment with skin attached (2.2 x 0.9 x 0.9 cm). The cut surface reveals soft white material that measures (1.4 x 1.0 x 0.5 cm). The margin is inked blue. Two investment representative sections are submitted in 1. Also received in the same container is an irregular white-arreola skin that measures (2.2 x 0.3 x 0.2 cm). The margin is inked blue. Bisected and entirely submitted in 2. Miyola Carey 10/26/2016 11:45 AM End of Report [facility] 10/25/2016 9:19 EDT 10/26/2016 9:[address] DO PATHOLOGY ORDERABLES Fi nal Result [facility] [address] [place] [address] documented in this encounter Visit Diagnoses Not on filedocumented in this encounter Care Teams Head Inspector Relationship Specialty Start Date End Date Venu Álvarez MD [address] [place] [id number] PCP - General 01/21/13 documented as of this encounter
--- OUTSIDE RECORDS SUMMARY | 2024-05-15 02:28 | XMS_ITS | Encounter Summary ---
Author Organization [facility] Address [address] [place] [address] Care Team Providers Care Wall And Floor Tiler Name Role Phone Venu Álvarez MD Primary Care Provider [phone] Encounter Details Date Type Department Care Team (Late st Contact Info) Description 09/18/2021 Lab Requisition [facility] Pathology & Laboratory Medicine - [address] [address] Paty Centeno MD [address] [place] [address] [phone] Encounter for other general examination Social History [...] Date/Time Associated Diagnosis Comments PAP TEST Today 2021 8:50 EDT Encounter for other general examination HPV DNA DETECTION WITH GENOTYPING, PCR Today 2021 8:50 EDT Encounter for other general examination documented in this encounter Results * HUMAN PAPILLOMAVIRUS (HPV) DETECTION-HIGH RISK TYPES (2021 8:50 EDT) HPV other High Risk types, PCR Negative Negative 09/27/2021 9:29 EDT [facility] Comment:No E6 or E7 mRNA is detected from HPV types 16,18,31,33,35,39,45,51,52,56,58,59,66, and 68 by recovery engineer mediated amplification. Papanicolaou smear specimen (specimen) CERVIX UTERI STRUCTURE / Unknown 2021 8:50 EDT 09/26/2021 9:14 EDT us Payt Centeno MD MICROBIOLOGY - GENERAL ORDERABLES Final Result [facility] [address] [place] [address] * PAP TEST (2021 8:50 EDT) Specimens A. Cervix and/or Endocervix , ThinPrep Imaging System with Manual Evaluation 09/27/2021 9:29 T [facility] Specimen Adequacy Satisfactory for Evaluation - transformation zone component present 09/27/2021 9:29 [facility] General Categorization Epithelial Cell Abnormality 09/27/2021 9:29 [facility] Descriptive Diagnosis Squamous Cell Abnormality - Low grade squamous intraepithelial lesion (LSIL). Shift in jose francisco present suggestive of bacterial vaginosis. 09/27/2021 9:29 [facility] Educational Comments [facility] recommends following ASCCP's 2012 Updated Consensus Guidelines for the Management of Abnormal Cervical Cancer Screening Tests and Cancer Precursors (JLGTD, 2013; 17(5):S1-S27). Consensus guidelines are available online at www.asccp.org. 09/27/2021 9:29 [facility] Attestation By the signature below, the attending physician certifies that they have personally conducted a gross and/or microscopic examination of the described specimens and rendered or confirmed the above diagnosis. 09/27/2021 9:29 [facility] at 0929 Clinical History SEE BELOW 09/28/19 9:29 [facility] HPV The result for the Human Papillomavirus (HPV) Detection-High Risk Types is Negative. No E6 or E7 mRNA is detected from HPV types 16,18,31,33,35,39 ,45,51,52,56,58,5 9,66, and 68 by recovery engineer mediated amplification.Sofy ting was performed on specimen [id number] and was resulted on 09/27/2021 0710 EDT by DARREN, LAB INSTRUMENT RESULTS IN 09/27/2021 9:29 EDT [facility] Performing Lab [facility] 09/27/2021 9:29 EDT [facility] Scanned Images 09/27/2021 9:29 EDT [facility] Papanicolaou smear specimen (specimen) CERVIX UTERI STRUCTURE / Unknown 2021 8:50 EDT 09/18/2021 13:52 EDT us Paty Centeno MD PATHOLOGY ORDERABLES Fi nal Result [facility] [address] [place] [address] documented in this encounter Visit Diagnoses Diagnosis Encounter for other general examination documented in this encounter Care Teams Wall And Floor Tiler Relationship Specialty Start Date End Date Venu Álvarez MD [address] [place] [id number] PCP - General 01/21/13 documented as of this encounter
--- OUTSIDE RECORDS SUMMARY | 2024-05-15 02:28 | XMS_ITS | Encounter Summary ---
Author Organization [facility] Address [address] [place] [address] Care Team Providers Care Research And Evaluation Analyst Name Role Phone Unavailable Primary Care Provider Unavailabl e Encounter Details Date Type Department Care Team (Late st Contact Info) Description 01/13/2013 Results Only [facility] [phone] Dalila Osullivan, DO [address] [place] [address] Social History Tobacco Use Types Packs/Day Years [...] Date/Time Associated Diagnosis Comments SURGICAL PATHOLOGY Routine 01/13/2013 8:24 EDT documented in this encounter Results * SURGICAL PATHOLOGY (01/13/2013 8:24 EDT) Pathology Report: SURGICAL PATHOLOGY REPORT Reports generated via electronic interface contain original data; however they are lacking the format of the original report. Caution should be taken when reading/interpreti ng unformatted reports. Name: ? DESTINEE JAMIL ? Accession #: ? [id number] ? : ? 1965 (Age: 47) ??F ? Collect Date: ? 01/13/2013 ? Location: ? [facility] ? Receive Date: ? 01/14/2013 ? Provider: DALILA OSULLIVAN DO Copy to: LAUREN HERNANDEZ MD ? Final Pathologic Diagnosis: ? GALLBLADDER, CHOLECYSTECTOMY: - ?Chronic cholecystitis. - ? Cholelithiasis. Document reviewed and electronically signed by: LOBO OTTO MD Report ??Date: 01/15/2013 16:32 By the signature above, the attending physician certifies that he/she has personally conducted a gross and/or microscopic examination of the described specimens and rendered or confirmed the above diagnosis. Specimen(s) Received: Gallbladder Clinical History: Acute cholecystitis Gross Description: ? Received in formalin labelled with proper patient identification (initials A, M) and gallbladder is an intact gallbladder (8.0 x 2.8 x 2.2 cm) with an attached segment of cystic duct (0.5 cm in length x 0.2 cm in diameter). ? The serosa is arreloa-green and smooth. The mucosa is dark green, velvety and focally denuded and the wall ranges from 0.1-0.3 cm in thickness. The cystic duct lumen is patent. The cystic duct margin is inked blue. A single 1.8 cm in greatest dimension green-yellow, granular cholelith is present. ? Two corporate representative sections and the inked en face cystic duct margin are submitted in cassette 1. Jessica Johnston 01/14/2013 01:35 PM End of Report [facility] 01/13/2013 8:24 EDT 01/14/2013 8:24 EDT us Dalila Osullivan DO PATHOLOGY ORDERABLES Final Res ult [facility] [address] [place] [address] documented in this encounter Visit Diagnoses Not on filedocumented in this encounter
--- OUTSIDE RECORDS SUMMARY | 2024-05-15 02:28 | XMS_ITS | Encounter Summary ---
Author Organization [facility] Address [address] [place] [address] Care Team Providers Care Helper [employer] Farm Name Role Phone Unavailable Primary Care Provider Unavailabl e Encounter Details Date Type Department Care Team (Late st Contact Info) Description 03/13/2006 Results Only [facility] [address] [place] [address] Jack Valle MD [address] [place] [address] Social History Tobacco Use Types [...] Priority Date/Time Associated Diagnosis Comments CYTOPATHOLOGY Routine 03/13/2006 0:00 EDT documented in this encounter Results * CYTOPATHOLOGY (03/13/2006 0:00 EDT) Pathology Report: CYTOPATHOLOGY REPORT Reports generated via electronic interface contain original data; however they are lacking the format of the original report. Caution should be taken when reading/interpreti ng unformatted reports. Name: ? DESTINEE JAMIL ? Accession #: ? [id number] : ? 1965 (Age: 40) ??F ?Collect Date: ? 03/13/2006 Location: ? [facility] ? Receive Date: ? 03/15/2006 Provider: ?JACK VALLE MD Copy to: ? Specimen/Source: ?ThinPrep Pap Test, Cervix/Endocervix, processed on [employer] ThinPrep Imaging System, with manual evaluation Last Menstrual Period: ? 2001 Hormonal/Contracep tive Status: ? Intrauterine device Other: ? Additional clinical information: 3 C-Sections HPVA - HPV testing requested if ASC-US on the current ThinPrep Pap test. ? SPECIMEN ADEQUACY ? Satisfactory for Evaluation - transformation zone component present GENERAL CATEGORIZATION ? Negative for Intraepithelial Lesion or Malignancy ? Document reviewed and electronically signed by: ? Martha Odonnell, SCT(ASCP) ? Report Date: ??03/21/2006 08:42 End of Report [facility] 03/13/2006 03/15/2006 us Jack Valle MD PATHOLOGY ORDERABLES Final Resul t [facility] [address] [place] [address] documented in this encounter Visit Diagnoses Not on filedocumented in this encounter
--- OUTSIDE RECORDS SUMMARY | 2024-05-15 02:28 | XMS_ITS | Encounter Summary ---
Author Organization [facility] Address [address] [place] [address] Care Team Providers Care Feed Crusher Name Role Phone Venu Álvarez MD Primary Care Provider Encounter Details Date Type Department Care Team (Late st Contact Info) Description 08/04/2019 Lab Requisition [facility] Pathology & Laboratory Medicine - [address] [address] Nieves Granados MD [address] [place] [phone] Encounter for other general examination Social History [...] Date/Time Associated Diagnosis Comments PAP TEST Today 08/03/2019 12:00 EST Encounter for other general examination HPV DNA DETECTION WITH GENOTYPING, PCR Today 08/03/2019 12:00 EST Encounter for other general examination documented in this encounter Results * HUMAN PAPILLOMAVIRUS (HPV) DETECTION-HIGH RISK TYPES (08/03/2019 12:00 EST) HPV other High Risk types, PCR Negative Negative 08/12/2019 14:[address] [facility] Comment:No E6 or E7 mRNA is detected from HPV types 16,18,31,33,35,39,45,51,52,56,58,59,66, and 68 by flosser mediated amplification. Papanicolaou smear specimen (specimen) CERVIX UTERI STRUCTURE / Unknown 08/03/2019 12:00 EST 08/11/2019 15:33 EST Nieves Granados MD MICROBIOLOGY - GENERAL ORDDaron QUESADA Final Result [facility] [address] [place] [address] * PAP TEST (08/03/2019 12:00 EST) Specimens A. Cervix and/or Endocervix, , ThinPrep Imaging System with Manual Evaluation 08/12/2019 14:57 [facility] Specimen Adequacy Satisfactory for Evaluation - transformation zone component present 08/12/2019 14:57 [facility] General Categorization Negative for intraepithelial lesion or malignancy 08/12/2019 14:57 [facility] Attestation By the signature below, the attending physician certifies that they have personally conducted a gross and/or microscopic examination of the described specimens and rendered or confirmed the above diagnosis. 08/12/2019 14:57 [facility] at 1457 Clinical History NONE 08/12/19 20 14:57 [facility] HPV The result for the Human Papillomavirus (HPV) Detection-High Risk Types is Negative. No E6 or E7 mRNA is detected from HPV types 16,18,31,33,35,39 ,45,51,52,56,58,5 9,66, and 68 by flosser mediated amplification.Sofy ting was performed on specimen [id number] and was resulted on 08/12/2019 1324 EST by DARREN, LAB INSTRUMENT RESULTS IN 08/12/2019 14:57 [facility] Scanned Images 08/12/2019 14:57 [facility] Papanicolaou smear specimen (specimen) CERVIX UTERI STRUCTURE / Unknown 08/03/2019 12:00 EST 08/04/2019 8:58 EST us Nieves Granados MD PATHOLOGY ORDERABLES Final Result [facility] [address] [place] [address] documented in this encounter Visit Diagnoses Diagnosis Encounter for other general examination documented in this encounter Care Teams Feed Crusher Relationship Specialty Start Date End Date Venu Álvarez MD [address] [place] [address] PCP - General 01/21/13 documented as of this encounter
--- OUTSIDE RECORDS SUMMARY | 2024-05-15 02:29 | XMS_ITS | Encounter Summary ---
[place] [address] Care Team Providers Care Behavioral Health Assistant Name Role Phone Nieves Granados MD Primary Care Provider [phone] Encounter Details Date Type Department Care Team (Late st Contact Info) Description 09/07/2020 12:30 PM EDT Tech [place] [phone] Jess Goddard Varicose veins of both lower extremities with pain; Mass of left lower extremity Social History Tobacco Use Types Packs/Day Years Used Date Smoking Tobacco: Every Day Cigarettes Smokeless Tobacco: Never Sex and Gender Information Value Date Recorded Sex Assigned at Not on file Gender Identity Not on file Sexual Orientation Not on file documented as of this encounter Plan of Treatment Not on file documented as of this encounter Procedures Procedure Name Priority Date/Time Associated Diagnosis Comments VENOUS VALVULAR INCOMP, BILAT LEGS Routine 09/07/2020 12:09 PM EDT Varicose veins of both lower extremities with pain Mass of left lower extremity CAROTID DUPLEX, BILATERAL Routine 09/07/2020 12:09 PM EDT Varicose veins of both lower extremities with pain Mass of left lower extremity documented in this encounter Results * Venous Valvular Incomp, Bilat Legs (09/07/2020 12:09 PM EDT) VB Text Report Department: Vascular Surgery Lab Patient: [id number] (DESTINEE JAMIL) CPT: 71554 ICD10: I83.813;R22.42 Referring Physician: EUN PORRAS APRN ?? Indications: Painful VV R>L, ? venous insufficiency Patient Positioning: ??Reverse Trendelenburg ICD10 Diagnosis Code: I83.813, R22.42 Findings: Right ?Reflux?Diameter (mm) ??Depth (mm) ?? Common [...] Calf ?Competent ? SSV ?Competent ? Interpretation: RIGHT: There is reflux in the great [...] reflux noted in the small saphenous vein. No significant reflux noted in the common femoral vein, femoral vein in the thigh, popliteal vein. No evidence of common femoral, femoral, or popliteal DVT. LEFT: There is reflux in the great saphenous vein (GSV) near the saphenofemoral junction (reflux time approximately 0.5 sec) and the mid thigh GSV (reflux time >1.3 sec). The GSV leaves the fascia mid thigh. No significant reflux noted in the small saphenous vein. No significant reflux noted in the common femoral vein, femoral vein in the thigh, popliteal vein. No evidence of common femoral, femoral, or popliteal DVT. There is a heterogenous, hypoechoic structure along the proximal medial calf measuring approximately 2.1 cm X 3.0 cm X 2.1 cm. The great saphenous vein is in close proximity but is not involved. This was seen on an exam done on 08/11/20 where the structure was measuring approximately 2.4 cm X 2.4 cm X 1.7 cm. Otherwise no identifiable change from previous exam. Comparison: No previous venous insufficiency study in our vascular lab database for comparison. Electronically Signed by: NICKIE JJ on 2020-09-08 01:30:13 PM [facility] VB Text Report End of Report [facility] 09/07/2020 12:0 9 PM EDT Eun Porras APRN VASCULAR ORDERABLE S [facility] * Carotid Duplex, Bilateral (09/07/2020 12:09 PM EDT) VB Text Report Department: Vascular Surgery Lab Patient: [id number] (DESTINEE JAMIL) CPT: 98104 ICD10: R22.42;I83.813;I65 .23 Referring Physician: EUN PORRAS APRN ?? Indications: RT carotid bruit, unequal UE blood pressures, ? carotid disease ICD10 Diagnosis Code: R22.42, I83.813 Findings: ICA Proximal, Right ? PSV (cm/s): 65 ? EDV (cm/s): 35 ? ICA/CCA: 0.9 ? Plaque Structure: Echogenic ? Plaque Surface: Smooth ? %Stenosis: <15% ICA Distal, Right ? PSV (cm/s): 67 ? EDV (cm/s): 34 ? ICA/CCA: 0.9 CCA Distal, Right ? PSV (cm/s): 72 ? EDV (cm/s): 25 ? %Stenosis: Minimal CCA Proximal, Right ? PSV (cm/s): 80 ? EDV (cm/s): 27 External Carotid Artery, Right ? PSV (cm/s): 65 ? EDV (cm/s): 14 ? %Stenosis: <50% Vertebral, Right ? PSV (cm/s): 52 ? EDV (cm/s): 25 ? Direction of Flow: Antegrade ICA Proximal, Left ? PSV (cm/s): 68 ? EDV (cm/s): 34 ? ICA/CCA: 1.0 ? Plaque Structure: Echogenic ? Plaque Surface: Smooth ? %Stenosis: <15% ICA Distal, Left ? PSV (cm/s): 81 ? EDV (cm/s): 33 ? ICA/CCA: 1.2 CCA Distal, Left ? PSV (cm/s): 68 ? EDV (cm/s): 27 ? %Stenosis: Minimal CCA Proximal, Left ? PSV (cm/s): 95 ? EDV (cm/s): 34 External Carotid Artery, Left ? PSV (cm/s): 71 ? EDV (cm/s): 13 ? %Stenosis: <50% Vertebral, Left ? PSV (cm/s): 56 ? EDV (cm/s): 23 ? Direction of Flow: Antegrade Interpretation: RIGHT: A thin layer of circumferential plaque is present in the common carotid artery causing minimal stenosis. There is smooth plaque in the proximal internal carotid artery causing <15% stenosis when compared to the more distal internal carotid artery. The bifurcation level is in the mid neck. LEFT: A thin layer of circumferential plaque is present in the common carotid artery causing minimal stenosis. There is smooth plaque in the proximal internal carotid artery causing <15% stenosis when compared to the more distal internal carotid artery. The bifurcation level is in the mid neck. Vertebral Artery Data: Patent vertebral arteries with normal antegrade Doppler waveforms and velocities bilaterally. Comparison: ??No previous study in our vascular lab database for comparison. Electronically Signed by: NICKIE JJ on 2020-09-09 09:27:54 AM [facility] VB Text Report End of Report [facility] 09/07/2020 12:0 9 PM EDT Eun Porras APRN VASCULAR ORDERABLE S [facility] documented in this encounter Visit Diagnoses Diagnosis Varicose veins of both lower extremities with pain Varicose veins of lower extremities with other complications Mass of left lower extremity documented in this encounter Care Teams Behavioral Health Assistant Relationship Specialty Start Date End Date Nieves Granados MD [address] [place] [address] PCP - General Family Medicine 08/11/20 02/01/22 documented as of this encounter
--- OUTSIDE RECORDS SUMMARY | 2024-05-15 02:29 | XMS_ITS | Encounter Summary ---
[place] [address] Care Team Providers Care Senior Water/Wastewater Engineer Name Role Phone Nieves Granados MD Primary Care Provider [phone] Reason for Referral * Diagnostic Test (Emergency) - Closed Specialty Diagnoses / Procedures Referred By Contac t Referred To Contact Radiology Diagnoses Localized swelling, mass, or lump of left lower extremity Procedures CT Lower Extremity wo Contrast Left (Generic) Ijeoma Orozco MD [facility] [place] [address] [facility] [place] [address] Referral ID Status Reason Start Date Expiration Date V isits Requested Visits Authorized [id number] Closed Specialty Service Requested 09/08/2020 03/11/2022 1 1 Reason for Visit * Consultation (Urgent) - Closed Specialty Diagnoses / Procedures Referred By Contac t Referred To Contact General Surgery Diagnoses Mass of left lower extremity Rachel Cha MD [facility] [place] [address] [facility] Gen Surgery [address] [place] [address] Referral ID Status Reason Start Date Expiration Date V isits Requested Visits Authorized [id number] Closed Consult, Test & Treat 09/07/2020 09/07/2021 1 1 Encounter Details Date Type Department Care Team (Late st Contact Info) Description 09/08/2020 11:00 AM EDT Office Visit [place] [address] Ijeoma Orozco MD [facility] [place] [address] Localized swelling, mass, or lump of left lower extremity Social History Tobacco Use Types Packs/Day Years Used Date Smoking Tobacco: Every Day Cigarettes Smokeless Tobacco: Never Sex and Gender Information Value Date Recorded Sex Assigned at Not on file Gender Identity Not on file Sexual Orientation Not on file documented as of this encounter Progress Notes * Trevor Gupta MD - 09/08/2020 11:00 AM EDT General Surgery Clinic Note HPI: Sydnie Valenzuela is a 54 y.o. female who presents for evaluation of a left calf lesion. She wasreferred by Dr. Cha in vascular surgery. Ms. Valenzuela reports that she first noticed a swelling on the medial aspect of her left calf approximately one month ago. At that time it was firm and described as the size of a pea. She thought it was a cyst at the time. She has been following with vascular surgery for management of varicose veins and has been attempting nonpharmacologic management with compression stockings. She reports that the stockings irritated the lesion, causing it to become erythematous and tender to the touch. It hassince grown in size. She denies fevers, chills, or any systemic symptoms. She has not had trouble walking and the lesion is only painful when touched. She was seen in vascular surgery clinic on 08/11 and a duplex LE ultrasound was performed at that time. This was negative for a DVT but did reveal a hypoechoic structure along the proximal medial calfmeasuring 2.5cm X 2.4cm X 1.7cm. There was noted to be a small vessel appearing to connect the structure to the great saphenous vein. She was seen again yesterday and an ultrasound was repeated at that time. The lesion was slightly larger and again appeared to be connected to the GSV. Past Medical History: Past Medical History: Diagnosis Date ??? Gastric ulcer Past Surgical History: Past Surgical History: Procedure Laterality Date ??? SECTION x3 ??? GALLBLADDER SURGERY Medications: No outpatient medications have been marked as taking for the 09/08/20 encounter (Office Visit) with Ijeoma Orozco MD. Allergies:No Known Allergies Family History: Family History Problem Relation Age of Onset ??? Cerebrovascular Accident Mother Social History: Social History Socioeconomic History ??? Marital status: [...] and Sexual Activity ??? Alcohol use: Not on file ??? Drug use: Not on file ??? Sexual activity: Not on file Other Topics Concern ??? Not on file Social History Narrative ??? Not on file Social Determinants of Health Financial Resource Strain: ??? Difficulty of Paying Living Expenses: Food Insecurity: ??? Worried About Running Out of Food in the Last Year: ??? Ran Out of Food in the Last Year: Transportation Needs: ??? Lack of Transportation (Medical): ??? Lack of Transportation (Non-Medical): Physical Activity: ??? Days of Exercise per Week: ??? Minutes of Exercise per Session: Stress: ??? Feeling of Stress : Social Connections: ??? Frequency of Communication with Friends and Family: ??? Frequency of Social Gatherings with Friends and Family: ??? Attends [employer] Services: ??? Active Member of Clubs or Organizations: ??? Attends Club or Organization Meetings: ??? Marital Status: Intimate Partner Violence: ??? Fear of Current or Ex-Partner: ??? Emotionally Abused: ??? Physically Abused: ??? Sexually Abused: ROS: Positive items outlined in HPI. Negative for: Headaches, h/o migraines Recent change in vision Difficulties swallowing Chest pain/tightness Palpitations Shortness of breath Nausea/emesis, diarrhea/constipation Difficulties urinating, h/o kidney stones, UTI's Swelling of legs New skin rash/lesion Depression/anxiety DM/thyroid issues All other systems negative Physical Examination: General: NAD, A&Ox3, pleasant, cooperative HEENT: normocephalic, atraumatic CVS: regular rate and rhythm Pulm: clear to auscultation bilaterally, breathing comfortably on room air Abd: soft, non-distended, non-tender. Ext: warm and well perfused, no edema. Erythematous lesion on left medial calf approximately 1cm x 1cm with surrounding deep tissue firm to palpation. Neuro: Grossly intact, nonfocal, moving all four extremities spontaneously. Imaging Left Lower Extremity Duplex US 08/11/20: Findings: LEFT: Patent common femoral vein and popliteal vein with spontaneous, respirophasic Doppler waveforms that respond normally to augmentation maneuvers. The common femoral vein, saphenofemoral junction, femoral vein through the thigh and popliteal vein are fully compressible. Patent posterior tibial and peroneal veins with no evidence of thrombus. There is a heterogenous, hypoechoic structure along the proximal medial calf measuring approximately 2.5 X 2.4 X 1.7 cm with minimal peripheral vascularity noted. The great saphenous vein lies adjacent to this structure with a small branch appearing to connect the??two. ?? Interpretation: LEFT: No evidence of lower extremity deep venous thrombosis. There is a hypoechoic structure within the proximal medial calf with minimal peripheral vascularity noted. Venous Valvular Incompetence Ultrasound 09/07/20: Interpretation: RIGHT: There is reflux in the [...] X 2.1 cm. The great saphenous vein lies adjacent to this structure with a small branch appearing to connect the two. This was seen on an exam done on 08/11/20 where the structure was measuring approximately 2.4 cm X 2.4 cm X 1.7 cm. Otherwise no identifiable change from previous exam. Assessment/Plan: Sydnie Valenzuela is a 54 y.o. female who presents for evaluation of a left calf lesion. This has been present for approximately one month and has become larger and more painful. She overall appears clinically well and denies systemic symptoms. The etiology of the lesion is unclear at this time,and recent ultrasounds are concerning for a feeding vessel between the lesion and the great saphenous vein. Will plan to obtain a CT of the left lower extremity this afternoon and then proceed to theoperating room for incision and drainage in a controlled environment. She has been consented and agrees to remain NPO for the procedure today. Trevor Gupta MD 11:30 AM 09/08/2020 Attending Addendum I have seen and examined the patient, I have reviewed the vitals, labs and pertinent imaging. I have discussed the documentation above and agree, with the following comments: Ms. Valenzuela is a 54yoF with a left calf lesion that has been increasing in size over the last month. There is no cellulitis at the site and no evidence of infection. It is unclear what the etiologyof this is - whether this is a varicosity versus a cyst or other pathology. Given the question, I would not want to proceed in the clinic and therefore will do this in the operating room. We hope to get a CT scan this afternoon and then proceed to the OR around 5PM after she has been NPO for 8 hours. We discussed the plan with her and she agrees. Ijeoma Orozco MD [id number] ADDITIONAL ADDENDUM: Unfortunately due to the OR timing, Ms. Valenzuela was unable to proceed to the OR for excision of this lesion. I spoke with her about this and she was understandably disappointed and upset about this. Unfortunately however given that this is an elective case and not an emergency, I was unable to doanything to change the OR schedule. We discussed that we can do this on an elective basis. 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 Ijeoma Orozco MD documented in this encounter Plan of Treatment Not on file documented as of this encounter Results * CT Lower Extremity wo Contrast Left (Generic) (09/08/2020 4:38 PM EDT) Anatomical Region Laterality Modality Hip, Leg, Knee, Thigh, Ankle, Foot Left Computed Tomography Impressions 09/08/2020 7:33 PM EDT 3 cm mildly lobular hypoattenuating superficial soft tissue lesion at the level of the proximal tibia adjacent to the greater saphenous vein. The lesion is slightly heterogenous in attenuation and slightly more dense than simple fluid. There is minimal surrounding soft tissue stranding to suggest inflammation or infection. Differential includes a dilated vein/venous aneurysm versus possible sebaceous cyst or small seroma. Further assessment with contrast-enhanced CT or MRI could be performed if clinically warranted. Preliminary report signed by: Misael Mtz at 09/08/2020 6:01 PM I have personally reviewed the image(s) and the resident's interpretation and agree with the findings, JYOTI ELLISON MD at 09/08/2020 7:33 PM Thank you for letting us participate in the care of this patient. ? Narrative 09/08/2020 7:33 PM EDT EXAMINATION: CT LOWER EXTREMITY WO CONTRAST LEFT (GENERIC) CLINICAL HISTORY: Soft tissue infection suspected, lower leg, xray done hx prior ultrasound. has area of swelling / induration longstanding on medial left calf. asking for CT scan from knee to ankle only. TECHNIQUE: A noncontrast CT of the left lower extremity was performed from the level of the distal femur to the proximal foot. Coronal and sagittal reformatted images were prepared. COMPARISON: None FINDINGS: There is a 3.0 x 2.2 x 2.6 cm (AP by TR by CC) hypoattenuating bilobed-appearing lesion in the superficial soft tissues of the medial left lower extremity at the level of the proximal tibial diaphysis (series 4 image 273 and series 301 image 53). There are small tubular structure is most consistent with the greater saphenous vein adjacent to this lesion, however the vascularity and enhancement pattern of the lesion cannot be determined in the absence of intravenous contrast. There is minimal surrounding fat stranding. No additional soft tissue lesions. Unremarkable appearance of the visualized musculature. There are small tricompartmental degenerative osteophytes of the left knee joint. A 6 mm sclerotic lesion within the left cuboid is favored to represent an enostosis/bone island. Procedure Note Jyoti Ellison MD - 09/08/2020 EXAMINATION: CT LOWER EXTREMITY WO CONTRAST LEFT (GENERIC) CLINICAL HISTORY: Soft tissue infection suspected, lower leg, xray done hx prior ultrasound. has area of swelling / induration longstanding onmedial left calf. asking for CT scan from knee to ankle only. TECHNIQUE: A noncontrast CT of the left lower extremity was performed from the levelof the distal femur to the proximal foot. Coronal and sagittal reformatted imageswere prepared. COMPARISON: None FINDINGS: There is a 3.0 x 2.2 x 2.6 cm (AP by TR by CC) hypoattenuatingbilobed-appearing lesion in the superficial soft tissues of the medial left lower extremityat the level of the proximal tibial diaphysis (series 4 image 273 and series 301image 53). There are small tubular structure is most consistent with thegreater saphenous vein adjacent to this lesion, however the vascularity andenhancement pattern of the lesion cannot be determined in the absence of intravenous contrast. There is minimal surrounding fat stranding. No additional softtissue lesions. Unremarkable appearance of the visualized musculature. There are small tricompartmental degenerative osteophytes of the left knee joint. A 6 mm sclerotic lesion within the left cuboid is favored to represent an enostosis/bone island. IMPRESSION 3 cm mildly lobular hypoattenuating superficial soft tissue lesion at thelevel of the proximal tibia adjacent to the greater saphenous vein. The lesionis slightly heterogenous in attenuation and slightly more dense than simplefluid. There is minimal surrounding soft tissue stranding to suggest inflammationor infection. Differential includes a dilated vein/venous aneurysm versuspossible sebaceous cyst or small seroma. Further assessment with contrast-enhancedCT or MRI could be performed if clinically warranted. Preliminary report signed by: Misael Mtz at 09/08/2020 6:01 PM I have personally reviewed the image(s) and the resident's interpretationand agree with the findings, JYOTI ELLISON MD at 09/08/2020 7:33 PM Thank you for letting us participate in the care of this patient. Ijeoma Orozco MD IMG CT ORDERABLES documented in this encounter Visit Diagnoses Diagnosis Localized swelling, mass, or lump of left lower extremity Localized swelling, mass, or lump of left lower extremity documented in this encounter Care Teams Senior Water/Wastewater Engineer Relationship Specialty Start Date End Date Nieves Granados MD [address] [place] [address] PCP - General Family Medicine 08/11/20 02/01/22 documented as of this encounter
--- OUTSIDE RECORDS SUMMARY | 2024-05-15 02:29 | XMS_ITS | Encounter Summary ---
[place] [address] Care Team Providers Care Instructional Technology Specialist Name Role Phone Nieves Granados MD Primary Care Provider [phone]- [phone] Reason for Visit * Auth/Cert Specialty Diagnoses / Procedures Referred By Raquel huggins Referred To Contact Diagnoses left lower extremity mass Procedures PRO EXC SKIN BENIG 2.1-3CM TRUNK, ARM, LEG EXC BENIGN LESION, ALEX 2.1 TO 3.0CM, LEGS (WRVU 1.84) Referral ID Status Reason Start Date Expiration Date Visits Re quested Visits Authorized [id number] 1 1 Encounter Details Date Type Department Care Team (Latest Contact Info) Description 09/22/2020 5:58 AM EDT - 09/22/2020 9:31 AM EDT Hospital Encounter [place] [id number] Slava Yeh MD [address] [place] [address] [place] [address] Discharge Disposition: Home Social History Tobacco Use [...] Sign Reading Time Taken Comments Blood Pressure 96/68 09/22/2020 9:15 AM EDT Pulse 72 09/22/2020 9:15 AM EDT Temperature 36.5 ??C (97.7 ??F) 09/22/2020 8:23 AM ED T Respiratory Rate 18 09/22/2020 9:15 AM EDT Oxygen Saturation 97% 09/22/2020 9:15 AM EDT Inhaled Oxygen Concentration - - Weight - - Height - - Body Mass Index - - documented in this encounter Discharge Instructions * Patient Instructions* Daniela Escoto R - 09/22/2020 8:35 AM EDT [facility] Department of Surgery Discharge Instructions CALL [...] with the Surgery nurses. The number is [phone]. - During the night or weekends call the [facility] wrecker operator at [phone] and ask to speak to the surgery resident fashion show director for general surgery. Please note: Your surgeon may not be Lace Paper Machine Operator, especially during the night or on weekends, so be ready to describe yourself and your surgery when you call. Follow up appointments: No future appointments. [x] A request for a follow-up appointment has been made and you should receive information via phone/mail in the next week. If you do not hear anything, please call the clinic at [phone] to confirm or reschedule. If you need a prior authorization, please call the General Surgery Clinic nurses [phone] for prior authorizations assistance documented in this [...] out of department via wheelchair with SDP SURGICAL SERVICES COORDINATOR. * Daniela Escoto - 09/22/2020 8:40 AM EDT ID/MECHANISM OF INJURY: Sydnie Valenzuela is a 55 y.o. female S/p excision of LLE sebaceous cyst. Needs follow-up in 7-10 days for suture removal. OR CASE INFORMATION: 09/22/2020 Procedure(s): EXC BENIGN LESION, ALEX 2.1 TO 3.0CM, LEGS (WRVU 1.84) FOLLOW-UP NEEDED: Does pt need to f-u with surgeon or PORTFOLIO ANALYST (please indicate reason if attending provider): PORTFOLIO ANALYST What follow-up with TACS team is needed [...] Yeh MD - 09/22/2020 6:32 AM EDT [facility] General Surgery History and Physical Sydnie Valenzuela [...] lactated ringers infusion, 1,000 mL, Intravenous, Continuous, Davon Akins MD ??? ceFAZolin (Ancef) 2 g in [...] Operative Note Patient Name: Sydnie Valenzuela : [id number] MR#: [id number] Case Date: 09/22/2020 Surgeon: Surgeon(s) and Role: [...] Daniela Escoto - 09/22/2020 7:51 AM EDT [facility] Operative Note Patient Name: Sydnie Valenzuela : [id number] MR#: [id number] Case Date: 09/22/2020 Surgeon: Surgeon(s) and Role: [...] Exc Skin Benig 2.1-3Cm Trunk, Arm, Leg (84764) 09/22/2020 7:25 AM EDT left lower extremity mass documented in this encounter Results * Specimen to Pathology (09/22/2020 7:58 AM EDT) AP Specimen 09/22/2020 7:58 AM EDT 09/22/2020 7:58 AM EDT Narrative [facility] - 09/22/2020 7:58 AM EDT Specimen requisition ordered. ??Separate Pathology report to follow Slava Yeh MD PATHOLOGY/CYTOLOGY O RDERABLES [facility] [place] [address] * Surgical Pathology Report (09/22/2020 7:57 AM EDT) Final Diagnosis [id number] ? Location: [facility]; [facility]; A The signing pathologist has (i) examined the relevant preparation(s) for the specimen(s) and (ii) rendered or confirmed the diagnosis(es). . ?Surgical Pathology DIAGNOSIS Skin, left lower extremity mass, excision: - ??Epidermal inclusion cyst, ruptured and inflamed Electronically signed by: ?Jose FUNES, Erik Lindsay Verified: ??09/27/2020 10:33 ??Dermatopatholo gist, Bone & Soft Tissue Pathologist Performed at: ??-[facility] Dept. of Pathology, [place], [place] SPECIMEN(S) SUBMITTED A - left calf cyst, excision (1) CLINICAL INFORMATION Left lower extremity mass SPECIMEN PROCESSING A - Labeled/Fixative : Left calf cyst, fresh. Quantity/Size: Two, shoe 0.5 x 0.9 x 0.3 cm (skin) and 2.0 x 1.5 x 1.4 cm (cyst). Tissue Description: Disrupted, opened, white cyst without contents and a detached ellipse of skin. Sections/Process ing: Waitress sections in 3 cassettes as follows: ?A1: ??Waitress skin ?A2-A3: ??Waitress cyst ??sns 09/27/2020 10:33 AM EDT [facility] SPECIMEN FROM CYST / Unknown 09/22/2020 7:57 AM EDT 09/22/2020 7:57 AM EDT Slava Yeh MD PATHOLOGY/CYTOLOGY O RDERABLES [facility] [place] [address] documented in this encounter Visit Diagnoses Not [...] Given 09/22/2020 8:43 AM EDT 1,000 mg ceFAZolin (Ancef) 2 g in dextrose 5% 100 mL infusion 2 g, Intravenous, EVERY 8 HOURS, First dose on Mirna 09/22/20 at 0700, Until Discontinued, Administer over 30 Minutes, Please administer fashion show director to OR, Indication for (Active or Suspected): [...] Discontinued, Administer over 30 Minutes, Please administer fashion show director to OR, Indication for (Active or Suspected): [...] CRNA)0800 (Anesthesia Volume Adjustment - Provider: Deanna lAmaguer CRNA) PRN Medication Order 09/20/2020 09/21/2020 09/22/2020 [...] procedure) documented in this encounter Care Teams Instructional Technology Specialist Relationship Specialty Start Date End Date Nieves Granados MD [address] [place] [address] PCP - General Family Medicine 08/11/20 02/01/22 documented as of this encounter
--- OUTSIDE RECORDS SUMMARY | 2024-05-15 02:29 | XMS_ITS | Encounter Summary ---
[place] [address] Care Team Providers Care Nuclear Physician Name Role Phone Nieves Granados MD Primary Care Provider [phone]- [phone] Reason for Referral * Diagnostic Test (Emergency) - Closed Specialty Diagnoses / Procedures Referred By Contac t Referred To Contact Radiology Diagnoses Localized swelling, mass, or lump of left lower extremity Procedures CT Lower Extremity wo Contrast Left (Generic) Ijeoma Orozco MD [facility] [place] [address] [facility] [place] [address] Referral ID Status Reason Start Date Expiration Date V isits Requested Visits Authorized [id number] Closed Specialty Service Requested 09/08/2020 03/11/2022 1 1 Reason for Visit * Diagnostic Test (Emergency) - Closed Specialty Diagnoses / Procedures Referred By Contac t Referred To Contact Radiology Diagnoses Localized swelling, mass, or lump of left lower extremity Procedures CT Lower Extremity wo Contrast Left (Generic) Ijeoma Orozco MD [facility] [place] [address] [facility] [place] [address] Referral ID Status Reason Start Date Expiration Date V isits Requested Visits Authorized [id number] Closed Specialty Service Requested 09/08/2020 03/11/2022 1 1 Encounter Details Date Type Department Care Team (Latest Contact Info) Description 09/08/2020 3:11 PM EDT - 09/08/2020 11:59 PM EDT Hospital Encounter CT Scan at [facility] [place] [address] Ijeoma Orozco MD [facility] [place] [address] Localized swelling, mass, or lump of left lower extremity Discharge Disposition: Home Social History Tobacco Use Types Packs/Day Years Used Date Smoking Tobacco: Every Day Cigarettes Smokeless Tobacco: Never Sex and Gender Information Value Date Recorded Sex Assigned at Not on file Gender Identity Not on file Sexual Orientation Not on file documented as of this encounter Medications at Time of Discharge Medication Sig Dispensed Refills Start Date End Date omeprazole (PriLOSEC) 40 mg Capsule, Delayed Release(E.C.) 07/27/20202020 documented as of this encounter Plan of Treatment Not on file documented as of this encounter Procedures Procedure Name Priority Date/Time Associated Diagnosis Comments CT LOWER EXTREMITY WO CONTRAST LEFT STAT 09/08/2020 4:38 PM EDT Localized swelling, mass, or lump of left lower extremity documented in this encounter Results * CT Lower Extremity [...] in the care of this patient. ? Electronically signed by: JYOTI ELLISON MD, [facility] ([phone]), at 09/08/2020 7:33 PM Narrative 09/08/2020 7:33 PM EDT EXAMINATION: CT [...] extremity documented in this encounter Care Teams Nuclear Physician Relationship Specialty Start Date End Date Nieves Granados MD [address] [place] [address] PCP - General Family Medicine 08/11/20 02/01/22 documented as of this encounter
--- OUTSIDE RECORDS SUMMARY | 2024-05-15 02:29 | XMS_ITS | Encounter Summary ---
[place] [address] Care Team Providers Care Bench Assembler Name Role Phone Nieves Granados MD Primary Care Provider [phone] Reason for Visit * Consultation (Routine) - Closed Specialty Diagnoses / Procedures Referred By Raquel huggins Referred To Contact Vascular Surgery Diagnoses Asymptomatic varicose veins of unspecified lower extremity Procedures painful VV Vernell Coleman, DIRK [address] [place] [address] [facility] Vascular Surg [address] [place] [address] Referral ID Status Reason Start Date Expiration Date V isits Requested Visits Authorized [id number] Closed Consult, Test & Treat 07/22/2020 07/22/2021 2 2 Encounter Details Date Type Department Care Team (Late st Contact Info) Description 08/11/2020 10:00 AM EST Office [place] [address] Bc Porras APRN [facility] [place] [address] Varicose veins of both lower extremities with pain; Mass of left lower extremity Social History Tobacco Use Types Packs/Day Years Used Date Smoking Tobacco: Every Day Sex and Gender Information Value Date Recorded Sex Assigned at Not on file Gender Identity Not on file Sexual Orientation Not on file documented as of this encounter Last Filed Vital Signs Vital Sign Reading Time Taken Comments Blood Pressure 151/85 08/11/2020 10:07 AM EST Pulse 87 08/11/2020 10:03 AM EST Temperature - - Respiratory Rate - - Oxygen Saturation - - Inhaled Oxygen Concentration - - Weight 95.7 kg (211 lb) 08/11/2020 10:03 AM EST Height 165.1 cm (5' 5) 08/11/2020 10:03 AM EST Body Mass Index 35.11 08/11/2020 10:03 AM EST documented in this encounter Progress Notes * ChiquitaBc, 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 History: This is a 54 y.o. female who has noted painful right LE varicose veins for 30 years. The patient has noted the following symptoms below for 1-3 years. The patient has used OTC compression stockings several weeks without improvement in the symptoms. Due to the symptoms below, the patient has difficulty at work and it is affecting the quality of life. 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 C/o left medial calf massfor 3 years which had increased in size and at time gets red and hard with pain. Last episode last week. She is also concerned about having CVA her mother had CVA in her 50's from carotid artery stenosis. Y N SYMPTOM X Leg aching X Leg swelling X Leg elevation greater than 20 minutes/3x per day X Daily use of compression stockings 20-30mmHg (6-8 weeks) X Family history of varicose veins X History of more than two episodes of phlebitis x Refractory edema x Stasis dermatitis X History of DVT X Prior venous surgery X Prior ulceration X Current ulceration X History of two more episodes of bleeding varicosities X Chronic cellulitis Review of Systems: Prior cardiac history: no Prior pulmonary history: no Prior issues with general anesthesia: no Family history of malignant hyperthermia: no Issues with snoring or sleep apnea: yes snores PE: Patient Vitals for the past 24 hrs: Pulse BP 08/11/20 1003 87 124/87 08/11/20 1007 -- 151/85 Body mass index is 35.11 kg/m??. Heart: RRR, no murmurs, no S3 or S4 Chest: CTA, no wheeze Location of the varicosities: bilateral Size of the varicosities (greater than 3mm): 8-15 mm right anterior and medial thigh and knee and cage. Left medial calf with 1 cm palpable fluctuant mass with discoloration Carotid pulses equal and bilateral faint right carotid bruit No palpable pulsatile abdominal masses, no abdominal bruits Palpable bilateral femoral, popliteal and tibial pulses Y N PHYSICAL FINDINGS X Radial pulses bilaterally X DP and PT pulses bilaterally X Palp cords X Evidence of healed ulceration X Stasis dermatitis X Cellulitis X Palpable Thrills Venous duplex L LE LEFT: Patent common femoral vein and popliteal vein with spontaneous, respirophasic Doppler waveforms that respond normally to augmentation maneuvers. The common femoral vein, saphenofemoral junction, femoral vein through the thigh and popliteal vein are fully compressible. Patent posterior tibial and peroneal veins with no evidence of thrombus. ?? There is a heterogenous, hypoechoic structure along the proximal medial calf measuring approximately 2.5 X 2.4 X 1.7 cm with minimal peripheral vascularity noted. The great saphenous vein lies adjacent to this structure with a small branch appearing to connect the??two. ?? Interpretation: ?? LEFT: No evidence of lower extremity deep venous thrombosis. There is a hypoechoic structure within the proximal medial calf with minimal peripheral vascularity noted. ? Assessment/Plan: 54 yo female with long standing history of symptomatic B LE varicosities. R>L. She has not worn prescription compression Prescription for 20-30 mmHg pantyhose compression to be worn daily. Discussed natural history of varicose veins. She is concerned about having CVA, family history She does have faint right carotid bruit and unequal UE BP. Venous duplex left LE today to assess left medial calf mass. No evidence of lower extremity deep venous thrombosis. There is a hypoechoic structure within the proximal medial calf with minimal peripheral vascularity noted. Plan RTC 6-8 weeks with B LE valvular incomp testing and B carotid duplex and see . documented in this encounter Plan of Treatment Not on file documented as of this encounter Results * Carotid Duplex, Bilateral (09/07/2020 12:09 PM EDT) VB Text Report Department: Vascular Surgery Lab Patient: [id number] (DESTINEE JAMIL) CPT: 35153 ICD10: R22.42;I83.813;I65 .23 Referring Physician: BC PORRAS, DIRK ?? Indications: RT carotid bruit, unequal UE [...] Report VASCUBASE 09/07/2020 12:0 9 PM EDT Bc Porras APRN VASCULAR ORDERABLE S VASCUBASE * Venous Valvular Incomp, Bilat Legs (09/07/2020 12:09 PM EDT) VB Text Report Department: Vascular Surgery Lab Patient: [id number] (DESTINEE JAMIL) CPT: 68995 ICD10: I83.813;R22.42 Referring Physician: BC PORRAS APRN ?? Indications: Painful VV R>L, [...] Report VASCUBASE 09/07/2020 12:0 9 PM EDT Bc Porras APRN VASCULAR ORDERABLE S VASCUBASE * Duplex for DVT, Leg, Unilat (08/11/2020 10:39 AM EST) VB Text Report Department: Vascular Surgery Lab Patient: [id number] (DESTINEE JAMIL) CPT: 39375 ICD10: I83.813;R22.42 Referring Physician: BC PORRAS APRN ?? Indications: left medial calf mass with resolving erythema, tender lump, ? DVT, ? SVT, ? fluid collection ICD10 Diagnosis Code: I83.813, R22.42 Findings: LEFT: Patent common femoral vein and [...] small branch appearing to connect the two. Interpretation: LEFT: No evidence of lower extremity deep venous thrombosis. There is a hypoechoic structure within the proximal medial calf with minimal peripheral vascularity noted. Notification: Bc Porras APRN was informed of these preliminary findings. Comparison: No previous study in our vascular lab database for comparison. Electronically Signed by: JYOTI LIRA M.D. on 2020-08-11 12:48:12 PM VASCUBASE VB Text Report End of Report VASCUBASE 08/11/2020 10:3 9 AM EST Bc Porras APRN VASCULAR ORDERABLE S VASCUBASE documented in this encounter Visit Diagnoses Diagnosis Varicose veins of both lower extremities with pain Varicose veins of lower extremities with other complications Mass of left lower extremity documented in this encounter Care Teams Bench Assembler Relationship Specialty Start Date End Date Nieves Granados MD [address] [place] [address] PCP - General Family Medicine 08/11/20 02/01/22 documented as of this encounter
--- OUTSIDE RECORDS SUMMARY | 2024-05-15 02:29 | XMS_ITS | Encounter Summary ---
[place] [address] Care Team Providers Care Dry Finisher Name Role Phone Nieves Granados MD Primary Care Provider Encounter Details Date Type Department Care Team (Late st Contact Info) Description 09/14/2020 Orders Only [place] [address] Margarette Farias RN Symptomatic varicose veins of right lower extremity; Pre-operative examination Social History Tobacco Use Types Packs/Day Years Used Date Smoking Tobacco: Every Day Cigarettes Smokeless Tobacco: Never Sex and Gender Information Value Date Recorded Sex Assigned at Not on file Gender Identity Not on file Sexual Orientation Not on file documented as of this encounter Plan of Treatment Scheduled Orders Name Type Priority Associated Diagnoses Orde r Schedule SURGICAL CASE REQUEST: ENDOVENOUS ABLATION THERAPY OF INCOMPETENT VEIN, EXTREMITY, FIRST VEIN (WRVU 5.3), STAB PHLEBECTOMY MANJEET VEINS 1 EXTREMITY 10-20 INCISIONS (WRVU 7.71) Procedures Routine One Time f or 1 Occurrences starting 09/14/2020 until 09/14/2020 documented as of this encounter Visit Diagnoses Diagnosis Symptomatic varicose veins of right lower extremity Pre-operative examination Preoperative examination, unspecified documented in this encounter Care Teams Dry Finisher Relationship Specialty Start Date End Date Nieves Granados MD [address] [place], [place] [id number] PCP - General Family Medicine 08/11/20 02/01/22 documented as of this encounter
--- OUTSIDE RECORDS SUMMARY | 2024-05-15 02:29 | XMS_ITS | Encounter Summary ---
[place] [address] Care Team Providers Care Print Machine Operator Name Role Phone Nieves Granados MD Primary Care Provider [phone] Reason for Referral * Consultation (Urgent) - Closed Specialty Diagnoses / Procedures Referred By Raquel huggins Referred To Contact General Surgery Diagnoses Mass of left lower extremity Rachel Cha MD [facility] [place] [address] [facility] Gen Surgery [address] [place] [address] Referral ID Status Reason Start Date Expiration Date V isits Requested Visits Authorized [id number] Closed Consult, Test & Treat 09/07/2020 09/07/2021 1 1 Encounter Details Date Type Department Care Team (Latest Contact Info) Description 09/07/2020 3:30 PM EDT Office [place] [address] Rachel Cha MD [facility] [place] [place] [address] Mass of left lower extremity; Venous insufficiency of both lower extremities; Current every day smoker Social History Tobacco Use Types Packs/Day Years Used Date Smoking Tobacco: Every Day Cigarettes Smokeless Tobacco: Never Sex and Gender Information Value Date Recorded Sex Assigned at Not on file Gender Identity Not on file Sexual Orientation Not on file documented as of this encounter Last Filed Vital Signs Vital Sign Reading Time Taken Comments Blood Pressure 113/66 09/07/2020 3:11 PM EDT Pulse 73 09/07/2020 3:10 PM EDT Temperature - - Respiratory Rate - - Oxygen Saturation - - Inhaled Oxygen Concentration - - Weight 97.1 kg (214 lb) 09/07/2020 3:10 PM EDT r eported Height 165.1 cm (5' 5) 09/07/2020 3:10 PM EDT r eported Body Mass Index 35.61 09/07/2020 3:10 PM EDT documented in this encounter Progress Notes * Rachel Cha MD - 09/07/2020 3:30 PM EDT Images from the original note were not included. Section of Vascular Surgery [facility] [place] [address] OUTPATIENT VASCULAR SURGERY FOLLOW-UP SERVICE DATE: 09/07/2020 SERVICE TIME: 3:56 PM PRIMARY CARE PHYSICIAN: Nieves Granados MD REFERRING PROVIDER: Nieves Granados MD [address] [place] [address] [address] Consult requested for an opinion regarding the evaluation and treatment of the above. My final impression and recommendations will be communicated back to the requesting physician by way of the shared medical record or letter via US mail. Reason for Visit: varicose veins History of Present Illness: Sydnie Valenzuela is a 54 y.o. female here for evaluation of right lower extremity varicose veins. Patient states that she has pain in her right leg particularly along her right inner thigh wrapping around to her lateral leg. She describes this as a dull achy pain. There is nothing makes it better. She reports that sometimes is better in the morning, but not always.Denies any prior venous interventions. Denies any prior history of DVT or PE. She has worn compression stockings, with only mild relief. 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 She also notes on her left leg a small lesion on her medial calf that started out as a size of a pea. She reports that when she last saw Razia on 08/11 it was surrounded by redness and erythema. She ordered a duplex and plan for follow-up with me today. She was not treated with any antibiotics. Shereports that the erythema significantly resolved, however the lesion has grown in size. She reportsthat its red and raised and quite tender. She denies any fevers or chills. She denies feeling systemically ill. Her mother had a prior history of CVA secondary to severe carotid stenosis. Patient was very concerned about this as it occurred in her mother's 50s. She had a carotid duplex that was also ordered for today. Patient denies past history of TIA/stroke, history of numbness or weakness of upper of lower extremities, amaurosis fugax, or speech or word finding difficulties. Past Medical History: Diagnosis Date ??? Gastric ulcer Past Surgical History: Procedure Laterality Date ??? SECTION x3 ??? GALLBLADDER SURGERY Family History Problem Relation Age of Onset ??? Cerebrovascular Accident Mother Social History Tobacco Use ??? Smoking status: Current Every Day Smoker Packs/day: 0.50 Types: Cigarettes ??? Smokeless tobacco: Never Used Substance Use Topics ??? Alcohol use: Not on file ??? Drug use: Not on file No current outpatient medications on file. No current facility-administered medications for this visit. No Known Allergies COMPLETE REVIEW OF SYSTEMS All other reviewed and negative other than HPI. Physical Exam: PHYSICAL EXAM Physical Exam Performed BP 113/66 (BP Location (NBP): Left arm, Patient Position: Sitting, BP Cuff Sizes: Adult (25-34 cm)) Pulse 73 Ht 165.1 cm (5' 5) Comment: reported Wt 97.1 kg (214 lb) Comment: reported BMI 35.61 kg/m?? CONSTITUTIONAL: alert, well developed, well nourished, in no acute distress NEUROLOGIC/PSYCHIATRIC: Grossly normal HEENT: normal atraumatic, no neck masses, normal thyroid, no jvd. LUNGS: normal respirations HEART: regular rate and rhythm ABDOMEN: soft, non-tender; bowel sounds normal; no masses, no organomegaly INTEGUMENTARY: Wound - none SURGICAL SITES: none MUSCULOSKELETAL: RLE w/varicosities along lateral leg extending along calf. Reticular veins throughout. L medial calf w/3x2cm raised, tender lesion. No surrounding erythema Pulses/Signals: Brachial Radial Femoral Popliteal Dorsalis Pedis Posterior Tibial Right 2/2 2/2 2/2 2/2 2/2 2/2 Left 2/2 2/2 2/2 2/2 2/2 2/2 DATA: Radiology: 09/07/2020 venous insufficiency study Right ?Reflux?Diameter (mm) ??Depth (mm) ?? Common [...] in our vascular lab database for comparison. 09/07/2020 Carotid duplex ICA Proximal, Right ?PSV (cm/s): 65 ?EDV (cm/s): 35 ?ICA/CCA: 0.9 ?Plaque Structure: Echogenic ?Plaque Surface: Smooth ?%Stenosis: <15% ICA Distal, Right ?PSV (cm/s): 67 ?EDV (cm/s): 34 ?ICA/CCA: 0.9 CCA Distal, Right ?PSV (cm/s): 72 ?EDV (cm/s): 25 ?%Stenosis: Minimal CCA Proximal, Right ?PSV (cm/s): 80 ?EDV (cm/s): 27 External Carotid Artery, Right ?PSV (cm/s): 65 ?EDV (cm/s): 14 ?%Stenosis: <50% Vertebral, Right ?PSV (cm/s): 52 ?EDV (cm/s): 25 ?Direction of Flow: Antegrade ICA Proximal, Left ?PSV (cm/s): 68 ?EDV (cm/s): 34 ?ICA/CCA: 1.0 ?Plaque Structure: Echogenic ?Plaque Surface: Smooth ?%Stenosis: <15% ICA Distal, Left ?PSV (cm/s): 81 ?EDV (cm/s): 33 ?ICA/CCA: 1.2 CCA Distal, Left ?PSV (cm/s): 68 ?EDV (cm/s): 27 ?%Stenosis: Minimal CCA Proximal, Left ?PSV (cm/s): 95 ?EDV (cm/s): 34 External Carotid Artery, Left ?PSV (cm/s): 71 ?EDV (cm/s): 13 ?%Stenosis: <50% Vertebral, Left ?PSV (cm/s): 56 ?EDV (cm/s): 23 ?Direction of Flow: Antegrade ? Interpretation: ?? RIGHT: A thin layer of circumferential plaque is present in the common carotid artery causing minimal stenosis. There is smooth plaque in the proximal internal carotid artery causing <15% stenosis when compared to the more distal internal carotid artery. The bifurcation level is in the mid neck. ?? LEFT: A thin layer of circumferential plaque is present in the common carotid artery causing minimal stenosis. There is smooth plaque in the proximal internal carotid artery causing <15% stenosis when compared to the more distal internal carotid artery. The bifurcation level is in the mid neck. ? Vertebral Artery Data: Patent vertebral arteries with normal antegrade Doppler waveforms and velocities bilaterally. ?? I have personally reviewed the following images/data: duplex x 2 Impression: 54 y.o. female with right lower extremity symptomatic venous insufficiency with reflux of her GSV throughout the thigh associated with varicosities throughout her leg from her knee down through her calf. This is where her discomfort is. I discussed with her that she may benefit from right GSV ablation as well as stab phlebectomies of her varicose veins. She is interested in proceeding. She does also have GSV reflux focally in her left thigh, however her leg is asymptomatic. She does have a 3 x 2 cm heterogeneous, hyperechoic mass on her medial calf that based on history I suspect is an abscess. She has had this for about 1 month, and at that time had significant associated surrounding erythema when she saw one of our nurse practitioners at the time. That has since resolved, however the lesion has gotten bigger. Close review of the duplex notes that this is not involving the GSV, however but does lie close to it. She does not appear systemically ill, however I will refer herto general surgery for urgent evaluation and likely will need an I&D of this. Patient with concern for carotid stenosis based on family history. She does not have any history ofTIA or stroke and her carotid duplex is negative with less than 15% bilaterally. Plan: - referral to general surgery for evaluation of L medial calf mass, concerning for possible abscess, not involving any vascular structures - RLE GSV ablation and stab phlebectomies. Ok for APD. Pt does request that I perform procedure andis willing to wait - continue compression stockings - smoking cessation encouraged SIGNATURE: Rachel Cha MD PATIENT NAME: Sydnie Valenzuela DATE: September 07, 2020 TIME: 3:56 PM documented in this encounter Plan of Treatment Scheduled Referrals Name Type Priority Associated Diagnoses Orde r Schedule Referral to General Surgery Outpatient Referral Routine Mass of left lower extremity Ordered: 09/07/2020 documented as of this encounter Visit Diagnoses Diagnosis Mass of left lower extremity Venous insufficiency of both lower extremities Current every day smoker Tobacco use disorder documented in this encounter Care Teams Print Machine Operator Relationship Specialty Start Date End Date Nieves Granados MD [address] [place] [address] PCP - General Family Medicine 08/11/20 02/01/22 documented as of this encounter
--- OUTSIDE RECORDS SUMMARY | 2024-05-15 02:29 | XMS_ITS | Encounter Summary ---
[place] [address] Care Team Providers Care Call Center Support Representative Name Role Phone Nieves Granados MD Primary Care Provider [phone] Encounter Details Date Type Department Care Team (Late st Contact Info) Description 08/11/2020 Telephone [place] [id number] Janet Guerrero Social History Tobacco Use Types Packs/Day Years Used Date Smoking Tobacco: Every Day Sex and Gender Information Value Date Recorded Sex Assigned at Not on file Gender Identity Not on file Sexual Orientation Not on file documented as of this encounter Miscellaneous Notes * Telephone Encounter - Janet Guerrero - 08/11/2020 1:27 PM EST YELLOW SHEET: MD Will , B CAR DUP - B LE VV right >L symptomatic, right caroitd bruit unequal BP, 6-8 WK F/U LM X1 MK documented in this encounter Plan of Treatment Not on file documented as of this encounter Visit Diagnoses Not on filedocumented in this encounter Care Teams Call Center Support Representative Relationship Specialty Start Date End Date Nieves Granados MD [address] [place], [place] [id number] PCP - General Family Medicine 08/11/20 02/01/22 documented as of this encounter
--- OUTSIDE RECORDS SUMMARY | 2024-05-15 02:29 | XMS_ITS | Encounter Summary ---
[place] [address] Care Team Providers Care Rn Manager Name Role Phone Nieves Granados MD Primary Care Provider [phone] Encounter Details Date Type Department Care Team (Late st Contact Info) Description 08/11/2020 10:30 AM EST Tech [place] [address] Loreta Wang Varicose veins of both lower extremities with [...] Procedure Name Priority Date/Time Associated Diagnosis Comments DUPLEX FOR DVT, LEG, UNILAT Routine 08/11/2020 10:39 AM EST Varicose veins of both lower extremities with pain Mass of left lower extremity documented in this encounter Results * Duplex for DVT, Leg, Unilat (08/11/2020 10:39 AM EST) VB Text Report Department: Vascular Surgery Lab Patient: [id number] (DESTINEE JAMIL) CPT: 89886 ICD10: I83.813;R22.42 Referring Physician: BC PORRAS, COURSEWARE DEVELOPER ?? Indications: left medial calf mass with [...] extremity documented in this encounter Care Teams Rn Manager Relationship Specialty Start Date End Date Nieves Granados MD [address] [place] [address] PCP - General Family Medicine 08/11/20 02/01/22 documented as of this encounter
[2024-05-15 09:18] LABS: Abs Immature Grans 0.01 10^3/uL (0.0-0.06); Absolute Basophil Count 0.05 10^3/uL (0.0-0.2); Absolute Lymphocyte Count 2.32 10^3/uL (1.2-3.4); Absolute Monocyte Count 0.34 10^3/uL (0.1-0.8); Absolute Neutrophil Count 3.11 10^3/uL (1.2-6.7); Basophils % 0.8 %; Eosinophils % 1.7 %; HCT 40.3 % (36.0-46.0); HGB 13.1 g/dL (11.2-15.7); Immature Grans % 0.2 %; Lymphocytes % 39.1 %; MCHC 32.5 % (32.0-36.0); MCV 89 fL (80-95); MPV 8.9 fL (8.0-11.0); Monocytes % 5.7 %; Neutrophils % 52.5 %; Platelet Count 245 10^3/uL (130-400); RBC 4.51 10^6/uL (3.93-5.22); RDW 12.3 % (11.7-14.6); RDW-SD 40.6 fL; WBC 5.93 10^3/uL (4.4-10.8)
[2024-05-15 09:19] LABS: ESR 7 mm/hr (0-30)
[2024-05-15 10:10] LABS: Uric Acid 4.7 mg/dL (2.6-6.0)
[2024-05-15 17:41] LABS: Rheumatoid Factor 19.8 IU/mL (<12.0)
[2024-05-17 22:26] LABS: Anaplasma phagocytophilum Negative (Negative); B. miyamotoi PCR Negative (Negative); Babesia divergens/MO-1 Negative (Negative); Babesia duncani Negative (Negative); Babesia microti Negative (Negative); Ehrlichia chaffeensis Negative (Negative); Ehrlichia ewingii/canis Negative (Negative); Ehrlichia muris eauclairensis Negative (Negative)
[2024-05-18 09:42] LABS: Lyme Ab w Rflx to Lyme Confirm Negative (Negative)
[2024-05-18 13:52] LABS: ANA Interpretation Negative (Negative)
== END 2024-05-15 02:27 | disposition home or self-care (01) ==
LOC: LOS 02:26
PROVIDERS: PCP Family Medicine; Visit Provider Family Medicine
DX: M54.6 Pain in thoracic spine (principal); G89.29 Other chronic pain
CPT/HCPCS: 36415; 85652; 87798; 84550; 85025; 86038; 86431; 86618

== ENCOUNTER 2024-05-28 13:05 | Outpatient (CLI) | payer MEDICAID, SELFPAY ==
--- OUTSIDE RECORDS SUMMARY | 2024-05-28 13:07 | XMS_ITS | Encounter Summary ---
Author Organization [facility] Address [address] [place] [address] Care Team Providers Care Glycerine Plant Operator Name Role Phone Unavailable Primary Care Provider Unavailabl e Encounter Details Date Type Department Care Team (Latest Contact Info) Description 10/23/2005 11:19 EDT - 10/23/2005 11:59 EDT Hospital Encounter [facility] Radiology - Main [place] [address] [place] [address] Raj Wilson MD [address] [place] [id number] Discharge Disposition: Home or Self Care Social [...]
--- OUTSIDE RECORDS SUMMARY | 2024-05-28 13:07 | XMS_ITS | Encounter Summary ---
Author Organization [facility] Address [address] [place] [address] Care Team Providers Care Industrial Roofer Helper Name Role Phone Venu Álvarez MD Primary Care Provider [phone] Encounter Details Date Type Department Care Team (Late st Contact Info) Description 08/04/[address] [facility] Pathology & Laboratory Medicine - [address] [address] Nieves Granados MD [address] [place] [id number] Encounter for other general examination Social History [...] types, PCR Negative Negative 08/12/2019 14:57 EST [facility] Comment:No E6 or E7 mRNA is detected from HPV types 16,18,31,33,35,39,45,51,52,56,58,59,66, and 68 by forensics team director mediated amplification. Papanicolaou smear specimen (specimen) CERVIX UTERI STRUCTURE / Unknown 08/03/2019 12:00 EST 08/11/2019 15:33 EST Nieves Granados MD MICROBIOLOGY - GENERAL ORDDaron QUESADA Final Result [facility] [address] [place] [address] * PAP TEST (08/03/2019 12:00 EST) Specimens A. Cervix and/or Endocervix, , ThinPrep Imaging System with Manual Evaluation 08/12/2019 14:57 [facility] Specimen Adequacy Satisfactory for Evaluation - transformation zone component present 08/12/2019 14:57 [facility] General Categorization Negative for intraepithelial lesion or malignancy 08/12/2019 14:57 [facility] Attestation By the signature below, the attending physician certifies that they have personally conducted a gross and/or microscopic examination of the described specimens and rendered or confirmed the above diagnosis. 08/12/2019 14:57 [facility] at 1457 Clinical History NONE 08/12/19 20 14:57 [facility] HPV The result for the Human Papillomavirus (HPV) Detection-High Risk Types is Negative. No E6 or E7 mRNA is detected from HPV types 16,18,31,33,35,39 ,45,51,52,56,58,5 9,66, and 68 by forensics team director mediated amplification.Sofy ting was performed on specimen [id number] and was resulted on 08/12/2019 1324 EST by DARREN, LAB INSTRUMENT RESULTS IN 08/12/2019 14:57 [facility] Scanned Images 08/12/2019 14:57 [facility] Papanicolaou smear specimen (specimen) CERVIX UTERI STRUCTURE / Unknown 08/03/2019 12:00 EST 08/04/2019 8:58 EST us Nieves Granados MD PATHOLOGY ORDERABLES Final Result [facility] [address] [place] [address] documented in this encounter Visit Diagnoses Diagnosis Encounter for other general examination documented in this encounter Care Teams Industrial Roofer Helper Relationship Specialty Start Date End Date Venu Álvarez MD [address] [place] [id number] PCP - General 01/21/13 documented as of this encounter
--- OUTSIDE RECORDS SUMMARY | 2024-05-28 13:07 | XMS_ITS | Encounter Summary ---
Author Organization [facility] Address [address] [place] [address] Care Team Providers Care Front Office Director Name Role Phone Veun Álvarez MD Primary Care Provider [phone] Encounter Details Date Type Department Care Team (Late st Contact Info) Description 10/27/2018 Results Only [facility] [phone] Bennie Vazquez MD [facility] [place] [address] Social History Tobacco Use Types [...] ? DESTINEE JAMIL ? Accession #: ? [id number] ? : ? 1965 (Age: 53) ??F [...] (ASCP) 10/27/2018 5:[address] [facility] 10/27/2018 16:3 7 EDT 10/27/2018 16:37 EDT us Bennie Vazquez MD PATHOLOGY ORDERABLES Fin al Result [facility] [address] [place] [address] documented in this encounter Visit Diagnoses Not on filedocumented in this encounter Care Teams Front Office Director Relationship Specialty Start Date End Date Venu Álvarez MD [address] [place] [phone] PCP - General 01/21/13 documented as of this encounter
--- OUTSIDE RECORDS SUMMARY | 2024-05-28 13:07 | XMS_ITS | Encounter Summary ---
Author Organization [facility] Address [address] [place] [address] Care Team Providers Care Vp Client Services Name Role Phone Unavailable Primary Care Provider Unavailabl e Encounter Details Date Type Department Care Team (Late st Contact Info) Description 11/25/2008 Orders Only [facility] - [facility] ([facility]) [address] [place], [place] [address] Higinio Thompson MD [facility] [address] [place], [place] [id number] Social History Tobacco Use Types Packs/Day Years [...] OMERO, DESTINEE J ? Accession #: ? [id number] ? : ? 1965 (Age: 43) ??F [...] Final Resul t [facility] [address] [place] [address] documented in this encounter Visit Diagnoses Not on filedocumented in this encounter
--- OUTSIDE RECORDS SUMMARY | 2024-05-28 13:07 | XMS_ITS | Encounter Summary ---
Author Organization [facility] Address [address] [place] [address] Care Team Providers Care Financial Operations Consultant Name Role Phone Unavailable Primary Care Provider Unavailabl e Encounter Details Date Type Department Care Team (Latest Contact Info) Description 10/25/2005 6:34 EDT - 10/25/2005 11:59 EDT Hospital Encounter [facility] [address] [place] [address] Raj Wilson MD [address] [place] [address] Discharge Disposition: Auto Discharge Social History Tobacco [...] fact that a nephrostomy tube is present. /counts include [facility] beds at the [facility] Procedure Note Isatu Vyas MD - [...]
--- OUTSIDE RECORDS SUMMARY | 2024-05-28 13:07 | XMS_ITS | Encounter Summary ---
Author Organization [facility] Address [address] [place] [address] Care Team Providers Care Stone Trimmer Name Role Phone Venu Álvarez MD Primary Care Provider [phone] Encounter Details Date Type Department Care Team (Late st Contact Info) Description 05/15/2024 Lab Requisition [facility] Pathology & Laboratory Medicine - [address] [address] Outr Resulting Lab, Provider Social History Tobacco [...] Procedure Name Priority Date/Time Associated Diagnosis Comments HOLD SST Today 05/15/2024 9:10 EST LYME AB Today 05/15/2024 9:10 EST RHEUMATOID FACTOR Today 05/15/2024 9:1 0 EST ANTI NUCLEAR AB (FLAQUITO), IFA Today 05/15/2024 9:10 EST documented in this encounter Results * HOLD SST (05/15/2024 9:10 EST) Hold Hold 05/15/2024 18:01 EST [facility] Blood VENOUS BLOOD / Unknown 05/15/2024 9:10 EST 05/15/2024 16:54 EST us Provider Outr Resulting Lab LAB INFO SERVICE AND SUPPORT & PHONE RESULT Final Result Performing Organization Address [facility]/ZIP Co de Phone Number [facility] [address] [place] [address] * LYME AB (05/15/2024 9:10 EST) Pathologist [facility] Lyme Ab Negative Negative 05/18/2024 9:37 EST [facility] Blood VENOUS BLOOD / Unknown 05/15/2024 9:10 EST 05/15/2024 16:54 EST us Provider Outr Resulting Lab IMMUNOLOGY AND SEROL OGY ORDERABLES Final Result Performing Organization Address [facility] Co de Phone Number [facility] [address] [place] [address] * (ABNORMAL) RHEUMATOID FACTOR (05/15/2024 9:10 EST) [facility] Rheumatoid Factor 19.8(H) <12.0 IU/mL 05/15/2024 17:35 EST [facility] Blood VENOUS BLOOD / Unknown 05/15/2024 9:10 EST 05/15/2024 16:54 EST us Provider Outr Resulting Lab CHEMISTRY & BLOOD GA S ORDERABLES Final Result Performing Organization Address [facility]/ZIP Co de Phone Number [facility] [address] [place] [address] * ANTI NUCLEAR AB (FLAQUITO), IFA (05/15/2024 9:10 EST) [facility] FLAQUITO Interpretation Negative Negative 2023 13:48 EST [facility] Comment:No titer performed, FLAQUITO Screen is negative. Blood VENOUS BLOOD / Unknown 05/15/2024 9:10 EST 05/15/2024 16:54 EST Narrative [facility] - 05/18/2024 13:48 EST Results were obtained with the CortiliaA Lite HEp-2 FLAQUITO Kit by indirect immunofluorescence. us Provider Outr Resulting Lab IMMUNOLOGY AND SEROL OGY ORDERABLES Final Result Performing Organization Address City/State/[facility] Co de Phone Number [facility] [address] [place] [address] documented in this encounter Visit Diagnoses Not on filedocumented in this encounter Care Teams Stone Trimmer Relationship Specialty Start Date End Date Venu Álvarez MD [address] [place] [phone] PCP - General 01/21/13 documented as of this encounter
--- OUTSIDE RECORDS SUMMARY | 2024-05-28 13:07 | XMS_ITS | Clinical Summary ---
Author Organization [facility] Address [address] [place] [address] Care Team Providers Care Dietary Tech Name Role Phone Venu Álvarez MD Primary Care Provider [phone] Encounters Date Type Department Care Team Description 05/15/2024 Lab Requisition [facility] Pathology & Laboratory Medicine - [address] [address] Outr Resulting Lab, Provider from Last 3 Months Social History Tobacco Use Types Packs/Day Years [...] series) 09/15 COVID-19 Vaccine ( season) 2024 Procedures Procedure Name Priority Date/Time Associated Diagnosis Comments HOLD SST Today 05/15/2024 9:10 EST LYME AB Today 05/15/2024 9:10 EST RHEUMATOID FACTOR Today 05/15/2024 9:1 0 EST ANTI NUCLEAR AB (FLAQUITO), IFA Today 05/15/2024 9:10 EST from Last 3 Months Results * HOLD SST (05/15/2024 9:10 EST) [facility] Hold Hold 05/15/2024 18:01 EST [facility] Blood VENOUS BLOOD / Unknown 05/15/2024 9:10 EST 05/15/2024 16:54 EST us Provider Outr Resulting Lab LAB INFO SERVICE AND SUPPORT & PHONE RESULT Final Result Performing Organization Address City/[facility]/ZIP Co de Phone Number [facility] [address] [place] [address] * LYME AB (05/15/2024 9:10 EST) [facility] Lyme Ab Negative Negative 05/18/2024 9:37 EST [facility] Blood VENOUS BLOOD / Unknown 05/15/2024 9:10 EST 05/15/2024 16:54 EST us Provider Outr Resulting Lab IMMUNOLOGY AND SEROL OGY ORDERABLES Final Result Performing Organization Address [facility]/ZIP Co de Phone Number [facility] [address] [place] [address] * (ABNORMAL) RHEUMATOID FACTOR (05/15/2024 9:10 EST) [facility] Rheumatoid Factor 19.8(H) <12.0 IU/mL 05/15/2024 17:35 EST [facility] Blood VENOUS BLOOD / Unknown 05/15/2024 9:10 EST 05/15/2024 16:54 EST us Provider Outr Resulting Lab CHEMISTRY & BLOOD GA S ORDERABLES Final Result Performing Organization Address [facility]/ZIP Co de Phone Number [facility] [address] [place] [address] * ANTI NUCLEAR AB (FLAQUITO), IFA (05/15/2024 9:10 EST) [facility] FLAQUITO Interpretation Negative Negative 2023 13:48 EST [facility] Comment:No titer performed, FLAQUITO Screen is negative. Blood VENOUS BLOOD / Unknown 05/15/2024 9:10 EST 05/15/2024 16:54 EST Narrative [facility] - 05/18/2024 13:48 EST Results were obtained with the VantageILM NOVA Lite HEp-2 FLAQUITO Kit by indirect immunofluorescence. us Provider Outr Resulting Lab IMMUNOLOGY AND SEROL OGY ORDERABLES Final Result [facility] [address] [place], [place] [address] from Last 3 Months Insurance [place] Care Teams Dietary Tech Relationship Specialty Start Date End Date Venu Álvarez MD [address] [place] [address] [address] [place] [address] PCP - General 01/21/13
--- OUTSIDE RECORDS SUMMARY | 2024-05-28 13:07 | XMS_ITS | Encounter Summary ---
Author Organization [facility] Address [address] [place] [address] Care Team Providers Care Inside Horticultural Specialty Grower Name Role Phone Venu Álvarez MD Primary Care Provider [phone] Encounter Details Date Type Department Care Team (Late st Contact Info) Description 10/23/2022 Lab Requisition [facility] Pathology & Laboratory Medicine - [address] [address] Paty Centeno MD [address] [place] [phone] Encounter for other general examination Social History [...] types, PCR Negative Negative 10/30/2022 18:37 EDT [facility] Comment:No E6 or E7 mRNA is detected from HPV types 16,18,31,33,35,39,45,51,52,56,58,59,66, and 68 by claims investigator mediated amplification. Papanicolaou smear specimen (specimen) CERVIX UTERI STRUCTURE / Unknown 10/19/2022 16:00 EDT 10/30/2022 10:28 EDT us Paty Centeno MD MICROBIOLOGY - GENERAL ORDERABLES Final Result [facility] [address] [place] [address] * PAP TEST (10/19/2022 16:00 EDT) Specimens A. Cervix and/or Endocervix , ThinPrep Imaging System with Manual Evaluation 10/30/2022 18:37 [facility] Specimen Adequacy Satisfactory for Evaluation - transformation zone component present 10/30/2022 18:37 [facility] General Categorization Epithelial Cell Abnormality 10/30/2022 18:37 [facility] Descriptive Diagnosis Squamous Cell Abnormality - Atypical squamous cells, undetermined significance (ASC-US). 10/30/2022 18:37 [facility] Educational Comments [facility] recommends following the ASCCP's management guidelines which may be found at www.asccp.org 10/30/2022 18:37 [facility] Attestation By the signature below, the attending physician certifies that they have personally conducted a gross and/or microscopic examination of the described specimens and rendered or confirmed the above diagnosis. 10/30/2022 18:37 [facility] at 1837 Clinical History See below 10/31/19 18:37 [facility] HPV The result for the Human Papillomavirus (HPV) Detection-High Risk Types is Negative. No E6 or E7 mRNA is detected from HPV types 16,18,31,33,35,3 9,45,51,52,56,58 ,59,66, and 68 by claims investigator mediated amplification.Te sting was performed on specimen [id number] and was resulted on 10/30/2022 1837 EDT by DARREN, LAB INSTRUMENT RESULTS IN 10/30/2022 18:37 EDT [facility] Performing Lab [facility] 10/30/2022 18:37 EDT [facility] Scanned Images 10/30/2022 18:37 EDT [facility] Papanicolaou smear specimen (specimen) CERVIX UTERI STRUCTURE / Unknown 10/19/2022 16:00 EDT 10/23/2022 10:57 EDT us Paty Centeno MD PATHOLOGY ORDERABLES Fi nal Result [facility] [address] [place] [address] documented in this encounter Visit Diagnoses Diagnosis Encounter for other general examination documented in this encounter Care Teams Inside Horticultural Specialty Grower Relationship Specialty Start Date End Date Venu Álvarez MD [address] [place] [id number] PCP - General 01/21/13 documented as of this encounter
--- OUTSIDE RECORDS SUMMARY | 2024-05-28 13:07 | XMS_ITS | Encounter Summary ---
Author Organization [facility] Address [address] [place] [address] Care Team Providers Care Furnace Operator And Tender Name Role Phone Venu Álvarez MD Primary Care Provider [phone] Encounter Details Date Type Department Care Team (Late st Contact Info) Description 2021 Lab Requisition [facility] Pathology & Laboratory Medicine - [address] [address] Outr Resulting Lab, Provider Social History Tobacco [...] gonorrhoeae Result Negative Negative 09/18/2021 14:41 EDT [facility] Chlamydia trachomatis Result Negative Negative 09/18/2021 14:41 EDT [facility] Papanicolaou smear specimen (specimen) CERVIX UTERI STRUCTURE / Unknown 2021 8:50 EDT 09/18/2021 8:13 EDT us Provider Outr Resulting Lab MICROBIOLOGY - GENER AL ORDERABLES Final Result [facility] [address] [place] [address] documented in this encounter Visit Diagnoses Not on filedocumented in this encounter Care Teams Furnace Operator And Tender Relationship Specialty Start Date End Date Venu Álvarez MD [address] [place] [id number] PCP - General 01/21/13 documented as of this encounter
--- OUTSIDE RECORDS SUMMARY | 2024-05-28 13:07 | XMS_ITS | Encounter Summary ---
Author Organization [facility] Address [address] [place] [address] Care Team Providers Care Fiber Optics Technician Name Role Phone Venu Álvarez MD Primary Care Provider [phone] Encounter Details Date Type Department Care Team (Late st Contact Info) Description 01/25/2022 Lab Requisition [facility] Pathology & Laboratory Medicine - [address] [address] Outr Resulting Lab, Provider Social History Tobacco [...] H. Pylori Negative Negative 01/29/2022 16:18 EDT [facility] Feces SPECIMEN FROM RECTUM / Unknown 01/24/2022 16:45 EDT 01/25/2022 17:57 EDT Narrative [facility] - 01/29/2022 16:18 EDT Results were obtained with the VoluBill [place] HpSA Plus LIZA. us Provider Outr Resulting Lab MICROBIOLOGY - GENER AL ORDERABLES Final Result [facility] [address] [place] [address] documented in this encounter Visit Diagnoses Not on filedocumented in this encounter Care Teams Fiber Optics Technician Relationship Specialty Start Date End Date Venu Álvarez MD [address] [place] [phone] PCP - General 01/21/13 documented as of this encounter
--- OUTSIDE RECORDS SUMMARY | 2024-05-28 13:07 | XMS_ITS | Encounter Summary ---
Author Organization [facility] Address [address] [place] [address] Care Team Providers Care Control Valve Mechanic Name Role Phone Venu Álvarez MD Primary Care Provider [phone] Encounter Details Date Type Department Care Team (Late st Contact Info) Description 08/31/2020 Lab Requisition [facility] Pathology & Laboratory Medicine - [address] [address] Outr Resulting Lab, Provider Social History Tobacco [...] AL ORDERABLES Final Result Performing Organization Address City/[facility]/ZIP Co de Phone Number [facility] [address] [place] [address] * COVID-19 TESTING (08/31/2020 8:50 EDT) COVID-19 rt-PCR Result Negative Negative 09/01/2020 16:08 EDT [facility] Comment: This test has not [...] developed and its performance characteristics determined by [facility]. It has not been cleared or approved [...] testing. This test is based on the [facility] COVID-19 Emergency Use Authorization (EUA) assay, with minor modification as defined by the FDA Performed on the Zipit Wirelesso 7 Flex RT-PCR System. Performing Lab [facility] 09/01/2020 16:08 EDT [facility] Swab 08/31/2020 8:50 EDT 08/31/2020 20:28 EDT us Provider Outr Resulting Lab MICROBIOLOGY - GENER AL ORDERABLES Final Result [facility] [address] [place] [address] documented in this encounter Visit Diagnoses Not on filedocumented in this encounter Care Teams Control Valve Mechanic Relationship Specialty Start Date End Date Venu Álvarez MD [address] [place] [id number] PCP - General 01/21/13 documented as of this encounter
--- OUTSIDE RECORDS SUMMARY | 2024-05-28 13:07 | XMS_ITS | Encounter Summary ---
Author Organization [facility] Address [address] [place] [address] Care Team Providers Care Mobile Qa Tester Name Role Phone Unavailable Primary Care Provider Unavailabl e Encounter Details Date Type Department Care Team (Latest Contact Info) Description 11/01/2005 6:19 EDT - 11/01/2005 11:59 EDT Hospital Encounter [facility] Perioperative Services- [address] [address] Raj Wilson MD [address] [place] [address] Discharge Disposition: Home or Self Care Social [...] PROCEDURE REPORT PT TYPE: OPPROC PT LOC: [id number] SERVICE DATE: 11/01/2005 SURGEON: Jeff Lee MDThomas L Jackson, MD OYSTER GRADER: PREOPERATIVE DIAGNOSIS: Left urolithiasis. POSTOPERATIVE DIAGNOSIS: Left urolithiasis. PROCEDURE: Cystoscopy, left retrograde ureteroscopy (rigid and flexible), left pyeloscopy with stone basketing and retrieval, left ureteral stent placement. ANESTHESIA: General endotracheal tube. INDICATIONS: The patient is a [id number] with a recent episode of obstructive urosepsis [...] received 1 g of Kefzol intravenously. The 21-Italian cystoscope with the 30-degree lens was passed [...] reinserted, the ureteral catheter removed, and a 6-Italian double-J stent with pullout string attached to [...] week for stent removal. COMPLICATIONS: None. DRAINS: 6-Italian double-J left ureteral stent with pullout string. Signed by Raj Wilson MD 11/14/2005 08:17 AThgricelda Wilson MDThgricelda Wilson MD Raj Wilson MD - Raj Wilson MD A - ss Job ID: [id number] Document ID: [id number] cc: MD Raj Lynn MD documented in [...] oxalate dihydrate ? Test Performed by: ? [facility] Dpt of Lab Med and Pathology ? [address] [id number] ? Studio Assistant: Lakeshia Alba M.D. ? [facility] 11/01/2005 9:40 EDT 11/01/2005 11:45 EDT Raj Wilson MD GEN LAB UNIT COLLECT ORDERAB LES Final Result [facility] [address] [place] [address] documented in this encounter Visit Diagnoses Not on filedocumented in this encounter
--- OUTSIDE RECORDS SUMMARY | 2024-05-28 13:07 | XMS_ITS | Encounter Summary ---
Author Organization [facility] Address [address] [place] [address] Care Team Providers Care Retail Marketing Manager Name Role Phone Unavailable Primary Care Provider Unavailabl e Encounter Details Date Type Department Care Team (Late st Contact Info) Description 03/13/2006 Results Only [facility] [address] [place] [address] Jack Valle MD [address] [place] [address] Social History Tobacco Use Types [...] ? DESTINEE JAMIL ? Accession #: ? [id number] : ? 1965 (Age: 40) ??F ?Collect Date: ? 03/13/2006 Location: ? [facility] ? Receive Date: ? 03/15/2006 Provider: ?JACK VALLE MD Copy to: ? Specimen/Source: ?ThinPrep Pap Test, Cervix/Endocervix, processed on [employer] ThinPrep Imaging System, with manual evaluation Last [...] Final Resul t [facility] [address] [place] [address] documented in this encounter Visit Diagnoses Not on filedocumented in this encounter
--- OUTSIDE RECORDS SUMMARY | 2024-05-28 13:07 | XMS_ITS | Encounter Summary ---
Author Organization [facility] Address [address] [place] [address] Care Team Providers Care Roving Teller Name Role Phone Venu Álvarez MD Primary Care Provider [phone] Encounter Details Date Type Department Care Team (Latest Contact Info) Description 10/27/2018 13:44 EDT - 10/27/2018 23:59 EDT Hospital Encounter [address] [address] Unknown, Provider, MD Discharge Disposition: Home or [...] Code Departure Means Destination Home or Self Alf documented in this encounter Plan of Treatment Not on file documented as of this encounter Visit Diagnoses Not on filedocumented in this encounter Care Teams Roving Teller Relationship Specialty Start Date End Date Venu Álvarez MD [address] [facility] [address] [place] [address] PCP - General 01/21/13 documented as of this encounter
--- OUTSIDE RECORDS SUMMARY | 2024-05-28 13:07 | XMS_ITS | Encounter Summary ---
Author Organization [facility] Address [address] [place] [address] Care Team Providers Care Dictating Machine Transcriber Name Role Phone Unavailable Primary Care Provider Unavailabl e Encounter Details Date Type Department Care Team (Latest Contact Info) Description 11/06/2005 10:01 EDT - 11/06/2005 11:59 EDT Hospital Encounter [facility] [address] [place] [address] Raj Wilson MD [address] [place] [address] Discharge Disposition: Auto Discharge Social History Tobacco [...]
--- OUTSIDE RECORDS SUMMARY | 2024-05-28 13:07 | XMS_ITS | Referral Summary ---
Author Organization [facility] Address [address] [place] [address] Care Team Providers Care Special Warfare Boat Operator Name Role Phone Venu Álvarez MD Primary Care Provider [phone] Encounters Date Type Department Care Team Description 05/15/2024 Lab Requisition [facility] Pathology & Laboratory Medicine - [facility] [address] [place] [address] Outr Resulting Lab, Provider from Last 3 [...] file Plan of Treatment Not on file Procedures Procedure Name Priority Date/Time Associated Diagnosis Comments HOLD SST Today 05/15/2024 9:10 EST LYME AB Today 05/15/2024 9:10 EST RHEUMATOID FACTOR Today 05/15/2024 9:1 0 EST ANTI NUCLEAR AB (FLAQUITO), IFA Today 05/15/2024 9:10 EST from Last 3 Months Results * HOLD SST (05/15/2024 9:10 EST) Hold Hold 05/15/2024 18:01 EST [facility] Blood VENOUS BLOOD / Unknown 05/15/2024 9:10 EST 05/15/2024 16:54 EST us Provider Outr Resulting Lab LAB INFO SERVICE AND SUPPORT & PHONE RESULT Final Result Performing Organization Address [facility] Co de Phone Number [facility] [address] [place] [address] * LYME AB (05/15/2024 9:10 EST) [facility] Lyme Ab Negative Negative 05/18/2024 9:37 EST [facility] Blood VENOUS BLOOD / Unknown 05/15/2024 9:10 EST 05/15/2024 16:54 EST us Provider Outr Resulting Lab IMMUNOLOGY AND SEROL OGY ORDERABLES Final Result Performing Organization Address [facility] Phone Number [facility] [address] [place] [address] * (ABNORMAL) RHEUMATOID FACTOR (05/15/2024 9:10 EST) [facility] Rheumatoid Factor 19.8(H) <12.0 IU/mL 05/15/2024 17:35 EST [facility] Blood VENOUS BLOOD / Unknown 05/15/2024 9:10 EST 05/15/2024 16:54 EST us Provider Outr Resulting Lab CHEMISTRY & BLOOD GA S ORDERABLES Final Result Performing Organization Address [facility] Co de Phone Number [facility] [address] [place] [address] * ANTI NUCLEAR AB (FLAQUITO), IFA (05/15/2024 9:10 EST) [facility] FLAUQITO Interpretation Negative Negative 2023 13:48 EST [facility] Comment:No titer performed, FLAQUITO Screen is negative. Blood VENOUS BLOOD / Unknown 05/15/2024 9:10 EST 05/15/2024 16:54 EST Narrative [facility] - 05/18/2024 13:48 EST Results were obtained with the Yapert NOVA Lite HEp-2 FLAQUITO Kit by indirect immunofluorescence. us Provider Outr Resulting Lab IMMUNOLOGY AND SEROL OGY ORDERABLES Final Result [facility] [address] [place], [place] [id number] from Last 3 Months Insurance [place] Care Teams Special Warfare Boat Operator Relationship Specialty Start Date End Date Venu Álvarez MD [address] [place] [address] [address] [place] [address] PCP - General 01/21/13
--- OUTSIDE RECORDS SUMMARY | 2024-05-28 13:07 | XMS_ITS | Encounter Summary ---
Author Organization [facility] Address [address] [place] [address] Care Team Providers Care Industry Operations Investigator Name Role Phone Venu Álvarez MD Primary Care Provider [phone] Encounter Details Date Type Department Care Team (Late st Contact Info) Description 04/04/2022 Lab Requisition [facility] Pathology & Laboratory Medicine - [address] [address] Outr Resulting Lab, Provider Social History Tobacco [...] Note mIU/mL 04/04/2022 23:05 EDT [facility] Blood VENOUS BLOOD / Unknown 04/04/2022 8:40 EDT 04/04/2022 22:17 EDT Narrative [facility] - 04/04/2022 23:05 EDT NOTE: [...] S ORDERABLES Final Result Performing Organization Address City/State/[facility] Co de Phone Number [facility] [address] [place] [address] documented in this encounter Visit Diagnoses Not on filedocumented in this encounter Care Teams Industry Operations Investigator Relationship Specialty Start Date End Date Venu Álvarez MD [address] [place] [address] PCP - General 01/21/13 documented as of this encounter
--- OUTSIDE RECORDS SUMMARY | 2024-05-28 13:07 | XMS_ITS | Encounter Summary ---
Author Organization [facility] Address [address] [place] [address] Care Team Providers Care Adult School Counselor Name Role Phone Unavailable Primary Care Provider Unavailabl e Encounter Details Date Type Department Care Team (Latest Contact Info) Description 12/10/2005 11:05 EDT - 12/10/2005 11:59 EDT Hospital Encounter [address] [address] Raj Wilson MD [address] [place] [address] Discharge Disposition: Auto Discharge Social History Tobacco [...]
--- OUTSIDE RECORDS SUMMARY | 2024-05-28 13:07 | XMS_ITS | Encounter Summary ---
Author Organization [facility] Address [address] [place] [address] Care Team Providers Care Workers' Compensation Claims Supervisor Name Role Phone Venu Álvarez MD Primary Care Provider [phone] Encounter Details Date Type Department Care Team (Late st Contact Info) Description 11/20/2021 Lab Requisition [facility] Pathology & Laboratory Medicine - [facility] [address] [place] [address] Elvia Zuniga MD [address] [place] [address] [address] [place], [place] [address] Encounter for other general examination Social History [...] explore management options, if applicable. 11/23/2021 10:23 [facility] Final Diagnosis A. STOMACH, ANTRUM, BIOPSY: - Helicobacter pylori gastritis - Organisms identified on H and E stain B. GASTROESOPHAGEAL JUNCTION, BIOPSY: - Helicobacter pylori gastritis - Organisms identified on H and E stain 11/23/2021 10:23 [facility] Attestation There was significant resident/fellow involvement in the diagnostic evaluation of this case. By the signature below, the attending physician certifies that they have personally conducted a gross and/or microscopic examination of the described specimens and rendered or confirmed the above diagnosis. 11/23/2021 10:23 [facility] at 1023 Clinical History Melena 11/23/2021 10:23 [facility] Gross Description A. Received [...] specimen is entirely submitted in B1. JEFFERSON PATEL([facility] 11/21/2021 14:06 11/23/2021 10:23 [facility] Resident/Sharath w: Gayla Laguna MD 11/23/2021 10:23 [facility] Performing Lab [facility] 10:23 [facility] Scanned Images 11/23/2021 10:23 [facility] Tissue ENTIRE ESOPHAGUS / Unknown 11/20/2021 13:30 EDT 11/20/2021 22:24 EDT Tissue specimen (specimen) ESOPHAGEAL STRUCTURE / Unknown 11/20/2021 13:30 EDT 11/20/2021 22:24 EDT Elvia Zuniga MD PATHOLOGY ORDERABLES Fin al Result [facility] [address] [place] [address] documented in this encounter Visit Diagnoses Diagnosis Encounter for other general examination documented in this encounter Care Teams Workers' Compensation Claims Supervisor Relationship Specialty Start Date End Date Venu Álvarez MD [address] [place] [phone] PCP - General 01/21/13 documented as of this encounter
--- OUTSIDE RECORDS SUMMARY | 2024-05-28 13:07 | XMS_ITS | Encounter Summary ---
Author Organization [facility] Address [address] [place] [address] Care Team Providers Care Commercial Carpet Installer Name Role Phone Unavailable Primary Care Provider Unavailabl e Encounter Details Date Type Department Care Team (Late st Contact Info) Description 01/13/2013 Results Only [facility] [phone] Dalila Osullivan, DO [address] [place] [address] Social History Tobacco Use Types [...] ? DESTINEE JAMIL ? Accession #: ? [id number] ? : ? 1965 (Age: 47) ??F [...] cm in diameter). ? The serosa is arreola-green and smooth. The mucosa is dark green, velvety and focally denuded and the wall ranges from 0.1-0.3 cm in thickness. The cystic duct lumen is patent. The cystic duct margin is inked blue. A single 1.8 cm in greatest dimension green-yellow, granular cholelith is present. ? Two senior outside sales representative sections and the inked en face cystic duct margin are submitted in cassette 1. Jessica Johnston 01/14/2013 01:35 PM End of Report [facility] 01/13/2013 8:24 EDT 01/14/2013 8:24 EDT us Dalila Osullivan DO PATHOLOGY ORDERABLES Final Res ult [facility] [address] [place] [address] documented in this encounter Visit Diagnoses Not on filedocumented in this encounter
--- OUTSIDE RECORDS SUMMARY | 2024-05-28 13:07 | XMS_ITS | Encounter Summary ---
Author Organization [facility] Address [address] [place] [address] Care Team Providers Care Doll Eye Setter Name Role Phone Unavailable Primary Care Provider Unavailabl e Encounter Details Date Type Department Care Team (Late st Contact Info) Description 10/23/2005 Before PRISM Converted Visit (Maple) [facility] - Maple conversion [address] [place] [address] Raj Wilson MD [address] [place] [address] Social History Tobacco Use Types Packs/Day Years [...] 10/25/2005 Jeremias Marlow MD [address] [place] [address] Marlow: I saw Sydnie Valenzuela [...] MD - Raj Wilson MD A - [facility] Job ID: Document ID: [id number] cc: Jeremias Marlow MD * Raj Wilson - 06/10/2009 0722 EST DIVISION OF UROLOGY PROGRESS/FOLLOWUP NOTE - 10/23/2005 Jeremias Marlow MD [address] [place] [address] Marlow: I saw Sydnie Valenzuela [...] MD - Raj Wilson MD P - [facility] Job ID: Document ID: [id number] cc: Jeremias Marlow MD * Raj Wilson - 06/10/2009 0120 EST DIVISION OF UROLOGY PROGRESS/FOLLOWUP NOTE - 11/06/2005 Jerem[place] [address] Marlow: I saw Sydnie Valenzuela [...] MD - Raj Wilson MD P - [facility] Job ID: Document ID: [id number] cc: Jeremias Marlow MD documented in this encounter Plan of Treatment Not on file documented as of this encounter Visit Diagnoses Not on filedocumented in this encounter
--- OUTSIDE RECORDS SUMMARY | 2024-05-28 13:07 | XMS_ITS | Encounter Summary ---
Author Organization [facility] Address [address] [place] [address] Care Team Providers Care Supplier Quality Engineer Name Role Phone Venu Álvarez MD Primary Care Provider [phone] Encounter Details Date Type Department Care Team (Late st Contact Info) Description 10/12/2013 Results Only [facility] [phone] Remi Ponce MD [address] [place] [address] Social History Tobacco Use Types Packs/Day Years [...] ? DESTINEE JAMIL ? Accession #: ? [id number] ? : ? 1965 (Age: 48) ??F [...] and electronically signed by: ? [facility](ASCP) ? Report ??Date: 10/21/2013 09:42 HPV with Pap Test ? Date Ordered: ? 10/21/2013 ? Status: ?? Signed Out ?Date Complete: ? 10/23/2013 ? By: ??System Interface ? Date Reported: ? 10/23/2013 ? Interpretation RESULT: Negative for HPV. No E6 or E7 mRNA is detected from HPV types 16,18,31,33,35, 39,45,51,52,56,58, 59,66, and 68 by mortgage clerk mediated amplification. Comments Document reviewed and electronically signed by: ? System Interface ? Report date: 10/23/2013 By the signature above, the attending physician certifies that he/she has personally conducted a gross and/or microscopic examination of the described specimens and rendered or confirmed the above diagnosis. End of Report [facility] 10/12/2013 10/13/2013 us Remi Ponce MD PATHOLOGY ORDERABLES Final Resu lt [facility] [address] [place] [address] documented in this encounter Visit Diagnoses Not on filedocumented in this encounter Care Teams Supplier Quality Engineer Relationship Specialty Start Date End Date Venu Álvarez MD [address] [place] [phone] PCP - General 01/21/13 documented as of this encounter
--- OUTSIDE RECORDS SUMMARY | 2024-05-28 13:07 | XMS_ITS | Encounter Summary ---
Author Organization [facility] Address [address] [place] [address] Care Team Providers Care Vehicle Service Agent Name Role Phone Venu Álvarez MD Primary Care Provider [phone] Encounter Details Date Type Department Care Team (Late st Contact Info) Description 08/30/2016 Results Only [facility]- [facility]ISM [phone] Ofelia Granados MD [address] [place] [address] Social History Tobacco Use Types [...] ? DESTINEE JAMIL ? Accession #: ? [id number] ? : ? 1965 (Age: 50) ??F [...] and electronically signed by: ? Jud Flores [facility](ASCP) ? Report ??Date: 09/03/2016 14:15 HPV with Pap Test ? Date Ordered: ? 09/03/2016 ? Status: ?? Signed Out ?Date Complete: ? 09/06/2016 ? By: ??System Interface ? Date Reported: ? 09/06/2016 ? Interpretation RESULT: Negative for HPV. No E6 or E7 mRNA is detected from HPV types 16,18,31,33,35, 39,45,51,52,56,58, 59,66, and 68 by industrial tech instructor mediated amplification. Comments Document reviewed and electronically signed by: ? System Interface ? Report date: 09/06/2016 By the signature above, the attending physician certifies that he/she has personally conducted a gross and/or microscopic examination of the described specimens and rendered or confirmed the above diagnosis. End of Report [facility] 08/30/2016 08/31/2016 us Ofelia Granados MD PATHOLOGY ORDERABLES Final Result [facility] [address] [place] [address] documented in this encounter Visit Diagnoses Not on filedocumented in this encounter Care Teams Vehicle Service Agent Relationship Specialty Start Date End Date Venu Álvarez MD [address] [place] [id number] PCP - General 01/21/13 documented as of this encounter
--- OUTSIDE RECORDS SUMMARY | 2024-05-28 13:07 | XMS_ITS | Encounter Summary ---
Author Organization [facility] Address [address] [place] [address] Care Team Providers Care Graduate Assistant Athletic Trainer Name Role Phone Venu Álvarez MD Primary Care Provider [phone] Encounter Details Date Type Department Care Team (Late st Contact Info) Description 09/18/2021 Lab Requisition [facility] Pathology & Laboratory Medicine - [address] [address] Paty Centeno MD [address] [place] [phone] Encounter for other general examination Social History [...] types, PCR Negative Negative 09/27/2021 9:29 EDT [facility] Comment:No E6 or E7 mRNA is detected from HPV types 16,18,31,33,35,39,45,51,52,56,58,59,66, and 68 by furnace unloader mediated amplification. Papanicolaou smear specimen (specimen) CERVIX UTERI STRUCTURE / Unknown 2021 8:50 EDT 09/26/2021 9:14 EDT us Paty Centeno MD MICROBIOLOGY - GENERAL ORDERABLES Final Result [facility] [address] [place] [address] * PAP TEST (2021 8:50 EDT) Specimens A. Cervix and/or Endocervix , ThinPrep Imaging System with Manual Evaluation 09/27/2021 9:29 T [facility] Specimen Adequacy Satisfactory for Evaluation - transformation zone component present 09/27/2021 9:29 [facility] General Categorization Epithelial Cell Abnormality 09/27/2021 9:29 [facility] Descriptive Diagnosis Squamous Cell Abnormality - Low grade squamous intraepithelial lesion (LSIL). Shift in jose francisco present suggestive of bacterial vaginosis. 09/27/2021 9:29 [facility] Educational Comments [facility] recommends following ASCCP's 2012 Updated Consensus Guidelines for the Management of Abnormal Cervical Cancer Screening Tests and Cancer Precursors (JLGTD, 2013; 17(5):S1-S27). Consensus guidelines are available online at www.asccp.org. 09/27/2021 9:29 [facility] Attestation By the signature below, the attending physician certifies that they have personally conducted a gross and/or microscopic examination of the described specimens and rendered or confirmed the above diagnosis. 09/27/2021 9:29 [facility] at 0929 Clinical History SEE BELOW 09/28/19 9:29 [facility] HPV The result for the Human Papillomavirus (HPV) Detection-High Risk Types is Negative. No E6 or E7 mRNA is detected from HPV types 16,18,31,33,35,39 ,45,51,52,56,58,5 9,66, and 68 by furnace unloader mediated amplification.Sofy ting was performed on specimen [id number] and was resulted on 09/27/2021 0710 EDT by DARREN, LAB INSTRUMENT RESULTS IN 09/27/2021 9:29 EDT [facility] Performing Lab [facility] 09/27/2021 9:29 EDT [facility] Scanned Images 09/27/2021 9:29 EDT [facility] Papanicolaou smear specimen (specimen) CERVIX UTERI STRUCTURE / Unknown 2021 8:50 EDT 09/18/2021 13:52 EDT us Paty Centeno MD PATHOLOGY ORDERABLES Fi nal Result [facility] [address] [place] [address] documented in this encounter Visit Diagnoses Diagnosis Encounter for other general examination documented in this encounter Care Teams Graduate Assistant Athletic Trainer Relationship Specialty Start Date End Date Venu Álvarez MD [address] [place] [phone] PCP - General 01/21/13 documented as of this encounter
--- OUTSIDE RECORDS SUMMARY | 2024-05-28 13:07 | XMS_ITS | Encounter Summary ---
Author Organization [facility] Address [address] [place] [address] Care Team Providers Care Glazing Superintendent Name Role Phone Venu Álvarez MD Primary Care Provider [phone] Encounter Details Date Type Department Care Team (Late st Contact Info) Description 10/25/2016 Results Only [facility] [phone], [address] [place], [place] [id number] Social History Tobacco Use Types Packs/Day Years [...] ? DESTINEE JAMIL ? Accession #: ? [id number] ? : ? 1965 (Age: 51) ??F [...] cm). The margin is inked blue. Two advertising sales representative sections are submitted in 1. Also received in the same container is an irregular white-arreola skin that measures (2.2 x 0.3 x 0.2 cm). The margin is inked blue. Bisected and entirely submitted in 2. Miyola Carey 10/26/2016 11:45 AM End of Report [facility] 10/25/2016 9:19 EDT 10/26/2016 9:[address] DO PATHOLOGY ORDERABLES Fi nal Result [facility] [address] [place] [address] documented in this encounter Visit Diagnoses Not on filedocumented in this encounter Care Teams Glazing Superintendent Relationship Specialty Start Date End Date Venu Álvarez MD [address] [place] [phone] PCP - General 01/21/13 documented as of this encounter
--- OUTSIDE RECORDS SUMMARY | 2024-05-28 13:07 | XMS_ITS | Encounter Summary ---
Author Organization [facility] Address [address] [place] [address] Care Team Providers Care Medical Educator Name Role Phone Venu Álvarez MD Primary Care Provider [phone] Encounter Details Date Type Department Care Team (Latest Contact Info) Description 10/25/2016 9:54 EDT - 10/25/2016 23:59 EDT Hospital Encounter [address] [address] Unknown, Provider, MD Discharge Disposition: Home or [...] Code Departure Means Destination Home or Self Custodial documented in this encounter Plan of Treatment Not on file documented as of this encounter Visit Diagnoses Not on filedocumented in this encounter Care Teams Medical Educator Relationship Specialty Start Date End Date Venu Álvarez MD [address] [facility] [address] [place] [address] PCP - General 01/21/13 documented as of this encounter
--- OUTSIDE RECORDS SUMMARY | 2024-05-28 13:08 | XMS_ITS | Encounter Summary ---
[place] [address] Care Team Providers Care Medical Records Supervisor Name Role Phone Paty Centeno MD Primary Care Provider [phone] Reason for Referral * Consultation (Urgent) - [...] performed with: Any Endoscopist Paty Centeno MD [facility] [place] [address] [facility] [address] [place] [address] Referral ID Status Reason Start Date Expiration Date V isits Requested Visits Authorized [id number] Closed Consult, Test & Treat PCP Updated and/or Approved 02/02/2022 02/02/2023 6 6 Encounter Details Date Type Department Care Team (Late st Contact Info) Description 02/02/2022 Transcribe Orders eDH Incoming Referrals [phone] Paty Centeno MD [address] [place] [phone] Helicobacter pylori infection Social History Tobacco Use [...] pylori) documented in this encounter Care Teams Medical Records Supervisor Relationship Specialty Start Date End Date Paty Centeno MD [address] [place] [address] PCP - General Family Medicine 02/02/22 documented as of this encounter
--- OUTSIDE RECORDS SUMMARY | 2024-05-28 13:08 | XMS_ITS | Encounter Summary ---
[place] [address] Care Team Providers Care Venture Capital Analyst Name Role Phone Nieves Granados MD Primary Care Provider Encounter Details Date Type Department Care Team (Late st Contact Info) Description 12/28/2020 Telephone [place] [phone] Henrietta Verdin Social History Tobacco Use Types [...] her for [facility] to [facility] 03/16/21. 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 Letter sent. documented in this encounter Plan of Treatment Not on file documented as of this encounter Visit Diagnoses Not on filedocumented in this encounter Care Teams Venture Capital Analyst Relationship Specialty Start Date End Date Nieves Granados MD [address] [place] [address] PCP - General Family Medicine 08/11/20 02/01/22 documented as of this encounter
--- OUTSIDE RECORDS SUMMARY | 2024-05-28 13:08 | XMS_ITS | Encounter Summary ---
[place] [address] Care Team Providers Care Chamber Walker Name Role Phone Nieves Granados MD Primary Care Provider [phone]- [phone] Reason for Referral * Diagnostic Test (Emergency) - Closed Specialty Diagnoses / Procedures Referred By Contac t Referred To Contact Radiology Diagnoses Localized swelling, mass, or lump of left lower extremity Procedures CT Lower Extremity wo Contrast Left (Generic) Ijeoma Orozco MD [facility] [place] [address] [facility] [place] [address] Referral ID Status Reason Start Date Expiration Date V isits Requested Visits Authorized [id number] Closed Specialty Service Requested 09/08/2020 03/11/2022 1 1 Reason for Visit * Diagnostic Test (Emergency) - Closed Specialty Diagnoses / Procedures Referred By Contac t Referred To Contact Radiology Diagnoses Localized swelling, mass, or lump of left lower extremity Procedures CT Lower Extremity wo Contrast Left (Generic) Ijeoma Orozco MD [facility] [place] [address] [facility] [place] [address] Referral ID Status Reason Start Date Expiration Date V isits Requested Visits Authorized [id number] Closed Specialty Service Requested 09/08/2020 03/11/2022 1 1 Encounter Details Date Type Department Care Team (Latest Contact Info) Description 09/08/2020 3:11 PM EDT - 09/08/2020 11:59 PM EDT Hospital Encounter CT Scan at [facility] [place], operated [facility] [address] Ijeoma Orozco MD [facility] [place] [address] Localized swelling, mass, or lump of left [...] ? Electronically signed by: JYOTI ELLISON MD, [facility] ([phone]), at 09/08/2020 7:33 PM Narrative 09/08/2020 7:33 [...] participate in the care of this patient. Electronically signed by: JYOTI LELISON MD, [facility]([phone]), at 09/08/2020 7:33 PM Ijeoma Orozco MD IMG CT ORDERABLES documented in this encounter Visit Diagnoses Diagnosis Localized swelling, mass, or lump of left lower extremity documented in this encounter Care Teams Chamber Walker Relationship Specialty Start Date End Date Nieves Granados MD [address] [place] [address] PCP - General Family Medicine 08/11/20 02/01/22 documented as of this encounter
--- OUTSIDE RECORDS SUMMARY | 2024-05-28 13:08 | XMS_ITS | Encounter Summary ---
Author Organization [facility] Address [address] [place] [address] Care Team Providers Care Community Service Organization Director Name Role Phone Unavailable Primary Care Provider Unavailabl e Encounter Details Date Type Department Care Team (Latest Contact Info) Description 10/15/2005 13:27 EDT Hospital Encounter [facility] [address] [place] [address] Raj Wilson MD [address] [place] [address] Discharge Disposition: Auto Discharge Social History Tobacco [...] Visualized bones and soft tissues appear normal. /[facility] I have personally reviewed the images and [...] Visualized bones and soft tissues appear normal. /[facility] I have personally reviewed the images and the above interpretation and agree with the findings. us Raj Wilson MD IMG DIAGNOSTIC IMAGING ORDER LENKA Final Result documented in this encounter Visit Diagnoses Not on filedocumented in this encounter
--- OUTSIDE RECORDS SUMMARY | 2024-05-28 13:08 | XMS_ITS | Encounter Summary ---
[place] [address] Care Team Providers Care Home Health Care Respiratory Therapist Name Role Phone Nieves Granados MD Primary Care Provider [phone]- [phone] Encounter Details Date Type Department Care Team (Late st Contact Info) Description 03/09/2021 9:45 AM EDT Telephone Pre-Admission Testing at [facility] [address] [place] [address] Social History Tobacco Use Types Packs/Day Years [...] on filedocumented in this encounter Care Teams Home Health Care Respiratory Therapist Relationship Specialty Start Date End Date Nieves Granados MD [address] [place] [address] PCP - General Family Medicine 08/11/20 02/01/22 documented as of this encounter
--- OUTSIDE RECORDS SUMMARY | 2024-05-28 13:08 | XMS_ITS | Encounter Summary ---
Author Organization [facility] Address [address] [place] [address] Care Team Providers Care Dog And Cat Food Cook Name Role Phone Unavailable Primary Care Provider Unavailabl e Encounter Details Date Type Department Care Team (Late st Contact Info) Description 03/07/2005 Results Only [facility] [address] [place] [address] Jack Valle MD [address] [place] [address] Social History Tobacco Use Types [...] when reading/interpreti ng unformatted reports. Name: ? OMERO DESTINEE J ? Accession #: ? [id number] : ? 1965 (Age: 39) ??F ?Collect Date: ? 03/07/2005 Location: ? [facility] ? Receive Date: ? 03/09/2005 Provider: ?JACK VALLE MD Copy to: ? Specimen/Source: ?ThinPrep Pap Test, Cervix/Endocervix, processed on [employer] ThinPrep Imaging System, with manual evaluation Last [...] Final Resul t [facility] [address] [place] [address] documented in this encounter Visit Diagnoses Not on filedocumented in this encounter
--- OUTSIDE RECORDS SUMMARY | 2024-05-28 13:08 | XMS_ITS | Encounter Summary ---
Author Organization [facility] Address [address] [place] [address] Care Team Providers Care Mail Censor Name Role Phone Unavailable Primary Care Provider Unavailabl e Encounter Details Date Type Department Care Team (Latest Contact Info) Description 10/07/2005 15:20 EDT - 10/09/2005 11:59 EDT Hospital Encounter [facility] General Surgery Unit [address] [place] [address] Will Mari MD [address] [place] [address] WAY [facility] [address] [place] [address] Discharge Disposition: Home-Health Care Svc [...] OF PRESENT ILLNESS: The patient is a [id number] who had presented to an outside hospital [...] hydration, antibiotics, and was then transferred to [facility] for intervention to drain the left kidney. [...] JEFFERSON Pepe P - sb Job ID: [id number] Document ID: [id number] cc: MD Missy Lynn PA Samuel Trotter, [...] nephrostogram was performed. ??This demonstrates that the 8-[place] pigtail left-sided nephrostomy tube is in satisfactory position and functions within normal limits. ??The collecting system of the left kidney is well decompressed. ??However, a completely obstructing calculus is identified within the proximal left ureter. IMPRESSION: ??Satisfactory position and function of the 8-[place] Ver[place] pigtail left-sided nephrostomy tube. ??A completely obstructing calculus is present within the proximal left ureter. D: ??10/09/05 T: ??10/11/05/sb Procedure Note Chintan Robin MD, MD - 01/01/2009 OBSTRUCTION LEFT NEPHROSTOGRAM: 10/09/05, 09 HISTORY: Left-sided pyelonephritis with obstructing proximal left ureteral calculus. Please assess position and function of left-sided nephrostomy tube. DESCRIPTION: A left nephrostogram was performed. This demonstrates that the 8-[place] pigtail left-sided nephrostomy tube is in satisfactory position and functions within normal limits. The collecting system of the left kidney is well decompressed. However, a completely obstructing calculus is identified within the proximal left ureter. IMPRESSION: Satisfactory position and function of the 8-[place] pigtail left-sided nephrostomy tube. A completely obstructing calculus is present within the proximal left ureter. sb Will Mari MD IMG IR ORDERABLES Final Resu lt * ELECTROLYTES (10/08/2005 8:45 EDT) Pathologist [facility] [place] Sodium 136 136 - 145 mEq/L [facility] Potassium 4.1 3.5 - 5.0 mEq/L [facility] Chloride 105 96 - 110 mEq/L [facility] CO2 25 24 - 32 mEq/L [facility] 10/08/2005 8:45 EDT 10/08/2005 9:01 EDT Will Mari MD CHEMISTRY & BLOOD GAS ORDERA BLES Final Result [facility] [address] [place] [address] * CREATININE (10/08/2005 8:45 EDT) Creatinine 0.8 0.7 - 1.5 mg/dl [facility] 10/08/2005 8:45 EDT 10/08/2005 9:01 EDT us Will Mari MD HISTORICAL LAB FOR SQ LOAD F inal Result [facility] [address] [place] [address] * (ABNORMAL) HEMAGRAM AND DIFFERENTIAL (10/08/2005 8:45 EDT) Pathologist [facility] [place] WBC 11.12 4.0 - 12.4 K/cmm [facility] RBC 3.89 3.86 - 5.04 M/cmm [facility] Hemoglobin 11.4(L) 11.6 - 15.2 gm/dl [facility] HCT 33.6(L) 34.9 - 44.4 % [facility] MCV 86 81 - 98 fl [facility] MCH 29.3 26.7 - 33.3 pg [facility] MCHC 34.0 32.1 - 35.9 gm/dl [facility] PLT 188 141 - 320 K/cmm [facility] RDW-CV 12.7 11.7 - 14.6 % [...] ORDERAB LES Final Result Performing Organization Address [facility] Co de Phone Number [facility] [address] [place] [address] * (ABNORMAL) BUN (10/08/2005 8:45 EDT) BUN 7(L) 10 - 26 mg/dl [facility] 10/08/2005 8:45 EDT 10/08/2005 9:01 EDT Will Mari MD CHEMISTRY & BLOOD GAS ORDERA BLES Final Result Performing Organization Address [facility] de Phone Number [facility] [address] [place] [address] * (ABNORMAL) URINE MICROSCOPIC (10/08/2005 8:45 EDT) [...] URINALYSIS ORDERABLES Final Result Performing Organization Address [facility] Co de Phone Number [facility] [address] [place] [address] * (ABNORMAL) URINALYSIS (10/08/2005 8:45 EDT) Color, UA Yellow [facility] Clarity, UA Clear [facility] Glucose, UA Norm NORM [facility] Bilirubin, UA Neg NEG [facility] Ketones, UA Trace(A) NEG [facility] Specific [place], Urine 1.020 1.005 - 1.02 [facility] [...] URINALYSIS ORDERABLES Final Result Performing Organization Address City/State/[facility] Co de Phone Number [facility] [address] [place] [address] * IR PERCUTANEOUS ANTEGRADE PYELOGRAM (10/07/2005 21:50 [...] technique, the needle was exchanged for an 8-[place]an pigtail nephrostomy tube, which was advanced into the pelvis of the left kidney and secured into position. ??This tube will be maintained on bag (gravity) drainage. The patient tolerated the procedure well. ??No complication occurred. A postplacement left nephrostogram was performed, which documented an intraluminal, satisfactory position of the left-sided 8-[place]an pigtail nephrostomy tube. A follow-up nephrostogram has been scheduled for 10/09/05. IMPRESSION: ??Mild hydronephrosis of the left kidney, secondary to a partially obstructing small calculus located within the proximal left ureter. ??Successful placement of an 8-C[place] Ver[place]an pigtail left-sided nephrostomy tube, as described above. [...] technique, the needle was exchanged for an 8-[place] pigtail nephrostomy tube, which was advanced into the pelvis of the left kidney and secured into position. This tube will be maintained on bag (gravity) drainage. The patient tolerated the procedure well. No complication occurred. A postplacement left nephrostogram was performed, which documented an intraluminal, satisfactory position of the left-sided 8-[place] pigtail nephrostomy tube. A follow-up nephrostogram has been scheduled for 10/09/05. IMPRESSION: Mild hydronephrosis of the left kidney, secondary to a partially obstructing small calculus located within the proximal left ureter. Successful placement of an 8-[place] Verdean pigtail left-sided nephrostomy tube, as described above. /sb Will Mari MD IMG IR ORDERABLES Final Resu lt * BACTERIAL CULTURE/SMEAR, FLUID (10/07/2005 21:35 EDT) Specimen Description Fluid Kidney [facility] Gram Smear Result Few Polys No mononuclear cells seen. No bacteria seen [facility] Result No growth [facility] Report Status Final [id number] [facility] 10/07/2005 21:3 5 EDT 10/07/2005 22:17 EDT Will Mari MD MICROBIOLOGY - GENERAL ORDER LENKA Final Result [facility] [address] [place] [address] * CT RENAL COLIC (10/07/2005 18:11 EDT) [...] lt * PTT (10/07/2005 16:25 EDT) Pathologist [facility] [place] PTT 31 20 - 35 secs [facility] Comment:Therapeutic Heparin range: 70-105 seconds 10/07/2005 16:2 5 EDT 10/07/2005 17:00 EDT Will Mari MD HEMATOLOGY & PF4 ORDERABLES Final Result [facility] [address] [place] [address] * (ABNORMAL) PROTIME (10/07/2005 16:25 EDT) Pathologist [facility] Pro Time 16.5(H) 12.0 - 15.0 secs [facility] I.N.R. 1.3(H) 0.9 - 1.1 Ratio [facility] Comment: Moderate Intensity Coumadin INR = 2.0-3.0 Adjustments in anticoagulant therapy dose should be based upon the INR and NOT the Pro Time. 10/07/2005 16:2 5 EDT 10/07/2005 17:00 EDT Will Mari MD HEMATOLOGY & PF4 ORDERABLES Final Result Performing Organization Address [facility] de Phone Number [facility] [address] [place] [address] * ELECTROLYTES (10/07/2005 16:25 EDT) Sodium 136 136 - 145 mEq/L [facility] Potassium 3.7 3.5 - 5.0 mEq/L [facility] Chloride 105 96 - 110 mEq/L [facility] CO2 25 24 - 32 mEq/L [facility] 10/07/2005 16:2 5 EDT 10/07/2005 17:00 EDT Will Mari MD CHEMISTRY & BLOOD GAS ORDERA BLES Final Result Performing Organization Address [facility] de Phone Number [facility] [address] [place] [address] * CREATININE (10/07/2005 16:25 EDT) Creatinine 0.9 0.7 - 1.5 mg/dl [facility] 10/07/2005 16:2 5 EDT 10/07/2005 17:00 EDT Will Mari MD HISTORICAL LAB FOR SQ LOAD F inal Result Performing Organization Address [facility] de Phone Number [facility] [address] [place] [address] * (ABNORMAL) HEMAGRAM AND DIFFERENTIAL (10/07/2005 16:25 [...] ABS Lymphs 2.62 1.09 - 3.30 K/cmm [facility] ABS Monocytes 0.97(H) 0.1 - 0.8 K/cmm [facility] ABS Basophils 0.28(H) 0.01 - 0.11 K/cmm [facility] RBC Morphology [facility] Type of Diff: Manual [facility] 10/07/2005 16:2 5 EDT 10/07/2005 17:00 EDT us Will Mari MD PACKAGES & DNA PROBE ORDERAB LES Final Result [facility] [address] [place] [address] * (ABNORMAL) BUN (10/07/2005 16:25 EDT) BUN 7(L) 10 - 26 mg/dl [facility] 10/07/2005 16:2 5 EDT 10/07/2005 17:00 EDT us Will Mari MD CHEMISTRY & BLOOD GAS ORDERA BLES Final Result [facility] [address] [place] [address] documented in this encounter Visit Diagnoses Not on filedocumented in this encounter
--- OUTSIDE RECORDS SUMMARY | 2024-05-28 13:08 | XMS_ITS | Encounter Summary ---
Author Organization [facility] [address] [address] Care Team Providers Care Furnace Maintenance Name Role Phone Nieves Granados MD Primary Care Provider Encounter Details Date Type Department Care Team (Late st Contact Info) Description 10/31/2021 Ancillary Procedure Radiology Library at [facility] [place] [phone] Paty Centeno MD [address] [place], [place] [id number] Social History Tobacco Use Types Packs/Day Years [...] & Pelvis (10/31/2021 12:00 AM EDT) Narrative [facility] - 01/26/2022 6:41 AM EDT This exam is auto-finalizing. It's purpose is for storage only. Paty Centeno MD [facility] FILM LIBRARY ORD ERABLES [place], [place] documented in this encounter Visit Diagnoses Not on filedocumented in this encounter Care Teams Furnace Maintenance Relationship Specialty Start Date End Date Nieves Granados MD [address] [place] [address] PCP - General Family Medicine 08/11/20 02/01/22 documented as of this encounter
--- OUTSIDE RECORDS SUMMARY | 2024-05-28 13:08 | XMS_ITS | Encounter Summary ---
[place] [address] Care Team Providers Care Snorkelling Instructor Name Role Phone Nieves Granados MD Primary Care Provider [phone]- [phone] Reason for Referral * Diagnostic Test (Emergency) - Closed Specialty Diagnoses / Procedures Referred By Contac t Referred To Contact Radiology Diagnoses Localized swelling, mass, or lump of left lower extremity Procedures CT Lower Extremity wo Contrast Left (Generic) Ijeoma Orozco MD [facility] [place] [address] [facility] [place] [address] Referral ID Status Reason Start Date Expiration Date V isits Requested Visits Authorized [id number] Closed Specialty Service Requested 09/08/2020 03/11/2022 1 1 Reason for Visit * Consultation (Urgent) - Closed Specialty Diagnoses / Procedures Referred By Contac t Referred To Contact General Surgery Diagnoses Mass of left lower extremity Rachel Cha MD [facility] [place] [address] [facility] Gen Surgery [address] [place] [address] Referral ID Status Reason Start Date Expiration Date V isits Requested Visits Authorized [id number] Closed Consult, Test & Treat 09/07/2020 09/07/2021 1 1 Encounter Details Date Type Department Care Team (Late st Contact Info) Description 09/08/2020 11:00 AM EDT Office [place] [address] Ijeoma Orozco MD [facility] [place] [address] Localized swelling, mass, or lump of left [...] Gatherings with Friends and Family: ??? Attends Yarsanism Services: ??? Active Member of Clubs or [...] ? Electronically signed by: JYOTI ELLISON MD, [facility] ([phone]), at 09/08/2020 7:33 PM Narrative 09/08/2020 7:33 [...] of this patient. Electronically signed by: JYOTI ELLISON MD, [facility]([phone]), at 09/08/2020 7:33 PM Ijeoma Orozco MD IMG CT ORDERABLES documented in this encounter Visit Diagnoses Diagnosis Localized swelling, mass, or lump of left lower extremity Localized swelling, mass, or lump of left lower extremity documented in this encounter Care Teams Snorkelling Instructor Relationship Specialty Start Date End Date Nieves Granados MD [address] [place] [address] PCP - General Family Medicine 08/11/20 02/01/22 documented as of this encounter
--- OUTSIDE RECORDS SUMMARY | 2024-05-28 13:08 | XMS_ITS | Encounter Summary ---
[place] [address] Care Team Providers Care Innovations Paraprofessional Name Role Phone Paty Centeno MD Primary Care Provider + [phone] Encounter Details Date Type Department Care Team (Late st Contact Info) Description 03/06/2024 Telephone [facility] [place] [phone] Aletha Faith Social History Tobacco Use Types [...] Dr. Valderrama. Callback Ok to transfer to [place] documented in this encounter Plan of Treatment Not on file documented as of this encounter Visit Diagnoses Not on filedocumented in this encounter Care Teams Innovations Paraprofessional Relationship Specialty Start Date End Date Paty Centeno MD [address] [place] [address] [place] [address] PCP - General Family Medicine 02/02/22 documented as of this encounter
--- OUTSIDE RECORDS SUMMARY | 2024-05-28 13:08 | XMS_ITS | Encounter Summary ---
[place] [address] Care Team Providers Care Barge Loader Name Role Phone Nieves Granados MD Primary Care Provider [phone] Reason for Visit * Auth/Cert Specialty Diagnoses / Procedures Referred By Raquel huggins Referred To Contact Diagnoses left lower extremity mass Procedures PRO EXC SKIN BENIG 2.1-3CM TRUNK, ARM, LEG EXC BENIGN LESION, ALEX 2.1 TO 3.0CM, LEGS (WRVU 1.84) Referral ID Status Reason Start Date Expiration Date Visits Re quested Visits Authorized [id number] 1 1 Encounter Details Date Type Department Care Team (Late st Contact Info) Description 09/22/2020 7:27 AM EDT Anesthesia Event [place] [phone] Davon Akins MD [facility] DR [place] [address] Anesthesia Record Procedure Summary Procedure Name Responsible [...] 0645; median cubital vein (antecubital fossa), left; [id number] catheter system; Anatomical Landmarks; 20 gauge; Danisha [...] Procedure Summary Date: 09/22/20 Room / Location: [facility] OR [address] [place] [address] MAIN OR Anesthesia Start: 726 Anesthesia Stop: 826 Procedure: EXC BENIGN LESION, ALEX 2.1 TO 3.0CM, LEGS (WRVU 1.84) (Left Leg Lower) Diagnosis: (left lower extremity mass) Surgeons: Slava Escamilla MD Responsible Provider: Davon Akins MD Anesthesia Type: MAC ASA Status: 2 All Anesthesia Providers: Anesthesiologist: Davon Akins MD EXERCISE INSTRUCT: Deanna Almaguer CRNA Vitals Value Taken Time BP 96/68 09/22/20 0915 Temp 36.5 ??C (97.7 ??F) 09/22/20 0823 Pulse 71 09/22/20 0916 Resp 14 09/22/20 0916 SpO2 96 % 09/22/20 0916 Pain Level 2 09/22/20 0915 Vitals shown include unvalidated device data. Patient Location: PACU/[facility] Level of Consciousness: Awake and Alert Pain [...] limb Added automatically from request for surgery [id number] Past Medical History: Diagnosis Date ??? Gastric [...] risks discussed with patient. Plan discussed with EXERCISE INSTRUCT. PAT Clinic Note documented in this encounter [...] Discontinued, Administer over 30 Minutes, Please administer teaching music lessons to OR, Indication for (Active or Suspected): [...] /hr documented in this encounter Care Teams Barge Loader Relationship Specialty Start Date End Date Nieves Granados MD [address] [place] [address] [address] [place] [address] PCP - General Family Medicine 08/11/20 02/01/22 documented as of this encounter
--- OUTSIDE RECORDS SUMMARY | 2024-05-28 13:08 | XMS_ITS | Encounter Summary ---
[place] [address] Care Team Providers Care Pharmacy Technician Assistant Name Role Phone Nieves Granados MD Primary Care Provider [phone]- [phone] Reason for Visit * Auth/Cert Specialty Diagnoses / Procedures Referred By Raquel huggins Referred To Contact Diagnoses left lower extremity mass Procedures PRO EXC SKIN BENIG 2.1-3CM TRUNK, ARM, LEG EXC BENIGN LESION, ALEX 2.1 TO 3.0CM, LEGS (WRVU 1.84) Referral ID Status Reason Start Date Expiration Date Visits Re quested Visits Authorized [id number] 1 1 Encounter Details Date Type Department Care Team (Latest Contact Info) Description 09/22/2020 5:58 AM EDT - 09/22/2020 9:31 AM EDT Hospital Encounter [place] [id number] Slava Yeh MD [address] [place] [address] [place] [address] Discharge Disposition: Home Social History Tobacco Use [...] Escoto R - 09/22/2020 8:35 AM EDT [facility] Department of Surgery Discharge Instructions CALL [...] with the Surgery nurses. The number is [phone]. - During the night or weekends call the [facility] vertical lathe operator at [phone] and ask to speak to the surgery resident circulation worker for general surgery. Please note: Your surgeon may not be Head Of Strategy, especially during the night or on weekends, so be ready to describe yourself and your surgery when you call. Follow up appointments: No future appointments. [x] A request for a follow-up appointment has been made and you should receive information via phone/mail in the next week. If you do not hear anything, please call the clinic at [phone] to confirm or reschedule. If you need a prior authorization, please call the General Surgery Clinic nurses [phone] for prior authorizations assistance documented in this [...] out of department via wheelchair with SDP PANAMA HAT HYDRAULIC PRESS OPERATOR. * Daniela Escoto - 09/22/2020 8:40 AM EDT ID/MECHANISM OF INJURY: Sydnie Valenzuela is a 55 y.o. female S/p excision of LLE sebaceous cyst. Needs follow-up in 7-10 days for suture removal. OR CASE INFORMATION: 09/22/2020 Procedure(s): EXC BENIGN LESION, ALEX 2.1 TO 3.0CM, LEGS (WRVU 1.84) FOLLOW-UP NEEDED: Does pt need to f-u with surgeon or TECHNOLOGY SALES REPRESENTATIVE (please indicate reason if attending provider): TECHNOLOGY SALES REPRESENTATIVE What follow-up with TACS team is needed [...] Operative Note Patient Name: Sydnie Valenzuela : [id number] MR#: [id number] Case Date: 09/22/2020 Surgeon: Surgeon(s) and Role: [...] Daniela Escoto - 09/22/2020 7:51 AM EDT [facility] Operative Note Patient Name: Sydnie Valenzuela : [id number] MR#: [id number] Case Date: 09/22/2020 Surgeon: Surgeon(s) and Role: [...] Exc Skin Benig 2.1-3Cm Trunk, Arm, Leg ([id number]) 09/22/2020 7:25 AM EDT left lower extremity mass documented in this encounter Results * Specimen to Pathology (09/22/2020 7:58 AM EDT) AP Specimen 09/22/2020 7:58 AM EDT 09/22/2020 7:[address] [facility] - 09/22/2020 7:58 AM EDT Specimen requisition ordered. ??Separate Pathology report to follow Slava Yeh MD PATHOLOGY/CYTOLOGY O RDERABLES [facility] [place] [address] * Surgical Pathology Report (09/22/2020 7:57 AM EDT) Final Diagnosis [id number] ? Location: [facility]; [facility]; A The signing pathologist has (i) examined the relevant preparation(s) for the specimen(s) and (ii) rendered or confirmed the diagnosis(es). . ?Surgical Pathology DIAGNOSIS Skin, left lower extremity mass, excision: - ??Epidermal inclusion cyst, ruptured and inflamed Electronically signed by: ?Jose FUNES, Erik Lindsay Verified: ??09/27/2020 10:33 ??Dermatopatholo gist, Bone & Soft Tissue Pathologist Performed at: ??-[facility] Dept. of Pathology, [place], [place] SPECIMEN(S) SUBMITTED A - left calf cyst, excision (1) CLINICAL INFORMATION Left lower extremity mass SPECIMEN PROCESSING A - Labeled/Fixative : Left calf cyst, fresh. Quantity/Size: Two, shoe 0.5 x 0.9 x 0.3 cm (skin) and 2.0 x 1.5 x 1.4 cm (cyst). Tissue Description: Disrupted, opened, white cyst without contents and a detached ellipse of skin. Sections/Process ing: Director Of Convention Services sections in 3 cassettes as follows: ?A1: ??Director Of Convention Services skin ?A2-A3: ??Director Of Convention Services cyst ??sns 09/27/2020 10:[address] [facility] SPECIMEN FROM CYST / Unknown 09/22/2020 7:57 AM EDT 09/22/2020 7:57 AM EDT Slava Yeh MD PATHOLOGY/CYTOLOGY O RDERABLES [facility] [place] [address] documented in this encounter Visit Diagnoses Not [...] Discontinued, Administer over 30 Minutes, Please administer circulation worker to OR, Indication for (Active or Suspected): [...] Discontinued, Administer over 30 Minutes, Please administer circulation worker to OR, Indication for (Active or Suspected): [...] procedure) documented in this encounter Care Teams Pharmacy Technician Assistant Relationship Specialty Start Date End Date Nieves Granados MD [address] [place] [address] PCP - General Family Medicine 08/11/20 02/01/22 documented as of this encounter
--- OUTSIDE RECORDS SUMMARY | 2024-05-28 13:08 | XMS_ITS | Encounter Summary ---
Author Organization [facility] Address [address] [place] [address] Care Team Providers Care Rug Renovator Name Role Phone Unavailable Primary Care Provider Unavailabl e Encounter Details Date Type Department Care Team (Late st Contact Info) Description 01/19/[address] [facility] - [facility] conversion [address] [place] [address] John Ruiz MD [address] [place], [place] [id number] Social History Tobacco Use Types Packs/Day Years [...] ? DESTINEE JAMIL ? Accession #: ? [id number] : ? 1965 (Age: 37) ??F ?Collect [...] ORDERABLES Final Resul t [facility] [address] [place] [address] documented in this encounter Visit Diagnoses Not on filedocumented in this encounter
--- OUTSIDE RECORDS SUMMARY | 2024-05-28 13:08 | XMS_ITS | Encounter Summary ---
[place] [address] Care Team Providers Care Regulator Pin Inserter Name Role Phone Nieves Granados MD Primary Care Provider Encounter Details Date Type Department Care Team (Late st Contact Info) Description 08/11/2020 Telephone [place] [phone] Janet Guerrero Social History Tobacco Use Types [...] on filedocumented in this encounter Care Teams Regulator Pin Inserter Relationship Specialty Start Date End Date Nieves Granados MD [address] [place], [place] [id number] PCP - General Family Medicine 08/11/20 02/01/22 documented as of this encounter
--- OUTSIDE RECORDS SUMMARY | 2024-05-28 13:08 | XMS_ITS | Encounter Summary ---
Author Organization [facility] Address [address] [place] [address] Care Team Providers Care Security Investigator Name Role Phone Unavailable Primary Care Provider Unavailabl e Encounter Details Date Type Department Care Team (Late st Contact Info) Description 01/20/2004 Results Only [facility] - Maple conversion [address] [place] [address] Jack Valle MD [address] [place] [address] Social History Tobacco Use Types [...] ? DESTINEE JAMIL ? Accession #: ? [id number] : ? 1965 (Age: 38) ??F ?Collect [...] Final Resul t [facility] [address] [place] [address] documented in this encounter Visit Diagnoses Not on filedocumented in this encounter
--- OUTSIDE RECORDS SUMMARY | 2024-05-28 13:08 | XMS_ITS | Encounter Summary ---
Author Organization [facility] Address [facility] [address] Care Team Providers Care Mess Attendant Crew Name Role Phone Nieves Granados MD Primary Care Provider Encounter Details Date Type Department Care Team (Late st Contact Info) Description 04/27/2021 8:45 AM EST Office [place] [address] Rachel Cha MD [facility] [place] [address] Varicose veins of right lower extremity with [...] Granados MD REFERRING PROVIDER: Nieves Granados MD [address] [place] [address] [address] [place] [address] Operation: 03/16/2021 (Starla) - Right greater saphenous [...] surgery documented in this encounter Care Teams Mess Attendant Crew Relationship Specialty Start Date End Date Nieves Granados MD [address] [place] [address] PCP - General Family Medicine 08/11/20 02/01/22 documented as of this encounter
--- OUTSIDE RECORDS SUMMARY | 2024-05-28 13:08 | XMS_ITS | Encounter Summary ---
[place] [address] Care Team Providers Care Cut Off Saw Tender Metal Name Role Phone Nieves Granados MD Primary Care Provider [phone]- [phone] Encounter Details Date Type Department Care Team (Late st Contact Info) Description 09/22/2020 Telephone [place] [address] Viktoriya Tam Social History Tobacco Use Types [...] on filedocumented in this encounter Care Teams Cut Off Saw Tender Metal Relationship Specialty Start Date End Date Nieves Granados MD [address] [place] [address] PCP - General Family Medicine 2/25/21 8/18/22 documented as of this encounter
--- OUTSIDE RECORDS SUMMARY | 2024-05-28 13:08 | XMS_ITS | Encounter Summary ---
[place] [address] Care Team Providers Care Engineering Drawings Checker Name Role Phone Nieves Granados MD Primary Care Provider [phone] Reason for Referral * Consultation (Urgent) - Closed Specialty Diagnoses / Procedures Referred By Raquel huggins Referred To Contact General Surgery Diagnoses Mass of left lower extremity Rachel Cha MD [facility] [place] [address] [facility] [address] [place] [address] Referral ID Status Reason Start Date Expiration Date V isits Requested Visits Authorized [id number] Closed Consult, Test & Treat 09/07/2020 09/07/2021 1 1 Encounter Details Date Type Department Care Team (Latest Contact Info) Description 09/07/2020 3:30 PM EDT Office Visit [place] [address] Rachel Cha MD [facility] [place] [address] Mass of left lower extremity; [...] were not included. Section of Vascular Surgery [facility] [place] [address] OUTPATIENT VASCULAR SURGERY FOLLOW-UP SERVICE DATE: 09/07/2020 SERVICE TIME: 3:56 PM PRIMARY CARE PHYSICIAN: Nieves Granados MD REFERRING PROVIDER: Nieves Granados MD [address] [place] [address] [address] Consult requested for an opinion regarding the [...] disorder documented in this encounter Care Teams Engineering Drawings Checker Relationship Specialty Start Date End Date Nieves Granados MD [address] [place] [address] PCP - General Family Medicine 08/11/20 02/01/22 documented as of this encounter
--- OUTSIDE RECORDS SUMMARY | 2024-05-28 13:08 | XMS_ITS | Encounter Summary ---
Author Organization [facility] [place] [address] Care Team Providers Care Superintendent Renting Managing Name Role Phone Nieves Granados MD Primary Care Provider [phone]- [phone] Encounter Details Date Type Department Care Team (Late st Contact Info) Description 10/06/2020 8:30 AM EDT Office Visit [place] [address] Alysia Rosario, CUT OFF MACHINE OPERATOR [facility] [place] [address] Surgery follow-up Social History Tobacco Use Types [...] this encounter Progress Notes * Alysia Rosario, CUT OFF MACHINE OPERATOR - 10/06/2020 8:30 AM EDT Tona returns [...] surgery documented in this encounter Care Teams Superintendent Renting Managing Relationship Specialty Start Date End Date Nieves Granados MD [address] [facility] [address] [place] [address] PCP - General Family Medicine 08/11/20 02/01/22 documented as of this encounter
--- OUTSIDE RECORDS SUMMARY | 2024-05-28 13:08 | XMS_ITS | Encounter Summary ---
[place] [address] Care Team Providers Care Crabbing Machine Operator Name Role Phone Paty Centeno MD Primary Care Provider Encounter Details Date [...] on filedocumented in this encounter Care Teams Crabbing Machine Operator Relationship Specialty Start Date End Date Paty Centeno MD [address] [place] [place] [address] [address] [place], [place] [address] PCP - General Family Medicine 02/02/22 documented as of this encounter
--- OUTSIDE RECORDS SUMMARY | 2024-05-28 13:08 | XMS_ITS | Encounter Summary ---
Author Organization [facility] [place] [address] Care Team Providers Care Process Mold Technician Name Role Phone Paty Centeno MD Primary Care Provider [phone] Encounter Details Date Type Department Care Team (Late st Contact Info) Description 10/25/2022 Ancillary Procedure Radiology Library at [facility] [place] [phone] Paty Centeno MD [address] [place] [id number] Social History Tobacco Use Types Packs/Day Years [...] DX Spine (10/25/2022 12:00 AM EDT) Narrative [facility] - 09/26/2023 1:27 PM EDT This exam is auto-finalizing. It's purpose is for storage only. Paty Centeno MD [facility] FILM LIBRARY ORD ERABLES [place], [place] documented in this encounter Visit Diagnoses Not on filedocumented in this encounter Care Teams Process Mold Technician Relationship Specialty Start Date End Date Paty Centeno MD [address] [place] [address] PCP - General Family Medicine 02/02/22 documented as of this encounter
--- OUTSIDE RECORDS SUMMARY | 2024-05-28 13:08 | XMS_ITS | Encounter Summary ---
[place] [address] Care Team Providers Care Ultrasonic Cleaner Name Role Phone Nieves Granados MD Primary Care Provider [phone]- [phone] Encounter Details Date Type Department Care Team (Late st Contact Info) Description 08/11/2020 10:30 AM EST Tech [place] [address] Loreta Wang Varicose veins of both lower [...] Text Report Department: Vascular Surgery Lab Patient: [id number] (DESTINEE JAMIL) CPT: 94942 ICD10: I83.813;R22.42 Referring Physician: BC PORRAS, SCREEN PRINTER ?? Indications: left medial calf mass with [...] extremity documented in this encounter Care Teams Ultrasonic Cleaner Relationship Specialty Start Date End Date Nieves Granados MD [address] [place] [address] PCP - General Family Medicine 08/11/20 02/01/22 documented as of this encounter
--- OUTSIDE RECORDS SUMMARY | 2024-05-28 13:08 | XMS_ITS | Clinical Summary ---
[place] [address] Care Team Providers Care Warehouse Delivery Driver Name Role Phone Paty Centeno MD Primary Care Provider [phone] Allergies No known active allergies Medications Medication Sig Dispensed Refills Start Date End Date Status tiZANidine (Zanaflex) 4 mg tablet Take 1 tablet by mouth every 8 hours as needed. 30 tablet 3 01/30/2024 Active Active Problems Problem Noted Date Diagnosed Date Localized swelling, mass and lump, lower limb Overview (09/08/2020): Added automatically from request for surgery [id number] Encounters Date Type Department Care Team Description 03/06/2024 Telephone [facility] [place] [address] Aletha Faith from Last 3 Months Family [...] - Influenza standard series) 02/16/2024 Care Teams Warehouse Delivery Driver Relationship Specialty Start Date End Date Paty Centeno MD [address] [facility] [place] [address] PCP - General Family Medicine 02/02/22
--- OUTSIDE RECORDS SUMMARY | 2024-05-28 13:08 | XMS_ITS | Encounter Summary ---
[place] [address] Care Team Providers Care Brand Marketing Coordinator Name Role Phone Paty Centeno MD Primary Care Provider [phone] Encounter Details Date Type Department Care Team [...] on filedocumented in this encounter Care Teams Brand Marketing Coordinator Relationship Specialty Start Date End Date Paty Centeno MD [address] [place] [address] [address] [place], [place] [address] PCP - General Family Medicine 02/02/22 documented as of this encounter
--- OUTSIDE RECORDS SUMMARY | 2024-05-28 13:08 | XMS_ITS | Encounter Summary ---
[place] [address] Care Team Providers Care Wire Stitcher Name Role Phone Nieves Granados MD Primary Care Provider [phone] Reason for Visit * Consultation (Routine) - Closed Specialty Diagnoses / Procedures Referred By Raquel huggins Referred To Contact Vascular Surgery Diagnoses Asymptomatic varicose veins of unspecified lower extremity Procedures painful VV Vernell Coleman, DIRK [address] [place] [address] [facility] [address] [place] [address] Referral ID Status Reason Start Date Expiration Date V isits Requested Visits Authorized [id number] Closed Consult, Test & Treat 07/22/2020 07/22/2021 2 2 Encounter Details Date Type Department Care Team (Late st Contact Info) Description 08/11/2020 10:00 AM EST Office [place] [address] Bc Porras APRN [facility] [place] [address] Varicose veins of both lower [...] in this encounter Progress Notes * ChiquitaBc, MANUFACTURING TECHNOLOGIST - 08/11/2020 10:00 AM EST Consult requested [...] Text Report Department: Vascular Surgery Lab Patient: [id number] (DESTINEE JAMIL) CPT: 59192 ICD10: R22.42;I83.813;I65 .23 Referring Physician: BC PORRAS, [...] Text Report Department: Vascular Surgery Lab Patient: [id number] (DESTINEE JAMIL) CPT: 42561 ICD10: I83.813;R22.42 Referring Physician: BC PORRAS APRN [...] Text Report Department: Vascular Surgery Lab Patient: [id number] (DESTINEE JAMIL) CPT: 40698 ICD10: I83.813;R22.42 Referring Physician: BC PORRAS APRN [...] extremity documented in this encounter Care Teams Wire Stitcher Relationship Specialty Start Date End Date Nieves Granados MD [address] [place] [address] PCP - General Family Medicine 08/11/20 02/01/22 documented as of this encounter
--- OUTSIDE RECORDS SUMMARY | 2024-05-28 13:08 | XMS_ITS | Encounter Summary ---
Author Organization [facility] Address [address] [place] [address] Care Team Providers Care Surface Mount Technology Operator Name Role Phone Unavailable Primary Care Provider Unavailabl e Encounter Details Date Type Department Care Team (Late st Contact Info) Description 10/15/2005 Before PRISM Converted Visit (Maple) [facility] - Maple conversion [address] [place] [address] Raj Wilson MD [address] [place] [address] Social History Tobacco Use Types Packs/Day Years [...] 10/15/2005 Jeremias Marlow MD [address] [place] [address] Marlow: I saw Sydnie Valenzuela [...] P - hmm Job ID: Document ID: [id number] cc: MD Will Lynn MD documented in this encounter
--- OUTSIDE RECORDS SUMMARY | 2024-05-28 13:08 | XMS_ITS | Encounter Summary ---
Author Organization [facility] Address [address] [place] [address] Care Team Providers Care Mystery Shopper Name Role Phone Unavailable Primary Care Provider Unavailabl e Encounter Details Date Type Department Care Team (Late st Contact Info) Description 11/20/2001 Results Only [facility] - Maple conversion [address] [place] [address] Adelaida Ardon MD [address] [place] [address] [place] [address] Social History Tobacco Use Types Packs/Day Years [...] ? DESTINEE JAMIL ? Accession #: ? [id number] : ? 1965 (Age: 36) ??F ?Collect [...] ORDERABLES Final Resu lt [facility] [address] [place] [address] documented in this encounter Visit Diagnoses Not on filedocumented in this encounter
--- OUTSIDE RECORDS SUMMARY | 2024-05-28 13:08 | XMS_ITS | Encounter Summary ---
[place] [address] Care Team Providers Care Radiator Mechanic Name Role Phone Paty Centeno MD Primary Care Provider [phone] Encounter Details Date Type Department Care Team (Late st Contact Info) Description 02/23/2022 Telephone [place] [address] Crystal Vargas Social History Tobacco Use Types [...] on filedocumented in this encounter Care Teams Radiator Mechanic Relationship Specialty Start Date End Date Paty Centeno MD [address] [place], [place] [id number] PCP - General Family Medicine 02/02/22 documented as of this encounter
--- OUTSIDE RECORDS SUMMARY | 2024-05-28 13:08 | XMS_ITS | Encounter Summary ---
[place] [address] Care Team Providers Care Fiberglass Luggage Molder Name Role Phone Nieves Granados MD Primary Care Provider [phone] Reason for Visit * Auth/Cert Specialty Diagnoses / Procedures Referred By Raquel gonzalez Referred To Contact Diagnoses left lower extremity mass Procedures PRO EXC SKIN BENIG 2.1-3CM TRUNK, ARM, LEG EXC BENIGN LESION, ALEX 2.1 TO 3.0CM, LEGS (WRVU 1.84) Referral ID Status Reason Start Date Expiration Date Visits Re quested Visits Authorized [id number] 1 1 Encounter Details Date Type Department Care Team ([facility] st Contact Info) Description 09/22/2020 7:30 AM EDT - 09/22/2020 8:59 AM EDT [place] [phone] Slava Yeh MD [address] [place] [address] [place] [address] EXC BENIGN LESION, ALEX 2.1 TO 3.0CM, [...] Escoto Rahel - 09/22/2020 8:35 AM EDT [facility] Department of Surgery Discharge Instructions CALL YOUR [...] with the Surgery nurses. The number is [phone]. - During the night or weekends call the [facility] cable tower operator at [phone] and ask to speak to the surgery resident microarray operations vice president for general surgery. Please note: Your surgeon may not be Medical Sales, especially during the night or on weekends, so be ready to describe yourself and your surgery when you call. Follow up appointments: No future appointments. [x] A request for a follow-up appointment has been made and you should receive information via phone/mail in the next week. If you do not hear anything, please call the clinic at [phone] to confirm or reschedule. If you need a prior authorization, please call the General Surgery Clinic nurses [phone] for prior authorizations assistance documented in this [...] out of department via wheelchair with SDP RN BURN. * Daniela Escoto - 09/22/2020 8:40 AM EDT ID/MECHANISM OF INJURY: Sydnie Valenzuela is a 55 y.o. female S/p excision of LLE sebaceous cyst. Needs follow-up in 7-10 days for suture removal. OR CASE INFORMATION: 09/22/2020 Procedure(s): EXC BENIGN LESION, ALEX 2.1 TO 3.0CM, LEGS (WRVU 1.84) FOLLOW-UP NEEDED: Does pt need to f-u with surgeon or CAR WASHER (please indicate reason if attending provider): CAR WASHER What follow-up with TACS team is needed [...] Yeh MD - 09/22/2020 6:32 AM EDT [facility] General Surgery History and Physical [...] 3 mg, 0.3 mL, Subcutaneous, Once PRN, Davno Akins MD ??? lactated ringers infusion, 1,000 mL, Intravenous, Continuous, Telferner, Davon Gonzalez MD ??? ceFAZolin (Ancef) 2 [...] Operative Note Patient Name: Sydnie Valenzuela : [id number] MR#: [id number] Case Date: 09/22/2020 Surgeon: Surgeon(s) and Role: [...] Daniela Escoto - 09/22/2020 7:51 AM EDT [facility] Operative Note Patient Name: Sydnie Valenzuela : [id number] MR#: [id number] Case Date: 09/22/2020 Surgeon: Surgeon(s) and Role: [...] the entire procedure. Infection Bundle used? N/A Dnaiela Escoto MD PGY 5 General Surgery p3021 [...] Exc Skin Benig 2.1-3Cm Trunk, Arm, Leg (67800) 09/22/2020 7:25 AM EDT left lower extremity mass documented in this encounter Results * Specimen to Pathology (09/22/2020 7:58 AM EDT) AP Specimen 09/22/2020 7:58 AM EDT 09/22/2020 7:58 AM EDT Narrative [facility] - 09/22/2020 7:58 AM EDT Specimen requisition ordered. ??Separate Pathology report to follow Slava Yeh MD PATHOLOGY/CYTOLOGY O RDERABLES [facility] [place] [address] * Surgical Pathology Report (09/22/2020 7:57 AM EDT) Final Diagnosis [id number] ? Location: [facility]; [facility]; A The signing pathologist has (i) examined the relevant preparation(s) for the specimen(s) and (ii) rendered or confirmed the diagnosis(es). . ?Surgical Pathology DIAGNOSIS Skin, left lower extremity mass, excision: - ??Epidermal inclusion cyst, ruptured and inflamed Electronically signed by: ?Erik Garcia MD Verified: ??09/27/2020 10:33 ??Dermatopatholo gist, Bone & Soft Tissue Pathologist Performed at: ??-[facility] Dept. of Pathology, [place], [place] SPECIMEN(S) SUBMITTED A - left calf cyst, excision (1) CLINICAL INFORMATION Left lower extremity mass SPECIMEN PROCESSING A - Labeled/Fixative : Left calf cyst, fresh. Quantity/Size: Two, shoe 0.5 x 0.9 x 0.3 cm (skin) and 2.0 x 1.5 x 1.4 cm (cyst). Tissue Description: Disrupted, opened, white cyst without contents and a detached ellipse of skin. Sections/Process ing: Clock Smith sections in 3 cassettes as follows: ?A1: ??Clock Smith skin ?A2-A3: ??Clock Smith cyst ??sns 09/27/2020 10:33 AM EDT [facility] SPECIMEN FROM CYST / Unknown 09/22/2020 7:57 AM EDT 09/22/2020 7:57 AM EDT Slava Yeh MD PATHOLOGY/CYTOLOGY O RDERABLES [facility] [place] [address] documented in this encounter Visit Diagnoses Not [...] Discontinued, Administer over 30 Minutes, Please administer microarray operations vice president to OR, Indication for (Active or Suspected): [...] Discontinued, Administer over 30 Minutes, Please administer microarray operations vice president to OR, Indication for (Active or Suspected): [...] procedure) documented in this encounter Care Teams Fiberglass Luggage Molder Relationship Specialty Start Date End Date Nieves Granados MD [address] [place] [address] PCP - General Family Medicine 08/11/20 02/01/22 documented as of this encounter
--- OUTSIDE RECORDS SUMMARY | 2024-05-28 13:08 | XMS_ITS | Encounter Summary ---
[place] [address] Care Team Providers Care Boom Pump Operator Name Role Phone Nieves Granados MD Primary Care Provider Reason for Referral * Diagnostic Test (Routine) - Closed Specialty Diagnoses / Procedures Referred By Raquel huggins Referred To Contact Diagnoses Varicose veins of right lower extremity with pain Procedures Duplex for DVT, Leg, Olivia White APRN [facility] [place] [address] [facility] [address], [place] [address] Referral ID Status Reason Start Date Expiration Date V isits Requested Visits Authorized [id number] Closed Test Only 03/16/2021 03/16/2022 1 1 [...] Expiration Date Visits Re quested Visits Authorized [id number] 1 1 Encounter Details Date Type Department Care Team (Latest Contact Info) Description 03/16/2021 6:20 AM EDT - 03/16/2021 10:45 AM EDT Hospital Encounter Post Acute Care Unit at [facility] [place] [address] Rachel Cha MD [facility] [place] [address] Varicose veins of right lower extremity with [...] mailed to you. Please call our office ([phone]) if you do not receive the ultrasound appointment within 2 days or the clinic appointment within 10 days. For any questions or concerns please call [phone] documented in this encounter Medications at Time [...] 1.84) performed by Slava Escamilla MD at [facility] MAIN OR Functional Status: Lives at home, [...] Notes * Brief Op Note - Rachel Cah MD - 03/16/2021 9:26 AM EDT [facility] Brief Operative Note [facility] [address] [place] [address] Patient Name: Destinee Valenzuela : [id number] MR#: [id number] Case Date: 03/16/2021 Case Scheduled Time: 0730 [...] Cha MD - 03/16/2021 7:53 AM EDT [facility] [place] [address] Patient Name: Destinee Valenzuela : [id number] MR#: [id number] Case Date: 03/16/2021 Case Scheduled Time: 729 [...] access in the??greater??saphenous vein under ultrasound guidance.?A [place] wire was then inserted into the micropuncture needle, and the needle was exchanged for the dilator using Seldinger technique. ??The presence of wire in the??GSV was confirmed with ultrasound.??The [place] wire was removed and the Clarivein device was inserted into the dilator. ??Using ultrasound guidance, the??Clarivein device??was inserted under ultrasound guidance to??the??level of the??proximal??thigh. ??The??Clarivein??device had already been prepared according to gridcap machine operator instructions. ??The tip of the catheter was??confirmed several cm away and at??least??3 cm peripherally away from the ??sapheno- femoral??junction. ??Manual pressure was applied proximal??to??the device proximal to the device along the??GSV.?Clarivein device was thenused to??pharmacomechanically ablate??the??greater??saphenous vein through the??leg??according to gridcap machine operator instructions with??5cc of??3% sotradecol.?Ultrasound and manual [...] the duration of the operative session. The care assistant adequately prepped the operative site and maintained the best possible exposure of anatomy incident to the procedure. Rachel Cha MD 03/16/2021 documented in this encounter Plan of Treatment Not on file documented as of this encounter Procedures Procedure Name Priority Date/Time Associated Diagnosis Comments Phleb Veins - Extrem 20+ (02116) 03/16/2021 7:32 AM EDT symptomatic varicose veins ENDOVENOUS ABLATION THERAPY OF INCOMPETENT VEIN, EXTREMITY, FIRST VEIN (WRVU 5.3) 03/16/2021 7:32 AM EDT symptomatic varicose veins documented in this encounter Results * Duplex for DVT, Leg, Unilat (03/20/2021 11:01 AM EDT) VB Text Report Department: Vascular Surgery Lab Patient: [id number] (DESTINEE VALENZUELA) CPT: 38749 ICD10: I83.811 Referring Physician: OLIVIA ZAYAS ?? [...] 100 mL infusion (COMPLETED) 2 g, Intravenous, AIR CONDITIONING TECHNICIAN TO O.R., 1 dose, On Mirna 03/16/21 [...] MD) documented in this encounter Care Teams Boom Pump Operator Relationship Specialty Start Date End Date Nieves Granados MD [address] [place] [address] PCP - General Family Medicine 08/11/20 02/01/22 documented as of this encounter
--- OUTSIDE RECORDS SUMMARY | 2024-05-28 13:08 | XMS_ITS | Encounter Summary ---
Author Organization [facility] Ang[facility]lica [facility] [place] [address] Care Team Providers Care Neck Band Operator Name Role Phone Nieves Granados MD Primary Care Provider [phone] Reason for Visit * Auth/Cert Specialty Diagnoses [...] Expiration Date Visits Re quested Visits Authorized [id number] 1 1 Encounter Details Date Type Department Care Team (Late st Contact Info) Description 03/16/2021 7:33 AM EDT Anesthesia Event Operating Room 10 [place] [address] [place] [address] Jimmy Phipps CRNA Anesthesia Record Procedure Summary [...] 0650; metacarpal vein (top of hand), left; gflw-eli-bknaac catheter system; 20 gauge; es; distraction, tolerated [...] Procedure Summary Date: 03/16/21 Room / Location: [facility] OR MAIN OR Anesthesia Start: 732 [...] Pain Level 2 03/16/21 1043 Patient Location: PACU/[facility] Level of Consciousness: Awake and Alert [...] limb Added automatically from request for surgery [id number] Past Medical History: Diagnosis Date ??? Gastric ulcer Past Surgical History: Procedure Laterality Date ??? SECTION x3 ??? GALLBLADDER SURGERY ??? PRO EXC SKIN BENIG 2.1-3CM TRUNK, ARM, LEG Left 09/22/2020 EXC BENIGN LESION, ALEX 2.1 TO 3.0CM, LEGS (WRVU 1.84) performed by Slava Escamilla MD at [facility] MAIN OR Social History Tobacco Use [...] 5% 100 mL infusion 2 g, Intravenous, EDGE STRIPPER TO O.R., 1 dose, On Mirna 03/16/21 [...] mg documented in this encounter Care Teams Neck Band Operator Relationship Specialty Start Date End Date Nieves Granados MD [address] [place] [address] [address] [facility] [address] [place] [address] PCP - General Family Medicine 08/11/20 02/01/22 documented as of this encounter
--- OUTSIDE RECORDS SUMMARY | 2024-05-28 13:08 | XMS_ITS | Encounter Summary ---
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 injection Paty Centeno MD [address] [place] [address] [facility] [place] [address] Referral ID Status Reason Start Date Expiration Date V isits Requested Visits Authorized [id number] Closed Consult, Test & Treat PCP Updated and/or Approved 10/02/2023 10/01/2024 1 1 Encounter Details Date Type Department Care Team (Late st Contact Info) Description 01/30/2024 10:00 AM EDT Office Visit [facility] [place] [address] Luz Valderrama MD [facility] [place] [address] Chronic right-sided thoracic back pain Social History [...] from the original note were not included. [facility] Initial Consultation Note Name: Sydnie Valenzuela : 1965 Consulting Physician: Seeing at the request of Paty Centeno MD [address] [place] [address] Chief Complaint: Thoracic Back Pain History of Present Illness: Sydnie Valenzuela is a 58 y.o. female with a history of who presentswith right sided chronic mid thoracic back pain. Has been engaged in PT at [facility] over the last year with some improvement. 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 Went to Pain clinic at [facility] presumed dx based on patient report was thoracic radiculopathy with plan for TESI. No pain day of the procedure and sounds like she had a TESI -> unclear benefit due to lack of pain with local and no termite treater helper effect. She has tried Mobic, topicals, OTC [...] engaged in Physical therapy at [facility] within the last 6 months for a duration of 6 weeks or more.. A home exercise program is being performed as tolerated Other Treatment: Practice Assistant Helpful? No Ice/heat History of Interventional Procedures/Surgery: Prior Surgery: No Injection History (date, procedure, %improvement): None Chart review: Today I have reviewed available medical information in the patient's medical record at [facility] including relevant provider notes, laboratory work, and [...] care. Luz Valderrama MD [facility] Ecommerce Analyst of Anesthesiology [facility] [employer] [facility] [address] [address] / [facility] CC: Paty Centeno MD [facility] [place] [address] documented in this encounter Plan of Treatment Not on file documented as of this encounter Visit Diagnoses Diagnosis Chronic right-sided thoracic back pain documented in this encounter Care Teams Slip Feeder Relationship Specialty Start Date End Date Paty Centeno MD [address] [place] [address] PCP - General Family Medicine 02/02/22 documented as of this encounter
--- OUTSIDE RECORDS SUMMARY | 2024-05-28 13:08 | XMS_ITS | Encounter Summary ---
Author Organization [facility] Address [address] [place] [address] Care Team Providers Care Family Service Center Director Name Role Phone Unavailable Primary Care Provider Unavailabl e Encounter Details Date Type Department Care Team (Latest Contact Info) Description 10/19/2005 5:53 EDT - 10/19/2005 11:59 EDT Hospital Encounter [facility] Perioperative Services - [address] [id number] Raj Wilson MD [address] [place] [address] Discharge Disposition: Home or Self Care Social [...] PROCEDURE REPORT PT TYPE: OPPROC PT LOC: [id number] SERVICE DATE: 10/19/2005 SURGEON: Jeff Lee MDThomas L Jackson, MD GROUP PROGRAM MANAGER: PREOPERATIVE DIAGNOSIS: Left ureteral calculus. POSTOPERATIVE DIAGNOSIS: [...] of her follow-up visit. COMPLICATIONS: None. DRAINS: 10-Ethiopian left nephrostomy tube. Signed by Raj Wilson MD 12/03/2005 08:05 AThgricelda Wilson MDThgricelda Wilson MD Raj Wilson MD - Raj Wilson MD A - cs Job ID: [id number] Document ID: [id number] cc: MD Raj Lynn MD documented in [...]
--- OUTSIDE RECORDS SUMMARY | 2024-05-28 13:08 | XMS_ITS | Encounter Summary ---
Author Organization [facility] [place] [address] Care Team Providers Care Sales Operations Associate Name Role Phone Nieves Granados MD Primary Care Provider [phone] Reason for Visit * Auth/Cert Specialty Diagnoses [...] Expiration Date Visits Re quested Visits Authorized [id number] 1 1 Encounter Details Date Type Department Care Team (Late st Contact Info) Description 03/16/2021 7:30 AM EDT - 03/16/2021 10:06 AM EDT Surgery [place] [address] Rachel Cha MD [facility] [place] [address] ENDOVENOUS ABLATION THERAPY OF INCOMPETENT VEIN, EXTREMITY, [...] mailed to you. Please call our office ([phone]) if you do not receive the ultrasound appointment within 2 days or the clinic appointment within 10 days. For any questions or concerns please call [phone] documented in this encounter Medications at Time [...] this encounter H&P Notes * Olivia Zayas, MARKETING TEACHER - 03/16/2021 7:15 AM EDT Patient Name: [...] 1.84) performed by Slava Escamilla MD at [facility] MAIN OR Functional Status: Lives [...] Miscellaneous Notes * Brief Op Note - Racehl Cha MD - 03/16/2021 9:26 AM EDT [facility] Brief Operative Note [facility] [address] [place] [address] Patient Name: Destinee Valenzuela : [id number] MR#: [id number] Case Date: 03/16/2021 Case Scheduled Time: 729 [...] Cha MD - 03/16/2021 7:53 AM EDT [facility] Operative Note [facility] [address] [place] [address] Patient Name: Destinee Valenzuela : [id number] MR#: [id number] Case Date: 03/16/2021 Case Scheduled Time: 729 [...] access in the??greater??saphenous vein under ultrasound guidance.?A [place] wire was then inserted into the micropuncture needle, and the needle was exchanged for the dilator using Seldinger technique. ??The presence of wire in the??GSV was confirmed with ultrasound.??The [place] wire was removed and the Clarivein device was inserted into the dilator. ??Using ultrasound guidance, the??Clarivein device??was inserted under ultrasound guidance to??the??level of the??proximal??thigh. ??The??Clarivein??device had already been prepared according to photograph developer instructions. ??The tip of the catheter was??confirmed several cm away and at??least??3 cm peripherally away from the ??sapheno- femoral??junction. ??Manual pressure was applied proximal??to??the device proximal to the device along the??GSV.?Clarivein device was thenused to??pharmacomechanically ablate??the??greater??saphenous vein through the??leg??according to photograph developer instructions with??5cc of??3% sotradecol.?Ultrasound and manual pressure [...] the duration of the operative session. The public health assistant adequately prepped the operative site and maintained the best possible exposure of anatomy incident to the procedure. Rachel Cha MD 03/16/2021 documented in this encounter Plan of Treatment Not on file documented as of this encounter Procedures Procedure Name Priority Date/Time Associated Diagnosis Comments Phleb Veins - Extrem 20+ (85467) 03/16/2021 7:32 AM EDT symptomatic varicose veins ENDOVENOUS ABLATION THERAPY OF INCOMPETENT VEIN, EXTREMITY, FIRST VEIN (WRVU 5.3) 03/16/2021 7:32 AM EDT symptomatic varicose veins documented in this encounter Results * Duplex for DVT, Leg, Unilat (03/20/2021 11:01 AM EDT) VB Text Report Department: Vascular Surgery Lab Patient: [id number] (DESTINEE VALENZUELA) CPT: 75289 ICD10: I83.811 Referring Physician: OLIVIA ZAYAS ?? [...] 100 mL infusion (COMPLETED) 2 g, Intravenous, FLUE GAS ANALYST TO O.R., 1 dose, On Mirna 03/16/21 [...] MD) documented in this encounter Care Teams Sales Operations Associate Relationship Specialty Start Date End Date Nieves Granados MD [address] [place] [address] [address] PCP - General Family Medicine 08/11/20 02/01/22 documented as of this encounter
--- OUTSIDE RECORDS SUMMARY | 2024-05-28 13:08 | XMS_ITS | Encounter Summary ---
[place] [address] Care Team Providers Care Asphalt Distributor Operator Name Role Phone Nieves Granados MD Primary Care Provider [phone] Encounter Details Date Type Department Care Team (Late st Contact Info) Description 09/07/2020 12:30 PM EDT Tech [place] [phone] Jess Goddard Varicose veins of both lower [...] Text Report Department: Vascular Surgery Lab Patient: [id number] (DESTINEE JAMIL) CPT: 06204 ICD10: I83.813;R22.42 Referring Physician: EUN PORRAS APRN [...] Text Report Department: Vascular Surgery Lab Patient: [id number] (DESTINEE JAMIL) CPT: 50171 ICD10: R22.42;I83.813;I65 .23 Referring Physician: EUN PORRAS [...] extremity documented in this encounter Care Teams Asphalt Distributor Operator Relationship Specialty Start Date End Date Nieves Granados MD [address] [place] [address] PCP - General Family Medicine 08/11/20 02/01/22 documented as of this encounter
--- OUTSIDE RECORDS SUMMARY | 2024-05-28 13:08 | XMS_ITS | Encounter Summary ---
Author Organization [facility] [place] [address] Care Team Providers Care Warning Analyst Name Role Phone Paty Centeno MD Primary Care Provider [phone] Encounter Details Date Type Department Care Team (Late st Contact Info) Description 07/25/2023 Ancillary Procedure Radiology Library at [facility] [place] [phone] Paty Centeno MD [address] [place] [phone] Social History Tobacco Use Types Packs/Day Years [...] MR Spine (07/25/2023 12:00 AM EST) Narrative [facility] - 09/26/2023 1:26 PM EDT This exam is auto-finalizing. It's purpose is for storage only. Paty Centeno MD [facility] [place] [place] FILM LIBRARY ORD ERABLES [place], [place] documented in this encounter Visit Diagnoses Not on filedocumented in this encounter Care Teams Warning Analyst Relationship Specialty Start Date End Date Paty Centeno MD [address] [place] [address] PCP - General Family Medicine 02/02/22 documented as of this encounter
--- OUTSIDE RECORDS SUMMARY | 2024-05-28 13:08 | XMS_ITS | Encounter Summary ---
[place] [address] Care Team Providers Care Creel Cleaner Name Role Phone Nieves Granados MD Primary Care Provider Encounter Details Date Type Department Care Team (Late st Contact Info) Description 09/28/2020 Telephone [place] [address] Blanca Olvera Social History Tobacco Use Types [...] on filedocumented in this encounter Care Teams Creel Cleaner Relationship Specialty Start Date End Date Nieves Granados MD [address] [place], [place] [address]Y [facility] [address] [place] [address] PCP - General Family Medicine 08/11/20 02/01/22 documented as of this encounter
--- OUTSIDE RECORDS SUMMARY | 2024-05-28 13:08 | XMS_ITS | Encounter Summary ---
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
--- OUTSIDE RECORDS SUMMARY | 2024-05-28 13:08 | XMS_ITS | Encounter Summary ---
[place] [address] Care Team Providers Care Black Oxide Coating Equipment Tender Name Role Phone Nieves Granados MD Primary Care Provider [phone] Encounter Details Date Type Department Care Team (Late st Contact Info) Description 10/11/2020 Telephone [place] [id number] Henrietta Verdin Social History Tobacco Use Types [...] on filedocumented in this encounter Care Teams Black Oxide Coating Equipment Tender Relationship Specialty Start Date End Date Nieves Granados MD [address] [place] [address] [address] [place] [address] PCP - General Family Medicine 08/11/20 02/01/22 documented as of this encounter
--- OUTSIDE RECORDS SUMMARY | 2024-05-28 13:08 | XMS_ITS | Encounter Summary ---
[place] [address] Care Team Providers Care Vegetable Ii Farmworker Name Role Phone Nieves Granados MD Primary Care Provider Encounter Details Date Type Department Care Team (Late st Contact Info) Description 09/14/2020 Orders [place] [address] Margarette Farias RN Symptomatic varicose veins of [...] unspecified documented in this encounter Care Teams Vegetable Ii Farmworker Relationship Specialty Start Date End Date Nieves Granados MD [address] [place], [place] [phone] PCP - General Family Medicine 08/11/20 02/01/22 documented as of this encounter
--- OUTSIDE RECORDS SUMMARY | 2024-05-28 13:08 | XMS_ITS | Encounter Summary ---
[place] [address] Care Team Providers Care Shore Hand Dredge Or Barge Name Role Phone Nieves Granados MD Primary Care Provider [phone] Reason for Visit * Diagnostic Test (Routine) - Closed Specialty Diagnoses / Procedures Referred By Raquel huggins Referred To Contact Diagnoses Varicose veins of right lower extremity with pain Procedures Duplex for DVT, Leg, Unilat Olivia Zayas, SALES MANAGER [facility] [place] [address] [facility] [address] [place] [address] Referral ID Status Reason Start Date Expiration Date V isits Requested Visits Authorized [id number] Closed Test Only 03/16/2021 03/16/2022 1 1 Encounter Details Date Type Department Care Team (Late st Contact Info) Description 03/20/2021 11:30 AM EDT Tech [place] [address] John Amaya [place] Varicose veins [...] Text Report Department: Vascular Surgery Lab Patient: [id number] (DESTINEE VALENZUELA) CPT: 49262 ICD10: I83.811 Referring Physician: OLIVIA ZAYAS ?? [...] complications documented in this encounter Care Teams Shore Hand Dredge Or Barge Relationship Specialty Start Date End Date Nieves Granados MD [address] [place] [address] PCP - General Family Medicine 08/11/20 02/01/22 documented as of this encounter
[2024-05-28 13:13] LABS: ALT 38 U/L (14-59); AST 20 U/L (15-37); Albumin 4.4 g/dL (3.4-5.0); Alkaline Phosphatase 105 U/L (46-116); Anion Gap 7.7 mmol/L (3-11); BUN 15 mg/dL (7-18); Bilirubin, Total 0.44 mg/dL (0.2-1.0); CO2 30.3 mmol/L (21.0-32.0); CREATININE 0.9 mg/dL (0.55-1.02); Calcium 9.4 mg/dL (8.5-10.1); Chloride 105 mmol/L (98-107); Estimated GFR 74.57 (mL/min/1.73m2); Glucose 103 mg/dL (74-106); Potassium 3.9 mmol/L (3.5-5.1); Sodium 143 mmol/L (136-145); Total Protein 8.3 g/dL (6.4-8.2)
[2024-05-29 09:31] LABS: Cyclic Citrullinated Peptide <2.5 U/mL (<5.0)
[2024-05-29 10:19] LABS: HIV-1/2 Ag & Ab Screen Negative (Negative)
[2024-05-29 10:25] LABS: Hepatitis C Ab w Rflx HCV PCR Negative (Negative)
== END 2024-05-28 13:06 | disposition home or self-care (01) ==
LOC: LBO 13:05
PROVIDERS: PCP Family Medicine; Visit Provider Family Medicine
DX: M54.6 Pain in thoracic spine (principal); G89.29 Other chronic pain; R76.8 Other specified abnormal immunological findings in serum; Z11.59 Encounter for screening for other viral diseases; Z11.4 Encounter for screening for human immunodeficiency virus [HIV]; Z00.00 Encounter for general adult medical examination without abnormal findings
CPT/HCPCS: 36415; 80053; 86200; 86803; 87389

== ENCOUNTER 2024-07-16 02:26 | Outpatient (CLI) | payer MEDICAID, SELFPAY ==
--- NOTE | 2024-07-16 | DI.MRI_ITS ---
Exam(s) MR THORACIC SPINE WO EXAM: MR THORACIC SPINE WO CLINICAL HISTORY: Dorsalgia, M54.9; paresthesias, R20.2; not improved despite PT/chiropractic TECHNIQUE: Multiplanar multisequence MRI of the thoracic spine was performed without intravenous con trast. COMPARISON: MR MR THORACIC SPINE WO from 07/25/2023 FINDINGS: OSSEOUS: There are no acute nor chronic appearing thoracic vertebral fractures. Benign intraosseous h emangioma is noted in the posterior superior aspect of the T6 vertebral body. Another smaller benign intraosseous hemangioma is noted in the posterior half of T9 vertebral body. There are no ominous o sseous lesions in the thoracic vertebrae. THORACIC SPINAL CORD: There is no abnormal signal in the cervical spinal cord and no evidence of foca l cord atrophy nor focal cord swelling. There is no evidence of syringomyelia nor significant spinal cord dysraphism. There is no evidence of mass at the conus medullaris. The position of the conus me dullaris is at L1 level. SIGNIFICANT INDIVIDUAL LEVEL FINDINGS: T6-7: There is mild posterior annular bulging without a dominant disc herniation. This slightly impr esses the thecal sac but not the spinal cord. Central canal dimensions remain within normal limits. Also no foraminal stenosis at this level. T9-10: There is a small posterolateral left disc protrusion at this level which indents the anterior left thecal sac but not the spinal cord. Central canal dimensions are lower normal. The disc protru richa extends slightly into the floor of the exiting left neural foramen but there is no true left-lester ed foraminal stenosis. No exiting nerve compression evident. The opposite-exiting right neural fora men is widely patent. No significant facet arthropathy. T11-12: Anterior osseous lipping. Posteriorly there is no disc herniation or central canal stenosis. No foraminal stenosis. No significant facet arthropathy. PARASPINAL TISSUES: No significant masses nor fluid collections evident. IMPRESSION: 1. Small disc protrusions evident at T6-7 and T9-10 levels as described above. 2. No abnormal findings in the thoracic spinal cord nor at the level the conus medullaris. 3. Benign-appearing intraosseous hemangioma noted in the posterior aspects of T6 and T9 vertebral bod ies. DATA REPOSITORY:
--- NOTE | 2024-07-16 | DI.MRI_ITS ---
Exam(s) MR CERVICAL SPINE WO EXAM: MR CERVICAL SPINE WO CLINICAL HISTORY: Cervical spinal stenosis, M48.02; paresthesias, R20.2; dorsalgia, M54.9, TECHNIQUE: Multiplanar multisequence MRI of the cervical spine was performed without intravenous con trast. COMPARISON: No exams were available for comparison FINDINGS: BONES: Vertebral body heights are maintained. Intervertebral disc spaces are normal. Alignment is nor mal. Bone marrow signal intensity is within normal limits. CERVICAL CORD: Craniovertebral junction is unremarkable. The cervical cord is normal size and signal intensity. SOFT TISSUES: Unremarkable. C2-3: No disc herniation or bulge is identified. No significant central spinal canal or neural forami nal stenosis. C3-4: No disc herniation or bulge is identified. No significant central spinal canal or neural forami nal stenosis C4-5: No disc herniation or bulge is identified. No significant central spinal canal or neural forami nal stenosis C5-6: There is prominence of the osteophyte disc complex eccentric to the right. It extends into the right neural foramen causing marked right neural foraminal stenosis. No significant central spinal canal or left neural foraminal stenosis is present. C6-7: There is a small central disc herniation. No significant central spinal canal or neural forami nal stenosis C7-T1: No disc herniation or bulge is identified. No significant central spinal canal or neural beto inal stenosis IMPRESSION: 1. At C5-C6, there is prominence of the osteophyte disc complex eccentric to the right and extending into the right neural foramen causing marked right neural foraminal stenosis. 2. Small central disc herniation at C6-C7 but no central spinal canal or neural foraminal stenosis re sults. DATA REPOSITORY:
== END 2024-07-16 02:46 ==
LOC: DI 02:26
PROVIDERS: PCP Family Medicine; Visit Provider Nurse Practitioner Family
DX: M51.24 Other intervertebral disc displacement, thoracic region (principal); M48.02 Spinal stenosis, cervical region; M99.63 Osseous and subluxation stenosis of intervertebral foramina of lumbar region
CPT/HCPCS: 72141; 72146

== ENCOUNTER 2024-08-19 13:08 | Outpatient (REF) | payer MEDICAID, SELFPAY ==
--- NOTE | 2024-08-19 12:00 | PAPFT_PTH ---
PATIENT: Sydnie Valenzuela LOC: [facility]#:[id number] AGE/SX: 58/F ROOM: RE08/19/[address]: Paty Centeno : 1965 BED: DIS: 08/19/2024 SPEC #: [id number] RECD: 08/20/24 12:55 STATUS: GIA REBib #: [id number] GRECIA: 08/19/24 12:[address]: Paty Centeno DEPT: [facility] Cytology RECD BY: Yumiko Gupta Tissues: 1 - CX/ENDOCX FOR PAP SMEARS Procedures: PAP THIN PREP/UVM Screening HPV DNA PROBE Comments: [id number] (HPV 16 & 18/45)
== END 2024-08-19 13:09 | disposition home or self-care (01) ==
LOC: LBN 13:08
PROVIDERS: PCP Family Medicine; Visit Provider Family Medicine
DX: Z00.00 Encounter for general adult medical examination without abnormal findings (principal); M54.12 Radiculopathy, cervical region
CPT/HCPCS: 88142; 87624

== ENCOUNTER 2024-09-24 00:59 | Outpatient (CLI) | payer MEDICAID, SELFPAY ==
--- NOTE | 2024-09-24 07:00 | DI.MAMMO_ITS ---
Exam(s) MAMMO SCREENING EXAM: MAMMO SCREENING CLINICAL HISTORY: screening, Z12.39 TECHNIQUE: Mammograms were interpreted according to the usual protocol including computer analysis w [employer] CAD system, tomosynthesis and C-view imaging. COMPARISON: 2017 through 2021 FINDINGS: The breasts are composed of heterogeneously dense fibroglandular densities, Breast Density category C . No suspicious masses or suspicious microcalcifications are seen. No skin thickening or abnormal axillary lymph nodes are seen. There has been no significant change from prior exams. IMPRESSION: BI-RADS Category 1, Negative mammogram. Yearly screening mammography is recommended. Breast Density Category C, heterogeneously Dense. The mammogram demonstrates the patient's breast tissue is dense. Dense breast tissue is very common a nd is not abnormal but dense breast tissue can make it harder to find cancer on a mammogram. Also, de nse breast tissue may increase breast cancer risk. This information about the result of the mammogram report was provided to the patient to raise their awareness. Use this report when you speak with the patient about their risks for breast cancer, which includes their family history. At that time, you may recommend additional screening tests (Ultrasound or MRI) as they might be useful based on their r isk. A negative radiographic report should not delay biopsy if a dominant or clinically suspicious mass is present. Up to ten percent of cancers are not identified on mammography. A negative report may reinforce clinical impression. Adenosis and dense breasts may obscure an underlying neoplasm. False positive reports average 6 to 10%.
== END 2024-09-24 01:19 ==
LOC: DI 01:00
PROVIDERS: PCP Family Medicine; Visit Provider Family Medicine
DX: Z12.31 Encounter for screening mammogram for malignant neoplasm of breast (principal); R92.333 Mammographic heterogeneous density, bilateral breasts
CPT/HCPCS: 77063; 77067

== ENCOUNTER 2024-12-03 14:47 | Outpatient (CLI) | payer MEDICAID, SELFPAY ==
--- NOTE | 2024-12-03 14:45 | RT.EKG_ITS ---
APPROVED REPORT Exam: Resting ECG Reason for Exam: Pre-op visit Patient Location: O HR:80 bpm ECG Measurements Heart Rate 80 AXIS ID 132 P 65 QRSd 93 QRS 32 QT 376 T 32 QTc 434 Conclusion Sinus rhythm...normal P axis, V-rate 50- 99 Borderline T abnormalities, anterior leads...T flat or neg, V2-V4
== END 2024-12-03 14:48 | disposition home or self-care (01) ==
LOC: DI.CM 14:47
PROVIDERS: PCP Family Medicine; Visit Provider Nurse Practitioner Family
DX: Z71.89 Other specified counseling (principal)
CPT/HCPCS: 93010

== ENCOUNTER 2024-12-07 10:36 | Outpatient (CLI) | payer MEDICAID, SELFPAY ==
[2024-12-07 07:31] LABS: HCT 39.4 % (36.0-46.0); HGB 12.8 g/dL (11.2-15.7); MCHC 32.5 % (32.0-36.0); MCV 89 fL (80-95); MPV 9.1 fL (8.0-11.0); Platelet Count 235 10^3/uL (130-400); RBC 4.42 10^6/uL (3.93-5.22); RDW 12.3 % (11.7-14.6); RDW-SD 40.2 fL; WBC 7.02 10^3/uL (4.4-10.8)
[2024-12-07 07:46] LABS: Prothrombin Time 9.9 sec (9.1-11.1)
[2024-12-07 08:26] LABS: ALT 39 U/L (14-59); AST 17 U/L (15-37); Albumin 3.8 g/dL (3.4-5.0); Alkaline Phosphatase 86 U/L (46-116); Anion Gap 5.9 mmol/L (3-11); BUN 13 mg/dL (7-18); Bilirubin, Total 0.2 mg/dL (0.2-1.0); CO2 29.1 mmol/L (21.0-32.0); CREATININE 0.7 mg/dL (0.55-1.02); Calcium 8.6 mg/dL (8.5-10.1); Chloride 106 mmol/L (98-107); Estimated GFR 100.19 (mL/min/1.73m2); Glucose 111 mg/dL (74-106); Potassium 4.2 mmol/L (3.5-5.1); Sodium 141 mmol/L (136-145)
[2024-12-07 14:12] LABS: Bilirubin Negative (Negative); Blood Negative (Negative); Clarity Clear (Clear); Glucose Negative (Negative); Ketones Negative (Negative); Leukocyte Esterase Negative (Negative); Nitrite Positive (Negative); Urobilinogen 0.2 mg/dL (Up to 0.2); pH 5.5 (5-8)
[2024-12-07 14:31] LABS: Epithelial Cells Rare HPF (Negative); RBC Negative HPF (0-2); WBC 0-2 HPF (0-5)
[2024-12-07 14:32] LABS: Bacteria Many HPF (Negative); C & S Indicated? No; Casts Negative LPF (Negative); Crystals Negative HPF (Negative); Mucus Negative (Negative)
[2024-12-08 12:50] LABS: Lab Add On Test DONE
== END 2024-12-07 10:37 | disposition home or self-care (01) ==
LOC: LBO 10:39
PROVIDERS: PCP Family Medicine; Visit Provider Family Medicine
DX: Z01.818 Encounter for other preprocedural examination (principal)
CPT/HCPCS: 36415; 80053; 85027; 87077; 81003; 81015; 85610; 85730; 87086; 87186

== ENCOUNTER → 2025-04-15 03:47 | Outpatient (CLI) | payer MEDICAID, SELFPAY ==
--- NOTE | 2025-04-15 07:15 | DI.RAD_ITS ---
Exam(s) XR ABDOMEN FLAT PLATE EXAM: XR ABDOMEN FLAT PLATE CLINICAL HISTORY: stone monitoring,H/O RENAL CALCULI,Z87.442. TECHNIQUE: 2D digital imaging was performed. COMPARISON: CR XR ABDOMEN FLAT PLATE from 04/16/2024 FINDINGS: AP supine view the abdomen pelvis, compared to 04/16/2024. Again noted are surgical clips in right upper quadrant from prior cholecystectomy and a single clips again noted in the right iliac fossa which may be from prior appendectomy. Bowel gas pattern is nonspecific. No constipation. On today's study both kidneys are obscured by bowel gas, including the lower pole region of the left kidney which is the area which exhibit prior calculus on image March 2024. There are no radiopaque calculi seen along the course of the ureters. Small phlebolith in left side of the pelvis is again noted. IMPRESSION: Limited due to overlying bowel gas. See above DATA REPOSITORY: RADIATION DOSE DELIVERED:
== END ==
LOC: DI 03:47
PROVIDERS: PCP Family Medicine; Visit Provider Nurse Practitioner Gerontology
DX: Z87.442 Personal history of urinary calculi (principal); Z09 Encounter for follow-up examination after completed treatment for conditions other than malignant neoplasm
CPT/HCPCS: 74018